=== PATIENT | male | born 1960 | race Caucasian/White ===

== ENCOUNTER → 2018-03-29 | Outpatient (CLI) | payer OTHER ==
--- NOTE | 2018-03-29 09:11 | CT ---
EXAMINATION TYPE: CT chest w con DATE OF EXAM: 03/29/2018 COMPARISON: None HISTORY: 57-year-old male Solitary Pulmonary Nodule TECHNIQUE: Contiguous axial scanning of the chest after the administration of 100 ml mL of Isovue 300 . Coronal/sagittal reconstructions performed. CT DLP: 250.20mGycm. Automatic exposure control utilized for a dose reduction. FINDINGS: Heart is normal size without pericardial effusion. Aorta normal caliber with bovine configuration to the aortic arch. Incidental 3 pulmonary veins are n oted on the right. No thoracic lymphadenopathy. There is moderate to advanced emphysema greatest in the upper lungs. Some strandy atelectasis or scar ring at the lung bases but with a 1.2 cm spiculated density at the medial left upper lobe, axial imag e 13. Visualized upper abdomen shows rectus diastases and fat-containing ventral abdominal wall hernias, po ssibly incisional hernias. Correlate for prior surgery. Bones: No osseous destructive process. Endplate spondylosis mid to lower thoracic spine. IMPRESSION: 1. COPD with moderate to advanced emphysema particularly in the upper lungs. 2. 1.2 cm spiculated density medial left upper lobe. Small early lung cancer is not excluded. 3 month follow-up CT and/or PET CT recommended. 3. Visualized upper abdomen shows rectus diastases and omental fat-containing ventral hernias, possib le incisional hernias if there was prior surgery.
== END | disposition home or self-care (01) ==
LOC: RADCTMAIN 07:52
PROVIDERS: ATTEND Family Medicine
DX: J43.9 Emphysema, unspecified (principal)
CPT/HCPCS: 71260; Q9967

== ENCOUNTER → 2018-05-12 | Outpatient (CLI) | payer OTHER ==
--- NOTE | 2018-05-15 17:32 | PE ---
Nuclear medicine PET/CT HISTORY: Solitary pulmonary nodule, initial Patient received 12.7 mCi F-18 FDG intravenously in delayed scanning performed from the skull base to the mid thighs. Localization and attenuation correction CT scan performed. Correlation to CT chest 03/29/2018 Neck and chest: There is no evident cervical adenopathy. No mediastinal, axillary, or hilar adenopath y. Emphysema is extensive. Stellate density present at the apex on the left upper lobe is again noted measuring approximately 11 mm with pleural extension is, hypermetabolic uptake SUV of only 1.5. Smal l focus of uptake present along the skin posterior to the right shoulder shows only mild elevation, S UV 1.7 Abdomen pelvis: Possible small hiatal hernia. There is no evident adrenal mass. No suspicious hyperme tabolic uptake. No retroperitoneal adenopathy. High dense material present at the level of the head o f the pancreas. Urinary bladder shows a thickened which could be due to chronic outlet obstruction or possibly cystitis. Osseous structures are within normal limits. IMPRESSION: Hypermetabolic uptake is associated with the left upper lobe stellate mass as described. Additional focus at the skin posterior to the right shoulder, correlate clinically. Spleen is enlarge d. Splenomegaly. Additional nonspecific findings described above.
== END ==
LOC: RADPETMAIN 10:24
PROVIDERS: ATTEND Internal Medicine Pulmonary Disease
DX: R91.8 Other nonspecific abnormal finding of lung field (principal); R16.0 Hepatomegaly, not elsewhere classified; J43.9 Emphysema, unspecified
CPT/HCPCS: 78815; A9552

== ENCOUNTER → 2018-06-14 | Outpatient (CLI) | payer OTHER ==
[2018-06-14 10:11] LABS: Basophils % (A) 0 %; Eosinophils # (A) 0.1 k/uL (0-0.7); Eosinophils % (A) 1 %; HCT 43.3 % (39.0-53.0); HGB 13.7 gm/dL (13.0-17.5); Lymphocytes # (A) 0.6 k/uL (1.0-4.8); Lymphocytes % (A) 14 %; MCH 32.8 pg (25.0-35.0); MCHC 31.6 g/dL (31.0-37.0); MCV 103.9 fL (80.0-100.0); Macrocytosis Slight; Mean Platelet Volume 8.5; Monocytes # (A) 0.3 k/uL (0-1.0); Monocytes % (A) 7 %; Neutrophils # (A) 3.1 k/uL (1.3-7.7); Neutrophils % (A) 75 %; RBC 4.17 m/uL (4.30-5.90); RDW 11.7 % (11.5-15.5); WBC 4.2 k/uL (3.8-10.6)
[2018-06-14 10:13] LABS: Partial Thromboplastin Time 22.6 sec (22.0-30.0)
[2018-06-14 10:27] LABS: Anion Gap 10 mmol/L; Blood Urea Nitrogen 8 mg/dL (9-20); Carbon Dioxide 24 mmol/L (22-30); Chloride 101 mmol/L (98-107); Glucose 101 mg/dL (74-99); Magnesium 1.8 mg/dL (1.6-2.3); Sodium 135 mmol/L (137-145)
[2018-06-14 10:54] LABS: Platelet Count 63 k/uL (150-450)
[2018-06-14 13:51] LABS: Prothrombin Time 9.8 sec (9.0-12.0)
== END ==
LOC: LABPAT 09:28
PROVIDERS: ATTEND Thoracic Surgery (Cardiothoracic Vascular Surgery)
DX: Z01.812 Encounter for preprocedural laboratory examination (principal); R91.1 Solitary pulmonary nodule; E86.0 Dehydration
CPT/HCPCS: 36415; 80051; 82565; 82947; 83735; 84520; 85025; 85610; 85730

== ENCOUNTER 2018-06-25 06:13 | Day surgery (SDC) | payer OTHER ==
[2018-06-22 10:53] VITALS: BMI 25.2
[~2018-06-25 06:13] MED LIST: ALPRAZolam 0.25 MG TAB PO PRN; ALPRAZolam 0.5 MG TAB PO PRN; ASPIRIN 325 MG TAB PO STA; ATORVASTATIN 80 MG TAB PO STA; NITROGLYCERIN SL TABS 0.4 MG TAB SUBLINGUAL PRN; SODIUM CHLORIDE 0.9% 1,000 ML in EMPTY BAG 1 BAG IV ONE
[2018-06-25] MEDS ORDERED: SODIUM CHLORIDE 0.9% 1,000 ML IV ONE (07:05)
[2018-06-25 07:06] VITALS: TEMP 97.7
[2018-06-25] MEDS ORDERED: VERAPAMIL 2.5 MG/ML 2 ML AMP ONE (07:22)
[2018-06-25] MEDS ORDERED: MIDAZOLAM 2 MG/2 ML VIAL ONE ×2 (07:22→08:01)
[2018-06-25] MEDS ORDERED: HEPARIN SODIUM 1,000 UN/ML (10ML VL) ONE (07:23)
[2018-06-25] MEDS ORDERED: LIDOCAINE 1% INJ 10MG/ML (20 ML MDV) ONE (07:23)
[2018-06-25] MEDS ORDERED: MIDAZOLAM 2 MG/2 ML VIAL IV ONE ×3 (07:52→08:02)
[2018-06-25] MEDS ORDERED: LIDOCAINE 1% (PF) 10MG/ML VIAL SQ ONE (07:54)
[2018-06-25] MEDS ORDERED: VERAPAMIL SYRINGE (5 MG/10 ML) INTRAARTER ONE ×2 (07:55→08:07)
[2018-06-25] MEDS ORDERED: IOPAMIDOL-370 125ML BTL INJ ONE (08:03)
[2018-06-25] MEDS ORDERED: RX INFO: IV CONTRAST WAS GIVEN 1 EACH MISC MISCELLANE PRN (08:10)
[2018-06-25] MEDS ORDERED: SODIUM CHLORIDE 0.9% 1,000 ML IV SCH (08:15)
[2018-06-25 08:21] VITALS: RESP 16
--- NOTE | 2018-06-25 12:51 | CC ---
CARDIAC CATHETERIZATION REPORT DATE OF THE STUDY: 06/25/2018 PERFORMING PHYSICIAN: Juan Carlos Ferrera MD. PROCEDURE PERFORMED: 1. Selective right and left coronary angiogram. 2. Left heart catheterization. INDICATION: This is a pleasant 58-year-old gentleman who is a smoker who was diagnosed recently with a lung mass and he is going to undergo surgery. He underwent a myocardial perfusion imaging stress test and that showed that showed inferior ischemia. Because of that, a heart catheterization was advised. APPROACH: Right radial artery. COMPLICATION: None. LEVEL OF SEDATION: Moderate sedation length of 10 minutes. PROCEDURE DESCRIPTION: After obtaining an informed consent, the patient was brought to the cardiac brine room laborer. The right radial artery was cannulated using micropuncture technique and a micropuncture wire passed easily. Then I placed a 5-[place] Islander sheath in the right radial artery. After that, I did selective right and left coronary angiogram using JR4 and JL3.5 catheters. Left heart catheterization was performed using the JR4 which flipped into the LV then I did pullback across the aortic valve. The procedure was completed without any complication. LEFT CORONARY ANGIOGRAM: 1. The right coronary artery is a large caliber vessel. It is a dominant vessel. The RCA in the midportion by the bifurcation of the acute marginal branch has a lesion, appeared to be in the range of 50% to 60%. 2. The left main is angiographically normal, it bifurcates into left circumflex, ramus intermedius, and left anterior descending artery. 3. The left circumflex is a large caliber vessel. It is a nondominant vessel. It is angiographically normal. 4. The ramus intermedius is a large caliber vessel and also is angiographically normal. It bifurcates into 2 subbranches, both are angiographically normal. 5. The LAD: The LAD is angiographically normal. It gives rise into multiple small diagonal branches and they are angiographically normal. CONCLUSION: Intermediate disease involving the mid right coronary artery, appeared to be in the range of 50% to 60%.. POSTPROCEDURE MANAGEMENT: 1. Giving the disease in the mid RCA which is not critical, and in view of the thrombocytopenia, as well as in view of the absence of chest pain and chest discomfort, I do recommend maximized medical treatment and follow up with the patient. 2. I would continue following up with the patient after the surgery. MMODL / IJN: [id number] /
[2018-06-25 13:02] VITALS: BP 121/72; PULSE 69
--- NOTE | 2018-06-25 14:06 | LTR ---
Date of Service: 06/25/2018 RE: Bakari Sevilla Dear Dr. Bhatt; Bakari Sevilla was referred to me for further cardiac evaluation before lung surgery. He underwent a myocardial perfusion imaging stress test and that revealed inferior ischemia. Subsequently, the heart catheterization showed intermediate disease involving the mid right coronary artery, appeared to be in the range of 50% to 60%. I did recommend maximized medical treatment and follow up with him. I want to thank you for allowing me to participate in his care and please do not hesitate to call if you have any question or concern. Sincerely, Juan Carlos Ferrera MD MMMILADYSL / MATAN: [id number] /
== END 2018-06-25 13:02 | disposition home or self-care (01) ==
LOC: CATHCVL 06:13
PROVIDERS: ATTEND Internal Medicine Interventional Cardiology
DX: I25.110 Atherosclerotic heart disease of native coronary artery with unstable angina pectoris (principal); F17.200 Nicotine dependence, unspecified, uncomplicated; Z82.49 Family history of ischemic heart disease and other diseases of the circulatory system; Z79.899 Other long term (current) drug therapy
CPT/HCPCS: 93458; J2250; J2001; Q9967

== ENCOUNTER → 2018-07-03 | Outpatient (CLI) | payer OTHER ==
[2018-07-03 13:05] LABS: Basophils % (A) 1 %; Eosinophils # (A) 0.1 k/uL (0-0.7); Eosinophils % (A) 2 %; HCT 40.8 % (39.0-53.0); HGB 13.6 gm/dL (13.0-17.5); Lymphocytes # (A) 1.1 k/uL (1.0-4.8); Lymphocytes % (A) 21 %; MCH 33.2 pg (25.0-35.0); MCHC 33.4 g/dL (31.0-37.0); MCV 99.6 fL (80.0-100.0); Monocytes # (A) 0.4 k/uL (0-1.0); Monocytes % (A) 8 %; Neutrophils # (A) 3.5 k/uL (1.3-7.7); Neutrophils % (A) 66 %; RDW 12.2 % (11.5-15.5); WBC 5.4 k/uL (3.8-10.6)
[2018-07-03 13:09] LABS: Platelet Count 107 k/uL (150-450)
== END | disposition home or self-care (01) ==
LOC: LABPAT 11:10
PROVIDERS: ATTEND Thoracic Surgery (Cardiothoracic Vascular Surgery)
DX: Z01.812 Encounter for preprocedural laboratory examination (principal)
CPT/HCPCS: 36415; 85025

== ENCOUNTER 2018-07-06 07:48 | Inpatient (IN) | payer OTHER ==
[2018-06-29 15:26] VITALS: BMI 24.7
[~2018-07-06 07:48] MED LIST changes: -ALPRAZolam 0.25 MG TAB PO PRN; -ALPRAZolam 0.5 MG TAB PO PRN; -ASPIRIN 325 MG TAB PO STA; -ATORVASTATIN 80 MG TAB PO STA; +DEXAMETHASONE SOD PHOSPHATE 10 MG/ML 1 ML VIAL IV ONE; +MIDAZOLAM 2 MG/2 ML VIAL IV PRN; -NITROGLYCERIN SL TABS 0.4 MG TAB SUBLINGUAL PRN; +ONDANSETRON 4 MG/2 ML VIAL IVP ONE; +SCOPOLAMINE 1.5MG/72HR PATCH TRANSDERM ONE; -SODIUM CHLORIDE 0.9% 1,000 ML in EMPTY BAG 1 BAG IV ONE; +ceFAZolin IN SWFI 2 GM/20 ML SYRINGE IVP ONE; +fentaNYL (PF) 50 MCG/ML 2 ML AMP IV PRN
[2018-07-06] MEDS: LACTATED RINGERS 1,000 ML IV SCH (08:26)
[2018-07-06] MEDS ORDERED: LIDOCAINE 1% 20 ML VIAL (10MG/ML) FOR IV START INTRADERMA ONE (08:26)
[2018-07-06] MEDS ORDERED: NALOXONE 0.4 MG/ML 1 ML VIAL IV PRN (09:19)
[2018-07-06] MEDS ORDERED: LIDOCAINE 1% INJ 10MG/ML (20 ML MDV) ONE (10:18)
[2018-07-06] MEDS ORDERED: SUCCINYLCHOLINE CHLORIDE 100 MG/5 ML SYR IV ONE (10:18)
[2018-07-06] MEDS ORDERED: fentaNYL (PF) 50 MCG/ML 2 ML AMP ONE (10:18)
[2018-07-06] MEDS ORDERED: MIDAZOLAM 2 MG/2 ML VIAL ONE (10:18)
[2018-07-06] MEDS ORDERED: PROPOFOL 10 MG/ML 20 ML VIAL IV ONE (10:18)
[2018-07-06] MEDS ORDERED: HEPARIN SODIUM,PORCINE 10,000 UNIT/ML 1 ML VIAL ONE (10:18)
[2018-07-06] MEDS ORDERED: ROCURONIUM BROMIDE 10 MG/ML 10 ML VIAL IV ONE (10:18)
[2018-07-06] MEDS ORDERED: HYDROmorphone (PF) 1 MG/ML ONE (10:18)
[2018-07-06] MEDS ORDERED: PHENYLEPHRINE-0.9% NACL SYG 1 MG/10 ML SYRINGE ONE (10:18)
[2018-07-06] MEDS ORDERED: SODIUM CHLORIDE 0.9% IRRIG 1,000 ML BTL IRRIGATION ONE (10:18)
[2018-07-06] MEDS ORDERED: LABETALOL 5 MG/ML VIAL MDV ONE (10:18)
[2018-07-06] MEDS ORDERED: LACTATED RINGERS 1,000 ML IV ONE ×3 (11:05→12:23)
[2018-07-06] MEDS ORDERED: BUPIVACAINE (PF) 0.25% 30 ML VIAL SQ ONE (11:44)
[2018-07-06] MEDS: ROPIVACAINE 250 MG, fentaNYL (PF) 1,250 MCG in SODIUM CHLORIDE 0.9% 175 ML EPIDURAL PRN ×3 (13:54→14:53)
--- NOTE | 2018-07-06 13:56 | OP ---
OPERATIVE REPORT DATE OF THE OPERATION: 07/06/2018 ATTENDING SURGEON: Dr. Dani Issa. ASSIST: Mr. Bony DaoBELLA. PREOPERATIVE DIAGNOSIS: Left upper lobe lung mass. POSTOPERATIVE DIAGNOSIS: Left upper lobe lung mass. PROCEDURE: Left thoracotomy, wedge resection of left upper lobe mass, followed by left upper lobectomy, mediastinal lymph node dissection. ANESTHESIA: General. BLOOD LOSS: About 100 mL. SUMMARY: The patient brought to the operating, placed in supine position. From insertion of general tracheal anesthetic, placement of a double-lumen endotracheal tube under bronchoscopic vision, a complete bronchoscopy was performed which showed no endobronchial lesions present in either of the right or left mainstem or subsegmental bronchi. The patient was then positioned in the right lateral decubitus position exposing the left chest. The left chest was then prepped and draped in normal sterile fashion using Betadine paint and sterile towels. A posterior lateral thoracotomy incision was made. The latissimus was divided. The serratus was spared. Entrance was made into the fourth intercostal space. The left lung was deflated. Upon palpation, there was palpably about a 1 cm nodule in the left upper lobe. A wedge resection nodule was taken and sent to pathology. 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 At this point, the fissure was divided. The pulmonary artery branches to the left upper lobe were isolated, doubly ligated proximally, singly ligated distally and divided. The big apical anterior trunk of the pulmonary artery was isolated. A TA 30 vascular stapler was fired across the base and the distal end was suture ligated and it was also divided. At this point, both fissures were then divided using the ANTONIO 60 stapling device with the built-in SeamGuard. Next, the bronchus to the left upper lobe was isolated. A TA 30 4.8 mm staple stapler was fired across the base and the bronchus was divided. At this point, before dividing it, the lung was inflated and the lower lobe inflated without any difficulty. The stump was tested against 40 mmHg pressure and there was no bronchial leak At this point, lastly, the superior pulmonary vein was isolated using a TA 30 vascular stapling device was fired towards the heart and tied distally and it was then divided. The specimen was sent to pathology. Hemostasis was maintained. At this point, lymph nodes were then dissected from the AP window as well as the inferior pulmonary ligament region. The inferior pulmonary ligament was also frayed to allow full expansion of the lung. Two chest tubes were placed, #32-Divehi anterior and posterior and brought out through separate stab incisions. The ribs were reapproximated using #1 Vicryl pericostal sutures. Muscle using running 0 Vicryl suture. Skin subcutaneous tissue and fascia closed in 3 layers. No complications. Patient tolerated the procedure well, was extubated and taken to the recovery room in ICU in critical but stable condition. MMODL / IJN: [id number] /
[2018-07-06] MEDS ORDERED: ACETAMINOPHEN SUPPOSITORY 650 MG SUPP RECTAL PRN (13:59)
[2018-07-06] MEDS ORDERED: IPRATROPIUM-ALBUTEROL 3 ML NEB IH PRN (13:59)
[2018-07-06] MEDS ORDERED: ONDANSETRON 4 MG/2 ML VIAL IVP PRN (13:59)
[2018-07-06] MEDS ORDERED: BISACODYL 10 MG SUPP RECTAL PRN (13:59)
[2018-07-06] MEDS ORDERED: DEXTROSE 5%-0.45% NACL 1,000 ML IV SCH (14:00)
[2018-07-06] MEDS: KETOROLAC 30 MG/ML 1 ML VIAL IVP SCH ×2 (14:44→17:59)
--- NOTE | 2018-07-06 15:06 | XR ---
EXAMINATION TYPE: XR chest 1V DATE OF EXAM: 07/06/2018 HISTORY: Postoperative left upper lobectomy. COMPARISON: None. TECHNIQUE: Single view of the chest is submitted. FINDINGS: Findings of left upper lobectomy with 2 left-sided chest tubes in place. No evidence for sizable pneu mothorax at this time. Mild elevation left hemidiaphragm. Strandy density right medial lung base. The heart is stable. Hilar and mediastinal structures are unremarkable. Degenerative changes are seen of the dorsal spine. IMPRESSION: 1. Postoperative changes as noted.
--- NOTE | 2018-07-06 15:53 | P.CNPUL ---
History of Present Illness Consult date: 07/06/18 Requesting physician: Dani Issa Reason for consult: lung mass Chief complaint: Left upper lobe lung mass, s/p left thoracotomy, wedge resection. History of present illness: This is a 58-year-old white male patient of Dr. Issa, with history of left upper lobe lung mass, who underwent left thoracotomy, wedge resection of left upper lobe mass, followed by left upper lobectomy, mediastinal lymph node dissection today on 07/06/2018. Patient was first found to have a small nodule in the left upper lung in 2015, in [place]. Patient subsequently moved to [place] became established with Dr. Bhatt as his primary care physician, and Dr. Sagastume ready for home in her care. PET scan on on 05/12/2018 showed a low- level uptake in his left upper lobe lesion with SUV of 1.5. The lesion was noted to be 1.1 cm with possible pleural extension. No other areas suspicious for metastasis were noted. There was splenomegaly noted on the PET scan. She is medical history is positive for COPD, long-standing history of heavy alcohol abuse with chronic alcoholic liver disease, nicotine dependence, Crohn's disease , with history of bowel perforation and bowel resection. Patient was evaluated by cardiology as, he had undergone heart catheterization, and was found to have intermediate disease involving the mid RCA in the range of 50-60%. Preop PFT not available to us at this time. Patient states he is on inhalers but she does not remember what type, and he had not been taken them. Patient is a 43- pack-year smoker. Patient was noted to have thrombocytopenia in the preoperative period in the range of 63,000, this was likely related to his history of daily EtOH use. Today's lab work showed FVC of 5.4, hemoglobin 13.6 , platelet count is 107. Patient is seen in the intensive care unit in the postoperative period, is having moderate to severe pain in his back, currently on epidural infusion at 10 ML per hour of ropivacaine and fentanyl. Review of Systems Respiratory: Reports dyspnea Past Medical History Past Medical History: COPD, Osteoarthritis (OA) Additional Past Medical History / Comment(s): "spot on left lung", crohns, SOB, hx "problem with decreased liver function-ok now", hx ruptured intestine from bowel obstructions, back pain History of Any Multi-Drug Resistant Organisms: None Reported Past Surgical History: Back Surgery, Bowel Resection, Heart Catheterization, Orthopedic Surgery, Tonsillectomy Additional Past Surgical History / Comment(s): colonoscopy, fx ric little fingers(pins), Past Anesthesia/Blood Transfusion Reactions: No Reported Reaction Past Psychological History: No Psychological Hx Reported Smoking Status: Current every day smoker Past Alcohol Use History: Daily Additional Past Alcohol Use History / Comment(s): trying to quit, on chantix, was up to 2 PPD-DOWN TO 1 PPD, started smoking age 15. DRINKS 12 PACK BEER DAILY Past Drug Use History: Marijuana Additional Drug Use History / Comment(s): rare marijuana - Past Family History Father Family Medical History: Cancer Additional Family Medical History / Comment(s): lung cancer Daughter(s) Family Medical History: Cancer Additional Family Medical History / Comment(s): breast cancer Medications and Allergies Home Medications Medication Instructions Recorded Confirmed Type Varenicline Tartrate [Chantix 1 mg PO BID 06/13/18 07/06/18 History Continuing Pack] Aspirin [Adult Low Dose Aspirin EC] 81 mg PO DAILY 06/29/18 07/06/18 History Atorvastatin [Lipitor] 40 mg PO DAILY 06/29/18 07/06/18 History Allergies Allergy/AdvReac Type Severity Reaction Status Date / Time morphine Allergy Unknown Verified 06/29/18 15:27 Sulfa (Sulfonamide Allergy Unknown Verified 06/29/18 15:14 Antibiotics) Physical Exam Vitals: Vital Signs Temp Pulse Pulse Resp BP Pulse Ox 07/06/18 14:50 78 18 121/65 98 07/06/18 14:35 78 18 127/72 100 07/06/18 14:20 81 18 125/69 99 07/06/18 14:05 88 18 134/70 100 07/06/18 13:50 97.9 F 84 16 140/82 100 07/06/18 08:11 96.8 F L 125 H 18 175/80 96 Intake and Output 07/06/18 07/06/18 07/06/18 06:59 14:59 22:59 Intake Total 2625 Output Total 300 Balance 2325 Intake: IV 2625 Output: Urine 200 Estimated Blood Loss 100 GENERAL EXAM: Alert, pleasant 58-year-old white male, thin, disheveled, in moderate to severe amount of pain in his back. he has an epidural catheter inserted, currently on ropivacaine and fentanyl at 10 ML per hour HEAD: Normocephalic/atraumatic. EYES: Normal reaction of pupils, equal size. Conjunctiva pink, sclera white. NOSE: Clear with pink turbinates. THROAT: No erythema or exudates. NECK: No masses, no JVD, no thyroid enlargement, no adenopathy. CHEST: No chest wall deformity. Symmetrical expansion. There are 2 chest tubes present to continuous wall suction in the left chest small amount of serosanguineous drainage in the Pleur-evac, there is a small air leak noted in the chest tubes LUNGS: Equal air entry with crackles over left lower lobe, wheeze, rhonchi or dullness. CVS: Regular rate and rhythm, normal S1 and S2, no gallops, no murmurs, no rubs ABDOMEN: Soft, nontender. No hepatosplenomegaly, normal bowel sounds, no guarding or rigidity. EXTREMITIES: No clubbing, no edema, no cyanosis, 2+ pulses and upper and lower extremities. MUSCULOSKELETAL: Muscle strength and tone normal. SPINE: No scoliosis or deformity SKIN: No rashes CENTRAL NERVOUS SYSTEM: Alert and oriented -3. No focal deficits, tone is normal in all 4 extremities. PSYCHIATRIC: Alert and oriented -3. Appropriate affect. Intact judgment and insight. Results - Diagnostic Findings Chest x-ray: report reviewed, image reviewed Assessment and Plan Plan: Assessment: #1. Left upper lobe lung mass, with hypermetabolic uptake on the PET scan, but no evidence of metastatic disease, status post left thoracotomy, with wedge resection of left upper lobe mass, followed by left upper lobectomy, mediastinal lymph node dissection, postop day 0 #2. Thrombocytopenia, related to heavy EtOH use #3. COPD #4. Chronic and ongoing nicotine dependence, 12-iamr-vrbn smoker #5. Splenomegaly #6. History of abnormal stress test, and left heart catheterization which revealed intermediate disease involving the mid RCA #7. Hx of Crohn's disease with previous history of bowel obstruction, perforation, and bowel resection Plan: Patient will be admitted to the intensive care unit, maintain pain control, deep breathing and coughing, incentive spirometry use, daily chest x-rays. Postop chest x-ray has been reviewed by Dr. Bustamante, and showed no evidence of sizable pneumothorax, mild elevation of the left hemidiaphragm, strandy density at the right medial lung base. Continue monitoring closely for any signs of DTs. We'll start CIWA protocol. Continue with DuoNeb nebulized treatments Monitor chest tube output, hemodynamic status. Daily labs, CBC, BMP. We'll continue to closely follow I performed a history & physical examination of the patient and discussed their management with my nurse practitioner, Richa Crawford. I reviewed the nurse practitioner's note and agree with the documented findings and plan of care. Lung sounds are diminished breath sounds, with scattered crackles over left lung. The findings and the impression was discussed with the patient. I attest to the documentation by the nurse practitioner. Time with Patient: Greater than 30
[2018-07-06 15:56] LABS: Glucose,Whole Blood 118 mg/dL (75-99)
[2018-07-06 16:16] LABS: Anion Gap 9 mmol/L; Blood Urea Nitrogen 10 mg/dL (9-20); Calcium 8.3 mg/dL (8.4-10.2); Carbon Dioxide 21 mmol/L (22-30); Chloride 105 mmol/L (98-107); Glucose 125 mg/dL (74-99); Potassium 4.6 mmol/L (3.5-5.1); Sodium 135 mmol/L (137-145)
[2018-07-06 16:25] LABS: Basophils % (A) 0 %; Eosinophils % (A) 0 %; HCT 41.1 % (39.0-53.0); HGB 12.8 gm/dL (13.0-17.5); Lymphocytes # (A) 0.3 k/uL (1.0-4.8); Lymphocytes % (A) 6 %; MCHC 31.2 g/dL (31.0-37.0); Macrocytosis Slight; Mean Platelet Volume 7.9; Monocytes # (A) 0.3 k/uL (0-1.0); Monocytes % (A) 5 %; Neutrophils # (A) 5.4 k/uL (1.3-7.7); Neutrophils % (A) 88 %; RBC 3.88 m/uL (4.30-5.90); RDW 12.1 % (11.5-15.5); WBC 6.1 k/uL (3.8-10.6)
[2018-07-06 16:26] LABS: Platelet Count 63 k/uL (150-450)
[2018-07-06] MEDS: IPRATROPIUM-ALBUTEROL 3 ML NEB IH SCH ×2 (16:35→20:53)
[2018-07-06] MEDS: HEPARIN SODIUM,PORCINE 5,000 UNIT/ML 1 ML VIAL SQ SCH (17:43)
[2018-07-06] MEDS: ceFAZolin IN SWFI 2 GM/20 ML SYRINGE IVP SCH (17:43)
[2018-07-06] MEDS: ACETAMINOPHEN IV (For NPO) 1,000 MG in EMPTY BAG 1 BAG IVPB SCH (17:44)
[2018-07-06] MEDS ORDERED: BACLOFEN 10 MG TAB PO PRN (19:29)
[2018-07-06] MEDS: HYDROmorphone 1 MG/ML 1 ML SYRINGE IVP PRN (20:42)
[2018-07-06] MEDS: VARENICLINE 1 MG TAB PO SCH (22:35)
[2018-07-07] MEDS: HYDROmorphone 1 MG/ML 1 ML SYRINGE IVP PRN ×6 (00:32→23:36)
[2018-07-07] MEDS: HEPARIN SODIUM,PORCINE 5,000 UNIT/ML 1 ML VIAL SQ SCH ×4 (01:08→23:37)
[2018-07-07] MEDS: KETOROLAC 30 MG/ML 1 ML VIAL IVP SCH ×2 (01:08→05:26)
[2018-07-07] MEDS: ACETAMINOPHEN IV (For NPO) 1,000 MG in EMPTY BAG 1 BAG IVPB SCH ×3 (01:08→11:41)
[2018-07-07] MEDS: ceFAZolin IN SWFI 2 GM/20 ML SYRINGE IVP SCH (01:09)
[2018-07-07 05:47] LABS: Basophils % (A) 0 %; Eosinophils % (A) 1 %; HCT 34.8 % (39.0-53.0); HGB 11.5 gm/dL (13.0-17.5); Lymphocytes # (A) 0.4 k/uL (1.0-4.8); Lymphocytes % (A) 11 %; MCH 33.3 pg (25.0-35.0); Mean Platelet Volume 9.5; Monocytes # (A) 0.3 k/uL (0-1.0); Monocytes % (A) 7 %; Neutrophils % (A) 78 %; RBC 3.46 m/uL (4.30-5.90); RDW 12.2 % (11.5-15.5); WBC 3.9 k/uL (3.8-10.6)
[2018-07-07 05:51] LABS: Platelet Count 43 k/uL (150-450)
[2018-07-07 05:52] LABS: MCV 100.8 fL (80.0-100.0)
[2018-07-07 05:57] LABS: ALT 37 U/L (21-72); AST 46 U/L (17-59); Albumin 2.9 g/dL (3.5-5.0); Alkaline Phosphatase 48 U/L (38-126); Anion Gap 3 mmol/L; Blood Urea Nitrogen 8 mg/dL (9-20); Calcium 7.9 mg/dL (8.4-10.2); Carbon Dioxide 27 mmol/L (22-30); Chloride 100 mmol/L (98-107); Glucose 119 mg/dL (74-99); Sodium 130 mmol/L (137-145); Total Bilirubin 0.7 mg/dL (0.2-1.3); Total Protein 5.5 g/dL (6.3-8.2)
--- NOTE | 2018-07-07 06:14 | XR ---
EXAMINATION TYPE: XR chest 1V DATE OF EXAM: 07/07/2018 HISTORY: Postoperative left upper lobectomy.. REFERENCE: Previous study dated 07/06/2018. FINDINGS: 2 left pleural drains remain in place. There is left-sided volume loss. There is elevation left hemidiaphragm. Heart size is normal. There is no significant airspace disease. Pleural spaces ar e clear. IMPRESSION: CONTINUING POSTOPERATIVE CHANGE.
[2018-07-07] MEDS ORDERED: HYDROmorphone 1 MG/ML 1 ML SYRINGE IM PRN (07:53)
[2018-07-07] MEDS ORDERED: LORazepam 2 MG/ML INJ IV PRN (07:56)
[2018-07-07] MEDS: IPRATROPIUM-ALBUTEROL 3 ML NEB IH SCH ×4 (08:00→21:29)
--- NOTE | 2018-07-07 08:31 | CONS ---
CONSULTATION Bakari Sevilla is a 58-year-old male who has a known history of COPD, who was referred by me to Dr. Dani sIsa thoracic surgery because of the left upper lobe nodule. This was PET scan positive. Subsequently, he was worked up by Cardiology and was found to have some coronary artery disease, but noncritical. He has a known history of COPD with an FEV1 of 2.84 L preoperatively. He subsequently underwent left upper lobectomy, which on preliminary frozen section showed evidence of carcinoma. Subsequently, left upper lobe resection along with lymph node dissection was performed. He is in the ICU in the postoperative. He has been extubated and has chest tubes in place on the left side. He is complaining of pain on the left side at this time, is hardly able to take a breath. He otherwise seems to be doing fair. PAST MEDICAL HISTORY: Positive for COPD, history of previous cardiac catheterization, bowel resection. SOCIAL HISTORY: Patient smoked 1-2 packs of cigarettes per day. He used to be in the [employer] and may have been exposed to asbestos. He drinks a 12 pack of beer every day. FAMILY HISTORY: Positive for lung cancer in his father. Breast cancer in his daughter. MEDICATIONS: Prior to admission were Chantix, Lipitor, aspirin. REVIEW OF SYSTEMS: Noncontributory other than for what is described in the history of present illness and past medical history. PHYSICAL EXAMINATION: Blood pressure is 128/72, respiratory rate of 12, pulse rate of 80, O2 saturation on 2 L by nasal cannula is 99%. HEENT reveals pupils that are equal. No jugular venous distention. Chest reveals decreased breath sounds on the left with chest tubes in place with sanguinous fluid in the pleural space draining into the chest tube. Decreased breath sounds on the left. Some decreased breath sounds on the right. Prolonged exhalation. No clear wheeze. Cardiovascular system reveals an S1, S2. Abdomen is soft. There is no pedal edema. Chest x-rays shows chest tubes in place on the left. No clear pneumothorax. White count of 6.1, hemoglobin of 12.8. Sodium 135, potassium 4.6, chloride 105, bicarb 21, glucose is 128, BUN 10, creatinine 0.76. IMPRESSION: At this time: 1. Non-small cell cancer of the lung is likely, status post left upper lobectomy with lymph node dissection. 2. Chronic obstructive pulmonary disease. 3. Nicotine dependence. 4. Alcoholism. At this point in time from a pulmonary standpoint, encourage incentive spirometry. Get his pain under better control. Keep him on supplemental oxygen as needed. Keep him on bronchodilators. We appreciate Thoracic Surgery evaluation and intervention in this patient. We will also watch for alcohol withdrawal. Depending on how he does we shall make further changes to his care. JEREL / GIANNA: [id number] /
--- NOTE | 2018-07-07 08:32 | P.PN ---
Progress Note - Text Progress Note Date: 07/07/18 58-year-old male status post left thoracotomy postop day #1. Patient had a T5- T6 epidural catheter placed providing him with good relief in the postoperative period. Early this morning epidural catheter was accidentally displaced and therefore removed. Patient will continue on IV when necessary Dilaudid. Patient also is a chronic alcoholic and on CIWA protocol.
[2018-07-07] MEDS: PANTOPRAZOLE 40 MG TABLET PO SCH (09:12)
[2018-07-07] MEDS: ASPIRIN 81 MG PO SCH (09:12)
[2018-07-07] MEDS: ATORVASTATIN 40 MG TAB PO SCH (09:13)
[2018-07-07] MEDS: VARENICLINE 1 MG TAB PO SCH ×2 (09:13→21:34)
[2018-07-07] MEDS: LACTATED RINGERS 1,000 ML IV SCH (09:16)
--- NOTE | 2018-07-07 09:54 | P.PN ---
Subjective Progress Note Date: 07/07/18 Principal diagnosis: Left upper lobe mass. Previous medical history of COPD, daily alcohol abuse, alcoholic liver disease, nicotine dependence, Crohn's disease, bowel perforation with resection, occasional marijuana use, and preoperative thrombocytopenia. POD #1 left thoracotomy, wedge resection of the left upper lobe mass, followed by left upper lobectomy, mediastinal lymph node dissection. The patient currently sitting up in bed in no acute distress. Does complain of left-sided chest pain which is mostly controlled on current medication regimen. Denies shortness of breath. Remains hemodynamically stable in the intensive care unit. Epidural discontinued secondary to leakage. No new complaints. Objective - Vital Signs Vital signs: Vital Signs Temp 98.3 F 07/07/18 08:00 Pulse 95 07/07/18 09:00 Resp 17 07/07/18 09:00 BP 129/70 07/07/18 09:00 Pulse Ox 96 07/07/18 09:00 Intake & Output 07/06/18 07/07/18 07/07/18 18:59 06:59 18:59 Intake Total 2745 740 40 Output Total 564 1395 300 Balance 2181 -655 -260 Weight 83.9 kg Intake: IV 2745 240 40 Dextrose 5%-0.45% NaCl 1, 120 240 40 000 ml @ 40 mls/hr IV . Q24H [facility] Rx#:[id number] Intake, IV Titration 500 Amount ACETAMINOPHEN IV (For NPO 100 ) 1,000 mg In Empty Bag 1 bag @ 400 mls/hr IVPB Q6HR [facility] Rx#:[id number] Dextrose 5%-0.45% NaCl 1, 280 000 ml @ 40 mls/hr IV . Q24H [facility] Rx#:[id number] Ropivacaine 250 mg 120 fentaNYL (PF) 1,250 mcg In Sodium Chloride 0.9% 175 ml @ Per Protocol EPIDURAL .Q0M [facility] Rx#: [id number] Output: Drainage 104 480 Left Chest A 47 315 Left Chest B 57 165 Urine 350 915 300 Pleural Fluid 10 Estimated Blood Loss 100 Other: Voiding Method Indwelling Catheter Indwelling Catheter ABP, PAP, CO, CI - Last Documented Arterial Blood Pressure 136/69 - Constitutional General appearance: Present: cooperative, no acute distress - Respiratory Details: Lungs sounds diminished bilaterally, left greater than right. Respirations even , nonlabored. Currently on 2 L nasal cannula with suction saturation 93%. Able to achieve 2000 mL on his incentive spirometry. Left anterior chest tube ( labeled B) to continuous wall suction, 150 mL serosanguineous drainage overnight , 300 mL since surgery, positive small intermittent air leak present. Left posterior chest tube (labeled A) to continuous wall suction, 300 mL serosanguineous drainage overnight, 500 mL since surgery, no air leak present. - Cardiovascular Details: S1, S2 present. Regular rate and rhythm, normal sinus rhythm on telemetry. Palpable peripheral pulses bilaterally. No edema present. No calf pain or tenderness noted. SCDs present. Right radial arterial line present. - Gastrointestinal Gastrointestinal Comment(s): Abdomen soft, nontender, nondistended. Active bowel sounds 4 quadrants. Tolerating diet. Positive flatus. - Genitourinary Genitourinary Comment(s): Mendoza present draining clear, yellow urine. Output 30-50 mL per hour overnight. - Integumentary Integumentary Comment(s): Skin is warm and dry with evidence of good perfusion. Left lateral chest incisions well approximated and covered with dry intact dressing. - Neurologic Neurologic: Present: CNII-XII intact - Musculoskeletal Musculoskeletal: Present: strength equal bilaterally - Psychiatric Psychiatric: Present: A&O x's 3, appropriate affect, intact judgment & insight - Allied health notes Allied health notes reviewed: nursing - Labs CBC & Chem 7: 07/07/18 05:25 07/07/18 05:25 Labs: Abnormal Lab Results - Last 24 Hours (Table) 07/06/18 07/06/18 07/06/18 Range/Units 15:53 15:53 15:53 RBC 3.88 L (4.30-5.90) m/uL Hgb 12.8 L (13.0-17.5) gm/dL Hct (39.0-53.0) % MCV 106.0 H D (80.0-100.0) fL Plt Count 63 L (150-450) k/uL Lymphocytes # 0.3 L (1.0-4.8) k/uL Sodium 135 L (137-145) mmol/L Carbon Dioxide 21 L (22-30) mmol/L BUN (9-20) mg/dL Glucose 125 H (74-99) mg/dL POC Glucose (mg/dL) 118 H (75-99) mg/dL Calcium 8.3 L (8.4-10.2) mg/dL Total Protein (6.3-8.2) g/dL Albumin (3.5-5.0) g/dL 07/07/18 07/07/18 Range/Units 05:25 05:25 RBC 3.46 L (4.30-5.90) m/uL Hgb 11.5 L (13.0-17.5) gm/dL Hct 34.8 L (39.0-53.0) % MCV 100.8 H D (80.0-100.0) fL Plt Count 43 L (150-450) k/uL Lymphocytes # 0.4 L (1.0-4.8) k/uL Sodium 130 L (137-145) mmol/L Carbon Dioxide (22-30) mmol/L BUN 8 L (9-20) mg/dL Glucose 119 H (74-99) mg/dL POC Glucose (mg/dL) (75-99) mg/dL Calcium 7.9 L (8.4-10.2) mg/dL Total Protein 5.5 L (6.3-8.2) g/dL Albumin 2.9 L (3.5-5.0) g/dL - Imaging and Cardiology Chest x-ray: report reviewed, image reviewed Assessment and Plan (1) Lung mass Current Visit: Yes Status: Chronic Code(s): R91.8 - OTHER NONSPECIFIC ABNORMAL FINDING OF LUNG FIELD SNOMED Code(s): 435132361 (2) Tobacco dependence Current Visit: Yes Status: Chronic Code(s): F17.200 - NICOTINE DEPENDENCE, UNSPECIFIED, UNCOMPLICATED SNOMED Code(s): 63586740 (3) COPD (chronic obstructive pulmonary disease) Current Visit: Yes Status: Chronic Code(s): J44.9 - CHRONIC OBSTRUCTIVE PULMONARY DISEASE, UNSPECIFIED SNOMED Code(s): 88904694 (4) Alcohol abuse, daily use Current Visit: Yes Status: Chronic Code(s): F10.10 - ALCOHOL ABUSE, UNCOMPLICATED SNOMED Code(s): 121420681 (5) Crohns disease Current Visit: Yes Status: Chronic Code(s): K50.90 - CROHN'S DISEASE, UNSPECIFIED, WITHOUT COMPLICATIONS SNOMED Code(s): 91008246 Plan: 1. Continue chest tubes to suction. Will monitor for resolution of anterior air leak and output. 2. Pain control with current medication regimen. Dilaudid dose increased, [place] added. 3. Wean O2 as tolerated. Encourage incentive spirometry use 10 times every hour while awake. 4. Increase suction tubing to allow patient to ambulate in the room. 5. DC Mendoza catheter. 6. DC arterial line. 7. Hep-Lock IV fluids. 8. Encourage smoking and alcohol cessation. 9. C1 protocol added. 10. Will monitor daily labs and x-rays. 11. GI prophylaxis with Protonix, DVT prophylaxis with subcu heparin, SCDs. 12. More recommendations to follow. Time with Patient: Greater than 30
--- NOTE | 2018-07-07 10:51 | P.PN ---
Subjective Progress Note Date: 07/07/18 Principal diagnosis: Left upper lobe lung mass, status post left thoracotomy, wedge resection of left upper lobe mass followed by a left upper lobectomy, mediastinal lymph node dissection. This is a 58-year-old white male patient of Dr. Issa, with history of left upper lobe lung mass, who underwent left thoracotomy, wedge resection of left upper lobe mass, followed by left upper lobectomy, mediastinal lymph node dissection today on 07/06/2018. Patient was first found to have a small nodule in the left upper lung in 2015, in [place]. Patient subsequently moved to [place] became established with Dr. Bhatt as his primary care physician, and Dr. Sagastume ready for home in her care. PET scan on on 05/12/2018 showed a low- level uptake in his left upper lobe lesion with SUV of 1.5. The lesion was noted to be 1.1 cm with possible pleural extension. No other areas suspicious for metastasis were noted. There was splenomegaly noted on the PET scan. His medical history is positive for COPD, long-standing history of heavy alcohol abuse with chronic alcoholic liver disease, nicotine dependence, Crohn's disease , with history of bowel perforation and bowel resection. Patient was evaluated by cardiology as, he had undergone heart catheterization, and was found to have intermediate disease involving the mid RCA in the range of 50-60%. Preop PFT not available to us at this time. Patient states he is on inhalers but she does not remember what type, and he had not been taken them. Patient is a 43- pack-year smoker. Patient was noted to have thrombocytopenia in the preoperative period in the range of 63,000, this was likely related to his history of daily EtOH use. Today's lab work showed FVC of 5.4, hemoglobin 13.6 , platelet count is 107. Patient is seen in the intensive care unit in the postoperative period, is having moderate to severe pain in his back, currently on epidural infusion at 10 ML per hour of ropivacaine and fentanyl. The patient is seen today 07/07/2018 in follow-up in the intensive care unit. He is currently awake and alert in no acute distress. He is maintaining good O2 saturations in the mid to upper 90s on 2 L/m per nasal cannula. Chest x-ray reveals the to left pleural drains in place. There is left-sided volume loss. There is elevation of left hemidiaphragm. No significant airspace disease. Pleural spaces are clear. He's been afebrile. Hemodynamically stable. White count 3.9. Hemoglobin 11.5. Creatinine 0.75. Objective - Vital Signs Vital signs: Vital Signs Temp 98.3 F 07/07/18 08:00 Pulse 96 07/07/18 10:00 Resp 23 07/07/18 10:00 BP 123/65 07/07/18 10:00 Pulse Ox 96 07/07/18 10:00 Intake & Output 07/06/18 07/07/18 07/07/18 18:59 06:59 18:59 Intake Total 2745 740 40 Output Total 564 1395 300 Balance 6081 -862 -260 Weight 83.9 kg Intake: IV 2745 240 40 Dextrose 5%-0.45% NaCl 1, 120 240 40 000 ml @ 40 mls/hr IV . Q24H [facility] Rx#:[id number] Intake, IV Titration 500 Amount ACETAMINOPHEN IV (For NPO 100 ) 1,000 mg In Empty Bag 1 bag @ 400 mls/hr IVPB Q6HR [facility] Rx#:[id number] Dextrose 5%-0.45% NaCl 1, 280 000 ml @ 40 mls/hr IV . Q24H [facility] Rx#:[id number] Ropivacaine 250 mg 120 fentaNYL (PF) 1,250 mcg In Sodium Chloride 0.9% 175 ml @ Per Protocol EPIDURAL .Q0M PRN Rx#: [id number] Output: Drainage 104 480 Left Chest A 47 315 Left Chest B 57 165 Urine 350 915 300 Pleural Fluid 10 Estimated Blood Loss 100 Other: Voiding Method Indwelling Catheter Indwelling Catheter Indwelling Catheter ABP, PAP, CO, CI - Last Documented Arterial Blood Pressure 136/69 - Exam GENERAL EXAM: Alert, pleasant 58-year-old white male, thin, disheveled HEAD: Normocephalic/atraumatic. EYES: Normal reaction of pupils, equal size. Conjunctiva pink, sclera white. NOSE: Clear with pink turbinates. THROAT: No erythema or exudates. NECK: No masses, no JVD, no thyroid enlargement, no adenopathy. CHEST: No chest wall deformity. Symmetrical expansion. There are 2 chest tubes present to continuous wall suction in the left chest, there is a small air leak noted in the left chest tube labeled B. LUNGS: Equal air entry with crackles over left lower lobe, wheeze, rhonchi or dullness. CVS: Regular rate and rhythm, normal S1 and S2, no gallops, no murmurs, no rubs ABDOMEN: Soft, nontender. No hepatosplenomegaly, normal bowel sounds, no guarding or rigidity. EXTREMITIES: No clubbing, no edema, no cyanosis, 2+ pulses and upper and lower extremities. MUSCULOSKELETAL: Muscle strength and tone normal. SPINE: No scoliosis or deformity SKIN: No rashes CENTRAL NERVOUS SYSTEM: Alert and oriented -3. No focal deficits, tone is normal in all 4 extremities. PSYCHIATRIC: Alert and oriented -3. Appropriate affect. Intact judgment and insight. - Labs CBC & Chem 7: 07/07/18 05:25 07/07/18 05:25 Labs: Abnormal Lab Results - Last 24 Hours (Table) 07/06/18 07/06/18 07/06/18 Range/Units 15:53 15:53 15:53 RBC 3.88 L (4.30-5.90) m/uL Hgb 12.8 L (13.0-17.5) gm/dL Hct (39.0-53.0) % MCV 106.0 H D (80.0-100.0) fL Plt Count 63 L (150-450) k/uL Lymphocytes # 0.3 L (1.0-4.8) k/uL Sodium 135 L (137-145) mmol/L Carbon Dioxide 21 L (22-30) mmol/L BUN (9-20) mg/dL Glucose 125 H (74-99) mg/dL POC Glucose (mg/dL) 118 H (75-99) mg/dL Calcium 8.3 L (8.4-10.2) mg/dL Total Protein (6.3-8.2) g/dL Albumin (3.5-5.0) g/dL 07/07/18 07/07/18 Range/Units 05:25 05:25 RBC 3.46 L (4.30-5.90) m/uL Hgb 11.5 L (13.0-17.5) gm/dL Hct 34.8 L (39.0-53.0) % MCV 100.8 H D (80.0-100.0) fL Plt Count 43 L (150-450) k/uL Lymphocytes # 0.4 L (1.0-4.8) k/uL Sodium 130 L (137-145) mmol/L Carbon Dioxide (22-30) mmol/L BUN 8 L (9-20) mg/dL Glucose 119 H (74-99) mg/dL POC Glucose (mg/dL) (75-99) mg/dL Calcium 7.9 L (8.4-10.2) mg/dL Total Protein 5.5 L (6.3-8.2) g/dL Albumin 2.9 L (3.5-5.0) g/dL Assessment and Plan Assessment: Assessment: #1. Left upper lobe lung mass, with hypermetabolic uptake on the PET scan, but no evidence of metastatic disease, status post left thoracotomy, with wedge resection of left upper lobe mass, followed by left upper lobectomy, mediastinal lymph node dissection, postop day 1 #2. Thrombocytopenia, related to heavy EtOH use #3. COPD #4. Chronic and ongoing nicotine dependence, [id number] smoker #5. Splenomegaly #6. History of abnormal stress test, and left heart catheterization which revealed intermediate disease involving the mid RCA #7. Hx of Crohn's disease with previous history of bowel obstruction, perforation, and bowel resection Plan: The patient was seen and evaluated by Dr. Bustamante. Chest x-ray and labs reviewed. The patient is doing well from the pulmonary standpoint. Maintaining good O2 saturations in the 90s on 2 L/m per nasal cannula. The plan is to transfer out of the ICU today. Continue to work with the incentive spirometer. Increase his activity as tolerated. Epidural catheter discontinued due to displacement. Pain management per surgical services. We' ll continue to follow and make further recommendations based on his clinical status. Critical care time 36 minutes. I, the cosigning physician, performed a history & physical examination of the patient. Lungs sounds with few scattered rhonchi more so on the left. Maintaining good O2 saturations in the 90s on 2 L/m per nasal cannula. I discussed the assessment and plan of care with my nurse practitioner, Rosa Isela Dickerson. I attest to the above note as dictated by her. Time with Patient: Greater than 30
[2018-07-07] MEDS: MULTIVITAMINS, THERA 1 EACH TAB PO SCH (11:51)
[2018-07-07] MEDS ORDERED: HYDROcodone/APAP 5-325MG 1 EACH TAB PO PRN (12:30)
[2018-07-07] MEDS: HYDROcodone/APAP 5-325MG 1 EACH TAB PO PRN ×3 (12:41→21:33)
--- NOTE | 2018-07-07 15:43 | PN ---
PROGRESS NOTE He was seen on 07/07/2018. He is less short of breath. His pain is under better control. He is lying in bed at this time. He is in no respiratory distress. PHYSICAL EXAMINATION: Blood pressure is 132/73, respiratory rate 20, pulse rate 97, temperature 98.7, O2 saturation on 2 L by nasal cannula is 98%. HEENT is unremarkable. Chest reveals decreased breath sounds on the left with chest tubes in place. Right is relatively clear. Cardiovascular system reveals an S1, S2. Abdomen is soft. There is no pedal edema. LABS: Reveal the white count 3.9, hemoglobin of 11.5, sodium 130, potassium 4, chloride 100, bicarb 27, BUN 8, creatinine 0.75. IMPRESSION: At this time: 1. Lung cancer status post left upper lobe resection with lymph node dissection. 2. Chronic obstructive pulmonary disease. 3. Alcoholism. 4. Coronary artery disease. At this point in time, recommend increasing his activity level, incentive spirometry, pulmonary toileting measures and agree with transferring him out of the ICU. Would have Dr. Ortega Pandya from the primary care service further be consulted to evaluate this patient. Patient is a patient of Dr. Ghada Bhatt. I would like to thank you for allowing us to care for him and appreciate your intervention from a surgical perspective in this patient with lung cancer. MMODL / IJN: [id number] /
[2018-07-07] MEDS ORDERED: THIAMINE 100 MG TAB PO SCH (17:00)
[2018-07-08] MEDS: HYDROcodone/APAP 5-325MG 1 EACH TAB PO PRN ×2 (04:29→22:34)
[2018-07-08 04:47] LABS: Basophils % (A) 0 %; Eosinophils % (A) 1 %; HCT 35.7 % (39.0-53.0); Lymphocytes # (A) 0.4 k/uL (1.0-4.8); Lymphocytes % (A) 9 %; MCH 33.9 pg (25.0-35.0); MCHC 33.5 g/dL (31.0-37.0); MCV 101.2 fL (80.0-100.0); Mean Platelet Volume 9.5; Monocytes # (A) 0.3 k/uL (0-1.0); Monocytes % (A) 6 %; Neutrophils # (A) 3.8 k/uL (1.3-7.7); Neutrophils % (A) 82 %; RBC 3.53 m/uL (4.30-5.90); RDW 11.9 % (11.5-15.5); WBC 4.7 k/uL (3.8-10.6)
[2018-07-08 04:48] LABS: Platelet Count 46 k/uL (150-450)
[2018-07-08 04:59] LABS: ALT 33 U/L (21-72); AST 42 U/L (17-59); Albumin 3.1 g/dL (3.5-5.0); Alkaline Phosphatase 59 U/L (38-126); Anion Gap 7 mmol/L; Blood Urea Nitrogen 5 mg/dL (9-20); Calcium 8.6 mg/dL (8.4-10.2); Carbon Dioxide 28 mmol/L (22-30); Chloride 99 mmol/L (98-107); Glucose 94 mg/dL (74-99); Magnesium 1.7 mg/dL (1.6-2.3); Potassium 4.3 mmol/L (3.5-5.1); Sodium 134 mmol/L (137-145); Total Bilirubin 0.6 mg/dL (0.2-1.3)
[2018-07-08] MEDS ORDERED: Magnesium Replacement Protocol 1 EACH MISC MISCELLANE PRN (05:11)
[2018-07-08] MEDS: MAGNESIUM SULFATE-D5W PMX 1 GM in DEXTROSE/WATER 1 100ML.BAG IVPB SCH ×2 (05:57→08:21)
--- NOTE | 2018-07-08 06:46 | XR ---
EXAMINATION TYPE: XR chest 1V portable DATE OF EXAM: 07/08/2018 HISTORY: post lobectomy. REFERENCE: Previous study dated 07/07/2018. FINDINGS: 2 left pleural drains remain in place. No definite pneumothorax is seen. There is left basi lar airspace disease. The heart is upper limits of normal in size. The right lung is clear. No defini te pleural fluid is seen. IMPRESSION: WORSENING LEFT BASILAR AIRSPACE DISEASE.
[2018-07-08] MEDS: IPRATROPIUM-ALBUTEROL 3 ML NEB IH SCH ×5 (07:22→19:31)
[2018-07-08] MEDS: ASPIRIN 81 MG PO SCH (08:23)
[2018-07-08] MEDS: VARENICLINE 1 MG TAB PO SCH ×2 (08:23→22:23)
[2018-07-08] MEDS: ATORVASTATIN 40 MG TAB PO SCH (08:24)
[2018-07-08] MEDS: PANTOPRAZOLE 40 MG TABLET PO SCH (08:24)
[2018-07-08] MEDS: HEPARIN SODIUM,PORCINE 5,000 UNIT/ML 1 ML VIAL SQ SCH ×2 (08:25→15:52)
--- NOTE | 2018-07-08 08:49 | P.PN ---
Subjective Progress Note Date: 07/08/18 Principal diagnosis: Left upper lobe mass. Previous medical history of COPD, daily alcohol abuse, alcoholic liver disease, nicotine dependence, Crohn's disease, bowel perforation with resection, occasional marijuana use, and preoperative thrombocytopenia. POD #2 left thoracotomy, wedge resection of the left upper lobe mass, followed by left upper lobectomy, mediastinal lymph node dissection. The patient currently sitting up in bed in no acute distress. States pain is mostly controlled with current medication regimen. Denies shortness of breath. Remains hemodynamically stable. No new complaints. Patient's chest tubes were placed to waterseal yesterday, currently no air leaks. Arterial line, Mendoza catheter were discontinued yesterday and orders were placed to transfer patient to [address] [place] [address] cardiac stepdown unit. Objective - Vital Signs Vital signs: Vital Signs Temp 98.4 F 07/08/18 08:00 Pulse 120 H 07/08/18 08:00 Resp 13 07/08/18 08:00 BP 132/90 07/08/18 08:00 Pulse Ox 95 07/08/18 08:00 Intake & Output 07/07/18 07/08/18 07/08/18 18:59 06:59 18:59 Intake Total 40 Output Total 625 1755 Balance -585 -1755 Weight 84.1 kg Intake: IV 40 Dextrose 5%-0.45% NaCl 1, 40 000 ml @ 40 mls/hr IV . Q24H [facility] Rx#:[id number] Output: Chest Tube Drainage 200 180 Pleural Catheter Left 100 100 Anterior Chest Pleural Catheter Left 100 80 Posterior Chest Urine 425 1575 Other: Voiding Method Indwelling Catheter Urinal ABP, PAP, CO, CI - Last Documented Arterial Blood Pressure 136/69 - Constitutional General appearance: Present: cooperative, no acute distress - Respiratory Details: Lungs sounds diminished bilaterally. Respirations even, nonlabored. Currently on room air with oxygen saturation 93%. Able to achieve 1500 mL on his incentive spirometry. Left anterior chest tube to waterseal, 100 mL serous drainage overnight, 200 mL in the last 24 hours. Left posterior chest tube to waterseal, 80 mL serous drainage overnight, 200 mL in the last 24 hours. No air leaks present. - Cardiovascular Details: S1, S2 present. Regular rate and rhythm, normal sinus rhythm on telemetry. Palpable peripheral pulses bilaterally. No edema present. No calf pain or tenderness noted. SCDs present. - Gastrointestinal Gastrointestinal Comment(s): Abdomen soft, nontender, nondistended. Active bowel sounds 4 quadrants. Tolerating diet. Positive flatus. - Genitourinary Genitourinary Comment(s): Mendoza discontinued. Patient voided 950 mL overnight. - Integumentary Integumentary Comment(s): Skin is warm and dry with evidence of good perfusion. Left lateral chest incisions well approximated and covered with dry intact dressing. - Neurologic Neurologic: Present: CNII-XII intact - Musculoskeletal Musculoskeletal: Present: gait normal, strength equal bilaterally - Psychiatric Psychiatric: Present: A&O x's 3, appropriate affect, intact judgment & insight - Allied health notes Allied health notes reviewed: nursing - Labs CBC & Chem 7: 07/08/18 04:30 07/08/18 04:30 Labs: Abnormal Lab Results - Last 24 Hours (Table) 07/08/18 07/08/18 Range/Units 04:30 04:30 RBC 3.53 L (4.30-5.90) m/uL Hgb 12.0 L (13.0-17.5) gm/dL Hct 35.7 L (39.0-53.0) % MCV 101.2 H (80.0-100.0) fL Plt Count 46 L (150-450) k/uL Lymphocytes # 0.4 L (1.0-4.8) k/uL Sodium 134 L (137-145) mmol/L BUN 5 L (9-20) mg/dL Total Protein 6.0 L (6.3-8.2) g/dL Albumin 3.1 L (3.5-5.0) g/dL - Imaging and Cardiology Chest x-ray: report reviewed, image reviewed Assessment and Plan (1) Lung mass Current Visit: Yes Status: Chronic Code(s): R91.8 - OTHER NONSPECIFIC ABNORMAL FINDING OF LUNG FIELD SNOMED Code(s): 162381561 (2) Tobacco dependence Current Visit: Yes Status: Chronic Code(s): F17.200 - NICOTINE DEPENDENCE, UNSPECIFIED, UNCOMPLICATED SNOMED Code(s): 11841078 (3) COPD (chronic obstructive pulmonary disease) Current Visit: Yes Status: Chronic Code(s): J44.9 - CHRONIC OBSTRUCTIVE PULMONARY DISEASE, UNSPECIFIED SNOMED Code(s): 50787278 (4) Alcohol abuse, daily use Current Visit: Yes Status: Chronic Code(s): F10.10 - ALCOHOL ABUSE, UNCOMPLICATED SNOMED Code(s): 607732588 (5) Crohns disease Current Visit: Yes Status: Chronic Code(s): K50.90 - CROHN'S DISEASE, UNSPECIFIED, WITHOUT COMPLICATIONS SNOMED Code(s): 77711617 Plan: 1. Will discontinue chest tubes. 2. Pain control with current medication regimen. 3. Encourage incentive spirometry use 10 times every hour while awake. 4. Increase activity, ambulate in hallway. 5. Encourage smoking and alcohol cessation. 6. Continue CIWA protocol. 7. Will monitor daily labs and x-rays. We'll replace magnesium. 8. GI prophylaxis with Protonix, DVT prophylaxis with subcu heparin, SCDs. 9. More recommendations to follow. Time with Patient: Greater than 30
[2018-07-08] MEDS: LORazepam 2 MG/ML INJ IV PRN ×4 (09:58→17:15)
--- NOTE | 2018-07-08 10:15 | P.CONS ---
History of Present Illness - Reason for Consult Consult date: 07/08/18 Medical management Requesting physician: Jorge Rowe - Chief Complaint Lung nodule - History of Present Illness Mr. Bakari Sevilla is a 58-year-old male patient of Dr. Bhatt. Patient presented for an elective left thoracotomy with wedge resection of left upper lobe mass followed by left upper lobe lobectomy and mediastinal lymph node dissection with Dr. Saini. Patient states he was seen by his senior budget analyst Dr. SATHYA Rowe and was found to have lung nodule. Patient is currently postop day 2. Patient has known past medical history of COPD, nicotine dependence, osteoarthritis, Crohn's disease, marijuana use and EtOH. Patient states he drinks approximately 12 pack beer daily. Patient is on alcohol withdrawal protocol. Patient is currently resting comfortably in the intensive care unit. Patient is being followed by Dr. Bustamante for ICU management. Dr. SATHYA Rowe for pulmonary and cardiothoracic surgery. Chest tubes in place to waterseal. Per cardiothoracic surgery may remove 1-2 chest tubes today. Patient has required Ativan for alcohol withdrawal per nursing staff. At this time patient denies chest pain or shortness of breath. Patient denies nausea vomiting or diarrhea. Patient denies any urinary burning or frequency. Review of Systems plesae refer to HPI otherwise unremarkable Past Medical History Past Medical History: COPD, Osteoarthritis (OA) Additional Past Medical History / Comment(s): "spot on left lung", crohns, SOB, hx "problem with decreased liver function-ok now", hx ruptured intestine from bowel obstructions, back pain History of Any Multi-Drug Resistant Organisms: None Reported Past Surgical History: Back Surgery, Bowel Resection, Heart Catheterization, Orthopedic Surgery, Tonsillectomy Additional Past Surgical History / Comment(s): colonoscopy, fx ric little fingers(pins), Past Anesthesia/Blood Transfusion Reactions: No Reported Reaction Past Psychological History: No Psychological Hx Reported Smoking Status: Current every day smoker Past Alcohol Use History: Daily Additional Past Alcohol Use History / Comment(s): trying to quit, on chantix, was up to 2 PPD-DOWN TO 1 PPD, started smoking age 15. DRINKS 12 PACK BEER DAILY Past Drug Use History: Marijuana Additional Drug Use History / Comment(s): rare marijuana - Past Family History Father Family Medical History: Cancer Additional Family Medical History / Comment(s): lung cancer Daughter(s) Family Medical History: Cancer Additional Family Medical History / Comment(s): breast cancer Medications and Allergies Home Medications Medication Instructions Recorded Confirmed Type Varenicline Tartrate [Chantix 1 mg PO BID 06/13/18 07/06/18 History Continuing Pack] Aspirin [Adult Low Dose Aspirin EC] 81 mg PO DAILY 06/29/18 07/06/18 History Atorvastatin [Lipitor] 40 mg PO DAILY 06/29/18 07/06/18 History Allergies Allergy/AdvReac Type Severity Reaction Status Date / Time morphine Allergy Unknown Verified 06/29/18 15:27 Sulfa (Sulfonamide Allergy Unknown Verified 06/29/18 15:14 Antibiotics) Physical Exam Vitals: Vital Signs Temp Pulse Resp BP Pulse Ox 07/08/18 08:00 98.4 F 120 H 13 132/90 95 07/08/18 07:30 111 H 07/08/18 07:23 117 H 07/08/18 04:00 98.0 F 108 H 14 143/88 97 07/08/18 02:00 100 13 139/85 97 07/08/18 00:00 98.9 F 112 H 14 147/90 97 07/07/18 22:00 103 H 24 127/72 96 07/07/18 20:26 115 H 31 H 127/72 98 07/07/18 20:00 99.1 F 101 H 16 127/72 97 07/07/18 16:00 99.1 F 106 H 15 120/78 98 07/07/18 12:00 98.7 F 108 H 20 132/73 96 07/07/18 11:51 97 07/07/18 11:31 96 Intake and Output 07/07/18 07/08/18 07/08/18 22:59 06:59 14:59 Output Total 825 1130 Balance -825 -1130 Output: Chest Tube Drainage 200 180 Pleural Catheter Left 100 100 Anterior Chest Pleural Catheter Left 100 80 Posterior Chest Urine 625 950 Other: Voiding Method Urinal Urinal Weight 84.1 kg Head normocephalic Neck supple Lungs 2 left sided chest tubes to waterseal Heart regular rate and rhythm S1-S2, no rub or gallop Abdomen is soft nontender nondistended positive bowel sounds no hepatosplenomegaly Extremities no edema Neuro alert and orientated to 3 Results CBC & Chem 7: 07/08/18 04:30 07/08/18 04:30 Labs: Abnormal Lab Results - Last 24 Hours (Table) 07/08/18 07/08/18 Range/Units 04:30 04:30 RBC 3.53 L (4.30-5.90) m/uL Hgb 12.0 L (13.0-17.5) gm/dL Hct 35.7 L (39.0-53.0) % MCV 101.2 H (80.0-100.0) fL Plt Count 46 L (150-450) k/uL Lymphocytes # 0.4 L (1.0-4.8) k/uL Sodium 134 L (137-145) mmol/L BUN 5 L (9-20) mg/dL Total Protein 6.0 L (6.3-8.2) g/dL Albumin 3.1 L (3.5-5.0) g/dL Assessment and Plan Assessment: 1. Left upper lobe lung mass, status post left thoracotomy, with wedge resection of left upper lobe mass, followed by the left upper lobe ectomy, mediastinal lymph node dissection, postop day 2. Per cardiothoracic surgery chest tubes possibly be removed today. Chest tubes currently to waterseal 2. History of COPD 3. Thrombocytopenia, related to EtOH use. Platelets 46 4. History of osteoarthritis 5. Nicotine dependence. Patient currently on Chantix 6. History of splenomegaly 7. History of Crohn's disease with history of bowel resection, obstruction and perforation. 8. ETOH. Patient currently on CIWA protocal. Continue Thiamine Thank you for this consultation we will continue to follow patient closely throughout stay Time with Patient: Greater than 30 (Greater than 60% of the total time spent in counseling and coordination of care. I performed an examination of the patient and discussed their management with the Nurse Practitioner. I have reviewed the Nurse Practitioner's notes and agree with the documented findings and plan of care)
[2018-07-08] MEDS: HYDROmorphone 1 MG/ML 1 ML SYRINGE IVP PRN (10:39)
[2018-07-08] MEDS ORDERED: LORazepam 2 MG/ML INJ IV STA (12:30)
--- NOTE | 2018-07-08 13:00 | P.PN ---
Subjective Progress Note Date: 07/08/18 Principal diagnosis: Status post left upper lobectomy for lung nodule Pulmonary /critical care progress note dated 07/08/2018 58-year-old male with a left upper lung mass. The patient underwent a wedge resection of the left upper lobe mass. He is postop day #2. Doing reasonably well although today he is manifesting some signs and symptoms of alcohol withdrawal syndrome. In addition, he has a history of COPD, chronic and ongoing tobacco dependence, splenomegaly, abnormal stress test, and history of Crohn's disease with previous bowel resection and perforation. The plan was to remove the chest tubes today. He's currently on room air. He's not receiving any IV fluids. Chest x-ray shows diminished lung volumes on the left. He is getting Ativan for his alcohol withdrawal syndrome. He drinks 4 beers a day apparently. White count was 4.7, hemoglobin 12, hematocrit 35.7 and platelet count 46,000. Sodium 134 potassium 4.3 chloride is 99 CO2 28 BUN 5 and creatinine 0.79. Objective - Vital Signs Vital signs: Vital Signs Temp 98.4 F 07/08/18 08:00 Pulse 120 H 07/08/18 11:19 Resp 13 07/08/18 08:00 BP 132/90 07/08/18 08:00 Pulse Ox 95 07/08/18 08:00 Intake & Output 07/07/18 07/08/18 07/08/18 18:59 06:59 18:59 Intake Total 40 200 Output Total 625 1755 265 Balance -585 -1755 -65 Weight 84.1 kg Intake: IV 40 200 Dextrose 5%-0.45% NaCl 1, 40 000 ml @ 40 mls/hr IV . Q24H [facility] Rx#:[id number] Magnesium Sulfate-D5w Pmx 200 1 gm In Dextrose/Water 1 100ml.bag @ 100 mls/hr IVPB Q1H [facility] Rx#: [id number] Output: Chest Tube Drainage 200 180 40 Pleural Catheter Left 100 100 30 Anterior Chest Pleural Catheter Left 100 80 10 Posterior Chest Urine 425 1575 225 Other: Voiding Method Indwelling Catheter Urinal Urinal # Voids 1 ABP, PAP, CO, CI - Last Documented Arterial Blood Pressure 136/69 - Exam No acute distress, oriented 3. No supplemental oxygen noted. HEENT examination is grossly unremarkable. Mucous membranes are moist. No oral lesions. Neck supple. Full range of motion. No adenopathy thyromegaly or neck vein distention. Cardiovascular examination reveals regular rhythm rate. S1-S2 normal. No S3 or S4. No discernible murmur noted. Heart sounds distant. Lungs reveal scattered rhonchi throughout the left lung. Breath sounds are diminished on the left side. Right lung is relatively clear. No wheezes. No crackles. Abdomen soft and bowel sounds are heard. No masses or tenderness. Extremities are intact. No cyanosis clubbing or edema. Skin is without rash or lesion. Neurologic examination is brief but nonfocal. Patient is somewhat agitated. - Labs CBC & Chem 7: 07/08/18 04:30 07/08/18 04:30 Labs: Abnormal Lab Results - Last 24 Hours (Table) 07/08/18 07/08/18 Range/Units 04:30 04:30 RBC 3.53 L (4.30-5.90) m/uL Hgb 12.0 L (13.0-17.5) gm/dL Hct 35.7 L (39.0-53.0) % MCV 101.2 H (80.0-100.0) fL Plt Count 46 L (150-450) k/uL Lymphocytes # 0.4 L (1.0-4.8) k/uL Sodium 134 L (137-145) mmol/L BUN 5 L (9-20) mg/dL Total Protein 6.0 L (6.3-8.2) g/dL Albumin 3.1 L (3.5-5.0) g/dL Assessment and Plan Assessment: Assessment Postop day #2, status post wedge resection and mediastinal lymph node dissection of a left upper lobe PET scan positive mass. Pathology is currently pending. COPD History of splenomegaly and thrombocytopenia, thought to be related to alcohol excess History of drinking 12 beers a day, with acute alcohol withdrawal syndrome History of ongoing tobacco use with nicotine addiction Abnormal stress test This is her Crohn's disease, status post bowel perforation and resection Plan: Plan dated 07/08/2018 The patient will be given Ativan for his acute alcohol withdrawal syndrome. The patient is currently not requiring any supplemental oxygen nor is he requiring an IV. We'll continue to follow. His left chest tube did reveal a small air leak. Chest x-ray does show decreased lung volume on the left with some basilar atelectasis or infiltrate. We will continue to follow. Labs are reviewed. Additional recommendations and suggestions are forthcoming. Prognosis is very guarded. Critical care time 32 minutes Time with Patient: Greater than 30
[2018-07-08] MEDS: MULTIVITAMINS, THERA 1 EACH TAB PO SCH (15:21)
[2018-07-08] MEDS ORDERED: THIAMINE 100 MG/ML 2 ML VIAL IVP SCH (15:30)
--- NOTE | 2018-07-08 18:35 | PN ---
PROGRESS NOTE He was seen on 07/08/2018. He has been having some increase in his shortness of breath. He is slightly tachycardic. On physical examination blood pressure is 132/90, respiratory rate of 13, pulse are 120, temperature 98.4, O2 saturation on room air is 95%. HEENT reveals pupils that are equal. Chest reveals decreased breath sounds on the left. A chest tube in place. Cardiovascular system reveals an S1, S2. Abdomen is soft. There is no edema. IMPRESSION: At this time: 1. Lung cancer status post left upper lobe lobectomy. 2. Alcoholism with possible early alcohol withdrawal syndrome. 3. Chronic obstructive pulmonary disease. 4. Asthma. 5. Medical debility. At this point in time, add budesonide to his regimen. Keep his pain under control. Keep him on bronchodilators. Depending on how he does we shall make further changes to his care. He was counseled regarding his condition and this approach. MMMILADYSL / MATAN: [id number] /
[2018-07-08] MEDS: BUDESONIDE 0.5 MG/2 ML NEBU INHALATION SCH ×2 (19:25→19:31)
[2018-07-08] MEDS: NICOTINE 21MG/24HR PATCH TRANSDERM SCH (22:34)
[2018-07-09] MEDS: HEPARIN SODIUM,PORCINE 5,000 UNIT/ML 1 ML VIAL SQ SCH (00:56)
[2018-07-09] MEDS: LORazepam 2 MG/ML INJ IV PRN (03:13)
[2018-07-09 05:01] LABS: ALT 30 U/L (21-72); AST 38 U/L (17-59); Albumin 3.1 g/dL (3.5-5.0); Alkaline Phosphatase 59 U/L (38-126); Anion Gap 7 mmol/L; Blood Urea Nitrogen 8 mg/dL (9-20); Calcium 8.5 mg/dL (8.4-10.2); Carbon Dioxide 24 mmol/L (22-30); Chloride 101 mmol/L (98-107); Glucose 93 mg/dL (74-99); Magnesium 2.1 mg/dL (1.6-2.3); Sodium 132 mmol/L (137-145); Total Bilirubin 0.7 mg/dL (0.2-1.3); Total Protein 5.9 g/dL (6.3-8.2)
[2018-07-09 05:09] LABS: Basophils % (A) 0 %; Eosinophils # (A) 0.1 k/uL (0-0.7); Eosinophils % (A) 1 %; HCT 34.1 % (39.0-53.0); HGB 11.5 gm/dL (13.0-17.5); Lymphocytes # (A) 0.4 k/uL (1.0-4.8); Lymphocytes % (A) 12 %; MCH 33.7 pg (25.0-35.0); MCHC 33.6 g/dL (31.0-37.0); MCV 100.4 fL (80.0-100.0); Mean Platelet Volume 9.3; Monocytes # (A) 0.3 k/uL (0-1.0); Monocytes % (A) 9 %; Neutrophils # (A) 2.6 k/uL (1.3-7.7); Neutrophils % (A) 74 %; WBC 3.5 k/uL (3.8-10.6)
[2018-07-09 05:22] LABS: Platelet Count 48 k/uL (150-450)
[2018-07-09] MEDS: ASPIRIN 81 MG PO SCH (07:42)
[2018-07-09] MEDS: ATORVASTATIN 40 MG TAB PO SCH (07:42)
[2018-07-09] MEDS: PANTOPRAZOLE 40 MG TABLET PO SCH (07:42)
[2018-07-09] MEDS: VARENICLINE 1 MG TAB PO SCH (07:42)
[2018-07-09] MEDS: HYDROcodone/APAP 5-325MG 1 EACH TAB PO PRN (07:42)
[2018-07-09] MEDS: IPRATROPIUM-ALBUTEROL 3 ML NEB IH SCH ×3 (07:56→15:19)
[2018-07-09] MEDS: BUDESONIDE 0.5 MG/2 ML NEBU INHALATION SCH (07:56)
[2018-07-09 08:02] VITALS: TEMP 98.5
--- NOTE | 2018-07-09 08:09 | P.PN ---
Subjective Progress Note Date: 07/09/18 Principal diagnosis: Left upper lobe mass. Previous medical history of COPD, daily alcohol abuse, alcoholic liver disease, nicotine dependence, Crohn's disease, bowel perforation with resection, occasional marijuana use, and preoperative thrombocytopenia. POD #3 left thoracotomy, wedge resection of the left upper lobe mass, followed by left upper lobectomy, mediastinal lymph node dissection. The patient currently sitting up in bed in no acute distress. States pain is mostly controlled with current medication regimen. Denies shortness of breath. No new complaints. Patient started going through alcohol withdrawal yesterday, was climbing out of bed without assistance not listening to the nurses, was given Ativan per [facility] protocol. This morning patient is alert and oriented 3, following commands, has not had any Ativan since 03:00. 1:1 sitter at the bedside. Both chest tubes were removed yesterday. Objective - Vital Signs Vital signs: Vital Signs Temp 98.2 F 07/09/18 04:00 Pulse 113 H 07/09/18 06:00 Resp 14 07/09/18 06:00 BP 114/79 07/09/18 06:00 Pulse Ox 97 07/09/18 00:00 Intake & Output 07/08/18 07/09/18 07/09/18 18:59 06:59 18:59 Intake Total 200 360 Output Total 265 620 Balance -65 -260 Weight 84 kg Intake: IV 200 0 Magnesium Sulfate-D5w Pmx 200 0 1 gm In Dextrose/Water 1 100ml.bag @ 100 mls/hr IVPB Q1H [facility] Rx#: [id number] Oral 360 Output: Chest Tube Drainage 40 Pleural Catheter Left 30 Anterior Chest Pleural Catheter Left 10 Posterior Chest Urine 225 620 Other: Voiding Method Urinal Urinal # Voids 1 ABP, PAP, CO, CI - Last Documented Arterial Blood Pressure 136/69 - Constitutional General appearance: Present: cooperative, no acute distress - Respiratory Details: Lungs sounds diminished bilaterally. Respirations even, nonlabored. Currently on room air with oxygen saturation 97%. Able to achieve 1500 mL on his incentive spirometry. - Cardiovascular Details: S1, S2 present. Regular rate and rhythm, normal sinus rhythm on telemetry. Palpable peripheral pulses bilaterally. No edema present. No calf pain or tenderness noted. SCDs present. - Gastrointestinal Gastrointestinal Comment(s): Abdomen soft, nontender, nondistended. Active bowel sounds 4 quadrants. Tolerating diet. Positive flatus. - Genitourinary Genitourinary Comment(s): Continues to void. - Integumentary Integumentary Comment(s): Skin is warm and dry with evidence of good perfusion. Left lateral chest incisions well approximated and covered with dry intact dressing. - Neurologic Neurologic: Present: CNII-XII intact - Musculoskeletal Musculoskeletal: Present: gait normal, strength equal bilaterally - Psychiatric Psychiatric: Present: A&O x's 3, appropriate affect - Allied health notes Allied health notes reviewed: nursing - Labs CBC & Chem 7: 07/09/18 04:13 07/09/18 04:13 Labs: Abnormal Lab Results - Last 24 Hours (Table) 07/09/18 07/09/18 Range/Units 04:13 04:13 WBC 3.5 L (3.8-10.6) k/uL RBC 3.40 L (4.30-5.90) m/uL Hgb 11.5 L (13.0-17.5) gm/dL Hct 34.1 L (39.0-53.0) % MCV 100.4 H (80.0-100.0) fL Plt Count 48 L (150-450) k/uL Lymphocytes # 0.4 L (1.0-4.8) k/uL Sodium 132 L (137-145) mmol/L BUN 8 L (9-20) mg/dL Total Protein 5.9 L (6.3-8.2) g/dL Albumin 3.1 L (3.5-5.0) g/dL - Imaging and Cardiology Chest x-ray: image reviewed Assessment and Plan (1) Lung mass Current Visit: Yes Status: Chronic Code(s): R91.8 - OTHER NONSPECIFIC ABNORMAL FINDING OF LUNG FIELD SNOMED Code(s): 073891940 (2) Tobacco dependence Current Visit: Yes Status: Chronic Code(s): F17.200 - NICOTINE DEPENDENCE, UNSPECIFIED, UNCOMPLICATED SNOMED Code(s): 01410093 (3) COPD (chronic obstructive pulmonary disease) Current Visit: Yes Status: Chronic Code(s): J44.9 - CHRONIC OBSTRUCTIVE PULMONARY DISEASE, UNSPECIFIED SNOMED Code(s): 81949238 (4) Alcohol abuse, daily use Current Visit: Yes Status: Chronic Code(s): F10.10 - ALCOHOL ABUSE, UNCOMPLICATED SNOMED Code(s): 305357669 (5) Crohns disease Current Visit: Yes Status: Chronic Code(s): K50.90 - CROHN'S DISEASE, UNSPECIFIED, WITHOUT COMPLICATIONS SNOMED Code(s): 22654830 Plan: 1. Chest tubes discontinued yesterday. 2. Pain control with current medication regimen. 3. Encourage incentive spirometry use 10 times every hour while awake. 4. Increase activity, ambulate in hallway. 5. Encourage smoking and alcohol cessation. 6. Continue CIWA protocol. 7. Will monitor daily labs and x-rays. We'll replace magnesium. 8. GI prophylaxis with Protonix, DVT prophylaxis with subcu heparin, SCDs. 9. Will assess later today to see if patient appropriate for discharge, still actively withdrawing will keep patient for another 24 hours. Time with Patient: Greater than 30
[2018-07-09] MEDS: NICOTINE 21MG/24HR PATCH TRANSDERM SCH (08:13)
--- NOTE | 2018-07-09 09:00 | XR ---
EXAMINATION TYPE: XR chest 2V DATE OF EXAM: 07/09/2018 COMPARISON: 07/08/2018 TECHNIQUE: PA and lateral views submitted. HISTORY: Postsurgical FINDINGS: There is volume loss on the left with interval removal of 2 left-sided chest tubes. Subsegmental cons olidation and postsurgical clips are noted. Tiny left pleural effusion. No sizable pneumothorax. Hear t size stable. Arthropathy of the shoulders. IMPRESSION: 1. A chest tube removal with no sizable pneumothorax. 2. Postsurgical changes with evidence of volume loss and suspected basilar atelectasis. Correlate cli nically to rule out infiltrate.
--- NOTE | 2018-07-09 09:10 | P.PN ---
Subjective Progress Note Date: 07/09/18 alecia Sevilla is a 58-year-old male patient of Dr. Bhatt. Patient presented for an elective left thoracotomy with wedge resection of left upper lobe mass followed by left upper lobe lobectomy and mediastinal lymph node dissection with Dr. Saini. Patient states he was seen by his asphalt mixer Dr. SATHYA Rowe and was found to have lung nodule. Patient is currently postop day 2. Patient has known past medical history of COPD, nicotine dependence, osteoarthritis, Crohn's disease, marijuana use and EtOH. Patient states he drinks approximately 12 pack beer daily. Patient is on alcohol withdrawal protocol. Patient is currently resting comfortably in the intensive care unit. Patient is being followed by Dr. Bustamante for ICU management. Dr. SATHYA Rowe for pulmonary and cardiothoracic surgery. Chest tubes in place to waterseal. Per cardiothoracic surgery may remove 1-2 chest tubes today. Patient has required Ativan for alcohol withdrawal per nursing staff. At this time patient denies chest pain or shortness of breath. Patient denies nausea vomiting or diarrhea. Patient denies any urinary burning or frequency. On 07/09/2018 patient is currently resting comfortably in bed. Patient did go into alcohol withdrawal yesterday required high-dose amounts of Ativan. Patient has not required Ativan since 3 AM this morning. Patient is currently alert and oriented 3. Chest tubes have been removed for cardiac from cardio thoracic team. Possible discharge later today. At this time patient denies chest pain or shortness of breath. Patient denies nausea vomiting or diarrhea. Patient denies any urinary burning or frequency. Objective - Vital Signs Vital signs: Vital Signs Temp 98.5 F 07/09/18 08:00 Pulse 117 H 07/09/18 08:07 Resp 14 07/09/18 08:00 BP 142/77 07/09/18 08:00 Pulse Ox 96 07/09/18 08:00 Intake & Output 07/08/18 07/09/18 07/09/18 18:59 06:59 18:59 Intake Total 200 360 Output Total 265 620 Balance -65 -260 Weight 84 kg Intake: IV 200 0 Magnesium Sulfate-D5w Pmx 200 0 1 gm In Dextrose/Water 1 100ml.bag @ 100 mls/hr IVPB Q1H [facility] Rx#: [id number] Oral 360 Output: Chest Tube Drainage 40 Pleural Catheter Left 30 Anterior Chest Pleural Catheter Left 10 Posterior Chest Urine 225 620 Other: Voiding Method Urinal Urinal Urinal # Voids 1 ABP, PAP, CO, CI - Last Documented Arterial Blood Pressure 136/69 - Exam Head normocephalic Neck supple Lungs clear to auscultation bilaterally no wheezing or crackles Heart regular rate and rhythm S1-S2, no rub or gallop Abdomen is soft nontender nondistended positive bowel sounds no hepatosplenomegaly Extremities no edema Neuro alert and orientated to 3 - Labs CBC & Chem 7: 07/09/18 04:13 07/09/18 04:13 Labs: Abnormal Lab Results - Last 24 Hours (Table) 07/09/18 07/09/18 Range/Units 04:13 04:13 WBC 3.5 L (3.8-10.6) k/uL RBC 3.40 L (4.30-5.90) m/uL Hgb 11.5 L (13.0-17.5) gm/dL Hct 34.1 L (39.0-53.0) % MCV 100.4 H (80.0-100.0) fL Plt Count 48 L (150-450) k/uL Lymphocytes # 0.4 L (1.0-4.8) k/uL Sodium 132 L (137-145) mmol/L BUN 8 L (9-20) mg/dL Total Protein 5.9 L (6.3-8.2) g/dL Albumin 3.1 L (3.5-5.0) g/dL Assessment and Plan Assessment: 1. Left upper lobe lung mass, status post left thoracotomy, with wedge resection of left upper lobe mass, followed by the left upper lobe ectomy, mediastinal lymph node dissection, postop day 2. Per cardiothoracic surgery chest tubes possibly be removed today. Chest tubes removed per cardiothoracic team on 07/08/2018. 2. History of COPD 3. Thrombocytopenia, related to EtOH use. Platelets 46 4. History of osteoarthritis 5. Nicotine dependence. Patient currently on Chantix 6. History of splenomegaly 7. History of Crohn's disease with history of bowel resection, obstruction and perforation. 8. ETOH. Patient currently on CIWA protocal. Continue Thiamine. Patient required high doses of Ativan yesterday for withdrawals. Patient has since improved. His last Ativan dose 0300 today. Patient advised on the importance of alcohol cessation. Thank you for this consultation we will continue to follow patient closely throughout stay Because case with Bonita zamora NP per cardiothoracic team. Possible discharge later today.
[2018-07-09] MEDS: HYDROmorphone 1 MG/ML 1 ML SYRINGE IVP PRN (11:44)
[2018-07-09] MEDS: MULTIVITAMINS, THERA 1 EACH TAB PO SCH (11:59)
[2018-07-09] MEDS ORDERED: THIAMINE 100 MG TAB PO SCH (12:00)
[2018-07-09 12:03] VITALS: BP 141/81; PULSE 124; RESP 17
--- NOTE | 2018-07-09 12:34 | P.PN ---
Subjective Progress Note Date: 07/09/18 Principal diagnosis: Status post wedge resection and mediastinal lymph node dissection of a left upper lobe mass, post op date 3 Pulmonary /critical care progress note dated 07/08/2018 58-year-old male with a left upper lung mass. The patient underwent a wedge resection of the left upper lobe mass. He is postop day #2. Doing reasonably well although today he is manifesting some signs and symptoms of alcohol withdrawal syndrome. In addition, he has a history of COPD, chronic and ongoing tobacco dependence, splenomegaly, abnormal stress test, and history of Crohn's disease with previous bowel resection and perforation. The plan was to remove the chest tubes today. He's currently on room air. He's not receiving any IV fluids. Chest x-ray shows diminished lung volumes on the left. He is getting Ativan for his alcohol withdrawal syndrome. He drinks 4 beers a day apparently. White count was 4.7, hemoglobin 12, hematocrit 35.7 and platelet count 46,000. Sodium 134 potassium 4.3 chloride is 99 CO2 28 BUN 5 and creatinine 0.79. On 07/09/2018 patient seen in follow-up in the intensive care unit, he sitting up in the recliner, in no acute distress, room air pulse ox is 98%, hemodynamically stable, no fever, no chills, lung sounds are essentially clear to auscultation. Today's chest x-ray has been reviewed, and showed interval left chest tube removal with no sizable pneumothorax, and postsurgical changes with evidence of volume loss and suspected basilar atelectasis. Incentive spirometry effort is 1500, biopsies are still pending at this time. Patient's pain is reasonably controlled. Patient has been tolerating ambulation, anticipate discharge home today Objective - Vital Signs Vital signs: Vital Signs Temp 98.5 F 07/09/18 12:00 Pulse 124 H 07/09/18 12:00 Resp 17 07/09/18 12:00 BP 141/81 07/09/18 12:00 Pulse Ox 98 07/09/18 12:00 Intake & Output 07/08/18 07/09/18 07/09/18 18:59 06:59 18:59 Intake Total 200 360 Output Total 265 620 Balance -65 -260 Weight 84 kg Intake: IV 200 0 Magnesium Sulfate-D5w Pmx 200 0 1 gm In Dextrose/Water 1 100ml.bag @ 100 mls/hr IVPB Q1H [facility] Rx#: [id number] Oral 360 Output: Chest Tube Drainage 40 Pleural Catheter Left 30 Anterior Chest Pleural Catheter Left 10 Posterior Chest Urine 225 620 Other: Voiding Method Urinal Urinal Urinal # Voids 1 1 ABP, PAP, CO, CI - Last Documented Arterial Blood Pressure 136/69 - Exam GENERAL EXAM: Alert, pleasant 58-year-old white male, thin, currently in no distress HEAD: Normocephalic/atraumatic. EYES: Normal reaction of pupils, equal size. Conjunctiva pink, sclera white. NOSE: Clear with pink turbinates. THROAT: No erythema or exudates. NECK: No masses, no JVD, no thyroid enlargement, no adenopathy. CHEST: No chest wall deformity. Symmetrical expansion. 2 left-sided chest tubes have been removed, postsurgical incision over lateral left chest wall is clean dry intact well approximated LUNGS: Equal air entry with no wheezing, no rhonchi no rales CVS: Regular rate and rhythm, normal S1 and S2, no gallops, no murmurs, no rubs ABDOMEN: Soft, nontender. No hepatosplenomegaly, normal bowel sounds, no guarding or rigidity. EXTREMITIES: No clubbing, no edema, no cyanosis, 2+ pulses and upper and lower extremities. MUSCULOSKELETAL: Muscle strength and tone normal. SPINE: No scoliosis or deformity SKIN: No rashes CENTRAL NERVOUS SYSTEM: Alert and oriented -3. No focal deficits, tone is normal in all 4 extremities. PSYCHIATRIC: Alert and oriented -3. Appropriate affect. Intact judgment and insight. - Labs CBC & Chem 7: 07/09/18 04:13 07/09/18 04:13 Labs: Abnormal Lab Results - Last 24 Hours (Table) 07/09/18 07/09/18 Range/Units 04:13 04:13 WBC 3.5 L (3.8-10.6) k/uL RBC 3.40 L (4.30-5.90) m/uL Hgb 11.5 L (13.0-17.5) gm/dL Hct 34.1 L (39.0-53.0) % MCV 100.4 H (80.0-100.0) fL Plt Count 48 L (150-450) k/uL Lymphocytes # 0.4 L (1.0-4.8) k/uL Sodium 132 L (137-145) mmol/L BUN 8 L (9-20) mg/dL Total Protein 5.9 L (6.3-8.2) g/dL Albumin 3.1 L (3.5-5.0) g/dL Assessment and Plan Plan: Assessment: #1. Left upper lobe lung mass, with hypermetabolic uptake on the PET scan, but no evidence of metastatic disease, status post left thoracotomy, with wedge resection of left upper lobe mass, followed by left upper lobectomy, mediastinal lymph node dissection, postop day 3 #2. Thrombocytopenia, related to heavy EtOH use #3. COPD #4. Chronic and ongoing nicotine dependence, 18-ofgy-ibaj smoker #5. Splenomegaly #6. History of abnormal stress test, and left heart catheterization which revealed intermediate disease involving the mid RCA #7. Hx of Crohn's disease with previous history of bowel obstruction, perforation, and bowel resection Plan: Continue encouraging deep breathing and coughing, incentive spirometry use. Chest Tubes have been removed, today's chest x-ray has been reviewed by Dr. Zhong, showed no sizable pneumothorax, postoperative changes. Patient is calm and comfortable, tolerating ambulation, denies any dyspnea, denies any distress. Biopsy results are still pending at this time. Likely discharge home today, patient is stable for discharge from pulmonary perspective. I performed a history & physical examination of the patient and discussed their management with my nurse practitioner, Richa Crawford. I reviewed the nurse practitioner's note and agree with the documented findings and plan of care. Lung sounds are clear. The findings and the impression was discussed with the patient. I attest to the documentation by the nurse practitioner. Time with Patient: Greater than 30
--- NOTE | 2018-07-09 16:23 | PN ---
PROGRESS NOTE DATE OF SERVICE: 07/09/2018 The patient is a 58-year-old male with a history of chronic obstructive pulmonary disease. The patient is status post left upper lobe resection with lymph node dissection. The patient is getting dressed. Plan is for him to discharge home later on today. Patient is afebrile, tachycardic at times. Blood pressure is stable. The patient is in no acute distress. PHYSICAL EXAM: Vital signs, temp 98.5, heart rate is 124, respiratory rate is 17, blood pressure is 141/81, O2 sats 98% on room air. HEENT: Head is normocephalic, atraumatic. Neck is supple. Trachea is midline. Lungs decreased on the left side. Right is clear. HEART: S1, S2 are heard. Tachycardic. ABDOMEN: Soft. Bowel sounds are heard. Extremities with no edema. Neurologic: Patient is awake and alert. LABS: White count is 3.5, hemoglobin is 11.5, hematocrit 34.1 with 48,000 platelets. Sodium is 132, potassium is 4.0, chloride is 101, CO2 is 24, anion gap is 7, BUN is 8, creatinine 0.78, glucose is 93, calcium is 8.5, magnesium is 2.1, total bilirubin 0.7, AST is 38, ALT is 32, alkaline phosphatase is 59, total protein is 5.9, albumin is 3.1. Chest x-ray this a.m. shows a chest tube removal with no sizable pneumothorax. Postsurgical changes with evidence of volume loss and suspected basilar atelectasis. Correlate clinically to rule out infiltrate on the left. IMPRESSION: 1. Lung cancer, status post left upper lobe lobectomy. 2. Alcoholism with possible alcohol withdrawal symptoms. 3. Chronic obstructive pulmonary disease. 4. Asthma. 5. Medical debility. PLAN: Continue the bronchodilators and aerosol steroids. Continue pain control. If the patient does discharge home, he is to follow up in the Pulmonary Clinic before the end of the week, and patient was counseled on this. I performed a History & Physical Examination of the patient and discussed their management with nurse practitioner. I reviewed the nurse practitioner's note and agree with the documented findings and plan of care. MMODL / IJN: [id number] /
--- NOTE | 2018-07-10 14:57 | P.DS ---
Providers Date of admission: 07/06/18 07:48 Expected date of discharge: 07/09/18 Attending physician: Dani Issa Consults: 07/06/18 13:59 Consult Physician Routine Consulting Provider: Jorge Rowe Consult Reason/Comments: Medical and pulmonary management Do you want consulting provider notified?: Yes 07/06/18 14:17 Consult Physician Routine Consulting Provider: John Bustamante Consult Reason/Comments: Intensive care unit management Do you want consulting provider notified?: Yes 07/07/18 13:33 Consult Physician Routine Consulting Provider: Ortega Pandya Consult Reason/Comments: medical management Do you want consulting provider notified?: Yes Primary care physician: Ghada Bhatt - Discharge Diagnosis(es) (1) Lung mass Status: Chronic (2) Tobacco dependence Status: Chronic (3) COPD (chronic obstructive pulmonary disease) Status: Chronic (4) Alcohol abuse, daily use Status: Chronic (5) Crohns disease Status: Chronic Hospital Course: FINAL DIAGNOSIS: 1. Left upper lobe mass 2. COPD 3. Daily alcohol abuse 4. Alcoholic liver disease 5. Nicotine dependence 6. Crohn's disease 7. History of bowel perforation with resection 8. Occasional marijuana use 9. Preoperative thrombocytopenia PRINCIPAL PROCEDURE: 1. Left thoracotomy, wedge resection of the left upper lobe mass, followed by left upper lobectomy, mediastinal lymph node dissection HISTORY OF PRESENT ILLNESS: This is a 58 year old patient of Dr. Ghada Bhatt and Dr. SATHYA Rowe. Due to his significant smoking history, he had a screening CT of the chest in March, which demonstrated a 1.2 cm spiculated mass in the left upper lobe of the lung. He subsequently underwent PET scan in April 2018 which demonstrated hypermetabolic uptake in the left upper lobe stellate mass. The patient was referred to Dr. Issa from cardiothoracic surgery. He was recommended to undergo left thoracotomy with wedge resection, possible lobectomy. The usual perioperative course was discussed in detail with the patient, all risks and benefits were explained, all questions were answered, and consent was obtained to proceed with surgery. He had a stress test as part of his cardiac clearance for surgery which was abnormal. Subsequently, he underwent left heart catherization by Dr. Ferrera which showed non-critical stenosis in the RCA. Due to his preoperative thrombocytopenia and the non-critical nature of his single vessel CAD, medical management was recommended and he was cleared for surgery. HOSPITAL COURSE: The patient was brought to the hospital on 07/06/2018, taken to the preoperative area, prepared in the usual fashion, and subsequently taken to the operating room where Dr. Issa performed a left thoracotomy, wedge resection of the left upper lobe mass, followed by left upper lobectomy, and mediastinal lymph node dissection. Upon completion of surgery the patient was extubated and transferred to the intensive care unit where he was recovered and monitored hemodynamically. All lines, tubes, and drips were discontinued when appropriate, and transfer orders were placed for 3 S. cardiac stepdown unit, however there were no beds available and the patient remained in the intensive care unit until discharge. He did experience alcohol withdrawal which was treated per [facility] protocol. His oxygen was titrated down, his chest tube was discontinued, he was tolerating oral diet, his pain was controlled, and he was ready to be discharged to home on postoperative day #3. He received written and verbal instruction regarding his medications, activity restrictions, signs and symptoms requiring physician notification, and follow-up appointments. COMPLICATIONS: The patient experienced no postoperative complications. Plan - Discharge Summary Discharge Rx Participant: Yes New Discharge Prescriptions: New Multivitamins, Thera [Multivitamin (formulary)] 1 each PO DAILY@1200 tab Nicotine 21Mg/24Hr Patch [Habitrol] 1 patch TRANSDERM DAILY patch Thiamine [Vitamin B-1] 100 mg PO BID@1200,1700 tab Continue Varenicline Tartrate [Chantix Continuing Pack] 1 mg PO BID Atorvastatin [Lipitor] 40 mg PO DAILY Aspirin [Adult Low Dose Aspirin EC] 81 mg PO DAILY Discharge Medication List Varenicline Tartrate [Chantix Continuing Pack] 1 mg PO BID 06/13/18 [History] Aspirin [Adult Low Dose Aspirin EC] 81 mg PO DAILY 06/29/18 [History] Atorvastatin [Lipitor] 40 mg PO DAILY 06/29/18 [History] Multivitamins, Thera [Multivitamin (formulary)] 1 each PO DAILY@1200 tab [Rx] Nicotine 21Mg/24Hr Patch [Habitrol] 1 patch TRANSDERM DAILY patch 07/09/18 [Rx] Thiamine [Vitamin B-1] 100 mg PO BID@1200,1700 tab 07/09/18 [Rx] Follow up Appointment(s)/Referral(s): Dani Issa MD [STAFF PHYSICIAN] - 07/26/18 2:15 pm Jorge Rowe MD [STAFF PHYSICIAN] - 07/13/18 2:45 pm ([id number], behind [facility]) Patient Instructions/Handouts: Thoracotomy (DC) Activity/Diet/Wound Care/Special Instructions: DISCHARGE INSTRUCTIONS: 1. No driving for 2 weeks, or until physician gives their ok. 2. No lifting, pushing, or pulling more than 10 pounds for 2 weeks. The physician will advise of any restriction changes. 3. Continue pain control per as needed orders. 4. Continue with incentive spirometry and splinting until otherwise directed by the physician. 5. May shower daily using liquid antibacterial soap. 6. Routine incision care. No powders, lotions, ointments on incisions. 7. Please call surgeon/WATER MAINTENANCE SUPERVISOR for temp greater than 101 F or purulent drainage from incisions. Discharge Disposition: HOME SELF-CARE
== END 2018-07-09 15:28 | disposition home or self-care (01) | DRG 164 ==
LOC: 2ORMAIN 07:48 → 3SCARD 13:16 → 2SICU 15:04 → EDSTATUS 07-09 13:00
PROVIDERS: ADMIT Thoracic Surgery (Cardiothoracic Vascular Surgery); ATTEND Thoracic Surgery (Cardiothoracic Vascular Surgery)
PROC: 07B70ZX Excision of Thorax Lymphatic, Open Approach, Diagnostic (ICD-10-PCS; 2018-07-06)
PROC: 0W9B00Z Drainage of Left Pleural Cavity with Drainage Device, Open Approach (ICD-10-PCS; 2018-07-06)
PROC: 0W9B00Z Drainage of Left Pleural Cavity with Drainage Device, Open Approach (ICD-10-PCS; 2018-07-06)
PROC: 0BTG0ZZ Resection of Left Upper Lung Lobe, Open Approach (ICD-10-PCS; principal; 2018-07-06 13:00)
DX: C34.12 Malignant neoplasm of upper lobe, left bronchus or lung (principal); F10.239 Alcohol dependence with withdrawal, unspecified; K50.90 Crohn's disease, unspecified, without complications; F17.210 Nicotine dependence, cigarettes, uncomplicated; D69.59 Other secondary thrombocytopenia; I25.10 Atherosclerotic heart disease of native coronary artery without angina pectoris; J44.9 Chronic obstructive pulmonary disease, unspecified; K70.9 Alcoholic liver disease, unspecified; Z77.090 Contact with and (suspected) exposure to asbestos; Z79.82 Long term (current) use of aspirin; Z80.1 Family history of malignant neoplasm of trachea, bronchus and lung; Z80.3 Family history of malignant neoplasm of breast; Z90.49 Acquired absence of other specified parts of digestive tract; R16.1 Splenomegaly, not elsewhere classified; Z79.899 Other long term (current) drug therapy; R53.81 Other malaise; Z88.5 Allergy status to narcotic agent; Z88.2 Allergy status to sulfonamides
CPT/HCPCS: 71045; 71046; 80048; 80053; 83735; 85025; 86850; 86891; 86900; 86901; 94640

== ENCOUNTER 2018-10-15 17:24 | Inpatient (IN) | payer OTHER ==
[2018-10-15] MEDS ORDERED: HYDROmorphone 1 MG/ML 1 ML SYRINGE IVP STA (18:16)
[2018-10-15] MEDS ORDERED: SODIUM CHLORIDE 0.9% 500 ML 500 ML IV STA (18:16)
[2018-10-15] MEDS ORDERED: ONDANSETRON 4 MG/2 ML VIAL IVP STA (18:16)
--- NOTE | 2018-10-15 18:20 | ED ---
Chest Pain HPI - General Chief Complaint: Chest Pain Stated Complaint: Chest Pain Time Seen by Provider: 10/15/18 17:57 Source: patient Mode of arrival: EMS Limitations: no limitations - History of Present Illness Initial Comments: 58-year-old male patient presents to the emergency department today for evaluation of chest pain and shortness of breath. Patient states that he has been having intermittent substernal chest pain for the last 2 days. Patient states that about 2 hours ago he started having the pain again. Patient states he is unable to breathe during the pain. States it is radiating down the right arm. Patient states he is also been having sharp pains to the upper abdomen that has been radiating through to his back for the last few days as well. States he has been nauseated but has not vomited. He does report intermittent dizziness. Patient does admit to smoking and drinking alcohol daily basis. Denies any fevers or chills with this. Denies any cough or congestion. Patient did have a left lobectomy in June for lung cancer. States he is not currently receiving any chemo or treatment for this. Patient denies any recent rash, diarrhea, constipation, back pain, numbness, tingling, weakness, hematuria, dysuria, urinary urgency, urinary frequency, headache, visual changes , or any other complaints. - Related Data Home Medications Medication Instructions Recorded Confirmed Varenicline Tartrate [Chantix 1 mg PO BID 06/13/18 10/15/18 Continuing Pack] Atorvastatin [Lipitor] 40 mg PO DAILY 06/29/18 10/15/18 Allergies Allergy/AdvReac Type Severity Reaction Status Date / Time morphine Allergy Unknown Verified 10/15/18 18:31 Sulfa (Sulfonamide Allergy Unknown Verified 10/15/18 18:31 Antibiotics) Review of Systems ROS Statement: Those systems with pertinent positive or pertinent negative responses have been documented in the HPI. ROS Other: All systems not noted in ROS Statement are negative. EKG Findings - EKG Comments: EKG Findings:: EKG obtained at 1737 shows normal sinus rhythm with a ventricular rate of 79, NJ interval 154, QRS duration 86, QT 370, QTC 424. No evidence of ST elevation or depression. Past Medical History Past Medical History: COPD, Osteoarthritis (OA) Additional Past Medical History / Comment(s): "spot on left lung", crohns, SOB, hx "problem with decreased liver function-ok now", hx ruptured intestine from bowel obstructions, back pain History of Any Multi-Drug Resistant Organisms: None Reported Past Surgical History: Back Surgery, Bowel Resection, Heart Catheterization, Orthopedic Surgery, Tonsillectomy Additional Past Surgical History / Comment(s): colonoscopy, fx ric little fingers(pins), partial lung lobectomy Past Anesthesia/Blood Transfusion Reactions: No Reported Reaction Past Psychological History: No Psychological Hx Reported Smoking Status: Current every day smoker Past Alcohol Use History: Daily Past Drug Use History: Marijuana - Past Family History Father Family Medical History: Cancer Additional Family Medical History / Comment(s): lung cancer Daughter(s) Family Medical History: Cancer Additional Family Medical History / Comment(s): breast cancer General Exam Limitations: no limitations General appearance: alert, in no apparent distress, appears intoxicated, other ( Some well-developed, well-nourished adult male patient who smells heavily of cigarettes and alcohol. Vital signs upon presentation are temperature 98.5F, pulse 93, respirations 18, blood pressure 120/81, pulse ox 97% on room air.) Eye exam: Present: normal appearance, PERRL, EOMI. Absent: scleral icterus, conjunctival injection, periorbital swelling ENT exam: Present: normal exam, normal oropharynx, mucous membranes moist Respiratory exam: Present: normal lung sounds bilaterally. Absent: respiratory distress, wheezes, rales, rhonchi, stridor Cardiovascular Exam: Present: regular rate, normal rhythm, normal heart sounds. Absent: systolic murmur, diastolic murmur, rubs, gallop, clicks GI/Abdominal exam: Present: soft, tenderness (Midepigastric abdominal tenderness , left upper quadrant abdominal tenderness ), normal bowel sounds. Absent: distended, guarding, rebound, rigid Neurological exam: Present: alert, oriented X3, CN II-XII intact Psychiatric exam: Present: normal affect, normal mood Skin exam: Present: warm, dry, intact, normal color. Absent: rash Course Vital Signs 10/15/18 10/15/18 10/15/18 17:30 17:50 18:29 Temperature 98.5 F Pulse Rate 93 86 89 Respiratory 18 16 Rate Blood Pressure 120/81 120/81 114/66 O2 Sat by Pulse 97 96 98 Oximetry 10/15/18 19:20 Temperature Pulse Rate 83 Respiratory Rate Blood Pressure 107/67 O2 Sat by Pulse 94 L Oximetry Chest Pain MDM - MDM RADIOLOGY:Two-view x-ray of the chest is obtained. Report was reviewed in its entirety. Impression by Dr. Ott shows pulmonary fibrotic mild changes. No heart failure. No pulmonary consolidation. There is improved aeration of the left lung compared to last exam. MDM: 58 old male patient presents emergency department today for evaluation of intermittent chest pain, shortness of breath, and nausea. Physical examination revealed upper abdominal tenderness. Labs reviewed and did reveal elevated lipase at 900. Alcohol was 359. Patient does admit to history of cigarette smoking, hyperlipidemia, and family history of myocardial infarction in his mother. Given the symptoms and risk factors patient will be admitted to rule out acute coronary syndrome with serial troponins. He'll be hydrated. We will put CIWA scale and Ativan. He'll be admitted to Dr. Pandya. Disposition Clinical Impression: Chest pain, Alcohol intoxication, Pancreatitis Disposition: ADMITTED IP TO THIS HOSP Condition: Serious Referrals: Ghada Bhatt DO [Primary Care Provider] - 1-2 days Decision to Admit Reason: Admit from EC Decision Date: 10/15/18 Decision Time: 19:37
[2018-10-15 18:46] LABS: INR 0.9 (<1.2); Partial Thromboplastin Time 23.3 sec (22.0-30.0); Prothrombin Time 9.4 sec (9.0-12.0)
[2018-10-15 18:52] LABS: ALT 52 U/L (21-72); AST 69 U/L (17-59); Albumin 4.3 g/dL (3.5-5.0); Alkaline Phosphatase 111 U/L (38-126); Amylase 79 U/L (30-110); Anion Gap 12 mmol/L; Blood Urea Nitrogen 10 mg/dL (9-20); Calcium 8.7 mg/dL (8.4-10.2); Carbon Dioxide 24 mmol/L (22-30); Chloride 107 mmol/L (98-107); Glucose 89 mg/dL (74-99); Lipase 919 U/L (23-300); Magnesium 1.9 mg/dL (1.6-2.3); Potassium 4.7 mmol/L (3.5-5.1); Sodium 143 mmol/L (137-145); Total Bilirubin 0.4 mg/dL (0.2-1.3); Total Protein 7.7 g/dL (6.3-8.2)
[2018-10-15 18:54] LABS: Creatine Kinase 88 U/L (55-170)
--- NOTE | 2018-10-15 18:58 | XR ---
EXAMINATION TYPE: XR chest 2V DATE OF EXAM: 10/15/2018 COMPARISON: 07/09/2018 HISTORY: Chest pain TECHNIQUE: Frontal and lateral views of the chest are obtained. FINDINGS: There is no heart failure nor confluent pneumonic infiltrate. There are surgical clips at the left pulmonary hilum. There are chest leads. There are some coarse interstitial density right low er lobe. Bony thorax is intact. IMPRESSION: Pulmonary fibrotic mild changes. No heart failure. No pulmonary consolidation. There is improved aeration of the left lung compared to last exam.
[2018-10-15 19:02] LABS: Alcohol 359 mg/dL
[2018-10-15 19:04] LABS: Basophils % (A) 0 %; Eosinophils # (A) 0.1 k/uL (0-0.7); Eosinophils % (A) 2 %; HCT 44.1 % (39.0-53.0); HGB 14.7 gm/dL (13.0-17.5); Lymphocytes # (A) 1.9 k/uL (1.0-4.8); Lymphocytes % (A) 32 %; MCH 32.8 pg (25.0-35.0); MCHC 33.3 g/dL (31.0-37.0); MCV 98.5 fL (80.0-100.0); Mean Platelet Volume 7.1; Monocytes # (A) 0.4 k/uL (0-1.0); Monocytes % (A) 7 %; Neutrophils # (A) 3.1 k/uL (1.3-7.7); Neutrophils % (A) 54 %; Platelet Count 101 k/uL (150-450); RBC 4.48 m/uL (4.30-5.90); RDW 13.9 % (11.5-15.5); WBC 5.8 k/uL (3.8-10.6)
[2018-10-15 19:07] LABS: Creatine Kinase MB 2.3 ng/mL (0.0-2.4); Troponin I <0.012 ng/mL (0.000-0.034)
[2018-10-15] MEDS ORDERED: SODIUM CHLORIDE 0.9% 1,000 ML IV ONE (19:08)
[2018-10-15] MEDS ORDERED: NALOXONE 0.4 MG/ML 1 ML VIAL IV PRN (19:31)
[2018-10-15] MEDS ORDERED: ONDANSETRON 4 MG/2 ML VIAL IVP PRN (19:31)
[2018-10-15] MEDS ORDERED: ASPIRIN 81 MG PO STA (19:33)
[2018-10-15] MEDS ORDERED: LORazepam 2 MG/ML INJ IV PRN ×2 (19:37)
[2018-10-15] MEDS ORDERED: THIAMINE 100 MG/ML 2 ML VIAL IM STA (19:37)
[2018-10-15] MEDS ORDERED: SODIUM CHLORIDE 0.9% 1,000 ML with MVI, ADULT NO.4 WITH VIT K 10 ML, THIAMINE 100 MG, F... IV ONE ×4 (19:45)
[2018-10-15] MEDS: HYDROmorphone 0.5 MG/0.5 ML SYRINGE IVP PRN ×2 (20:12→23:24)
[2018-10-16] MEDS: HYDROmorphone 0.5 MG/0.5 ML SYRINGE IVP PRN ×7 (04:12→23:36)
[2018-10-16 09:43] LABS: Basophils % (A) 0 %; Eosinophils # (A) 0.1 k/uL (0-0.7); Eosinophils % (A) 2 %; HCT 40.5 % (39.0-53.0); Lymphocytes # (A) 0.6 k/uL (1.0-4.8); Lymphocytes % (A) 12 %; MCH 32.9 pg (25.0-35.0); MCV 102.8 fL (80.0-100.0); Macrocytosis Slight; Mean Platelet Volume 8.8; Monocytes # (A) 0.5 k/uL (0-1.0); Monocytes % (A) 9 %; Neutrophils # (A) 3.9 k/uL (1.3-7.7); Neutrophils % (A) 75 %; RBC 3.95 m/uL (4.30-5.90); RDW 13.7 % (11.5-15.5); WBC 5.2 k/uL (3.8-10.6)
[2018-10-16] MEDS: ASPIRIN 325 MG TAB PO SCH (09:44)
[2018-10-16 09:45] LABS: ALT 54 U/L (21-72); AST 71 U/L (17-59); Albumin 3.8 g/dL (3.5-5.0); Alkaline Phosphatase 102 U/L (38-126); Amylase 52 U/L (30-110); Anion Gap 8 mmol/L; Blood Urea Nitrogen 9 mg/dL (9-20); Calcium 8.4 mg/dL (8.4-10.2); Carbon Dioxide 21 mmol/L (22-30); Chloride 112 mmol/L (98-107); Glucose 73 mg/dL (74-99); Lipase 469 U/L (23-300); Potassium 4.4 mmol/L (3.5-5.1); Sodium 141 mmol/L (137-145); Total Bilirubin 0.8 mg/dL (0.2-1.3); Total Protein 6.9 g/dL (6.3-8.2)
[2018-10-16 10:10] LABS: Platelet Count 82 k/uL (150-450)
[2018-10-16] MEDS: THIAMINE 100 MG TAB PO SCH ×2 (11:55→17:39)
--- NOTE | 2018-10-16 12:00 | P.HPIM ---
History of Present Illness H&P Date: 10/16/18 This is a 58-year-old male patient of Dr. Bhatt. Patient presented the ER with complaints of intermittent chest pain for the past 2 days. Patient also complaining of shortness of breath. Patient reports that the pain does radiate down right arm. Patient also complaining of abdominal pain has been also radiating to back. Patient does have a known past medical history of EtOH, lobe ectomy in June for lung CA, COPD, osteoarthritis, Crohn's, heart cath and nicotine dependence. Chest x-ray completed in ER showing pulmonary fibrotic mild changes. No heart failure. No pulmonary consolidation. There is improved aeration of the lung compared to last exam. EKG completed showing normal sinus rhythm. Normal EKG. troponins negative 3. Patient's serum alcohol on admit 359. Lipase also elevated at 919. Neurology services have been consulted. Patient started on [facility] alcohol withdrawal protocol. Start on clear liquid diet. At this time patient is still complaining of some shortness of breath with chest discomfort. Patient also having occasional bouts of abdominal pain with intermittent nausea. Patient denies any urinary burning or frequency. Review of Systems please refer to HPI otherwise unremarkable Past Medical History Past Medical History: Blood Disorder, Coronary Artery Disease (CAD), Cancer, COPD, Hyperlipidemia, Osteoarthritis (OA) Additional Past Medical History / Comment(s): L lung cancer with surgery, thrombocytopenia, chronic low back pain, past abnormal LFT but pt states "better " now, past bowel obstruction with perforation, IBS/chrons History of Any Multi-Drug Resistant Organisms: None Reported Past Surgical History: Back Surgery, Bowel Resection, Heart Catheterization, Orthopedic Surgery, Tonsillectomy Additional Past Surgical History / Comment(s): 06/2018 L thoracotomy with wedge resection upper lobe and lymph node dissection, colonoscopy, bowel resection d/ t perforation, cardiac cath-treat medically, fx ric little fingers(pins) Past Anesthesia/Blood Transfusion Reactions: No Reported Reaction Smoking Status: Current every day smoker - Past Family History Father Family Medical History: Cancer Additional Family Medical History / Comment(s): lung cancer Daughter(s) Family Medical History: Cancer Additional Family Medical History / Comment(s): breast cancer Medications and Allergies Home Medications Medication Instructions Recorded Confirmed Type Varenicline Tartrate [Chantix 1 mg PO BID 06/13/18 10/15/18 History Continuing Pack] Atorvastatin [Lipitor] 40 mg PO DAILY 06/29/18 10/15/18 History Allergies Allergy/AdvReac Type Severity Reaction Status Date / Time morphine Allergy Unknown Verified 10/15/18 18:31 Sulfa (Sulfonamide Allergy Unknown Verified 10/15/18 18:31 Antibiotics) Physical Exam Vitals: Vital Signs Temp Pulse Pulse Resp BP BP Pulse Ox 10/16/18 11:06 97.6 F 96 16 124/81 98 10/16/18 08:00 18 10/16/18 07:10 97.4 F L 106 H 18 125/64 94 L 10/16/18 02:00 84 119/64 95 10/16/18 01:00 97 107/66 97 10/16/18 00:00 117/76 96 10/15/18 23:00 77 97/67 98 10/15/18 22:40 86 97/67 96 10/15/18 22:30 95 104/58 95 10/15/18 21:30 101 H 121/74 93 L 10/15/18 21:20 103 H 121/74 95 10/15/18 21:10 100 121/74 94 L 10/15/18 21:00 101 H 95/71 97 10/15/18 20:50 111 H 95/71 93 L 10/15/18 20:40 107 H 95/71 10/15/18 20:30 108 H 113/73 92 L 10/15/18 20:20 117 H 113/73 94 L 10/15/18 20:10 105 H 113/73 95 10/15/18 20:00 91 117/67 10/15/18 19:50 94 117/67 94 L 10/15/18 19:40 87 117/67 97 10/15/18 19:30 94 107/67 10/15/18 19:20 83 107/67 94 L 10/15/18 18:29 89 16 114/66 98 10/15/18 17:50 86 120/81 96 10/15/18 17:30 98.5 F 93 18 120/81 97 Intake and Output 10/15/18 10/16/18 10/16/18 22:59 06:59 14:59 Output Total 700 Balance -700 Output: Urine 600 Emesis 100 Other: Weight 85.729 kg Head normocephalic Neck supple Lungs clear to auscultation bilaterally no wheezing or crackles Heart regular rate and rhythm S1-S2, no rub or gallop Abdomen is soft nontender nondistended positive bowel sounds no hepatosplenomegaly Extremities no edema Neuro alert and orientated to 3 Results CBC & Chem 7: 10/16/18 05:34 10/16/18 05:34 Labs: Abnormal Lab Results - Last 24 Hours (Table) 10/15/18 10/15/18 10/16/18 Range/Units 18:19 18:19 05:34 RBC 3.95 L (4.30-5.90) m/uL MCV 102.8 H (80.0-100.0) fL Plt Count 101 L 82 L (150-450) k/uL Lymphocytes # 0.6 L (1.0-4.8) k/uL Chloride (98-107) mmol/L Carbon Dioxide (22-30) mmol/L Glucose (74-99) mg/dL AST 69 H (17-59) U/L Lipase 919 H (23-300) U/L Serum Alcohol 359 H* mg/dL 10/16/18 Range/Units 05:34 RBC (4.30-5.90) m/uL MCV (80.0-100.0) fL Plt Count (150-450) k/uL Lymphocytes # (1.0-4.8) k/uL Chloride 112 H (98-107) mmol/L Carbon Dioxide 21 L (22-30) mmol/L Glucose 73 L (74-99) mg/dL AST 71 H (17-59) U/L Lipase 469 H (23-300) U/L Serum Alcohol mg/dL Thrombosis Risk Factor Assmnt - Choose All That Apply Each Factor Represents 1 point: Abnormal pulmonary function (COPD), Age 41-60 years Other Risk Factors: No Other congenital or acquired thrombophilia - If yes, enter type in comment: No Thrombosis Risk Factor Assessment Total Risk Factor Score: 2 Thrombosis Risk Factor Assessment Level: Low Risk Assessment and Plan Assessment: 1. Acute pancreatitis. Initial lipase level elevated at 919. Lipase is improving to 469. Patient started on clear liquid diet will continue to monitor 2. Chest pain shortness of breath. Cardiology services have been consulted. Troponins negative 3. EKG showing normal sinus rhythm 3. Lung CA with lobectomy. Patient underwent left lower lung lobectomy in June [address] Issa. Patient does follow with Dr. SATHYA Rowe for pulmonary. Dr. Rowe has been consulted 4. EtOH. Patient reports that he drinks 12 pack of beer daily. Serum alcohol on admit 359. Patient started on alcohol withdrawal protocol 5. Coronary artery disease 6. History of COPD 7. History of hyperlipidemia 8. History of osteoporosis 9. History of IBS and Crohn's 10. Nicotine dependence. Patient educated greater than 3 minutes on smoking cessation. Nicotine patch 11. Thrombocytopenia. This is chronic for patient likely related to patient's EtOH T prophylaxis SCDs due to thrombocytopenia. GI prophylaxis Protonix Time with Patient: Greater than 30 (Greater than 60% of the total time spent in counseling and coordination of care. I performed an examination of the patient and discussed their management with the Nurse Practitioner. I have reviewed the Nurse Practitioner's notes and agree with the documented findings and plan of care)
--- NOTE | 2018-10-16 13:03 | CONS ---
CONSULTATION Mr. Sevilla is a 58-year-old gentleman who is seen for the cardiac evaluation. This patient's medical records reviewed. The patient came to the emergency room with the complaint of chest pain and abdominal pain. The patient gives a history that he has been having sharp pain in the upper abdomen and radiating to his back as well as some pain in the left arm. She also has been nauseated. Denied any vomiting. Denied any fever or chills. Denies any significant cough with expectoration. This patient has multiple problems. She has a history of left lobectomy in June for the lung cancer. The patient also has a history of chronic alcoholic liver disease. The patient had a cardiac catheterization done in May, which revealed mild disease in the right coronary artery and the patient has been advised medical treatment. There is no definite prior history of myocardial infarction. PAST MEDICAL HISTORY: Past medical history includes history of back surgery, bowel resection, lobectomy, prior cardiac catheterization and orthopedic surgery. SOCIAL HISTORY: Patient is currently everyday smoker and patient also drink alcohol. Patient has a history of use of marijuana. PHYSICAL EXAMINATION: Physical examination at present reveals a 58-year-old gentleman who at present does not appear to be in any acute distress. The patient's blood pressure is 124/81 mmHg, oxygen saturation is 98%. Head/ENT examination is negative. Neck is supple. There is no increase in jugular venous pressure. Both the carotid pulses are felt. There is no bruit. Chest is symmetrical. HEART: The PMI is not felt. First and second heart sounds are normal. Lungs reveal bilateral scattered wheezes. Abdomen is soft. Liver and spleen are not enlarged. There is a mild tenderness present in the epigastrium. EXTREMITIES: Peripheral pulses are 2+. EKG shows normal sinus rhythm without any acute ischemic changes. The patient's 3 sets of troponins are normal. Electrolytes are normal. Patient's initial lipase was 919. The repeat lipase is 469. Serum alcohol level was 359. FINAL IMPRESSION: This patient is presented with abdominal pain and chest pain. Patient's cardiac enzymes are normal. The patient had a mild coronary artery disease in the past. The patient has evidence of acute pancreatitis and alcoholic liver disease. Continue symptomatic medical therapy. MMODL / IJN: [id number] /
[2018-10-16] MEDS ORDERED: PANTOPRAZOLE 40 MG/10 ML VIAL IVP ONE (15:18)
[2018-10-16] MEDS ORDERED: NICOTINE 14MG/24HR PATCH TRANSDERM STA (15:26)
[2018-10-16] MEDS: NICOTINE 14MG/24HR PATCH TRANSDERM SCH (15:35)
[2018-10-16] MEDS ORDERED: IPRATROPIUM-ALBUTEROL 3 ML NEB INHALATION PRN (16:51)
--- NOTE | 2018-10-16 16:52 | P.CNPUL ---
History of Present Illness Consult date: 10/16/18 Reason for consult: dyspnea, chest pain, COPD Chief complaint: Chest pain History of present illness: This is a 58 year old gentleman who presented to the emergency department complaining of chest pain that has been on going for 3 days. He states he just as not been feeling well. He does have a cough with associated emesis. He denies fevers and chills. He does have wheezing, which is worse when he lays flat. He states he smokes 2 ppd for the last 42 years. He was previously on chantix and states he did stop smoking for a short period of time. He had a left upper lobe lung resection on July 06, 2018. 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 He states he also drinks a 12 pack of 24 ounce beers every day. He states he is committed to quitting smoking and drinking. He also uses edible marijuana. He is supposed to be on nebulizer medication but states he always forgets to use it. He follows with Dr. SATHYA Rowe in the office and was last seen 08/29/18. His PFT shows moderate COPD. Review of Systems All systems: negative Past Medical History Past Medical History: Blood Disorder, Coronary Artery Disease (CAD), Cancer, COPD, Hyperlipidemia, Osteoarthritis (OA) Additional Past Medical History / Comment(s): L lung cancer with surgery, thrombocytopenia, chronic low back pain, past abnormal LFT but pt states "better " now, past bowel obstruction with perforation, IBS/chrons History of Any Multi-Drug Resistant Organisms: None Reported Past Surgical History: Back Surgery, Bowel Resection, Heart Catheterization, Orthopedic Surgery, Tonsillectomy Additional Past Surgical History / Comment(s): 06/2018 L thoracotomy with wedge resection upper lobe and lymph node dissection, colonoscopy, bowel resection d/ t perforation, cardiac cath-treat medically, fx ric little fingers(pins) Past Anesthesia/Blood Transfusion Reactions: No Reported Reaction Smoking Status: Current every day smoker - Past Family History Father Family Medical History: Cancer Additional Family Medical History / Comment(s): lung cancer Daughter(s) Family Medical History: Cancer Additional Family Medical History / Comment(s): breast cancer Medications and Allergies Home Medications Medication Instructions Recorded Confirmed Type Varenicline Tartrate [Chantix 1 mg PO BID 06/13/18 10/15/18 History Continuing Pack] Atorvastatin [Lipitor] 40 mg PO DAILY 06/29/18 10/15/18 History Allergies Allergy/AdvReac Type Severity Reaction Status Date / Time morphine Allergy Unknown Verified 10/15/18 18:31 Sulfa (Sulfonamide Allergy Unknown Verified 10/15/18 18:31 Antibiotics) Physical Exam Osteopathic Statement: *. No significant issues noted on an osteopathic structural exam other than those noted in the History and Physical/Consult. Vitals: Vital Signs Temp Pulse Pulse Resp BP BP BP 10/16/18 15:12 97.6 F 69 16 119/71 10/16/18 11:10 16 10/16/18 11:06 97.6 F 96 16 124/81 10/16/18 08:00 18 10/16/18 07:10 97.4 F L 106 H 18 125/64 10/16/18 02:00 84 119/64 10/16/18 01:00 97 107/66 10/16/18 00:00 117/76 10/15/18 23:00 77 97/67 10/15/18 22:40 86 97/67 10/15/18 22:30 95 104/58 10/15/18 21:30 101 H 121/74 10/15/18 21:20 103 H 121/74 10/15/18 21:10 100 121/74 10/15/18 21:00 101 H 95/71 10/15/18 20:50 111 H 95/71 10/15/18 20:40 107 H 95/71 10/15/18 20:30 108 H 113/73 10/15/18 20:20 117 H 113/73 10/15/18 20:10 105 H 113/73 10/15/18 20:00 91 117/67 10/15/18 19:50 94 117/67 10/15/18 19:40 87 117/67 10/15/18 19:30 94 107/67 10/15/18 19:20 83 107/67 10/15/18 18:29 89 16 114/66 10/15/18 17:50 86 120/81 10/15/18 17:30 98.5 F 93 18 120/81 Pulse Ox 10/16/18 15:12 98 10/16/18 11:10 10/16/18 11:06 98 10/16/18 08:00 10/16/18 07:10 94 L 10/16/18 02:00 95 10/16/18 01:00 97 10/16/18 00:00 96 10/15/18 23:00 98 10/15/18 22:40 96 10/15/18 22:30 95 10/15/18 21:30 93 L 10/15/18 21:20 95 10/15/18 21:10 94 L 10/15/18 21:00 97 10/15/18 20:50 93 L 10/15/18 20:40 10/15/18 20:30 92 L 10/15/18 20:20 94 L 10/15/18 20:10 95 10/15/18 20:00 10/15/18 19:50 94 L 10/15/18 19:40 97 10/15/18 19:30 10/15/18 19:20 94 L 10/15/18 18:29 98 10/15/18 17:50 96 10/15/18 17:30 97 Intake and Output 10/16/18 10/16/18 10/16/18 06:59 14:59 22:59 Intake Total 360 Output Total 700 200 Balance -340 -200 Intake: Oral 360 Output: Urine 600 200 Emesis 100 General: Alert and oriented x 3, NAD CV: RRR, s1/s2 Lungs: bilateral expiratory wheezing Abd: Soft, NT/ND, +BS Ext: no edema Results - Laboratory Findings CBC and BMP: 10/16/18 05:34 10/16/18 05:34 PT/INR, D-dimer PT 9.4 sec (9.0-12.0) 10/15/18 18:19 INR 0.9 (<1.2) 10/15/18 18:19 Abnormal lab findings: Abnormal Labs 10/15/18 10/15/18 10/16/18 18:19 18:19 05:34 RBC 3.95 L MCV 102.8 H Plt Count 101 L 82 L Lymphocytes # 0.6 L Chloride Carbon Dioxide Glucose AST 69 H Lipase 919 H Serum Alcohol 359 H* 10/16/18 05:34 RBC MCV Plt Count Lymphocytes # Chloride 112 H Carbon Dioxide 21 L Glucose 73 L AST 71 H Lipase 469 H Serum Alcohol - Diagnostic Findings Chest x-ray: report reviewed, image reviewed Assessment and Plan Assessment: Acute exacerbation of COPD Tracheobronchitis History of squamous cell lung cancer, s/p ESTEPHANIE resection Acute pancreatitis Alcohol abuse Tobacco abuse Atypical chest pain Macrocytosis with thrombocytopenia concerning for BM suppression due to alcohol Alcoholic liver disease History of ASCAD Dyslipidemia History of IBS and Crohns O2 to maintain saturation greater than or equal to 90% PulmicChris motta Smoking cessation Abstinence from alcohol CIWA protocol Monitor LFT and pancreatic enzymes CXR reviewed Nicotine TD, will order Chantix upon discharge IVF hydration MV, B12, Folate IS and pulmonary hygiene Patient follows with Dr. SATHYA Rowe in the office Thank you for this consultation. We will continue to follow along.
[2018-10-16] MEDS: SODIUM CHLORIDE 0.9% 1,000 ML IV SCH (17:38)
[2018-10-16] MEDS: HEPARIN SODIUM,PORCINE 5,000 UNIT/ML 1 ML VIAL SQ SCH ×2 (17:38→23:10)
[2018-10-16] MEDS: methylPREDNISolone SOD SUCCI 40 MG/ML 1 ML VIAL IV SCH ×2 (17:39→23:09)
[2018-10-16] MEDS: LORazepam 2 MG/ML INJ IV PRN (20:56)
[2018-10-16] MEDS: DOXYCYCLINE 50 MG CAP PO SCH (20:56)
[2018-10-16] MEDS: BUDESONIDE 0.5 MG/2 ML NEBU INHALATION SCH (21:46)
[2018-10-16] MEDS: IPRATROPIUM-ALBUTEROL 3 ML NEB INHALATION SCH (21:47)
[2018-10-17] MEDS: SODIUM CHLORIDE 0.9% 1,000 ML IV SCH ×2 (03:11→15:42)
[2018-10-17] MEDS: HYDROmorphone 0.5 MG/0.5 ML SYRINGE IVP PRN ×6 (03:12→21:24)
[2018-10-17 06:01] LABS: Glucose,Whole Blood 121 mg/dL (75-99)
[2018-10-17] MEDS: INSULIN ASPART (NovoLOG) 100 UNIT/ML VIAL SQ SCH ×4 (06:08→21:24)
[2018-10-17] MEDS: PANTOPRAZOLE 40 MG TABLET PO SCH (06:21)
[2018-10-17 06:23] LABS: Basophils % (A) 0 %; Eosinophils % (A) 0 %; HCT 35.9 % (39.0-53.0); HGB 11.7 gm/dL (13.0-17.5); Lymphocytes # (A) 0.3 k/uL (1.0-4.8); Lymphocytes % (A) 12 %; MCH 33.4 pg (25.0-35.0); MCHC 32.4 g/dL (31.0-37.0); MCV 102.9 fL (80.0-100.0); Macrocytosis Slight; Monocytes # (A) 0.2 k/uL (0-1.0); Monocytes % (A) 8 %; Neutrophils # (A) 1.8 k/uL (1.3-7.7); Neutrophils % (A) 78 %; RBC 3.49 m/uL (4.30-5.90); RDW 13.6 % (11.5-15.5); WBC 2.3 k/uL (3.8-10.6)
[2018-10-17 06:46] LABS: Platelet Count 61 k/uL (150-450)
[2018-10-17 07:03] LABS: ALT 41 U/L (21-72); AST 43 U/L (17-59); Albumin 3.4 g/dL (3.5-5.0); Alkaline Phosphatase 90 U/L (38-126); Amylase 37 U/L (30-110); Anion Gap 7 mmol/L; Blood Urea Nitrogen 8 mg/dL (9-20); Calcium 8.2 mg/dL (8.4-10.2); Carbon Dioxide 24 mmol/L (22-30); Chloride 107 mmol/L (98-107); Glucose 121 mg/dL (74-99); Lipase 186 U/L (23-300); Potassium 4.6 mmol/L (3.5-5.1); Sodium 138 mmol/L (137-145); Total Bilirubin 0.9 mg/dL (0.2-1.3); Total Protein 6.2 g/dL (6.3-8.2)
[2018-10-17] MEDS: BUDESONIDE 0.5 MG/2 ML NEBU INHALATION SCH ×2 (08:04→19:33)
[2018-10-17] MEDS: IPRATROPIUM-ALBUTEROL 3 ML NEB INHALATION SCH ×3 (08:04→19:33)
[2018-10-17] MEDS: HEPARIN SODIUM,PORCINE 5,000 UNIT/ML 1 ML VIAL SQ SCH ×3 (08:30→23:10)
[2018-10-17] MEDS: methylPREDNISolone SOD SUCCI 40 MG/ML 1 ML VIAL IV SCH ×3 (08:30→23:10)
[2018-10-17] MEDS: ASPIRIN 325 MG TAB PO SCH (08:31)
[2018-10-17] MEDS: NICOTINE 14MG/24HR PATCH TRANSDERM SCH (08:31)
[2018-10-17] MEDS: DOXYCYCLINE 50 MG CAP PO SCH ×2 (08:31→21:23)
--- NOTE | 2018-10-17 11:13 | P.PN ---
Subjective Progress Note Date: 10/17/18 This is a 58-year-old male patient of Dr. Bhatt. Patient presented the ER with complaints of intermittent chest pain for the past 2 days. Patient also complaining of shortness of breath. Patient reports that the pain does radiate down right arm. Patient also complaining of abdominal pain has been also radiating to back. Patient does have a known past medical history of EtOH, lobe ectomy in June for lung CA, COPD, osteoarthritis, Crohn's, heart cath and nicotine dependence. Chest x-ray completed in ER showing pulmonary fibrotic mild changes. No heart failure. No pulmonary consolidation. There is improved aeration of the lung compared to last exam. EKG completed showing normal sinus rhythm. Normal EKG. troponins negative 3. Patient's serum alcohol on admit 359. Lipase also elevated at 919. Neurology services have been consulted. Patient started on [facility] alcohol withdrawal protocol. Start on clear liquid diet. At this time patient is still complaining of some shortness of breath with chest discomfort. Patient also having occasional bouts of abdominal pain with intermittent nausea. Patient denies any urinary burning or frequency. on 10/17/2018 patient is feeling slightly improved from yesterday.lipase is returning to normal at 186 and amylase 37. patient remains on alcohol withdrawal protocol. at this time patient denies any nausea or vomiting. Patient denies any urinary burning or frequency. Patient denies chest pain or shortness Objective - Vital Signs Vital signs: Vital Signs Temp 98.5 F 10/17/18 04:00 Pulse 96 10/17/18 08:21 Resp 18 10/17/18 04:00 BP 121/75 10/17/18 04:00 Pulse Ox 99 10/17/18 08:07 Intake & Output 10/16/18 10/17/18 10/17/18 18:59 06:59 18:59 Intake Total 854 294 4923 Output Total 900 Balance -60 540 1440 Weight 85.7 kg Intake: Intake, IV Titration 300 600 Amount Sodium Chloride 0.9% 1, 300 600 000 ml @ 75 mls/hr IV . [id number] [facility] Rx#:[id number] Oral 840 240 840 Output: Urine 800 Emesis 100 - Exam Head normocephalic Neck supple Lungs clear to auscultation bilaterally no wheezing or crackles Heart regular rate and rhythm S1-S2, no rub or gallop Abdomen is soft nontender nondistended positive bowel sounds no hepatosplenomegaly Extremities no edema Neuro alert and orientated to 3 - Labs CBC & Chem 7: 10/17/18 05:47 10/17/18 05:47 Labs: Abnormal Lab Results - Last 24 Hours (Table) 10/17/18 10/17/18 10/17/18 Range/Units 05:47 05:47 06:00 WBC 2.3 L (3.8-10.6) k/uL RBC 3.49 L (4.30-5.90) m/uL Hgb 11.7 L (13.0-17.5) gm/dL Hct 35.9 L (39.0-53.0) % MCV 102.9 H (80.0-100.0) fL Plt Count 61 L (150-450) k/uL Lymphocytes # 0.3 L (1.0-4.8) k/uL BUN 8 L (9-20) mg/dL Glucose 121 H (74-99) mg/dL POC Glucose (mg/dL) 121 H (75-99) mg/dL Calcium 8.2 L (8.4-10.2) mg/dL Total Protein 6.2 L (6.3-8.2) g/dL Albumin 3.4 L (3.5-5.0) g/dL Assessment and Plan Assessment: 1. Acute pancreatitis. Initial lipase level elevated at 919. Lipase is improving to 469. Patient started on clear liquid diet will continue to monitor. lipase has normalized. 2. Chest pain shortness of breath related to acute exacerbation of COPD Cardiology services have been consulted. Troponins negative 3. EKG showing normal sinus rhythm. per cardiology services patient's cardiac enzymes are normal, patient does have history of mild coronary artery disease disease in the past continue symptomatic therapy. pulmonary services following patient has been started on IV steroids plus doxycycline 3. Lung CA with lobectomy. Patient underwent left lower lung lobectomy in June [address] Issa. Patient does follow with Dr. SATHYA Rowe for pulmonary. Dr. Rowe has been consulted 4. EtOH. Patient reports that he drinks 12 pack of beer daily. Serum alcohol on admit 359. Patient started on alcohol withdrawal protocol 5. Coronary artery disease 6. acute exacerbation COPD 7. History of hyperlipidemia 8. History of osteoporosis 9. History of IBS and Crohn's 10. Nicotine dependence. Patient educated greater than 3 minutes on smoking cessation. Nicotine patch 11. Thrombocytopenia. This is chronic for patient likely related to patient's EtOH DVT prophylaxis Lovenox. GI prophylaxis Protonix I performed an examination of the patient and discussed their management with the Nurse Practitioner. I have reviewed the Nurse Practitioner's notes and agree with the documented findings and plan of care
[2018-10-17 11:44] LABS: Glucose,Whole Blood 132 mg/dL (75-99)
[2018-10-17] MEDS: THIAMINE 100 MG TAB PO SCH ×2 (12:55→18:11)
--- NOTE | 2018-10-17 15:18 | P.PN ---
Subjective Progress Note Date: 10/17/18 This is a 58-year-old gentleman seen in consultation yesterday by Dr. VC Gordon. He initially presented to the hospital with symptoms of abdominal and chest discomfort. Patient did undergo cardiac catheterization and echocardiogram in May of last year which were normal. He was advised medical therapy at that time. Was seen and examined today, hemodynamically stable. From cardiology's perspective, we'll continue to follow him on an as- needed basis only, please don't hesitate to call with any questions. Objective - Vital Signs Vital signs: Vital Signs Temp 97.6 F 10/17/18 11:55 Pulse 70 10/17/18 13:36 Resp 18 10/17/18 11:55 BP 138/66 10/17/18 11:55 Pulse Ox 97 10/17/18 11:55 Intake & Output 10/16/18 10/17/18 10/17/18 18:59 06:59 18:59 Intake Total 842 027 2909 Output Total 900 600 Balance -60 540 840 Weight 85.7 kg Intake: Intake, IV Titration 300 600 Amount Sodium Chloride 0.9% 1, 300 600 000 ml @ 75 mls/hr IV . [id number] [facility] Rx#:[id number] Oral 840 240 840 Output: Urine 800 600 Emesis 100 - Exam Head normocephalic Neck supple Lungs clear to auscultation bilaterally no wheezing or crackles Heart regular rate and rhythm S1-S2, no rub or gallop Abdomen is soft nontender nondistended positive bowel sounds no hepatosplenomegaly Extremities no edema Neuro alert and orientated to 3 - Labs CBC & Chem 7: 10/17/18 05:47 10/17/18 05:47 Labs: Abnormal Lab Results - Last 24 Hours (Table) 10/17/18 10/17/18 10/17/18 Range/Units 05:47 05:47 06:00 WBC 2.3 L (3.8-10.6) k/uL RBC 3.49 L (4.30-5.90) m/uL Hgb 11.7 L (13.0-17.5) gm/dL Hct 35.9 L (39.0-53.0) % MCV 102.9 H (80.0-100.0) fL Plt Count 61 L (150-450) k/uL Lymphocytes # 0.3 L (1.0-4.8) k/uL BUN 8 L (9-20) mg/dL Glucose 121 H (74-99) mg/dL POC Glucose (mg/dL) 121 H (75-99) mg/dL Calcium 8.2 L (8.4-10.2) mg/dL Total Protein 6.2 L (6.3-8.2) g/dL Albumin 3.4 L (3.5-5.0) g/dL 10/17/18 Range/Units 11:37 WBC (3.8-10.6) k/uL RBC (4.30-5.90) m/uL Hgb (13.0-17.5) gm/dL Hct (39.0-53.0) % MCV (80.0-100.0) fL Plt Count (150-450) k/uL Lymphocytes # (1.0-4.8) k/uL BUN (9-20) mg/dL Glucose (74-99) mg/dL POC Glucose (mg/dL) 132 H (75-99) mg/dL Calcium (8.4-10.2) mg/dL Total Protein (6.3-8.2) g/dL Albumin (3.5-5.0) g/dL Assessment and Plan Plan: Assessment: 1. Acute pancreatitis. 2. Chest pain, atypical for acute coronary syndrome, cardiac catheterization performed in May of last year medical therapy advised. Echocardiogram with Doppler study performed at that time showed a normal left ventricular systolic function. 3. Lung CA with lobectomy. 4. EtOH. 5. Coronary artery disease 6. acute exacerbation COPD 7. History of hyperlipidemia 8. History of osteoporosis 9. History of IBS and Crohn's 10. Nicotine dependence. Plan From cardiology's perspective, we'll follow this patient along with you now on an as-needed basis only, please don't hesitate to call with any questions. DNP note has been reviewed, I agree with a documented findings and plan of care. Patient was seen and examined.
[2018-10-17 17:09] LABS: Glucose,Whole Blood 148 mg/dL (75-99)
--- NOTE | 2018-10-17 18:25 | P.PN ---
Subjective Progress Note Date: 10/17/18 10/17/2018: Patient seen and examined. Patient states his breathing is ok. He states he feels emotional today because he is worried about his liver and is wondering if he is in liver failure. He states his abdominal and chest pain are improving. He is on room air. Objective - Vital Signs Vital signs: Vital Signs Temp 97.6 F 10/17/18 11:55 Pulse 70 10/17/18 13:36 Resp 18 10/17/18 11:55 BP 138/66 10/17/18 11:55 Pulse Ox 97 10/17/18 11:55 Intake & Output 10/16/18 10/17/18 10/17/18 18:59 06:59 18:59 Intake Total 901 268 5639 Output Total 900 600 Balance -60 540 1080 Weight 85.7 kg Intake: Intake, IV Titration 300 600 Amount Sodium Chloride 0.9% 1, 300 600 000 ml @ 75 mls/hr IV . [id number] [facility] Rx#:[id number] Oral [id number] Output: Urine 800 600 Emesis 100 - Exam General: Alert and oriented x 3, NAD CV: RRR, s1/s2 Lungs: bilateral expiratory wheezing Abd: Soft, NT/ND, +BS Ext: no edema - Labs CBC & Chem 7: 10/17/18 05:47 10/17/18 05:47 Labs: Abnormal Lab Results - Last 24 Hours (Table) 10/17/18 10/17/18 10/17/18 Range/Units 05:47 05:47 06:00 WBC 2.3 L (3.8-10.6) k/uL RBC 3.49 L (4.30-5.90) m/uL Hgb 11.7 L (13.0-17.5) gm/dL Hct 35.9 L (39.0-53.0) % MCV 102.9 H (80.0-100.0) fL Plt Count 61 L (150-450) k/uL Lymphocytes # 0.3 L (1.0-4.8) k/uL BUN 8 L (9-20) mg/dL Glucose 121 H (74-99) mg/dL POC Glucose (mg/dL) 121 H (75-99) mg/dL Calcium 8.2 L (8.4-10.2) mg/dL Total Protein 6.2 L (6.3-8.2) g/dL Albumin 3.4 L (3.5-5.0) g/dL 10/17/18 10/17/18 Range/Units 11:37 16:59 WBC (3.8-10.6) k/uL RBC (4.30-5.90) m/uL Hgb (13.0-17.5) gm/dL Hct (39.0-53.0) % MCV (80.0-100.0) fL Plt Count (150-450) k/uL Lymphocytes # (1.0-4.8) k/uL BUN (9-20) mg/dL Glucose (74-99) mg/dL POC Glucose (mg/dL) 132 H 148 H (75-99) mg/dL Calcium (8.4-10.2) mg/dL Total Protein (6.3-8.2) g/dL Albumin (3.5-5.0) g/dL Assessment and Plan Assessment: Acute exacerbation of COPD Tracheobronchitis History of squamous cell lung cancer, s/p ESTEPHANIE resection Acute pancreatitis Alcohol abuse Tobacco abuse Atypical chest pain Macrocytosis with thrombocytopenia concerning for BM suppression due to alcohol Alcoholic liver disease History of ASCAD Dyslipidemia History of IBS and Crohns O2 to maintain saturation greater than or equal to 90% [place] Smoking cessation Abstinence from alcohol [facility] protocol Monitor LFT and pancreatic enzymes CXR reviewed Nicotine TD, will order Chantix upon discharge IVF hydration MV, B12, Folate IS and pulmonary hygiene Patient follows with Dr. SATHYA Rowe in the office
[2018-10-17 20:08] LABS: Glucose,Whole Blood 203 mg/dL (75-99)
[2018-10-18] MEDS: HYDROmorphone 0.5 MG/0.5 ML SYRINGE IVP PRN ×5 (02:15→20:48)
[2018-10-18] MEDS: SODIUM CHLORIDE 0.9% 1,000 ML IV SCH ×2 (05:23→18:00)
[2018-10-18 06:05] LABS: Glucose,Whole Blood 138 mg/dL (75-99)
[2018-10-18 06:46] LABS: Basophils % (A) 0 %; Eosinophils % (A) 0 %; HCT 35.4 % (39.0-53.0); Lymphocytes # (A) 0.3 k/uL (1.0-4.8); Lymphocytes % (A) 13 %; MCH 32.3 pg (25.0-35.0); MCHC 31.1 g/dL (31.0-37.0); MCV 103.7 fL (80.0-100.0); Macrocytosis Slight; Mean Platelet Volume 8.4; Monocytes # (A) 0.2 k/uL (0-1.0); Monocytes % (A) 7 %; Neutrophils # (A) 1.6 k/uL (1.3-7.7); Neutrophils % (A) 78 %; RBC 3.42 m/uL (4.30-5.90); RDW 13.9 % (11.5-15.5); WBC 2.1 k/uL (3.8-10.6)
[2018-10-18 07:01] LABS: ALT 36 U/L (21-72); AST 33 U/L (17-59); Albumin 3.3 g/dL (3.5-5.0); Alkaline Phosphatase 76 U/L (38-126); Amylase 43 U/L (30-110); Anion Gap 4 mmol/L; Blood Urea Nitrogen 7 mg/dL (9-20); Calcium 8.5 mg/dL (8.4-10.2); Carbon Dioxide 25 mmol/L (22-30); Chloride 109 mmol/L (98-107); Glucose 132 mg/dL (74-99); Lipase 230 U/L (23-300); Sodium 138 mmol/L (137-145); Total Bilirubin 0.6 mg/dL (0.2-1.3); Total Protein 6.1 g/dL (6.3-8.2)
[2018-10-18 07:06] LABS: Platelet Count 58 k/uL (150-450)
[2018-10-18] MEDS: PANTOPRAZOLE 40 MG TABLET PO SCH (07:09)
[2018-10-18] MEDS: INSULIN ASPART (NovoLOG) 100 UNIT/ML VIAL SQ SCH ×4 (07:10→21:49)
[2018-10-18] MEDS: IPRATROPIUM-ALBUTEROL 3 ML NEB INHALATION SCH ×3 (08:21→20:49)
[2018-10-18] MEDS: BUDESONIDE 0.5 MG/2 ML NEBU INHALATION SCH ×2 (08:21→20:49)
[2018-10-18] MEDS: ASPIRIN 325 MG TAB PO SCH (08:41)
[2018-10-18] MEDS: DOXYCYCLINE 50 MG CAP PO SCH ×2 (08:41→20:48)
[2018-10-18] MEDS: methylPREDNISolone SOD SUCCI 40 MG/ML 1 ML VIAL IV SCH (08:42)
[2018-10-18] MEDS ORDERED: HYDROcodone/APAP 7.5-325MG 1 EACH TAB PO PRN (10:12)
[2018-10-18] MEDS: NICOTINE 14MG/24HR PATCH TRANSDERM SCH (10:15)
--- NOTE | 2018-10-18 11:42 | P.PN ---
Subjective Progress Note Date: 10/18/18 This is a 58-year-old male patient of Dr. Bhatt. Patient presented the ER with complaints of intermittent chest pain for the past 2 days. Patient also complaining of shortness of breath. Patient reports that the pain does radiate down right arm. Patient also complaining of abdominal pain has been also radiating to back. Patient does have a known past medical history of EtOH, lobe ectomy in June for lung CA, COPD, osteoarthritis, Crohn's, heart cath and nicotine dependence. Chest x-ray completed in ER showing pulmonary fibrotic mild changes. No heart failure. No pulmonary consolidation. There is improved aeration of the lung compared to last exam. EKG completed showing normal sinus rhythm. Normal EKG. troponins negative 3. Patient's serum alcohol on admit 359. Lipase also elevated at 919. Neurology services have been consulted. Patient started on [facility] alcohol withdrawal protocol. Start on clear liquid diet. At this time patient is still complaining of some shortness of breath with chest discomfort. Patient also having occasional bouts of abdominal pain with intermittent nausea. Patient denies any urinary burning or frequency. on 10/17/2018 patient is feeling slightly improved from yesterday.lipase is returning to normal at 186 and amylase 37. patient remains on alcohol withdrawal protocol. at this time patient denies any nausea or vomiting. Patient denies any urinary burning or frequency. Patient denies chest pain or shortness On 10/18/2018 patient is alert and oriented 3. Amylase and lipase levels remain within normal limits. Patient received doxycycline and IV steroids for shortness of breath. Patient is still complaining of some shortness of breath. Patient denies chest pain. Patient denies nausea vomiting or diarrhea. Patient denies any urinary burning or frequency Objective - Vital Signs Vital signs: Vital Signs Temp 97.5 F L 10/18/18 08:00 Pulse 74 10/18/18 09:24 Resp 17 10/18/18 09:24 BP 120/78 10/18/18 08:00 Pulse Ox 96 10/18/18 08:00 Intake & Output 10/17/18 10/18/18 10/18/18 18:59 06:59 18:59 Intake Total 1680 150 360 Output Total 600 750 130 Balance 1080 -600 230 Weight 86.3 kg Intake: Intake, IV Titration 600 150 Amount Sodium Chloride 0.9% 1, 600 150 000 ml @ 75 mls/hr IV . [id number] [facility] Rx#:[id number] Oral 1080 360 Output: Urine 600 750 130 Other: Voiding Method Toilet # Voids 1 # Bowel Movements 0 - Exam Head normocephalic Neck supple Lungs clear to auscultation bilaterally no wheezing or crackles Heart regular rate and rhythm S1-S2, no rub or gallop Abdomen is soft nontender nondistended positive bowel sounds no hepatosplenomegaly Extremities no edema Neuro alert and orientated to 3 - Labs CBC & Chem 7: 10/18/18 06:23 10/18/18 06:23 Labs: Abnormal Lab Results - Last 24 Hours (Table) 10/17/18 10/17/18 10/17/18 Range/Units 11:37 16:59 20:06 WBC (3.8-10.6) k/uL RBC (4.30-5.90) m/uL Hgb (13.0-17.5) gm/dL Hct (39.0-53.0) % MCV (80.0-100.0) fL Plt Count (150-450) k/uL Lymphocytes # (1.0-4.8) k/uL Chloride (98-107) mmol/L BUN (9-20) mg/dL Glucose (74-99) mg/dL POC Glucose (mg/dL) 132 H 148 H 203 H (75-99) mg/dL Total Protein (6.3-8.2) g/dL Albumin (3.5-5.0) g/dL 10/18/18 10/18/18 10/18/18 Range/Units 06:04 06:23 06:23 WBC 2.1 L (3.8-10.6) k/uL RBC 3.42 L (4.30-5.90) m/uL Hgb 11.0 L (13.0-17.5) gm/dL Hct 35.4 L (39.0-53.0) % MCV 103.7 H (80.0-100.0) fL Plt Count 58 L (150-450) k/uL Lymphocytes # 0.3 L (1.0-4.8) k/uL Chloride 109 H (98-107) mmol/L BUN 7 L (9-20) mg/dL Glucose 132 H (74-99) mg/dL POC Glucose (mg/dL) 138 H (75-99) mg/dL Total Protein 6.1 L (6.3-8.2) g/dL Albumin 3.3 L (3.5-5.0) g/dL Assessment and Plan Assessment: 1. Acute pancreatitis. Initial lipase level elevated at 919. Lipase is improving to 469. Patient started on clear liquid diet will continue to monitor. lipase has normalized. 2. Chest pain shortness of breath related to acute exacerbation of COPD Cardiology services have been consulted. Troponins negative 3. EKG showing normal sinus rhythm. per cardiology services patient's cardiac enzymes are normal, patient does have history of mild coronary artery disease disease in the past continue symptomatic therapy. pulmonary services following patient has been started on IV steroids plus doxycycline 3. Lung CA with lobectomy. Patient underwent left lower lung lobectomy in June [address] Issa. Patient does follow with Dr. SATHYA Rowe for pulmonary. Dr. Rowe has been consulted 4. EtOH. Patient reports that he drinks 12 pack of beer daily. Serum alcohol on admit 359. Patient started on alcohol withdrawal protocol 5. Coronary artery disease 6. acute exacerbation COPD 7. History of hyperlipidemia 8. History of osteoporosis 9. History of IBS and Crohn's 10. Nicotine dependence. Patient educated greater than 3 minutes on smoking cessation. Nicotine patch 11. Thrombocytopenia. This is chronic for patient likely related to patient's EtOH DVT prophylaxis SCDs due to thrombocytopenia. GI prophylaxis Protonix I performed an examination of the patient and discussed their management with the Nurse Practitioner. I have reviewed the Nurse Practitioner's notes and agree with the documented findings and plan of care
[2018-10-18] MEDS: THIAMINE 100 MG TAB PO SCH ×2 (11:43→17:57)
[2018-10-18 11:44] LABS: Glucose,Whole Blood 117 mg/dL (75-99)
[2018-10-18] MEDS: LORazepam 2 MG/ML INJ IV PRN (14:05)
--- NOTE | 2018-10-18 14:22 | P.PN ---
Subjective Progress Note Date: 10/18/18 10/17/2018: Patient seen and examined. Patient states his breathing is ok. He states he feels emotional today because he is worried about his liver and is wondering if he is in liver failure. He states his abdominal and chest pain are improving. He is on room air. 10/18/2018: Patient seen and examined. Patient states he does get up to go to the bathroom and he feels shaky and unsteady. He states he is having a lot of anxiety and doesn't feel well. This is discussed with nursing and the patient has not received Ativan since yesterday. We'll give 1 dose now. Objective - Vital Signs Vital signs: Vital Signs Temp 97.8 F 10/18/18 11:43 Pulse 88 10/18/18 11:46 Resp 17 10/18/18 11:43 BP 101/53 10/18/18 11:43 Pulse Ox 97 10/18/18 11:43 Intake & Output 10/17/18 10/18/18 10/18/18 18:59 06:59 18:59 Intake Total 1680 150 360 Output Total 600 750 130 Balance 1080 -600 230 Weight 86.3 kg Intake: Intake, IV Titration 600 150 Amount Sodium Chloride 0.9% 1, 600 150 000 ml @ 75 mls/hr IV . [id number] [facility] Rx#:[id number] Oral 1080 360 Output: Urine 600 750 130 Other: Voiding Method Toilet # Voids 1 # Bowel Movements 0 - Exam General: Alert and oriented x 3, NAD CV: RRR, s1/s2 Lungs: bilateral expiratory wheezing Abd: Soft, NT/ND, +BS Ext: no edema - Labs CBC & Chem 7: 10/18/18 06:23 10/18/18 06:23 Labs: Abnormal Lab Results - Last 24 Hours (Table) 10/17/18 10/17/18 10/18/18 Range/Units 16:59 20:06 06:04 WBC (3.8-10.6) k/uL RBC (4.30-5.90) m/uL Hgb (13.0-17.5) gm/dL Hct (39.0-53.0) % MCV (80.0-100.0) fL Plt Count (150-450) k/uL Lymphocytes # (1.0-4.8) k/uL Chloride (98-107) mmol/L BUN (9-20) mg/dL Glucose (74-99) mg/dL POC Glucose (mg/dL) 148 H 203 H 138 H (75-99) mg/dL Total Protein (6.3-8.2) g/dL Albumin (3.5-5.0) g/dL 10/18/18 10/18/18 10/18/18 Range/Units 06:23 06:23 11:40 WBC 2.1 L (3.8-10.6) k/uL RBC 3.42 L (4.30-5.90) m/uL Hgb 11.0 L (13.0-17.5) gm/dL Hct 35.4 L (39.0-53.0) % MCV 103.7 H (80.0-100.0) fL Plt Count 58 L (150-450) k/uL Lymphocytes # 0.3 L (1.0-4.8) k/uL Chloride 109 H (98-107) mmol/L BUN 7 L (9-20) mg/dL Glucose 132 H (74-99) mg/dL POC Glucose (mg/dL) 117 H (75-99) mg/dL Total Protein 6.1 L (6.3-8.2) g/dL Albumin 3.3 L (3.5-5.0) g/dL Assessment and Plan Assessment: Acute exacerbation of COPD Tracheobronchitis History of squamous cell lung cancer, s/p ESTEPHANIE resection Acute pancreatitis Pancytopenia Alcohol abuse Tobacco abuse Atypical chest pain Macrocytosis with thrombocytopenia concerning for BM suppression due to alcohol Alcoholic liver disease History of ASCAD Dyslipidemia History of IBS and Crohns O2 to maintain saturation greater than or equal to 90% PulChris betts Smoking cessation Abstinence from alcohol [facility] protocol Monitor LFT and pancreatic enzymes CXR reviewed Change to PO Prednisone Nicotine TD, will order Chantix upon discharge IVF hydration MV, B12, Folate IS and pulmonary hygiene Patient follows with Dr. SATHYA Rowe in the office
[2018-10-18] MEDS: HEPARIN SODIUM,PORCINE 5,000 UNIT/ML 1 ML VIAL SQ SCH (16:05)
[2018-10-18 16:44] LABS: Glucose,Whole Blood 142 mg/dL (75-99)
[2018-10-18 20:36] LABS: Glucose,Whole Blood 104 mg/dL (75-99)
[2018-10-19] MEDS: HYDROmorphone 0.5 MG/0.5 ML SYRINGE IVP PRN (02:25)
[2018-10-19] MEDS: INSULIN ASPART (NovoLOG) 100 UNIT/ML VIAL SQ SCH (06:17)
[2018-10-19] MEDS: PANTOPRAZOLE 40 MG TABLET PO SCH (07:12)
[2018-10-19] MEDS: SODIUM CHLORIDE 0.9% 1,000 ML IV SCH (07:14)
[2018-10-19 07:21] LABS: Basophils % (A) 0 %; Eosinophils % (A) 0 %; HCT 32.8 % (39.0-53.0); HGB 10.2 gm/dL (13.0-17.5); Lymphocytes # (A) 0.4 k/uL (1.0-4.8); Lymphocytes % (A) 22 %; MCH 32.1 pg (25.0-35.0); MCV 103.6 fL (80.0-100.0); Macrocytosis Slight; Mean Platelet Volume 9.1; Monocytes # (A) 0.2 k/uL (0-1.0); Monocytes % (A) 8 %; Neutrophils # (A) 1.2 k/uL (1.3-7.7); Neutrophils % (A) 65 %; RBC 3.17 m/uL (4.30-5.90); RDW 13.9 % (11.5-15.5); WBC 1.9 k/uL (3.8-10.6)
[2018-10-19 07:26] LABS: Platelet Count 47 k/uL (150-450)
[2018-10-19 07:36] LABS: ALT 59 U/L (21-72); AST 81 U/L (17-59); Alkaline Phosphatase 68 U/L (38-126); Anion Gap 4 mmol/L; Blood Urea Nitrogen 10 mg/dL (9-20); Calcium 8.3 mg/dL (8.4-10.2); Carbon Dioxide 23 mmol/L (22-30); Chloride 111 mmol/L (98-107); Glucose 87 mg/dL (74-99); Potassium 3.4 mmol/L (3.5-5.1); Sodium 138 mmol/L (137-145); Total Bilirubin 0.6 mg/dL (0.2-1.3); Total Protein 5.6 g/dL (6.3-8.2)
[2018-10-19] MEDS: BUDESONIDE 0.5 MG/2 ML NEBU INHALATION SCH (07:49)
[2018-10-19] MEDS: IPRATROPIUM-ALBUTEROL 3 ML NEB INHALATION SCH ×2 (07:49→13:45)
[2018-10-19] MEDS ORDERED: Potassium Replacement Protocol 1 EACH MISC MISCELLANE PRN (08:38)
[2018-10-19] MEDS: ASPIRIN 325 MG TAB PO SCH (08:46)
[2018-10-19] MEDS: DOXYCYCLINE 50 MG CAP PO SCH (08:46)
[2018-10-19] MEDS: NICOTINE 14MG/24HR PATCH TRANSDERM SCH (08:48)
[2018-10-19 08:55] VITALS: PULSE 79
[2018-10-19] MEDS ORDERED: predniSONE 20 MG TAB PO SCH (09:00)
[2018-10-19] MEDS: POTASSIUM CHLORIDE ER 20 MEQ TAB.ER PO SCH ×2 (09:30→12:01)
[2018-10-19 09:37] LABS: Amylase 67 U/L (30-110); Lipase 409 U/L (23-300)
--- NOTE | 2018-10-19 11:39 | P.DS ---
Providers Date of admission: 10/15/18 20:14 Expected date of discharge: 10/19/18 Attending physician: Ortega Pandya Consults: 10/15/18 19:32 Consult Physician Routine Consulting Provider: [facility] Consult Reason/Comments: Chest Pain Do you want consulting provider notified?: Yes 10/16/18 11:48 Consult Physician Routine Consulting Provider: Jorge Rowe Consult Reason/Comments: Shortness of breath. Follows outpatient Do you want consulting provider notified?: Yes Primary care physician: Ghada Bhatt Hospital Course: Discharge diagnosis 1. Acute pancreatitis. Initial lipase level elevated at 919. Lipase is improving to 469. Patient started on clear liquid diet will continue to monitor. Lipase increasing to 409. Patient is asymptomatic. Recommending patient to be on clear liquid diet at home. Will order repeat CMP and amylase and lipase levels in 3 days. Also recommending possible abdominal CT outpatient per PCP for further workup. This was discussed with patient 2. Chest pain shortness of breath related to acute exacerbation of COPD Cardiology services have been consulted. Troponins negative 3. EKG showing normal sinus rhythm. per cardiology services patient's cardiac enzymes are normal, patient does have history of mild coronary artery disease disease in the past continue symptomatic therapy. pulmonary services following patient has been started on IV steroids plus doxycycline pulmonary services have irritation for discharge. Patient will be DC'd on prednisone taper along with doxycycline. 3. Lung CA with lobectomy. Patient underwent left lower lung lobectomy in [place] [address] Issa. Patient does follow with Dr. SATHYA Rowe for pulmonary. Dr. Rowe has been consulted 4. EtOH. Patient reports that he drinks 12 pack of beer daily. Serum alcohol on admit 359. Patient started on alcohol withdrawal protocol. Patient educated on the importance of alcohol cessation 5. Coronary artery disease 6. acute exacerbation COPD 7. History of hyperlipidemia 8. History of osteoporosis 9. History of IBS and Crohn's 10. Nicotine dependence. Patient educated greater than 3 minutes on smoking cessation. Nicotine patch 11. Thrombocytopenia. This is chronic for patient likely related to patient's EtOH Hospital course This is a 58-year-old male patient of Dr. Bhatt. Patient presented the ER with complaints of intermittent chest pain for the past 2 days. Patient also complaining of shortness of breath. Patient reports that the pain does radiate down right arm. Patient also complaining of abdominal pain has been also radiating to back. Patient does have a known past medical history of EtOH, lobe ectomy in June for lung CA, COPD, osteoarthritis, Crohn's, heart cath and nicotine dependence. Chest x-ray completed in ER showing pulmonary fibrotic mild changes. No heart failure. No pulmonary consolidation. There is improved aeration of the lung compared to last exam. EKG completed showing normal sinus rhythm. Normal EKG. troponins negative 3. Patient's serum alcohol on admit 359. Lipase also elevated at 919. Neurology services have been consulted. Patient started on [facility] alcohol withdrawal protocol. Start on clear liquid diet. At this time patient is still complaining of some shortness of breath with chest discomfort. Patient also having occasional bouts of abdominal pain with intermittent nausea. Patient denies any urinary burning or frequency. on 10/17/2018 patient is feeling slightly improved from yesterday.lipase is returning to normal at 186 and amylase 37. patient remains on alcohol withdrawal protocol. at this time patient denies any nausea or vomiting. Patient denies any urinary burning or frequency. Patient denies chest pain or shortness On 10/18/2018 patient is alert and oriented 3. Amylase and lipase levels remain within normal limits. Patient received doxycycline and IV steroids for shortness of breath. Patient is still complaining of some shortness of breath. Patient denies chest pain. Patient denies nausea vomiting or diarrhea. Patient denies any urinary burning or frequency On 10/19/2018 patient is alert and oriented 3. Patient feels he ready and eager to go home. Patient has been cleared from pulmonary services. Patient will be DC'd home on doxycycline for more days plus prednisone taper. Patient' s amylase level 209. Lipase did increase to 409 but patient is asymptomatic. AST also slightly elevated at 81. Recommend close follow-up with PCP with possible computed tomography scan of abdomen for further investigation. Also recommend patient be maintained on clear liquid diet until repeat labs are completed. I performed an examination of the patient and discussed their management with the Nurse Practitioner. I have reviewed the Nurse Practitioner's notes and agree with the documented findings and plan of care Patient Condition at Discharge: Stable Plan - Discharge Summary Discharge Rx Participant: No New Discharge Prescriptions: No Action Varenicline Tartrate [Chantix Continuing Pack] 1 mg PO BID Atorvastatin [Lipitor] 40 mg PO DAILY Discharge Medication List Varenicline Tartrate [Chantix Continuing Pack] 1 mg PO BID 06/13/18 [History] Atorvastatin [Lipitor] 40 mg PO DAILY 06/29/18 [History] Follow up Appointment(s)/Referral(s): Juan Carlos Ferrera MD [STAFF PHYSICIAN] - 11/12/18 9:30 am Ghada Bhatt DO [Primary Care Provider] - 10/24/18 2:00 pm (With Sanjay [facility]ON P[facility]ER.) Jorge Rowe MD [STAFF PHYSICIAN] - 1 Week Patient Instructions/Handouts: Chest Pain (DC), How to Stop Smoking (DC), Pancreatitis (DC), Abuse of Alcohol (DC)
[2018-10-19 11:55] LABS: Glucose,Whole Blood 93 mg/dL (75-99)
[2018-10-19] MEDS: THIAMINE 100 MG TAB PO SCH (12:00)
[2018-10-19 12:01] LABS: Glucose,Whole Blood 114 mg/dL (75-99)
--- NOTE | 2018-10-19 12:36 | P.PN ---
Subjective Progress Note Date: 10/19/18 10/17/2018: Patient seen and examined. Patient states his breathing is ok. He states he feels emotional today because he is worried about his liver and is wondering if he is in liver failure. He states his abdominal and chest pain are improving. He is on room air. 10/18/2018: Patient seen and examined. Patient states he does get up to go to the bathroom and he feels shaky and unsteady. He states he is having a lot of anxiety and doesn't feel well. This is discussed with nursing and the patient has not received Ativan since yesterday. We'll give 1 dose now. 10/19/2018: Patient seen and examined. Patient states he is feeling better and is ready to go home. He is on room air. He denies shortness of breath and wheezing. He has no needs or complaints. Objective - Vital Signs Vital signs: Vital Signs Temp 98.2 F 10/19/18 08:00 Pulse 100 10/19/18 08:06 Resp 17 10/19/18 09:31 BP 119/69 10/19/18 08:00 Pulse Ox 98 10/19/18 08:00 Intake & Output 10/18/18 10/19/18 10/19/18 18:59 06:59 18:59 Intake Total 360 750 360 Output Total 930 800 500 Balance -570 -50 -140 Weight 86.6 kg Intake: Intake, IV Titration 750 Amount Sodium Chloride 0.9% 1, 750 000 ml @ 75 mls/hr IV . [id number] [facility] Rx#:[id number] Oral 360 360 Output: Urine 930 800 500 Other: Voiding Method Toilet # Voids 1 2 1 # Bowel Movements 0 - Exam General: Alert and oriented x 3, NAD CV: RRR, s1/s2 Lungs: improved aeration bilaterally Abd: Soft, NT/ND, +BS Ext: no edema - Labs CBC & Chem 7: 10/19/18 06:20 10/19/18 06:20 Labs: Abnormal Lab Results - Last 24 Hours (Table) 10/18/18 10/18/18 10/19/18 Range/Units 16:43 20:35 06:20 WBC 1.9 L (3.8-10.6) k/uL RBC 3.17 L (4.30-5.90) m/uL Hgb 10.2 L (13.0-17.5) gm/dL Hct 32.8 L (39.0-53.0) % MCV 103.6 H (80.0-100.0) fL Plt Count 47 L (150-450) k/uL Neutrophils # 1.2 L (1.3-7.7) k/uL Lymphocytes # 0.4 L (1.0-4.8) k/uL Potassium (3.5-5.1) mmol/L Chloride (98-107) mmol/L POC Glucose (mg/dL) 142 H 104 H (75-99) mg/dL Calcium (8.4-10.2) mg/dL AST (17-59) U/L Total Protein (6.3-8.2) g/dL Albumin (3.5-5.0) g/dL Lipase (23-300) U/L 10/19/18 10/19/18 10/19/18 Range/Units 06:20 06:20 11:18 WBC (3.8-10.6) k/uL RBC (4.30-5.90) m/uL Hgb (13.0-17.5) gm/dL Hct (39.0-53.0) % MCV (80.0-100.0) fL Plt Count (150-450) k/uL Neutrophils # (1.3-7.7) k/uL Lymphocytes # (1.0-4.8) k/uL Potassium 3.4 L (3.5-5.1) mmol/L Chloride 111 H (98-107) mmol/L POC Glucose (mg/dL) 114 H (75-99) mg/dL Calcium 8.3 L (8.4-10.2) mg/dL AST 81 H (17-59) U/L Total Protein 5.6 L (6.3-8.2) g/dL Albumin 3.0 L (3.5-5.0) g/dL Lipase 409 H (23-300) U/L Assessment and Plan Assessment: Acute exacerbation of COPD Tracheobronchitis History of squamous cell lung cancer, s/p ESTEPHANIE resection Acute pancreatitis Pancytopenia Alcohol abuse Tobacco abuse Atypical chest pain Macrocytosis with thrombocytopenia concerning for BM suppression due to alcohol Alcoholic liver disease History of ASCAD Dyslipidemia History of IBS and Crohns O2 to maintain saturation greater than or equal to 90% PulChris betts Smoking cessation Abstinence from alcohol [facility] protocol Monitor LFT and pancreatic enzymes CXR reviewed Change to PO Prednisone Nicotine TD, will order Chantix upon discharge IVF hydration MV, B12, Folate IS and pulmonary hygiene Patient follows with Dr. SATHYA Rowe in the office Ok to [place] from pulmonary standpoint. Follow up 2-3 days
[2018-10-19 12:37] VITALS: BP 112/64; RESP 18; TEMP 98.4
== END 2018-10-19 14:20 | disposition home or self-care (01) | DRG 190 ==
LOC: EC 17:24 → 3SCARD 20:14
PROVIDERS: ADMIT Internal Medicine; ATTEND Internal Medicine
DX: J44.1 Chronic obstructive pulmonary disease with (acute) exacerbation (principal); K85.90 Acute pancreatitis without necrosis or infection, unspecified; D61.818 Other pancytopenia; F10.239 Alcohol dependence with withdrawal, unspecified; K50.90 Crohn's disease, unspecified, without complications; D75.89 Other specified diseases of blood and blood-forming organs; E78.5 Hyperlipidemia, unspecified; F10.229 Alcohol dependence with intoxication, unspecified; Y90.8 Blood alcohol level of 240 mg/100 ml or more; Z71.41 Alcohol abuse counseling and surveillance of alcoholic; F17.210 Nicotine dependence, cigarettes, uncomplicated; F41.9 Anxiety disorder, unspecified; I25.10 Atherosclerotic heart disease of native coronary artery without angina pectoris; K70.9 Alcoholic liver disease, unspecified; M81.0 Age-related osteoporosis without current pathological fracture; Z79.899 Other long term (current) drug therapy; Z80.1 Family history of malignant neoplasm of trachea, bronchus and lung; Z80.3 Family history of malignant neoplasm of breast; Z82.49 Family history of ischemic heart disease and other diseases of the circulatory system; Z85.118 Personal history of other malignant neoplasm of bronchus and lung; Z90.2 Acquired absence of lung [part of]; Z90.49 Acquired absence of other specified parts of digestive tract; M19.90 Unspecified osteoarthritis, unspecified site; Z88.5 Allergy status to narcotic agent; Z88.2 Allergy status to sulfonamides
CPT/HCPCS: 36415; 71046; 80053; 80320; 82150; 82550; 82553; 83690; 83735; 84484; 85025; 85610; 85730; 93005; 94640; 94760; 96361; 96365; 96366; 96372; 96375; 96376; 99285

== ENCOUNTER → 2018-10-22 | Outpatient (CLI) | payer OTHER ==
[2018-10-22 18:47] LABS: Albumin 4.2 g/dL (3.80-4.90); Albumin/Globulin Ratio 1.91 (1.60-3.17); Anion Gap 12.7 mmol/L (4.00-12.00); Calcium 9.4 mg/dL (8.7-10.3); Carbon Dioxide 21.3 mmol/L (21.6-31.8); Globulin 2.2 g/dL (1.6-3.3); Potassium 3.5 mmol/L (3.5-5.5); Total Bilirubin 0.4 mg/dL (0.2-1.2); Total Protein 6.4 g/dL (6.2-8.2)
== END | disposition home or self-care (01) ==
LOC: LABWHC1 09:34
PROVIDERS: ATTEND Nurse Practitioner
DX: K85.90 Acute pancreatitis without necrosis or infection, unspecified (principal)
CPT/HCPCS: 36415; 80053; 82150; 83690

== ENCOUNTER → 2018-10-24 | Outpatient (CLI) | payer OTHER ==
--- NOTE | 2018-10-25 09:26 | CT ---
EXAMINATION TYPE: CT abdomen pelvis w con DATE OF EXAM: 10/24/2018 COMPARISON: Nuclear medicine PET/CT 05/12/2018 HISTORY: Pancreatitis CT DLP: 871.8 mGycm Automated exposure control for dose reduction was used. TECHNIQUE: Helical acquisition of images from the lung bases through the pelvis have been completed. CONTRAST: Performed with Oral Contrast and with IV Contrast, patient injected with 100 mL of Isovue 300. FINDINGS: LUNG BASES: Some emphysematous changes are present. No pleural effusion. AORTA: No significant abnormality is appreciated. LIVER/GB: No significant abnormality is appreciated. Gallbladder is contracted. PANCREAS: There are pancreatic head calcifications present similar to prior CT. SPLEEN: Mildly enlarged ADRENALS: No significant abnormality is seen. KIDNEYS: No significant abnormality is seen. REPRODUCTIVE ORGANS: No significant abnormality is seen BOWEL: Retained fecal debris present within the colon, correlate for possible fecal stasis. FREE AIR: No Free Air visible. ASCITES: None visible. PELVIC ADENOPATHY: None visualized. RETROPERITONEAL ADENOPATHY: No Retroperitoneal Adenopathy visible. URINARY BLADDER: No significant abnormality is seen. OSSEOUS STRUCTURES: No significant abnormality is seen. IMPRESSION: FINDINGS COMPATIBLE WITH CHRONIC PANCREATITIS, ADDITIONAL FINDINGS ABOVE
== END ==
LOC: RADCTMAIN 15:15
PROVIDERS: ATTEND Physician Assistant
DX: K86.1 Other chronic pancreatitis (principal)
CPT/HCPCS: 74177; Q9967

== ENCOUNTER → 2018-10-30 | Outpatient (CLI) | payer OTHER ==
[2018-10-30 16:01] LABS: Amylase 74 U/L (23-121); Lipase 48 U/L (14-60)
== END ==
LOC: LABWHC1 09:02
PROVIDERS: ATTEND Physician Assistant
DX: K85.90 Acute pancreatitis without necrosis or infection, unspecified (principal)
CPT/HCPCS: 36415; 82150; 83690

== ENCOUNTER → 2018-11-15 | Outpatient (CLI) | payer OTHER ==
[2018-11-15 16:51] LABS: LDL Cholesterol,Calculated 44.6 mg/dL (0.0-131.0); VLDL Calculation 11.4 mg/dL (5.00-40.00)
== END | disposition home or self-care (01) ==
LOC: LABWHC1 10:18
PROVIDERS: ATTEND Nurse Practitioner Adult Health
DX: E78.2 Mixed hyperlipidemia (principal)
CPT/HCPCS: 36415; 80061

== ENCOUNTER → 2019-07-18 | Outpatient (CLI) | payer MEDICARE ==
--- NOTE | 2019-07-18 09:36 | CT ---
EXAMINATION TYPE: CT chest w con DATE OF EXAM: 07/18/2019 COMPARISON: 03/29/2018 HISTORY: 59-year-old male history of lung cancer, follow-up after left upper lobectomy. TECHNIQUE: Contiguous axial scanning of the chest after the administration of 100 mL of Isovue 300. Coronal/sagittal reconstructions performed. CT DLP: 331.30mGycm. Automatic exposure control utilized for a dose reduction. FINDINGS: Heart normal size without pericardial effusion. Ectatic aortic root at 3.7 cm. Remainder of the aorta is normal caliber with bovine configuration. No thoracic lymphadenopathy by CT size criteria. Moderately advanced centrilobular emphysema. Patient is status post left upper lobectomy. No consolid ation or pleural effusion. No suspicious pulmonary nodule or mass. Tiny hiatal hernia. Mottled arterial phase enhancement of the spleen. Borderline size spleen at 13.8 cm. Adrenal glands are clear. Left paramedian omental fat-containing ventral epigastric abdominal wall hernia with the hernia sac m easuring 3.6 cm wide. Rectus diastases measuring 7.2 cm wide with anterior bulging laxity. Bones: Mild degenerative disc disease throughout. Normal variant sternal foramina. No osseous destruc tive process. IMPRESSION: COPD with moderate to advanced emphysema and interval left upper lobectomy with removal of the patien t's left upper lobe lung cancer. No evidence for recurrent or metastatic disease in the chest.
== END ==
LOC: RADCTMAIN 08:47
PROVIDERS: ATTEND Internal Medicine Pulmonary Disease
DX: J43.9 Emphysema, unspecified (principal); C34.12 Malignant neoplasm of upper lobe, left bronchus or lung; Z90.2 Acquired absence of lung [part of]
CPT/HCPCS: 71260; Q9967

== ENCOUNTER 2020-06-27 12:46 | Emergency (ER) | payer MEDICARE ==
[2020-06-27 12:53] VITALS: RESP 18; TEMP 97.8
--- NOTE | 2020-06-27 13:08 | ED ---
General Adult HPI - General Chief complaint: Extremity Problem,Nontraumatic Stated complaint: leg/feet swelling Time Seen by Provider: 06/27/20 13:00 Source: patient, RN notes reviewed, old records reviewed Mode of arrival: ambulatory Limitations: no limitations - History of Present Illness Initial comments: 61-year-old male presented for evaluation of swelling in his legs. He states that his right leg is worse this is been present for approximately one week. 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 No known history of congestive heart failure. No history of DVT or PE. Reports a minimal cough. No fever. No central chest pain. - Related Data Home Medications Medication Instructions Recorded Confirmed Atorvastatin [Lipitor] 40 mg PO HS 06/29/18 06/27/20 Metoprolol Tartrate [Lopressor] 25 mg PO BID 06/27/20 06/27/20 traZODone HCL 50 mg PO HS 06/27/20 06/27/20 Previous Rx's Medication Instructions Recorded Azithromycin [Zithromax Z-pack] 0 mg PO DIRECTED #6 tab 06/27/20 predniSONE 50 mg PO DAILY #5 tab 06/27/20 Allergies Allergy/AdvReac Type Severity Reaction Status Date / Time morphine Allergy Unknown Verified 06/27/20 14:24 Sulfa (Sulfonamide Allergy Unknown Verified 06/27/20 14:24 Antibiotics) Review of Systems ROS Statement: Those systems with pertinent positive or pertinent negative responses have been documented in the HPI. ROS Other: All systems not noted in ROS Statement are negative. Past Medical History Past Medical History: Blood Disorder, Coronary Artery Disease (CAD), Cancer, COPD, Hyperlipidemia, Osteoarthritis (OA) Additional Past Medical History / Comment(s): L lung cancer with surgery, thrombocytopenia, chronic low back pain, past abnormal LFT but pt states "better" now, past bowel obstruction with perforation, IBS/chrons History of Any Multi-Drug Resistant Organisms: None Reported Past Surgical History: Back Surgery, Bowel Resection, Heart Catheterization, Orthopedic Surgery, Tonsillectomy Additional Past Surgical History / Comment(s): 06/2018 L thoracotomy with wedge resection upper lobe and lymph node dissection, colonoscopy, bowel resection d/t perforation, cardiac cath-treat medically, fx ric little fingers(pins) Past Anesthesia/Blood Transfusion Reactions: No Reported Reaction Past Psychological History: No Psychological Hx Reported Smoking Status: Current every day smoker Past Alcohol Use History: Daily Past Drug Use History: Marijuana - Past Family History Father Family Medical History: Cancer Additional Family Medical History / Comment(s): lung cancer Daughter(s) Family Medical History: Cancer Additional Family Medical History / Comment(s): breast cancer General Exam Limitations: no limitations General appearance: alert, in no apparent distress Head exam: Present: atraumatic, normocephalic Eye exam: Present: normal appearance, PERRL ENT exam: Present: normal exam Neck exam: Present: normal inspection. Absent: tenderness, meningismus Respiratory exam: Present: respiratory distress (mild tachypnea), decreased breath sounds. Absent: wheezes Cardiovascular Exam: Present: regular rate, normal rhythm GI/Abdominal exam: Present: soft. Absent: distended, tenderness, guarding Extremities exam: Present: pedal edema (trace edema on the left, 1+ pitting edema on the right.) Neurological exam: Present: alert, oriented X3, CN II-XII intact. Absent: motor sensory deficit Psychiatric exam: Present: normal affect, normal mood Skin exam: Present: warm Course Vital Signs 06/27/20 12:49 Temperature 97.8 F Pulse Rate 73 Respiratory 18 Rate Blood Pressure 124/73 O2 Sat by Pulse 90 L Oximetry EKG Findings - EKG Comments: EKG Findings:: EKG: Sinus bradycardia, rate of 55, IL interval 140, QRS duration 74, QTC 407, no ST segment elevation Medical Decision Making - Medical Decision Making 60-year-old male presenting for evaluation of right lower leg swelling. PatientPatient had some dyspnea although he states he does have chronic cough and dyspnea history of COPD. Chest x-ray showing small right-sided effusion and small infiltrate right lower lobe. Patient is leukopenic with a white blood cell count 3.6. Hemoglobin is 12.1. Troponin is negative, BNP 647. Patient is also did receive an ultrasound of his right lower leg which is negative forDVT. I prefer this patient stay forsteroids and antibiotics however he declines she prefers to be discharged home. He will be prescribed steroids and antibiotics for COPD exacerbation with pneumonia. He will return with worsening or changing symptoms. He states [place] block from the hospital and will come back if his symptoms worsen. - Lab Data Result diagrams: 06/27/20 13:21 10/31/20 13:21 Lab Results 06/27/20 06/27/20 06/27/20 Range/Units 13:21 13:21 13:21 WBC 3.6 L (3.8-10.6) k/uL RBC 3.64 L (4.30-5.90) m/uL Hgb 12.1 L (13.0-17.5) gm/dL Hct 36.6 L (39.0-53.0) % MCV 100.5 H (80.0-100.0) fL MCH 33.1 (25.0-35.0) pg MCHC 32.9 (31.0-37.0) g/dL RDW 13.9 (11.5-15.5) % Plt Count 109 L (150-450) k/uL Neutrophils % 58 % Lymphocytes % 24 % Monocytes % 10 % Eosinophils % 6 % Basophils % 1 % Neutrophils # 2.1 (1.3-7.7) k/uL Lymphocytes # 0.8 L (1.0-4.8) k/uL Monocytes # 0.3 (0-1.0) k/uL Eosinophils # 0.2 (0-0.7) k/uL Basophils # 0.0 (0-0.2) k/uL Macrocytosis Slight PT 10.0 (9.0-12.0) sec INR 1.0 (<1.2) APTT 24.5 (22.0-30.0) sec Sodium 137 (137-145) mmol/L Potassium 4.6 (3.5-5.1) mmol/L Chloride 105 (98-107) mmol/L Carbon Dioxide 28 (22-30) mmol/L Anion Gap 4 mmol/L BUN 13 (9-20) mg/dL Creatinine 1.12 (0.66-1.25) mg/dL Est GFR (CKD-EPI)AfAm 84 (>60 ml/min/1.73 sqM) Est GFR (CKD-EPI)NonAf 72 (>60 ml/min/1.73 sqM) Glucose 94 (74-99) mg/dL Plasma Lactic Acid Shashi (0.7-2.0) mmol/L Calcium 8.9 (8.4-10.2) mg/dL Magnesium 1.9 (1.6-2.3) mg/dL Total Bilirubin 0.4 (0.2-1.3) mg/dL AST 29 (17-59) U/L ALT 23 (4-49) U/L Alkaline Phosphatase 67 (38-126) U/L Troponin I (0.000-0.034) ng/mL NT-Pro-B Natriuret Pep pg/mL Total Protein 6.5 (6.3-8.2) g/dL Albumin 3.7 (3.5-5.0) g/dL 06/27/20 06/27/20 06/27/20 Range/Units 13:21 13:21 13:21 WBC (3.8-10.6) k/uL RBC (4.30-5.90) m/uL Hgb (13.0-17.5) gm/dL Hct (39.0-53.0) % MCV (80.0-100.0) fL MCH (25.0-35.0) pg MCHC (31.0-37.0) g/dL RDW (11.5-15.5) % Plt Count (150-450) k/uL Neutrophils % % Lymphocytes % % Monocytes % % Eosinophils % % Basophils % % Neutrophils # (1.3-7.7) k/uL Lymphocytes # (1.0-4.8) k/uL Monocytes # (0-1.0) k/uL Eosinophils # (0-0.7) k/uL Basophils # (0-0.2) k/uL Macrocytosis PT (9.0-12.0) sec INR (<1.2) APTT (22.0-30.0) sec Sodium (137-145) mmol/L Potassium (3.5-5.1) mmol/L Chloride (98-107) mmol/L Carbon Dioxide (22-30) mmol/L Anion Gap mmol/L BUN (9-20) mg/dL Creatinine (0.66-1.25) mg/dL Est GFR (CKD-EPI)AfAm (>60 ml/min/1.73 sqM) Est GFR (CKD-EPI)NonAf (>60 ml/min/1.73 sqM) Glucose (74-99) mg/dL Plasma Lactic Acid Shashi 0.9 (0.7-2.0) mmol/L Calcium (8.4-10.2) mg/dL Magnesium (1.6-2.3) mg/dL Total Bilirubin (0.2-1.3) mg/dL AST (17-59) U/L ALT (4-49) U/L Alkaline Phosphatase (38-126) U/L Troponin I <0.012 (0.000-0.034) ng/mL NT-Pro-B Natriuret Pep 647 pg/mL Total Protein (6.3-8.2) g/dL Albumin (3.5-5.0) g/dL Disposition Clinical Impression: COPD (chronic obstructive pulmonary disease), Right leg swelling, Community acquired pneumonia Disposition: HOME SELF-CARE Condition: Fair Instructions (If sedation given, give patient instructions): COPD (Chronic Obstructive Pulmonary Disease) (ED), Pneumonia (ED), Leg Edema (ED) Prescriptions: predniSONE 50 mg PO DAILY #5 tab Azithromycin [Zithromax Z-pack] 0 mg PO DIRECTED #6 tab Is patient prescribed a controlled substance at d/c from ED?: No Referrals: Anthony Turpin MD [Primary Care Provider] - 1-2 days Time of Disposition: 14:34
--- NOTE | 2020-06-27 13:36 | XR ---
EXAMINATION TYPE: XR chest 2V DATE OF EXAM: 06/27/2020 COMPARISON: Chest x-ray October 15, 2018. CT chest July 18, 2019 HISTORY: History of lung cancer with difficulty breathing. TECHNIQUE: Frontal and lateral views of the chest are obtained. FINDINGS: There is chronic emphysematous and pulmonary fibrotic change and left-sided volume loss wi th left hilar surgical clips redemonstrated. New patchy right infrahilar opacity. New small to tiny r ight pleural effusion with blunting of the posterior and lateral costophrenic angle. The cardiac silh ouette size is stable and within normal limits. The osseous structures are intact. IMPRESSION: Chronic changes with new right lower lung acute infiltrate and small to tiny pleural eff usion.
[2020-06-27 13:38] LABS: Basophils % (A) 1 %; Eosinophils # (A) 0.2 k/uL (0-0.7); Eosinophils % (A) 6 %; HCT 36.6 % (39.0-53.0); HGB 12.1 gm/dL (13.0-17.5); Lymphocytes # (A) 0.8 k/uL (1.0-4.8); Lymphocytes % (A) 24 %; MCH 33.1 pg (25.0-35.0); MCHC 32.9 g/dL (31.0-37.0); MCV 100.5 fL (80.0-100.0); Macrocytosis Slight; Mean Platelet Volume 9.1; Monocytes # (A) 0.3 k/uL (0-1.0); Monocytes % (A) 10 %; Neutrophils # (A) 2.1 k/uL (1.3-7.7); Neutrophils % (A) 58 %; Platelet Count 109 k/uL (150-450); RBC 3.64 m/uL (4.30-5.90); RDW 13.9 % (11.5-15.5); WBC 3.6 k/uL (3.8-10.6)
[2020-06-27 13:45] LABS: Albumin 3.7 g/dL (3.5-5.0); Calcium 8.9 mg/dL (8.4-10.2); Magnesium 1.9 mg/dL (1.6-2.3); Partial Thromboplastin Time 24.5 sec (22.0-30.0); Potassium 4.6 mmol/L (3.5-5.1); Total Bilirubin 0.4 mg/dL (0.2-1.3); Total Protein 6.5 g/dL (6.3-8.2)
--- NOTE | 2020-06-27 13:59 | US ---
EXAMINATION TYPE: US venous doppler duplex LE RT DATE OF EXAM: 06/27/2020 1:06 PM COMPARISON: NONE CLINICAL HISTORY: dvt?. Rt leg pain and swelling SIDE PERFORMED: Right TECHNIQUE: The lower extremity deep venous system is examined utilizing real time linear array sonog laci with graded compression, doppler sonography and color-flow sonography. VESSELS IMAGED: External Iliac Vein (EIV) Common Femoral Vein Deep Femoral Vein Greater Saphenous Vein * Femoral Vein Popliteal Vein Proximal Calf Veins (* superficial vessels) Right Leg: Negative for DVT Grayscale, color doppler, spectral doppler imaging performed of the deep veins of the right lower ext remity. There is normal flow, compressibility, vascular waveforms. IMPRESSION: No ultrasound evidence for acute DVT in the right lower extremity.
[2020-06-27] MEDS ORDERED: DEXAMETHASONE SOD PHOSPHATE 10 MG/ML 1 ML VIAL IV STA (14:22)
[2020-06-27] MEDS ORDERED: cefTRIAXone IN SWFI 1,000 MG/10 ML SYRINGE IVP STA (14:22)
[2020-06-27 14:47] VITALS: BP 116/65; PULSE 52
== END 2020-06-27 15:04 | disposition home or self-care (01) ==
LOC: EC 12:46
DX: J44.1 Chronic obstructive pulmonary disease with (acute) exacerbation (principal); M79.89 Other specified soft tissue disorders; J18.9 Pneumonia, unspecified organism; D72.819 Decreased white blood cell count, unspecified; J90 Pleural effusion, not elsewhere classified; E78.5 Hyperlipidemia, unspecified; F17.200 Nicotine dependence, unspecified, uncomplicated; Z79.899 Other long term (current) drug therapy; Z88.5 Allergy status to narcotic agent; Z88.2 Allergy status to sulfonamides; Z85.118 Personal history of other malignant neoplasm of bronchus and lung
CPT/HCPCS: 36415; 93005; 83880; 80053; 83605; 83735; 84484; 85025; 85610; 85730; 71046; 93971; 99284; 96374; 96375; J1100; J0696

== ENCOUNTER 2020-07-13 13:44 | Emergency (ER) | payer MEDICARE ==
[2020-07-13 13:52] VITALS: RESP 18
[2020-07-13] MEDS ORDERED: SODIUM CHLORIDE 0.9% 500 ML 500 ML IV STA (14:17)
--- NOTE | 2020-07-13 15:13 | ED ---
SOB HPI - General Chief Complaint: Shortness of Breath Stated Complaint: Cough,Body Aches Time Seen by Provider: 07/13/20 14:02 Source: patient Mode of arrival: ambulatory Limitations: no limitations - History of Present Illness Initial Comments: Patient is a 60-year-old male, with history of COPD, lung cancer status post lobectomy, presenting to the emergency Department with complaints of a cough, shortness of breath since been increasing over the past few days. Patient states he normally does have a mild cough that feels like it been increasing o rafaela the past few days including more sputum production and some shortness of breath. He is not normally on oxygen. He denies any fever, chills, chest pain. He denies any nausea or vomiting but does admit to some diarrhea. He states he has been able to eat and drink just not his normal amount. Patient states he did check in with his PCP regarding his symptoms and they recommended him coming to the ER to rule out possible pneumonia. Patient states this does feel like a normal COPD exacerbation but with the Covid pandemic, he is worried. He denies any headaches, dizziness. He has no further complaints at this time. Upon arrival to the ER, he is afebrile, 94% on room air, rest of vitals normal. - Related Data Home Medications Medication Instructions Recorded Confirmed Atorvastatin [Lipitor] 40 mg PO HS 06/29/18 06/27/20 Metoprolol Tartrate [Lopressor] 25 mg PO BID 06/27/20 06/27/20 traZODone HCL 50 mg PO HS 06/27/20 06/27/20 Previous Rx's Medication Instructions Recorded Azithromycin [Zithromax Z-pack] 0 mg PO DIRECTED #6 tab 06/27/20 Albuterol Nebulized [Ventolin 2.5 mg INHALATION Q4H PRN #25 nebu 07/13/20 Nebulized] predniSONE 50 mg PO DAILY #5 tab 07/13/20 Allergies Allergy/AdvReac Type Severity Reaction Status Date / Time morphine Allergy Unknown Verified 07/13/20 13:48 Sulfa (Sulfonamide Allergy Unknown Verified 07/13/20 13:48 Antibiotics) Review of Systems ROS Statement: Those systems with pertinent positive or pertinent negative responses have been documented in the HPI. ROS Other: All systems not noted in ROS Statement are negative. Past Medical History Past Medical History: Blood Disorder, Coronary Artery Disease (CAD), Cancer, COPD, Hyperlipidemia, Osteoarthritis (OA) Additional Past Medical History / Comment(s): L lung cancer with surgery, thrombocytopenia, chronic low back pain, past abnormal LFT but pt states "better" now, past bowel obstruction with perforation, IBS/chrons History of Any Multi-Drug Resistant Organisms: None Reported Past Surgical History: Back Surgery, Bowel Resection, Heart Catheterization, Orthopedic Surgery, Tonsillectomy Additional Past Surgical History / Comment(s): 06/2018 L thoracotomy with wedge resection upper lobe and lymph node dissection, colonoscopy, bowel resection d/t perforation, cardiac cath-treat medically, fx ric little fingers(pins) Past Anesthesia/Blood Transfusion Reactions: No Reported Reaction Past Psychological History: No Psychological Hx Reported Smoking Status: Current every day smoker Past Alcohol Use History: Daily Past Drug Use History: Marijuana - Past Family History Father Family Medical History: Cancer Additional Family Medical History / Comment(s): lung cancer Daughter(s) Family Medical History: Cancer Additional Family Medical History / Comment(s): breast cancer General Exam - General Exam Comments Initial Comments: GENERAL: Patient is well-developed and well-nourished. Patient is nontoxic and in no acute distress. HEAD: Atraumatic, normocephalic. EYES: Pupils equal round and reactive to light, extraocular movements intact, sclera anicteric, conjunctiva are normal. Eyelids were unremarkable. ENT: TMs normal, nares patent, oropharynx clear without exudates. Moist mucous membranes. NECK: Normal range of motion, supple without lymphadenopathy or JVD. LUNGS: Unlabored respirations. Breath sounds clear to auscultation bilaterally and equal. No wheezes rales or rhonchi. HEART: Regular rate and rhythm without murmurs, rubs or gallops. ABDOMEN: Soft, nontender, normoactive bowel sounds. No guarding, no rebound. No masses appreciated. : Deferred MUSCULOSKELETAL: Normal extremities with adequate strength and normal range of motion, no pitting or edema. No clubbing or cyanosis. NEUROLOGICAL: Patient is alert and oriented x 3. Motor and sensory are also intact. Cranial nerves II through XII grossly intact. Symmetrical smile. Normal speech, normal gait. PSYCH: Normal mood, normal affect. SKIN: Warm, Dry, normal turgor, no rashes or lesions noted. Limitations: no limitations Course Vital Signs 07/13/20 07/13/20 07/13/20 13:46 16:32 16:41 Temperature 97.2 F L Pulse Rate 61 89 90 Respiratory 18 18 18 Rate Blood Pressure 112/59 O2 Sat by Pulse 94 L Oximetry 07/13/20 17:31 Temperature 97.7 F Pulse Rate 52 L Respiratory 18 Rate Blood Pressure 108/66 O2 Sat by Pulse 99 Oximetry Medical Decision Making - Medical Decision Making Patient is a 60-year-old male here with history of COPD presenting with cough, shortness of breath, sent from PCPs office to rule out pneumonia. He is afebrile, 93% on room air. Labs are unremarkable, chest x-ray shows no acute process. Patient was given a breathing treatment and dose of steroids. He reports improvement in his symptoms. I did test him for Covid, this is pending. Patient's vital signs have also improved, 99% on room air. I will continue patient on steroids for the next few days for COPD exacerbation. I also gave him medication for his at home nebulizer. Patient is stable for discharge. Return parameters were discussed with the patient he verbalizes understanding. Case discussed with Dr. Marmolejo. - Lab Data Result diagrams: 07/13/20 14:23 07/13/20 14:23 Lab Results 07/13/20 07/13/20 Range/Units 14:23 14:23 WBC 7.0 (3.8-10.6) k/uL RBC 4.32 (4.30-5.90) m/uL Hgb 14.0 (13.0-17.5) gm/dL Hct 41.8 (39.0-53.0) % MCV 96.6 (80.0-100.0) fL MCH 32.4 (25.0-35.0) pg MCHC 33.6 (31.0-37.0) g/dL RDW 12.7 (11.5-15.5) % Plt Count 138 L (150-450) k/uL MPV 9.0 Neutrophils % 69 % Lymphocytes % 17 % Monocytes % 6 % Eosinophils % 5 % Basophils % 1 % Neutrophils # 4.9 (1.3-7.7) k/uL Lymphocytes # 1.2 (1.0-4.8) k/uL Monocytes # 0.4 (0-1.0) k/uL Eosinophils # 0.3 (0-0.7) k/uL Basophils # 0.1 (0-0.2) k/uL Sodium 135 L (137-145) mmol/L Potassium 4.9 (3.5-5.1) mmol/L Chloride 105 (98-107) mmol/L Carbon Dioxide 23 (22-30) mmol/L Anion Gap 7 mmol/L BUN 15 (9-20) mg/dL Creatinine 1.06 (0.66-1.25) mg/dL Est GFR (CKD-EPI)AfAm 90 (>60 ml/min/1.73 sqM) Est GFR (CKD-EPI)NonAf 78 (>60 ml/min/1.73 sqM) Glucose 98 (74-99) mg/dL Calcium 9.4 (8.4-10.2) mg/dL Total Bilirubin 0.6 (0.2-1.3) mg/dL AST 32 (17-59) U/L ALT 24 (4-49) U/L Alkaline Phosphatase 89 (38-126) U/L Total Protein 7.5 (6.3-8.2) g/dL Albumin 4.3 (3.5-5.0) g/dL - EKG Data EKG Comments: Sinus bradycardia otherwise normal ECG, no signs of acute process. Educated rate 45, P arrival 136, QT 444. Disposition Clinical Impression: Cough, COPD exacerbation Disposition: HOME SELF-CARE Condition: Stable Instructions (If sedation given, give patient instructions): COPD (Chronic Obstructive Pulmonary Disease) (ED) Additional Instructions: Please return to the Emergency Department if symptoms worsen or any other concerns. Use breathing treatments as needed for increased shortness of breath. Take steroids as prescribed. Follow-up with your PCP or nurse's companion. Prescriptions: predniSONE 50 mg PO DAILY #5 tab Albuterol Nebulized [Ventolin Nebulized] 2.5 mg INHALATION Q4H PRN #25 nebu PRN Reason: difficulty in breathing Is patient prescribed a controlled substance at d/c from ED?: No Referrals: Anthony Turpin MD [Primary Care Provider] - 1-2 days
--- NOTE | 2020-07-13 15:13 | XR ---
EXAMINATION TYPE: XR chest 2V DATE OF EXAM: 07/13/2020 COMPARISON: Prior chest x-ray 06/27/2020 HISTORY: Cough and dyspnea TECHNIQUE: Frontal and lateral views of the chest are obtained. FINDINGS: There is no focal air space opacity, pleural effusion, or pneumothorax seen. The cardiac silhouette size is stable. Underlying emphysematous change is suspected. Surgical clips present in t he left hilar region. The osseous structures are intact. IMPRESSION: No acute cardiopulmonary process.
[2020-07-13 15:23] LABS: Basophils # (A) 0.1 k/uL (0-0.2); Basophils % (A) 1 %; Eosinophils # (A) 0.3 k/uL (0-0.7); Eosinophils % (A) 5 %; HCT 41.8 % (39.0-53.0); Lymphocytes # (A) 1.2 k/uL (1.0-4.8); Lymphocytes % (A) 17 %; MCH 32.4 pg (25.0-35.0); MCHC 33.6 g/dL (31.0-37.0); MCV 96.6 fL (80.0-100.0); Monocytes # (A) 0.4 k/uL (0-1.0); Monocytes % (A) 6 %; Neutrophils # (A) 4.9 k/uL (1.3-7.7); Neutrophils % (A) 69 %; Platelet Count 138 k/uL (150-450); RBC 4.32 m/uL (4.30-5.90); RDW 12.7 % (11.5-15.5)
[2020-07-13 15:34] LABS: Albumin 4.3 g/dL (3.5-5.0); Calcium 9.4 mg/dL (8.4-10.2); Potassium 4.9 mmol/L (3.5-5.1); Total Bilirubin 0.6 mg/dL (0.2-1.3); Total Protein 7.5 g/dL (6.3-8.2)
[2020-07-13] MEDS ORDERED: IPRATROPIUM-ALBUTEROL 3 ML NEB INHALATION STA (16:08)
[2020-07-13] MEDS ORDERED: methylPREDNISolone SOD SUCCI 125 MG/2 ML VIAL IV STA (16:08)
[2020-07-13 17:32] VITALS: BP 108/66; PULSE 52; TEMP 97.7
== END 2020-07-13 17:33 | disposition home or self-care (01) ==
LOC: EC 13:44
DX: J44.1 Chronic obstructive pulmonary disease with (acute) exacerbation (principal); E78.5 Hyperlipidemia, unspecified; F17.200 Nicotine dependence, unspecified, uncomplicated; Z79.899 Other long term (current) drug therapy; Z88.5 Allergy status to narcotic agent; Z88.2 Allergy status to sulfonamides; Z90.49 Acquired absence of other specified parts of digestive tract; Z85.118 Personal history of other malignant neoplasm of bronchus and lung; Z90.2 Acquired absence of lung [part of]; Z20.828 Contact with and (suspected) exposure to other viral communicable diseases
CPT/HCPCS: 36415; 94640; 93005; 80053; 85025; 71046; 99285; 96374; 96361; U0003; J2930

== ENCOUNTER 2021-01-11 10:01 | Emergency (ER) | payer MEDICARE ==
[2021-01-11 10:13] VITALS: RESP 18
[2021-01-11] MEDS ORDERED: HYDROmorphone 0.5 MG/0.5 ML SYRINGE IVP STA ×2 (10:25→13:06)
[2021-01-11] MEDS ORDERED: KETOROLAC 15 MG/ML 1 ML VIAL IVP STA (10:25)
--- NOTE | 2021-01-11 10:35 | ED ---
General Adult HPI - General Chief complaint: Back Pain/Injury Stated complaint: back pain Time Seen by Provider: 01/11/21 10:05 Source: patient, RN notes reviewed, old records reviewed Mode of arrival: ambulatory Limitations: no limitations - History of Present Illness Initial comments: This is a 60-year-old male who presents emergency Department. Patient states he was eating some marijuana brownies and drinking some beer when he stood up he had a head marroquin fell over and landed on his metal coffee table. Patient states he injured his left lower back and left hip and this occurred on Monday but it is been getting progressively worse and that is why comes in today. Patient denies any chest pain or upper back pain. Patient denies any difficulty breathing shortness of breath per patient denies any head or neck injury. Patient denies any extremity injury other than the hip pain. - Related Data Home Medications Medication Instructions Recorded Confirmed Atorvastatin [Lipitor] 40 mg PO HS 06/29/18 01/11/21 Metoprolol Tartrate [Lopressor] 25 mg PO HS 06/27/20 01/11/21 traZODone HCL 50 mg PO HS 06/27/20 01/11/21 Previous Rx's Medication Instructions Recorded predniSONE [Deltasone] 40 mg PO DAILY #8 tab 01/11/21 Allergies Allergy/AdvReac Type Severity Reaction Status Date / Time morphine Allergy Unknown Verified 01/11/21 10:13 Sulfa (Sulfonamide Allergy Unknown Verified 01/11/21 10:13 Antibiotics) Review of Systems ROS Statement: Those systems with pertinent positive or pertinent negative responses have been documented in the HPI. ROS Other: All systems not noted in ROS Statement are negative. Past Medical History Past Medical History: Blood Disorder, Coronary Artery Disease (CAD), Cancer, COPD, Hyperlipidemia, Osteoarthritis (OA) Additional Past Medical History / Comment(s): L lung cancer with surgery, thrombocytopenia, chronic low back pain, past abnormal LFT but pt states "better" now, past bowel obstruction with perforation, IBS/chrons History of Any Multi-Drug Resistant Organisms: None Reported Past Surgical History: Back Surgery, Bowel Resection, Heart Catheterization, Orthopedic Surgery, Tonsillectomy Additional Past Surgical History / Comment(s): 06/2018 L thoracotomy with wedge resection upper lobe and lymph node dissection, colonoscopy, bowel resection d/t perforation, cardiac cath-treat medically, fx ric little fingers(pins) Past Anesthesia/Blood Transfusion Reactions: No Reported Reaction Past Psychological History: No Psychological Hx Reported Smoking Status: Current every day smoker Past Alcohol Use History: Daily Past Drug Use History: Marijuana - Past Family History Father Family Medical History: Cancer Additional Family Medical History / Comment(s): lung cancer Daughter(s) Family Medical History: Cancer Additional Family Medical History / Comment(s): breast cancer General Exam - General Exam Comments Initial Comments: GENERAL: Patient is well-developed and well-nourished. Patient is nontoxic and well- hydrated and is in mild distress. ENT: Neck is soft and supple. No significant lymphadenopathy is noted. Oropharynx is clear. Moist mucous membranes. Neck has full range of motion without eliciting any pain. EYES: The sclera were anicteric and conjunctiva were pink and moist. Extraocular movements were intact and pupils were equal round and reactive to light. Eyelids were unremarkable. PULMONARY: Unlabored respirations. Good breath sounds bilaterally. No audible rales rhonchi or wheezing was noted. CARDIOVASCULAR: There is a regular rate and rhythm without any murmurs gallops or rubs. ABDOMEN: Soft and nontender with normal bowel sounds. SKIN: Skin is clear with no lesions or rashes and otherwise unremarkable. NEUROLOGIC: Patient is alert and oriented x3. Cranial nerves II through XII are grossly intact. Motor and sensory are also intact. Normal speech, volume and content. Symmetrical smile. MUSCULOSKELETAL: Patient has tenderness lateral left hip and in the left flank. There is some subtle bruising in that area. Patient has some lower back pain in the left lower back. PSYCHIATRIC: Normal psychiatric evaluation. Limitations: no limitations Course Vital Signs 01/11/21 01/11/21 01/11/21 10:05 11:29 13:03 Temperature 97.6 F Pulse Rate 70 54 L 56 L Respiratory 18 18 18 Rate Blood Pressure 123/72 114/68 99/67 O2 Sat by Pulse 94 L 98 100 Oximetry 01/11/21 13:13 Temperature Pulse Rate Respiratory Rate Blood Pressure 128/77 O2 Sat by Pulse Oximetry Medical Decision Making - Lab Data Result diagrams: 01/11/21 12:48 01/11/21 12:48 Lab Results 01/11/21 01/11/21 Range/Units 12:48 12:48 WBC 4.3 (3.8-10.6) k/uL RBC 4.35 (4.30-5.90) m/uL Hgb 13.5 (13.0-17.5) gm/dL Hct 41.3 (39.0-53.0) % MCV 94.9 (80.0-100.0) fL MCH 31.0 (25.0-35.0) pg MCHC 32.6 (31.0-37.0) g/dL RDW 14.0 (11.5-15.5) % Plt Count 81 L (150-450) k/uL MPV 9.9 Neutrophils % 59 % Lymphocytes % 23 % Monocytes % 10 % Eosinophils % 6 % Basophils % 1 % Neutrophils # 2.5 (1.3-7.7) k/uL Lymphocytes # 1.0 (1.0-4.8) k/uL Monocytes # 0.4 (0-1.0) k/uL Eosinophils # 0.2 (0-0.7) k/uL Basophils # 0.0 (0-0.2) k/uL Manual Slide Review Performed RBC Morphology Normal Sodium 134 L (137-145) mmol/L Potassium 4.2 (3.5-5.1) mmol/L Chloride 102 (98-107) mmol/L Carbon Dioxide 26 (22-30) mmol/L Anion Gap 6 mmol/L BUN 10 (9-20) mg/dL Creatinine 0.89 (0.66-1.25) mg/dL Est GFR (CKD-EPI)AfAm >90 (>60 ml/min/1.73 sqM) Est GFR (CKD-EPI)NonAf >90 (>60 ml/min/1.73 sqM) Glucose 96 (74-99) mg/dL Calcium 8.8 (8.4-10.2) mg/dL Total Bilirubin 0.5 (0.2-1.3) mg/dL AST 29 (17-59) U/L ALT 17 (4-49) U/L Alkaline Phosphatase 93 (38-126) U/L Total Protein 6.9 (6.3-8.2) g/dL Albumin 4.0 (3.5-5.0) g/dL Disposition Clinical Impression: Strain of lumbar region, Sciatica Disposition: HOME SELF-CARE Condition: Good Prescriptions: predniSONE [Deltasone] 40 mg PO DAILY #8 tab Is patient prescribed a controlled substance at d/c from ED?: No Referrals: Anthony Turpin MD [Primary Care Provider] - 1-2 days Time of Disposition: 14:08
--- NOTE | 2021-01-11 11:33 | XR ---
EXAMINATION TYPE: XR Hip LT and AP Pelvis DATE OF EXAM: 01/11/2021 COMPARISON: CT abdomen and pelvis October 24, 2018 HISTORY: Pain since fall injury 6 days ago TECHNIQUE: A single AP view of the pelvis is obtained. Two views of the left hip are obtained. FINDINGS: There is no acute fracture/dislocation evident in the pelvis. The hip and sacroiliac join ts appear symmetric and unremarkable. The overlying soft tissue appears unremarkable. Two views of left hip show no acute fracture or dislocation. Persistent faint sclerosis corresponding to bony projection left proximal femur femoral neck level near level of lesser trochanter correspond s to CT axial image 86. Suspect osteochondroma, need for follow-up should be based on clinical corre lation IMPRESSION: There is no acute fracture or dislocation in the pelvis or left hip.
--- NOTE | 2021-01-11 11:35 | XR ---
EXAMINATION TYPE: XR lumbar spine 2 or 3V DATE OF EXAM: 01/11/2021 CLINICAL HISTORY: Pain since fall injury 6 days ago TECHNIQUE: Frontal and lateral images of the lumbar spine are obtained. COMPARISON: CT abdomen and pelvis October 24, 2018 FINDINGS: There are 5 lumbar type vertebral bodies identified redemonstrated. Slight levoconvex scol iosis centered at L2 level. Spine is straightened on lateral images. Msxb-os-[id number] multilevel disc space narrowing. Vertebral body heights maintained. Mild multilevel anterior and lateral spurring. O verlying soft tissue is unremarkable. IMPRESSION: No acute fracture or dislocation is seen in the lumbar spine. No significant change from prior CT.
[2021-01-11 13:28] LABS: ALT 17 U/L (4-49); AST 29 U/L (17-59); African American GFR (CKD) >90 (>60 ml/min/1.73 sqM); Alkaline Phosphatase 93 U/L (38-126); Anion Gap 6 mmol/L; Blood Urea Nitrogen 10 mg/dL (9-20); Calcium 8.8 mg/dL (8.4-10.2); Carbon Dioxide 26 mmol/L (22-30); Chloride 102 mmol/L (98-107); Glucose 96 mg/dL (74-99); Non-African American GFR(CKD) >90 (>60 ml/min/1.73 sqM); Potassium 4.2 mmol/L (3.5-5.1); Sodium 134 mmol/L (137-145); Total Bilirubin 0.5 mg/dL (0.2-1.3); Total Protein 6.9 g/dL (6.3-8.2)
[2021-01-11 13:29] LABS: Basophils % (A) 1 %; Eosinophils # (A) 0.2 k/uL (0-0.7); Eosinophils % (A) 6 %; HCT 41.3 % (39.0-53.0); HGB 13.5 gm/dL (13.0-17.5); Lymphocytes % (A) 23 %; MCHC 32.6 g/dL (31.0-37.0); MCV 94.9 fL (80.0-100.0); Mean Platelet Volume 9.9; Monocytes # (A) 0.4 k/uL (0-1.0); Monocytes % (A) 10 %; Neutrophils # (A) 2.5 k/uL (1.3-7.7); Neutrophils % (A) 59 %; RBC 4.35 m/uL (4.30-5.90); WBC 4.3 k/uL (3.8-10.6)
--- NOTE | 2021-01-11 13:32 | CT ---
EXAMINATION TYPE: CT lumbar spine wo con DATE OF EXAM: 01/11/2021 1:08 PM COMPARISON: Lumbar spine x-ray earlier today HISTORY: Low back pain and left hip pain CT DLP: 926.3 mGycm Automated exposure control for dose reduction was used. Unenhanced CT of the lumbar spine was performed. Bone and soft tissue window settings are submitted as well as coronal and sagittal reconstructions. There is levoconvex scoliosis centered at L3 level. Mild to moderate disc space narrowing L5-S1 level . Vertebral body heights maintained. Mild multilevel anterior and lateral spurring. No acute fracture or dislocation. Axial images at T12-L1 level show mild broad disc bulge with right paracentral component effacing the anterior thecal sac. Mild facet arthropathy bilaterally. Axial images at L1-L2 level show mild/moderate broad disc bulge and mild/moderate facet degenerative changes and ligament flavum hypertrophy. Effacement of the anterior and posterior lateral thecal sac. Mild to moderate left-sided anterior inferior neural foraminal narrowing. Axial images at L2-L3 shows [id number] broad disc bulge and mild facet arthropathy with ligamen abraham flavum hypertrophy. Mild effacement anterior thecal sac. Mild bilateral anterior inferior neural foraminal narrowing. Axial images at L3-L4 level show mild broad disc bulge mildly effacing the anterior thecal sac and mi ld facet arthropathy bilaterally. Mild bilateral neural foraminal narrowing. Axial images at L4-L5 level show mild mild broad disc bulge and moderate facet arthropathy bilaterall y. Mild effacement anterior thecal sac. [id number]-[id number] bilateral neural foraminal narrowing. Axial images at L5-S1 level show moderate facet arthropathy bilaterally. Some effacement of the poste rior lateral thecal sac. Moderate bilateral neural foraminal narrowing, left greater than right infer iorly. Mild calcified plaque of the aorta. IMPRESSION: Scoliotic curvature with multilevel degenerative changes as detailed above. No acute frac ture or dislocation.
[2021-01-11 13:54] LABS: Platelet Count 81 k/uL (150-450)
[2021-01-11 14:17] VITALS: BP 113/65; PULSE 58; TEMP 97.5
== END 2021-01-11 14:14 | disposition home or self-care (01) ==
LOC: EC 10:01
DX: S39.012A Strain of muscle, fascia and tendon of lower back, initial encounter (principal); M25.552 Pain in left hip; I25.10 Atherosclerotic heart disease of native coronary artery without angina pectoris; E78.5 Hyperlipidemia, unspecified; M19.90 Unspecified osteoarthritis, unspecified site; F17.200 Nicotine dependence, unspecified, uncomplicated; F12.90 Cannabis use, unspecified, uncomplicated; W18.30XA Fall on same level, unspecified, initial encounter
CPT/HCPCS: 36415; 80053; 85025; 72100; 73502; 72131; 99284; 96374; 96375; 96376; J1885; J1170

== ENCOUNTER 2022-01-06 09:23 | Day surgery (SDC) | payer MEDICARE ==
[2022-01-04 09:04] VITALS: BMI 20.9
[~2022-01-06 09:23] MED LIST changes: -DEXAMETHASONE SOD PHOSPHATE 10 MG/ML 1 ML VIAL IV ONE; +LACTATED RINGERS 1,000 ML IV SCH; -MIDAZOLAM 2 MG/2 ML VIAL IV PRN; -ONDANSETRON 4 MG/2 ML VIAL IVP ONE; -SCOPOLAMINE 1.5MG/72HR PATCH TRANSDERM ONE; -ceFAZolin IN SWFI 2 GM/20 ML SYRINGE IVP ONE; -fentaNYL (PF) 50 MCG/ML 2 ML AMP IV PRN
[2022-01-06 09:51] VITALS: TEMP 97.4
[2022-01-06] MEDS ORDERED: PROPOFOL 10 MG/ML 20 ML VIAL IV ONE (10:41)
--- NOTE | 2022-01-06 10:47 | P.GSHP ---
History of Present Illness H&P Date: 01/06/22 Chief Complaint: Epigastric pain This a 61-year-old male who's undergone recent workup for epigastric pain. 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 Presents today for EGD. Past Medical History Past Medical History: Blood Disorder, Coronary Artery Disease (CAD), Cancer, COPD, GI Bleed, Hyperlipidemia, Hypertension, Osteoarthritis (OA) Additional Past Medical History / Comment(s): "Liver tumor, spot on chest, start chemo next Monday." (01/11/22) Hx left lung cancer with surgery. Thrombocytopenia. chronic low back pain - degenerative arthritis. IBS/Crohns. History of Any Multi-Drug Resistant Organisms: None Reported Past Surgical History: Back Surgery, Bowel Resection, Heart Catheterization, Orthopedic Surgery, Tonsillectomy Additional Past Surgical History / Comment(s): 06/2018 left thoracotomy with wedge resection upper lobe and lymph node dissection, colonoscopy, bowel resecti on due to perforation, fractured bilateral little fingers - pins placed and later removed. Past Anesthesia/Blood Transfusion Reactions: No Reported Reaction Past Psychological History: No Psychological Hx Reported Smoking Status: Former smoker Past Alcohol Use History: Daily Additional Past Alcohol Use History / Comment(s): Quit smoking one month ago. Was down to 1 PPD, had started smoking at age 15. Alcohol free for 4 months. Past Drug Use History: Marijuana Additional Drug Use History / Comment(s): Edibles, none in 1 month. - Past Family History Father Family Medical History: Cancer Additional Family Medical History / Comment(s): Lung cancer. Daughter(s) Family Medical History: Cancer Additional Family Medical History / Comment(s): Breast cancer. Medications and Allergies Home Medications Medication Instructions Recorded Confirmed Type Atorvastatin [Lipitor] 40 mg PO HS 06/29/18 01/06/22 History Metoprolol Tartrate [Lopressor] 25 mg PO BID 06/27/20 01/06/22 History Nicotine 21Mg/24Hr Patch [Habitrol] 1 patch TRANSDERM DAILY #30 patch 12/09/21 01/06/22 Rx Sennosides-Docusate Sodium 2 each PO BID #120 tab 12/09/21 01/06/22 Rx [Senokot-S] fentaNYL 25MCG/HR PATCH [Duragesic 25 mcg TRANSDERM Q72H 30 Days #10 12/09/21 01/06/22 Rx 25MCG/HR] patch HYDROcodone/APAP 10-325MG [[place] 1 tab PO Q4HR PRN 01/04/22 01/06/22 History 10-325] Allergies Allergy/AdvReac Type Severity Reaction Status Date / Time Sulfa (Sulfonamide Allergy Unknown Verified 01/06/22 09:47 Antibiotics) morphine AdvReac Ineffective Verified 01/06/22 09:47 Surgical - Exam Vital Signs Temp Pulse Resp BP Pulse Ox 97.4 F L 81 16 128/74 99 01/06/22 09:49 01/06/22 09:49 01/06/22 09:49 01/06/22 09:49 01/06/22 09:49 - General well developed, well nourished, no distress - Eyes PERRL - ENT normal pinna - Neck no masses - Respiratory normal expansion - Cardiovascular Rhythm: regular - Abdomen Abdomen: soft, non tender Assessment and Plan Assessment: Epigastric Metastatic liver disease We'll perform EGD.
--- NOTE | 2022-01-06 10:56 | P.OP ---
Date of Procedure: 01/06/22 Preoperative Diagnosis: Epigastric pain Postoperative Diagnosis: Esophageal mass Procedure(s) Performed: EGD Anesthesia: MAC Surgeon: Bobby Loyd Pathology: other (Esophageal biopsy) Condition: stable Disposition: PACU Description of Procedure: The patient's placed on the endoscopy table in the lateral position. He received IV sedation. The gastroscope placed patient's oropharynx passed in the esophagus and stomach. Scope was then placed through the pylorus. The first and second portion of the duodenum appeared normal. Scope was then brought back the antrum this was mildly inflamed. A biopsies performed. Scope was then retroflexed and the remainder the stomach appeared normal. The GE junction was at 40 cm. In the distal esophagus just above the GE junction was a fungating mass. This was biopsied. The mass was located in the lower distal esophagus. The proximal esophagus appeared normal. Scope withdrawn for patient.
[2022-01-06 11:29] VITALS: BP 136/90; PULSE 83; RESP 16
== END 2022-01-06 11:45 | disposition home or self-care (01) ==
LOC: ORWHC2ENDO 09:23
PROVIDERS: ATTEND Surgery
DX: K22.9 Disease of esophagus, unspecified (principal); E78.5 Hyperlipidemia, unspecified; I10 Essential (primary) hypertension; I25.10 Atherosclerotic heart disease of native coronary artery without angina pectoris; J44.9 Chronic obstructive pulmonary disease, unspecified; K50.90 Crohn's disease, unspecified, without complications; C78.7 Secondary malignant neoplasm of liver and intrahepatic bile duct; M19.90 Unspecified osteoarthritis, unspecified site; Z80.1 Family history of malignant neoplasm of trachea, bronchus and lung; Z80.3 Family history of malignant neoplasm of breast; Z85.118 Personal history of other malignant neoplasm of bronchus and lung; Z87.891 Personal history of nicotine dependence; Z88.2 Allergy status to sulfonamides; Z88.5 Allergy status to narcotic agent; Z79.899 Other long term (current) drug therapy
CPT/HCPCS: 43239; 88305; 88342; 88341; J2704

== ENCOUNTER 2022-01-13 18:05 | Inpatient (IN) | payer MEDICARE ==
[2022-01-13] MEDS ORDERED: HYDROmorphone 1 MG/ML 1 ML SYRINGE IVP STA ×2 (18:40→20:56)
[2022-01-13 19:13] LABS: Anisocytosis Slight; Basophils % (A) 0 %; Eosinophils % (A) 0 %; HCT 37.4 % (39.0-53.0); HGB 11.4 gm/dL (13.0-17.5); Hypochromasia Slight; Lymphocytes # (A) 0.4 k/uL (1.0-4.8); Lymphocytes % (A) 3 %; MCH 30.3 pg (25.0-35.0); MCHC 30.5 g/dL (31.0-37.0); MCV 99.2 fL (80.0-100.0); Macrocytosis Slight; Mean Platelet Volume 10.2; Monocytes # (A) 0.2 k/uL (0-1.0); Monocytes % (A) 2 %; Neutrophils # (A) 10.6 k/uL (1.3-7.7); Neutrophils % (A) 94 %; Platelet Count 106 k/uL (150-450); RBC 3.77 m/uL (4.30-5.90); RDW 16.1 % (11.5-15.5); WBC 11.3 k/uL (3.8-10.6)
[2022-01-13 19:23] LABS: ALT 14 U/L (4-49); AST 118 U/L (17-59); African American GFR (CKD) >90 (>60 ml/min/1.73 sqM); Albumin 3.4 g/dL (3.5-5.0); Alkaline Phosphatase 309 U/L (38-126); Amylase 45 U/L (30-110); Anion Gap 11 mmol/L; Blood Urea Nitrogen 21 mg/dL (9-20); Calcium 7.9 mg/dL (8.4-10.2); Carbon Dioxide 24 mmol/L (22-30); Chloride 98 mmol/L (98-107); Glucose 112 mg/dL (74-99); Lipase 57 U/L (23-300); Non-African American GFR(CKD) 80 (>60 ml/min/1.73 sqM); Potassium 4.7 mmol/L (3.5-5.1); Sodium 133 mmol/L (137-145); Total Bilirubin 0.9 mg/dL (0.2-1.3); Total Protein 6.7 g/dL (6.3-8.2)
[2022-01-13 19:24] LABS: INR 1.5 (<1.2); Partial Thromboplastin Time 29.7 sec (22.0-30.0); Prothrombin Time 15.6 sec (9.0-12.0)
--- NOTE | 2022-01-13 19:32 | XR ---
EXAMINATION TYPE: XR chest 2V DATE OF EXAM: 01/13/2022 7:23 PM COMPARISON: CT chest from same date for 12/01/2021. And radiograph same day TECHNIQUE: XR chest 2V Frontal and lateral views of the chest. CLINICAL INDICATION:Male, 61 years old with history of Difficulty breathing ; FINDINGS: Lungs/Pleura: Similar basilar atelectasis There is flattening of the diaphragm with increased lucency of the lungs. No evidence of pneumothorax, pleural effusion or focal consolidation. Pulmonary vascularity: Unremarkable. Heart/mediastinum: Cardiomediastinal silhouette is unremarkable. Musculoskeletal: No acute osseous pathology. IMPRESSION: 1. Right basilar atelectasis without Acute cardiopulmonary disease process. 2. COPD changes.
[2022-01-13] MEDS ORDERED: SODIUM CHLORIDE 0.9% 500 ML 500 ML IV ONE ×2 (19:46→20:56)
--- NOTE | 2022-01-13 19:51 | ED ---
General Adult HPI - General Chief complaint: Abdominal Pain Stated complaint: Abd Pain Time Seen by Provider: 01/13/22 18:10 Source: patient, EMS, RN notes reviewed, old records reviewed Mode of arrival: EMS - History of Present Illness Initial comments: This is a 61-year-old male who was diagnosed with lung cancer and had a lobectomy in 2018. Patient states about a month ago he was diagnosed with recurrence of the lung cancer to the liver in the esophagus. Patient states his abdominal pain is getting progressively worse and is getting more more distended. Patient states his pain medicine at home was not sufficient he comes emergency Department for help with the pain and distention. He states he hasn't smoked since the of the month and he has stopped drinking since September 07. Patient denies any recent fever chills or cough per patient denies any chest pain difficulty breathing shortness of breath. Patient denies any headache. - Related Data Home Medications Medication Instructions Recorded Confirmed Atorvastatin [Lipitor] 40 mg PO HS 06/29/18 01/11/22 Metoprolol Tartrate [Lopressor] 25 mg PO BID 06/27/20 01/11/22 HYDROcodone/APAP 10-325MG [[place] 1 tab PO Q4HR PRN 01/04/22 01/11/22 10-325] fentaNYL 25MCG/HR PATCH [Duragesic 50 mcg TRANSDERM Q72H 01/11/22 01/11/22 25MCG/HR] Previous Rx's Medication Instructions Recorded Sennosides-Docusate Sodium 2 each PO BID #120 tab 12/09/21 [Senokot-S] Allergies Allergy/AdvReac Type Severity Reaction Status Date / Time Sulfa (Sulfonamide Allergy Unknown Verified 01/11/22 08:23 Antibiotics) morphine AdvReac Ineffective Verified 01/11/22 08:23 Review of Systems ROS Statement: Those systems with pertinent positive or pertinent negative responses have been documented in the HPI. ROS Other: All systems not noted in ROS Statement are negative. Past Medical History Past Medical History: Blood Disorder, Coronary Artery Disease (CAD), Cancer, COPD, GI Bleed, Hyperlipidemia, Hypertension, Osteoarthritis (OA) Additional Past Medical History / Comment(s): "Liver tumor, spot on chest, start chemo next Monday." (01/11/22) Hx left lung cancer with surgery. Thrombocytopenia. chronic low back pain - degenerative arthritis. IBS/Crohns. History of Any Multi-Drug Resistant Organisms: None Reported Past Surgical History: Back Surgery, Bowel Resection, Heart Catheterization, Orthopedic Surgery, Tonsillectomy Additional Past Surgical History / Comment(s): 06/2018 left thoracotomy with wedge resection upper lobe and lymph node dissection, colonoscopy, bowel resection due to perforation, fractured bilateral little fingers - pins placed and later removed. Past Anesthesia/Blood Transfusion Reactions: No Reported Reaction Past Psychological History: No Psychological Hx Reported Smoking Status: Former smoker Past Alcohol Use History: None Reported Past Drug Use History: Marijuana - Past Family History Father Family Medical History: Cancer Additional Family Medical History / Comment(s): Lung cancer. Daughter(s) Family Medical History: Cancer Additional Family Medical History / Comment(s): Breast cancer. General Exam - General Exam Comments Initial Comments: GENERAL: Patient is well-developed and well-nourished. Patient is nontoxic and well- hydrated and is in mild distress. ENT: Neck is soft and supple. No significant lymphadenopathy is noted. Oropharynx is clear. Moist mucous membranes. Neck has full range of motion without eliciting any pain. EYES: The sclera were anicteric and conjunctiva were pink and moist. Extraocular movements were intact and pupils were equal round and reactive to light. Eyelids were unremarkable. PULMONARY: Unlabored respirations. Good breath sounds bilaterally. No audible rales rh onchi or wheezing was noted. CARDIOVASCULAR: There is a regular rate and rhythm without any murmurs gallops or rubs. ABDOMEN: Abdomen is markedly distended and diffusely tender. There also was a ventral hernia. SKIN: Skin is clear with no lesions or rashes and otherwise unremarkable. NEUROLOGIC: Patient is alert and oriented x3. Cranial nerves II through XII are grossly intact. Motor and sensory are also intact. Normal speech, volume and content. Symmetrical smile. MUSCULOSKELETAL: Normal extremities with adequate strength and full range of motion. No lower extremity swelling or edema. No calf tenderness. LYMPHATICS: No significant lymphadenopathy is noted PSYCHIATRIC: Normal psychiatric evaluation. Course Vital Signs 01/13/22 01/13/22 18:09 20:35 Temperature 98.5 F Pulse Rate 85 82 Respiratory 18 18 Rate Blood Pressure 115/74 100/51 O2 Sat by Pulse 97 94 L Oximetry Medical Decision Making - Medical Decision Making Patient is given 2 g of Rocephin IV push in the emergency department. I was assuming the patient had a bacterial peritonitis.. Patient's lactate was 4.4 but because of the significant tenderness of the abdomen was worried about peritonitis. Computed tomography scan shows some ascites metastases in the liver spleen and increased size of lymph nodes possibly increased size of metastases to the liver. Patient's lactic acidosis probably secondary to liver disease I spoke with Dr. Turpin he agreed to admit the patient admitted the patient I wrote admitting orders - Lab Data Result diagrams: 01/13/22 18:57 01/13/22 18:57 Lab Results 01/13/22 01/13/22 01/13/22 Range/Units 18:57 18:57 18:57 WBC 11.3 H (3.8-10.6) k/uL RBC 3.77 L (4.30-5.90) m/uL Hgb 11.4 L (13.0-17.5) gm/dL Hct 37.4 L (39.0-53.0) % MCV 99.2 (80.0-100.0) fL MCH 30.3 (25.0-35.0) pg MCHC 30.5 L (31.0-37.0) g/dL RDW 16.1 H (11.5-15.5) % Plt Count 106 L (150-450) k/uL MPV 10.2 Neutrophils % 94 % Lymphocytes % 3 % Monocytes % 2 % Eosinophils % 0 % Basophils % 0 % Neutrophils # 10.6 H (1.3-7.7) k/uL Lymphocytes # 0.4 L (1.0-4.8) k/uL Monocytes # 0.2 (0-1.0) k/uL Eosinophils # 0.0 (0-0.7) k/uL Basophils # 0.0 (0-0.2) k/uL Hypochromasia Slight Anisocytosis Slight Macrocytosis Slight PT 15.6 H (9.0-12.0) sec INR 1.5 H (<1.2) APTT 29.7 (22.0-30.0) sec Sodium 133 L (137-145) mmol/L Potassium 4.7 (3.5-5.1) mmol/L Chloride 98 (98-107) mmol/L Carbon Dioxide 24 (22-30) mmol/L Anion Gap 11 mmol/L BUN 21 H (9-20) mg/dL Creatinine 1.03 (0.66-1.25) mg/dL Est GFR (CKD-EPI)AfAm >90 (>60 ml/min/1.73 sqM) Est GFR (CKD-EPI)NonAf 80 (>60 ml/min/1.73 sqM) Glucose 112 H (74-99) mg/dL Plasma Lactic Acid Shashi (0.7-2.0) mmol/L Calcium 7.9 L (8.4-10.2) mg/dL Total Bilirubin 0.9 (0.2-1.3) mg/dL AST 118 H (17-59) U/L ALT 14 (4-49) U/L Alkaline Phosphatase 309 H (38-126) U/L Total Protein 6.7 (6.3-8.2) g/dL Albumin 3.4 L (3.5-5.0) g/dL Amylase 45 (30-110) U/L Lipase 57 (23-300) U/L 01/13/22 Range/Units 18:57 WBC (3.8-10.6) k/uL RBC (4.30-5.90) m/uL Hgb (13.0-17.5) gm/dL Hct (39.0-53.0) % MCV (80.0-100.0) fL MCH (25.0-35.0) pg MCHC (31.0-37.0) g/dL RDW (11.5-15.5) % Plt Count (150-450) k/uL MPV Neutrophils % % Lymphocytes % % Monocytes % % Eosinophils % % Basophils % % Neutrophils # (1.3-7.7) k/uL Lymphocytes # (1.0-4.8) k/uL Monocytes # (0-1.0) k/uL Eosinophils # (0-0.7) k/uL Basophils # (0-0.2) k/uL Hypochromasia Anisocytosis Macrocytosis PT (9.0-12.0) sec INR (<1.2) APTT (22.0-30.0) sec Sodium (137-145) mmol/L Potassium (3.5-5.1) mmol/L Chloride (98-107) mmol/L Carbon Dioxide (22-30) mmol/L Anion Gap mmol/L BUN (9-20) mg/dL Creatinine (0.66-1.25) mg/dL Est GFR (CKD-EPI)AfAm (>60 ml/min/1.73 sqM) Est GFR (CKD-EPI)NonAf (>60 ml/min/1.73 sqM) Glucose (74-99) mg/dL Plasma Lactic Acid Shashi 4.4 H* (0.7-2.0) mmol/L Calcium (8.4-10.2) mg/dL Total Bilirubin (0.2-1.3) mg/dL AST (17-59) U/L ALT (4-49) U/L Alkaline Phosphatase (38-126) U/L Total Protein (6.3-8.2) g/dL Albumin (3.5-5.0) g/dL Amylase (30-110) U/L Lipase (23-300) U/L Disposition Clinical Impression: Abdominal pain, Peritonitis Disposition: ADMITTED IP TO THIS [facility] Referrals: Anthony Turpin MD [Primary Care Provider] - 1-2 days Time of Disposition: 20:59
[2022-01-13] MEDS ORDERED: cefTRIAXone IN SWFI 1,000 MG/10 ML SYRINGE IVP STA ×2 (19:58→20:46)
--- NOTE | 2022-01-13 20:49 | CT ---
EXAMINATION TYPE: CT abdomen pelvis w con CT DLP: 1149.3 mGycm, Automated exposure control for dose reduction was used. DATE OF EXAM: 01/13/2022 8:19 PM COMPARISON: CT abdomen pelvis most recent from 11/30/2021. CLINICAL INDICATION:Male, 61 years old with history of Abdominal pain, distention; h/o abd pain and r ecent chemo TECHNIQUE: Standard CT of the abdomen and pelvis following the administration of 100 cc of Isovue 3 00 IV contrast material. Coronal and sagittal reformats were performed. FINDINGS: LOWER CHEST: Unremarkable ABDOMEN LIVER: Redemonstration of diffuse hypoattenuating metastatic disease which are innumerable. The liver is enlarged for size. GALLBLADDER AND BILE DUCTS: Calcified gallstone present in the gallbladder lumen. PANCREAS: Unremarkable. SPLEEN: Spleen is enlarged for size measuring up to 15.9 cm, previously 15.3 cm. ADRENAL GLANDS: Unremarkable. KIDNEYS AND URETERS: No evidence of hydronephrosis or renal calculus. The ureters are unremarkable. PELVIS BLADDER: Unremarkable REPRODUCTIVE: Unremarkable. ABDOMEN & PELVIS STOMACH AND BOWEL: There is a large stool burden throughout the colon with the sigmoid colon diving b etween mesentery where it becomes narrowed extending approximately 12 cm best appreciated on series 2 01 image 65. No evidence of bowel obstruction. PERITONEUM: No evidence of. Small amount of free fluid is seen around the liver. VASCULATURE: No evidence of aortic aneurysm. MUSCULOSKELETAL: No acute osseous abnormalities. LYMPH NODES: Redemonstration of multiple enlarged lymph nodes within the abdomen with central low-att enuation suggesting necrosis. Simple includes portacaval lymph node measuring up to 2.9 cm in short a xis, previously 2.0 cm, duy hepatis measuring 2.6 cm similar to previous however there is a larger lymph node left periaortic series 201 image 36 measuring 1.6 cm previously 1.0 cm.. SOFT TISSUE/ABDOMINAL WALL: Unremarkable IMPRESSION: 1. Redemonstration of innumerable hepatic metastatic disease and intra-abdominal lymphadenopathy. Ov erall the hepatic metastatic disease is difficult to compare given different phase of the contrast. T here is felt to be similar to prior on 11/30/2021. The portacaval lymph node has increased in size from prior T12 the duy hepatis lymph node is similar. Other lymph nodes appear larger as well. 2. Large stool burden throughout the colon with short segment narrowing of the sigmoid colon is the c olon as it passes from superficial to deep and posterior. 3. Interval increase in splenomegaly.
[2022-01-13] MEDS ORDERED: SODIUM CHLORIDE 0.9% 1,000 ML IV ONE ×2 (20:56→21:00)
[2022-01-13 22:09] LABS: Appearance,Urine Clear (Clear); Bilirubin,Urine Negative (Negative); Blood,Urine Negative (Negative); Color,Urine Yellow; Glucose,Urine (UA) Negative (Negative); Ketones,Urine Negative (Negative); Leukocyte Esterase,Urine Negative (Negative); Nitrite,Urine Negative (Negative); PH, Urine 5.5 (5.0-8.0); Protein,Urine Trace (Negative); Specific Gravity,Urine 1.027 (1.001-1.035); Urobilinogen,Urine <2.0 mg/dL (<2.0)
[2022-01-14] MEDS: HYDROmorphone 0.5 MG/0.5 ML SYRINGE IVP PRN ×5 (00:54→18:31)
[2022-01-14 09:11] LABS: ALT 13 U/L (4-49); AST 121 U/L (17-59); African American GFR (CKD) >90 (>60 ml/min/1.73 sqM); Alkaline Phosphatase 274 U/L (38-126); Amylase 45 U/L (30-110); Anion Gap 9 mmol/L; Blood Urea Nitrogen 19 mg/dL (9-20); Calcium 7.6 mg/dL (8.4-10.2); Carbon Dioxide 25 mmol/L (22-30); Chloride 100 mmol/L (98-107); Globulin 3.1 g/dL; Glucose 91 mg/dL (74-99); Lipase 37 U/L (23-300); Magnesium 2.2 mg/dL (1.6-2.3); Non-African American GFR(CKD) 79 (>60 ml/min/1.73 sqM); Potassium 4.8 mmol/L (3.5-5.1); Sodium 134 mmol/L (137-145); Total Bilirubin 1.2 mg/dL (0.2-1.3); Total Protein 6.1 g/dL (6.3-8.2)
[2022-01-14 09:13] LABS: Anisocytosis Slight; HGB 11.4 gm/dL (13.0-17.5); Hypochromasia Slight; MCH 31.4 pg (25.0-35.0); MCHC 31.6 g/dL (31.0-37.0); MCV 99.3 fL (80.0-100.0); Macrocytosis Slight; Mean Platelet Volume 9.8; Platelet Count 86 k/uL (150-450); RBC 3.63 m/uL (4.30-5.90); RDW 16.5 % (11.5-15.5); WBC 9.2 k/uL (3.8-10.6)
[2022-01-14 10:05] LABS: Lymphocytes # (M) 0.18 k/uL (1.0-4.8); Nucleated Red Blood Cells 0 /100 WBC (0-0)
[2022-01-14 10:06] LABS: Band Neutrophils % 3 %; Monocytes # (M) 0.09 k/uL (0-1.0); Neutrophils % (M) 95 %; Total Cells Counted 200
[2022-01-14] MEDS: HYDROcodone/APAP 10-325MG 1 EACH TAB PO PRN ×2 (10:10→20:18)
[2022-01-14] MEDS: SENNOSIDES-DOCUSATE SODIUM 1 EACH TAB PO SCH ×2 (10:11→20:18)
[2022-01-14] MEDS: PANTOPRAZOLE 40 MG TABLET PO SCH (10:11)
[2022-01-14] MEDS: METOPROLOL TARTRATE 25 MG TAB PO SCH ×2 (10:11→20:18)
--- NOTE | 2022-01-14 11:45 | P.HPIM ---
History of Present Illness H&P Date: 01/14/22 Chief Complaint: abdominal pain Patient is a very pleasant 61-year-old male that presented to the emergency room with abdominal pain and shortness of breath. Patient has a pertinent medical history of lung cancer with lobectomy in 2018, recent upper scope biopsy suggests possible primary esophageal cancer with metastasis to liver, lymph nodes and sternum. Other medical history includes bowel resection due to perforation, irritable bowel syndrome, Crohn's, hernia, COPD, hyperlipidemia, hypertension, OA, pancreatitis. Patient had chronic alcohol abuse, has been sober since August of this year, also quit smoking last admission. He has been following with oncology and began chemo treatment this week, first dose was Monday. He reported feeling well up until yesterday night when abdominal distention progressed causing severe pain not controlled by current pain ma nagement regimen. White blood cell count was 11.3, lactic acid was 4.4 alkaline phosphatase was elevated at 309. Chest x-ray found right basilar atelectasis without acute pulmonary process. Abdominal CT found large stool burden, increase in splenomegaly, small amount of fluid layering in the pelvis and around liver, and multiple hepatic metastatic lesions and intra-abdominal lymphadenopathy. Patient was given Rocephin and saline with improvement of lactic acid is down to 1.9 today. Pain medication was reordered, patient reports improvement of pain with fentanyl patch and Mckenzie. Patient also reported some relief of pain with bowel movement. Oncology was consulted. Review of Systems Constitutional: Reports anorexia, Reports fatigue, Reports poor appetite, Reports weakness, Denies chills, Denies fever Ears, nose, mouth and throat: Denies dysphagia, Denies mouth pain Cardiovascular: Denies edema, Denies high blood pressure Respiratory: Reports dyspnea Gastrointestinal: Reports abdominal pain, Reports bloating, Reports change in bowel habits, Reports constipation, Reports indigestion, Reports loss of appetite, Reports nausea, Reports vomiting Genitourinary: Denies dysuria, Denies genital pain Musculoskeletal: Denies frequent falls, Denies leg numbness/tingling Integumentary: Denies change in hair/nails, Denies wounds Neurological: Denies headaches, Denies vertigo Psychiatric: Reports anxiety, Denies confusion Endocrine: Reports fatigue, Reports nocturia Hematologic/Lymphatic: Denies easy bruising Allergic/Immunologic: Denies angioedema Past Medical History Past Medical History: Blood Disorder, Coronary Artery Disease (CAD), Cancer, COPD, GI Bleed, Hyperlipidemia, Hypertension, Osteoarthritis (OA) Additional Past Medical History / Comment(s): 2018 L lung cancer with surgery, recently found to have metastatic cancer to liver, bone and esophagus per pt, pt states he had his first chemotherapy treatment on 01/11/22, past bowel obstruction/perforation with surgery, lower GI bleed, IBS, chron's, large ventral hernia, chronic low back pain, past ETOH abuse, pancreatitis. History of Any Multi-Drug Resistant Organisms: None Reported Past Surgical History: Back Surgery, Bowel Resection, Heart Catheterization, Orthopedic Surgery, Tonsillectomy Additional Past Surgical History / Comment(s): 01/06/22 EGD, 12/02/21 liver biopsy, 06/2018 left thoracotomy with wedge resection upper lobe and lymph node dissection, colonoscopy, bowel resection due to perforation, fractured bilateral little fingers - pins placed and later removed. Past Anesthesia/Blood Transfusion Reactions: No Reported Reaction Smoking Status: Former smoker - Past Family History Father Family Medical History: Cancer Additional Family Medical History / Comment(s): Lung cancer. Daughter(s) Family Medical History: Cancer Additional Family Medical History / Comment(s): Breast cancer. Medications and Allergies Home Medications Medication Instructions Recorded Confirmed Type Atorvastatin [Lipitor] 40 mg PO HS 06/29/18 01/13/22 History Metoprolol Tartrate [Lopressor] 25 mg PO BID 06/27/20 01/13/22 History HYDROcodone/APAP 10-325MG [[place] 1 tab PO Q4HR PRN 01/04/22 01/13/22 History 10-325] Nicotine 21Mg/24Hr Patch [Habitrol] 1 patch TRANSDERM DAILY PRN 01/13/22 01/13/22 History OLANZapine 5 mg PO DIRECTED PRN 01/13/22 01/13/22 History Omeprazole 40 mg PO DAILY 01/13/22 01/13/22 History Ondansetron Odt [Zofran Odt] 4 mg PO Q4H PRN 01/13/22 01/13/22 History Sennosides-Docusate Sodium 2 tab PO BID 01/13/22 01/13/22 History [Senokot-S] fentaNYL 50MCG/HR PATCH [Duragesic 1 patch TRANSDERM Q72H 01/13/22 01/13/22 History 50MCG/HR] Allergies Allergy/AdvReac Type Severity Reaction Status Date / Time Sulfa (Sulfonamide Allergy Unknown Verified 01/13/22 21:35 Antibiotics) morphine AdvReac Ineffective Verified 01/13/22 21:35 Physical Exam Vitals: Vital Signs Temp Pulse Resp BP Pulse Ox 01/14/22 05:29 78 16 103/52 98 01/14/22 00:56 82 18 102/54 94 L 01/13/22 20:35 82 18 100/51 94 L 01/13/22 18:09 98.5 F 85 18 115/74 97 Intake and Output 01/13/22 01/14/22 01/14/22 22:59 06:59 14:59 Other: Weight 68.946 kg 68.946 kg - Constitutional General appearance: cooperative, mild distress, thin - EENT Eyes: EOMI, PERRLA ENT: normal oropharynx - Neck Neck: normal ROM - Respiratory Respiratory: bilateral: diminished - Cardiovascular Heart rate: 70 Rhythm: regular Heart sounds: normal: S1, S2 - Gastrointestinal General gastrointestinal: decreased bowel sounds, distended, hepatomegaly, tenderness, ventral hernia - Integumentary Integumentary: normal, normal turgor - Neurologic Neurologic: CNII-XII intact - Musculoskeletal Musculoskeletal: gait normal - Psychiatric Psychiatric: A&O x's 3, appropriate affect, intact judgment & insight Results CBC & Chem 7: 01/14/22 07:58 01/14/22 07:58 Labs: Abnormal Lab Results - Last 24 Hours (Table) 01/13/22 01/13/22 01/13/22 Range/Units 18:57 18:57 18:57 WBC 11.3 H (3.8-10.6) k/uL RBC 3.77 L (4.30-5.90) m/uL Hgb 11.4 L (13.0-17.5) gm/dL Hct 37.4 L (39.0-53.0) % MCHC 30.5 L (31.0-37.0) g/dL RDW 16.1 H (11.5-15.5) % Plt Count 106 L (150-450) k/uL Neutrophils # 10.6 H (1.3-7.7) k/uL Neutrophils # (Manual) (1.3-7.7) k/uL Lymphocytes # 0.4 L (1.0-4.8) k/uL Lymphocytes # (Manual) (1.0-4.8) k/uL PT 15.6 H (9.0-12.0) sec INR 1.5 H (<1.2) Sodium 133 L (137-145) mmol/L BUN 21 H (9-20) mg/dL Glucose 112 H (74-99) mg/dL Plasma Lactic Acid Shashi (0.7-2.0) mmol/L Calcium 7.9 L (8.4-10.2) mg/dL AST 118 H (17-59) U/L Alkaline Phosphatase 309 H (38-126) U/L Total Protein (6.3-8.2) g/dL Albumin 3.4 L (3.5-5.0) g/dL Urine Protein (Negative) 01/13/22 01/13/22 01/13/22 Range/Units 18:57 21:35 21:44 WBC (3.8-10.6) k/uL RBC (4.30-5.90) m/uL Hgb (13.0-17.5) gm/dL Hct (39.0-53.0) % MCHC (31.0-37.0) g/dL RDW (11.5-15.5) % Plt Count (150-450) k/uL Neutrophils # (1.3-7.7) k/uL Neutrophils # (Manual) (1.3-7.7) k/uL Lymphocytes # (1.0-4.8) k/uL Lymphocytes # (Manual) (1.0-4.8) k/uL PT (9.0-12.0) sec INR (<1.2) Sodium (137-145) mmol/L BUN (9-20) mg/dL Glucose (74-99) mg/dL Plasma Lactic Acid Shashi 4.4 H* 3.5 H* (0.7-2.0) mmol/L Calcium (8.4-10.2) mg/dL AST (17-59) U/L Alkaline Phosphatase (38-126) U/L Total Protein (6.3-8.2) g/dL Albumin (3.5-5.0) g/dL Urine Protein Trace H (Negative) 01/14/22 01/14/22 01/14/22 Range/Units 00:36 05:08 07:58 WBC (3.8-10.6) k/uL RBC (4.30-5.90) m/uL Hgb (13.0-17.5) gm/dL Hct (39.0-53.0) % MCHC (31.0-37.0) g/dL RDW (11.5-15.5) % Plt Count (150-450) k/uL Neutrophils # (1.3-7.7) k/uL Neutrophils # (Manual) (1.3-7.7) k/uL Lymphocytes # (1.0-4.8) k/uL Lymphocytes # (Manual) (1.0-4.8) k/uL PT (9.0-12.0) sec INR (<1.2) Sodium (137-145) mmol/L BUN (9-20) mg/dL Glucose (74-99) mg/dL Plasma Lactic Acid Shashi 2.7 H* 2.3 H* 2.1 H* (0.7-2.0) mmol/L Calcium (8.4-10.2) mg/dL AST (17-59) U/L Alkaline Phosphatase (38-126) U/L Total Protein (6.3-8.2) g/dL Albumin (3.5-5.0) g/dL Urine Protein (Negative) 01/14/22 01/14/22 Range/Units 07:58 07:58 WBC (3.8-10.6) k/uL RBC 3.63 L (4.30-5.90) m/uL Hgb 11.4 L (13.0-17.5) gm/dL Hct 36.0 L (39.0-53.0) % MCHC (31.0-37.0) g/dL RDW 16.5 H (11.5-15.5) % Plt Count 86 L (150-450) k/uL Neutrophils # (1.3-7.7) k/uL Neutrophils # (Manual) 9.00 H (1.3-7.7) k/uL Lymphocytes # (1.0-4.8) k/uL Lymphocytes # (Manual) 0.18 L (1.0-4.8) k/uL PT (9.0-12.0) sec INR (<1.2) Sodium 134 L (137-145) mmol/L BUN (9-20) mg/dL Glucose (74-99) mg/dL Plasma Lactic Acid Shashi (0.7-2.0) mmol/L Calcium 7.6 L (8.4-10.2) mg/dL AST 121 H (17-59) U/L Alkaline Phosphatase 274 H (38-126) U/L Total Protein 6.1 L (6.3-8.2) g/dL Albumin 3.0 L (3.5-5.0) g/dL Urine Protein (Negative) CT scan - abdomen: report reviewed Thrombosis Risk Factor Assmnt - DVT/VTE Prophylaxis DVT/VTE Prophylaxis: Contraindicated - See note (thrombocytopenia) - Choose All That Apply Any of the Below Risk Factors Present?: Yes Each Factor Represents 1 point: Age 41-60 years Other Risk Factors: Yes Each Risk Factor Represents 2 Points: Malignancy Other congenital or acquired thrombophilia - If yes, enter type in comment: No Thrombosis Risk Factor Assessment Total Risk Factor Score: 3 Thrombosis Risk Factor Assessment Level: Moderate Risk Assessment and Plan Assessment: Abdominal pain Elevated lactic acid Recurrent lung cancer versus esophageal cancer with metastasis to liver, bone, and lymph nodes, awaiting further studies Large ventral hernia COPD without exacerbation Thrombocytopenia Hypertension Hyperlipidemia History of bowel perforation and resection History of alcohol abuse History of Crohn's and pancreatitis Plan: Patient reports improvement of abdominal pain with current medication regimen Continue stool softeners to avoid constipation Oncology consult, last chemo treatment was 3 days ago Lactic acid down to 1.9, continue monitoring labs Further recommendations to come based on patients clinical course Time with Patient: Greater than 30 (I Anthony Turpin attests that I spent greater than 20 minutes caring for him examining the patient)
[2022-01-14] MEDS: ATORVASTATIN 40 MG TAB PO SCH (20:18)
[2022-01-15] MEDS: HYDROcodone/APAP 10-325MG 1 EACH TAB PO PRN ×6 (00:38→22:49)
[2022-01-15] MEDS: PANTOPRAZOLE 40 MG TABLET PO SCH (09:04)
[2022-01-15] MEDS: METOPROLOL TARTRATE 25 MG TAB PO SCH ×2 (09:04→19:44)
[2022-01-15] MEDS: SENNOSIDES-DOCUSATE SODIUM 1 EACH TAB PO SCH ×2 (09:05→19:45)
[2022-01-15] MEDS: polyethylene glycoL 3350 17 GM POWD.PACK PO SCH (09:05)
--- NOTE | 2022-01-15 11:50 | P.CONS ---
History of Present Illness - Reason for Consult Consult date: 01/14/22 Metastatic Cancer Requesting physician: Kurt Hanks - Chief Complaint Abdominal Pain - History of Present Illness Mr Sevilla is a pleasant white male, who states that he was first told that he has a small nodule in the left upper lung, in 2015. At that time the patient had developed shortness of breath, and was evaluated in [place]. He was diagnosed with COPD, and was noted to have a as you as nodule on imaging. The patient subsequently moved to [place], and establish follow-up with pulmonary medicine here. It is not clear what kind of follow-up he had in the interim. he had a CT scan ordered by his primary care physician on 03/29/18 that showed a 1.2 cm greater density in the left upper lobe. He was referred to pulmonary medicine, nd had a PET scan on 05/12/18. This showed a low level uptake in this lesion, with SUV of 1.5. The lesion was noted to be 1.1 cm with possible pleural extension. No other areas suspicious for metastasis were noted. Incidentally splenomegaly was mentioned on the PET scan. The patient was referred to cardiothoracic surgery, and had labs done as part of his pre-op workup. This revealed a platelet count of 63,000. He was therefore referred here for further evaluation and recommendations Denied any prior history of blood related problems. He has a long-standing history of alcohol use. He states that he was a very heavy user especially around [id number], and had "liver problems" due to the alcohol. Since then he has cut down, but still drinks about a 12 pack of beer per day. His low plt were felt to be due to ETOH, and related liver damage. His plt were 113 in the office. He was thus cleared for surgery. 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 as above. The patient was last seen in the office in 07/15. Based on his stage, adjuvant therapy was not recommended per guidelines. The patient was then seen in consultation at [facility] on 12/01/21. The patient had presented with abdominal pain that started about 3 weeks ago, localized to the right upper quadrant and upper mid abdomen. The patient does have a ventral hernia following bowel surgery that had been increasing in size. The patient felt that this was likely the cause of his pain. He also noted weight loss of about 20 pounds in the last few months. CT of the abdomen and pelvis with contrast on 11/30/21, as well as ultrasound of the abdomen revealed multiple heterogenous masses in the liver compatible with metastatic disease. This was a new finding compared to prior CT from 2019. CT of the chest showed bilateral emphysematous changes without any specific parenchymal lesion or adenopathy. Bone scan revealed possible metastasis in the sternum. MRI of the brain was negative. Patient had CT-guided liver biopsy in 12/12/21. This showed poorly differentiated non-small cell carcinoma. Staining pattern was felt to be similar to the previous squamous cell carcinoma. However upper GI source was not totally ruled out. The patient was discharged after pain control, on fentanyl 25 g and [place]. Sample was sent for biomarker testing, which showed no actionable mutations. PD1 was less than 1%. surgery were consulted for EGD to rule out an upper GI source. However due to transportation and scheduling difficulties, this has been scheduled for 01/06/22. He was seen for his first office visit on 12/29/21 He was started on first cycle of chemotherapy on 01/11/22 with Carboplatin and taxol. Apparently presented to hospital today for worseninga abdominal pain not controlled on home regimen. CT abdomen represents innumerable liver lesions, but also reveals large stool burden. At last visit patient was educated on daily bowel regimen due, senna-s sent to pharmacy at that time. We will increase bowel regimen and re-educate in interim. Home pain management regimen included Fentanyl Patch 50mcg and Roxicodone, previously norco. Review of Systems All systems: negative Constitutional: Reports as per HPI Past Medical History Past Medical History: Blood Disorder, Coronary Artery Disease (CAD), Cancer, COPD, GI Bleed, Hyperlipidemia, Hypertension, Osteoarthritis (OA) Additional Past Medical History / Comment(s): 2018 L lung cancer with surgery, recently found to have metastatic cancer to liver, bone and esophagus per pt, pt states he had his first chemotherapy treatment on 01/11/22, past bowel obstruction/perforation with surgery, lower GI bleed, IBS, chron's, large ventral hernia, chronic low back pain, past ETOH abuse, pancreatitis. History of Any Multi-Drug Resistant Organisms: None Reported Past Surgical History: Back Surgery, Bowel Resection, Heart Catheterization, Orthopedic Surgery, Tonsillectomy Additional Past Surgical History / Comment(s): 01/06/22 EGD, 12/02/21 liver biopsy, 06/2018 left thoracotomy with wedge resection upper lobe and lymph node dissection, colonoscopy, bowel resection due to perforation, fractured bilateral little fingers - pins placed and later removed. Past Anesthesia/Blood Transfusion Reactions: No Reported Reaction Smoking Status: Former smoker - Past Family History Father Family Medical History: Cancer Additional Family Medical History / Comment(s): Lung cancer. Daughter(s) Family Medical History: Cancer Additional Family Medical History / Comment(s): Breast cancer. Medications and Allergies Home Medications Medication Instructions Recorded Confirmed Type Atorvastatin [Lipitor] 40 mg PO HS 06/29/18 01/13/22 History Metoprolol Tartrate [Lopressor] 25 mg PO BID 06/27/20 01/13/22 History HYDROcodone/APAP 10-325MG [[place] 1 tab PO Q4HR PRN 01/04/22 01/13/22 History 10-325] Nicotine 21Mg/24Hr Patch [Habitrol] 1 patch TRANSDERM DAILY PRN 01/13/22 01/13/22 History OLANZapine 5 mg PO DIRECTED PRN 01/13/22 01/13/22 History Omeprazole 40 mg PO DAILY 01/13/22 01/13/22 History Ondansetron Odt [Zofran Odt] 4 mg PO Q4H PRN 01/13/22 01/13/22 History Sennosides-Docusate Sodium 2 tab PO BID 01/13/22 01/13/22 History [Senokot-S] fentaNYL 50MCG/HR PATCH [Duragesic 1 patch TRANSDERM Q72H 01/13/22 01/13/22 History 50MCG/HR] Allergies Allergy/AdvReac Type Severity Reaction Status Date / Time Sulfa (Sulfonamide Allergy Unknown Verified 01/13/22 21:35 Antibiotics) morphine AdvReac Ineffective Verified 01/13/22 21:35 Physical Exam Vitals: Vital Signs Temp Pulse Resp BP Pulse Ox 01/14/22 05:29 78 16 103/52 98 01/14/22 00:56 82 18 102/54 94 L 01/13/22 20:35 82 18 100/51 94 L 01/13/22 18:09 98.5 F 85 18 115/74 97 Intake and Output 01/13/22 01/14/22 01/14/22 22:59 06:59 14:59 Other: Weight 68.946 kg 68.946 kg GENERAL: Patient is well-developed and well-nourished. Patient is nontoxic and well- hydrated and is in mild distress. ENT: Neck is soft and supple. No significant lymphadenopathy is noted. Oropharynx is clear. Moist mucous membranes. Neck has full range of motion without eliciting any pain. EYES: The sclera were anicteric and conjunctiva were pink and moist. Extraocular movements were intact and pupils were equal round and reactive to light. Eyelids were unremarkable. PULMONARY: Unlabored respirations. Good breath sounds bilaterally. No audible rales rhonchi or wheezing was noted. CARDIOVASCULAR: There is a regular rate and rhythm without any murmurs gallops or rubs. ABDOMEN: Abdomen is markedly distended and diffusely tender. There also was a ventral hernia. SKIN: Skin is clear with no lesions or rashes and otherwise unremarkable. NEUROLOGIC: Patient is alert and oriented x3. Cranial nerves II through XII are grossly intact. Motor and sensory are also intact. Normal speech, volume and content. Symmetrical smile. MUSCULOSKELETAL: Normal extremities with adequate strength and full range of motion. No lower extremity swelling or edema. No calf tenderness. LYMPHATICS: No significant lymphadenopathy is noted PSYCHIATRIC: Normal psychiatric evaluation. Results CBC & Chem 7: 01/14/22 07:58 01/14/22 07:58 Labs: Abnormal Lab Results - Last 24 Hours (Table) 01/13/22 01/13/22 01/13/22 Range/Units 18:57 18:57 18:57 WBC 11.3 H (3.8-10.6) k/uL RBC 3.77 L (4.30-5.90) m/uL Hgb 11.4 L (13.0-17.5) gm/dL Hct 37.4 L (39.0-53.0) % MCHC 30.5 L (31.0-37.0) g/dL RDW 16.1 H (11.5-15.5) % Plt Count 106 L (150-450) k/uL Neutrophils # 10.6 H (1.3-7.7) k/uL Neutrophils # (Manual) (1.3-7.7) k/uL Lymphocytes # 0.4 L (1.0-4.8) k/uL Lymphocytes # (Manual) (1.0-4.8) k/uL PT 15.6 H (9.0-12.0) sec INR 1.5 H (<1.2) Sodium 133 L (137-145) mmol/L BUN 21 H (9-20) mg/dL Glucose 112 H (74-99) mg/dL Plasma Lactic Acid Shashi (0.7-2.0) mmol/L Calcium 7.9 L (8.4-10.2) mg/dL AST 118 H (17-59) U/L Alkaline Phosphatase 309 H (38-126) U/L Total Protein (6.3-8.2) g/dL Albumin 3.4 L (3.5-5.0) g/dL Urine Protein (Negative) 01/13/22 01/13/22 01/13/22 Range/Units 18:57 21:35 21:44 WBC (3.8-10.6) k/uL RBC (4.30-5.90) m/uL Hgb (13.0-17.5) gm/dL Hct (39.0-53.0) % MCHC (31.0-37.0) g/dL RDW (11.5-15.5) % Plt Count (150-450) k/uL Neutrophils # (1.3-7.7) k/uL Neutrophils # (Manual) (1.3-7.7) k/uL Lymphocytes # (1.0-4.8) k/uL Lymphocytes # (Manual) (1.0-4.8) k/uL PT (9.0-12.0) sec INR (<1.2) Sodium (137-145) mmol/L BUN (9-20) mg/dL Glucose (74-99) mg/dL Plasma Lactic Acid Shashi 4.4 H* 3.5 H* (0.7-2.0) mmol/L Calcium (8.4-10.2) mg/dL AST (17-59) U/L Alkaline Phosphatase (38-126) U/L Total Protein (6.3-8.2) g/dL Albumin (3.5-5.0) g/dL Urine Protein Trace H (Negative) 01/14/22 01/14/22 01/14/22 Range/Units 00:36 05:08 07:58 WBC (3.8-10.6) k/uL RBC (4.30-5.90) m/uL Hgb (13.0-17.5) gm/dL Hct (39.0-53.0) % MCHC (31.0-37.0) g/dL RDW (11.5-15.5) % Plt Count (150-450) k/uL Neutrophils # (1.3-7.7) k/uL Neutrophils # (Manual) (1.3-7.7) k/uL Lymphocytes # (1.0-4.8) k/uL Lymphocytes # (Manual) (1.0-4.8) k/uL PT (9.0-12.0) sec INR (<1.2) Sodium (137-145) mmol/L BUN (9-20) mg/dL Glucose (74-99) mg/dL Plasma Lactic Acid Shashi 2.7 H* 2.3 H* 2.1 H* (0.7-2.0) mmol/L Calcium (8.4-10.2) mg/dL AST (17-59) U/L Alkaline Phosphatase (38-126) U/L Total Protein (6.3-8.2) g/dL Albumin (3.5-5.0) g/dL Urine Protein (Negative) 01/14/22 01/14/22 Range/Units 07:58 07:58 WBC (3.8-10.6) k/uL RBC 3.63 L (4.30-5.90) m/uL Hgb 11.4 L (13.0-17.5) gm/dL Hct 36.0 L (39.0-53.0) % MCHC (31.0-37.0) g/dL RDW 16.5 H (11.5-15.5) % Plt Count 86 L (150-450) k/uL Neutrophils # (1.3-7.7) k/uL Neutrophils # (Manual) 9.00 H (1.3-7.7) k/uL Lymphocytes # (1.0-4.8) k/uL Lymphocytes # (Manual) 0.18 L (1.0-4.8) k/uL PT (9.0-12.0) sec INR (<1.2) Sodium 134 L (137-145) mmol/L BUN (9-20) mg/dL Glucose (74-99) mg/dL Plasma Lactic Acid Shashi (0.7-2.0) mmol/L Calcium 7.6 L (8.4-10.2) mg/dL AST 121 H (17-59) U/L Alkaline Phosphatase 274 H (38-126) U/L Total Protein 6.1 L (6.3-8.2) g/dL Albumin 3.0 L (3.5-5.0) g/dL Urine Protein (Negative) CT scan - abdomen: report reviewed CT scan - pelvis: report reviewed Assessment and Plan (1) Constipation Narrative/Plan: Increase daily bowel regimen Current Visit: Yes Status: Acute Code(s): K59.00 - CONSTIPATION, UNSPECIFIED SNOMED Code(s): 35274499 (2) Abdominal pain Narrative/Plan: Worsened due to metastic burden and constipation Increase long acting fentanyl IV Duilaudid ok for now will need to trial PO short acting prior to discharge Current Visit: Yes Status: Acute Priority: High Code(s): R10.9 - UNSPECIFIED ABDOMINAL PAIN SNOMED Code(s): 98004943 (3) Metastases to the liver Narrative/Plan: Unknown primary: Status post cycle one of taxol and carbo on 01/11 Current Visit: No Status: Acute Code(s): C78.7 - SECONDARY MALIG NEOPLASM OF LIVER AND INTRAHEPATIC BILE DUCT SNOMED Code(s): 09012693
[2022-01-15 13:23] VITALS: BMI 19.5
[2022-01-15] MEDS: ONDANSETRON ODT 4 MG TAB PO PRN (16:48)
[2022-01-15] MEDS: ATORVASTATIN 40 MG TAB PO SCH (19:45)
[2022-01-16] MEDS: HYDROmorphone 0.5 MG/0.5 ML SYRINGE IVP PRN ×3 (00:56→19:35)
[2022-01-16] MEDS: HYDROcodone/APAP 10-325MG 1 EACH TAB PO PRN ×5 (04:39→22:36)
[2022-01-16] MEDS: PANTOPRAZOLE 40 MG TABLET PO SCH (09:22)
[2022-01-16] MEDS: METOPROLOL TARTRATE 25 MG TAB PO SCH ×2 (09:22→21:25)
[2022-01-16] MEDS: ONDANSETRON ODT 4 MG TAB PO PRN (09:28)
[2022-01-16 10:07] LABS: African American GFR (CKD) 76.3 (60.0-200.0); Albumin 2.9 g/dL (3.8-4.9); Anion Gap 11.1 mmol/L (10.00-18.00); BUN/Creat Ratio 17.17 Ratio (12.00-20.00); Blood Urea Nitrogen 20.6 mg/dL (9.0-27.0); Calcium 8.3 mg/dL (8.7-10.3); Carbon Dioxide 21.9 mmol/L (20.0-27.5); Globulin 2.9 g/dL (1.6-3.3); Non-African American GFR(CKD) 65.8 (60.0-200.0); Potassium 4.6 mmol/L (3.5-5.5); Total Bilirubin 1.3 mg/dL (0.30-1.20); Total Protein 5.8 g/dL (6.2-8.2)
--- NOTE | 2022-01-16 10:44 | P.PN ---
Subjective Progress Note Date: 01/15/22 Patient is a very pleasant 61-year-old male that presented to the emergency room with abdominal pain and shortness of breath. Patient has a pertinent medical history of lung cancer with lobectomy in 2018, recent upper scope biopsy suggests possible primary esophageal cancer with metastasis to liver, lymph nodes and sternum. Other medical history includes bowel resection due to perforation, irritable bowel syndrome, Crohn's, hernia, COPD, hyperlipidemia, hypertension, OA, pancreatitis. Patient had chronic alcohol abuse, has been sober since August of this year, also quit smoking last admission. He has been following with oncology and began chemo treatment this week, first dose was Monday. He reported feeling well up until yesterday night when abdominal distention progressed causing severe pain not controlled by current pain management regimen. White blood cell count was 11.3, lactic acid was 4.4 alkaline phosphatase was elevated at 309. Chest x-ray found right basilar atelectasis without acute pulmonary process. Abdominal CT found large stool burden, increase in splenomegaly, small amount of fluid layering in the pelvis and around liver, and multiple hepatic metastatic lesions and intra-abdominal lymphadenopathy. Patient was given Rocephin and saline with improvement of lactic acid is down to 1.9 today. Pain medication was reordered, patient reports improvement of pain with fentanyl patch and [place]. Patient also reported some relief of pain with bowel movement. Oncology was consulted. 01/15/2022. Patient is currently lying in the bed. Awake alert aware x3. Still complains of abdominal pain. Patient was started on clear liquid diet. No complaints of chest pain or shortness. Patient is afebrile. Currently being cannula antibiotics in the form of ceftriaxone. Continued on metoprolol and pain management with fentanyl patch. Oncology is on board. Laboratory reviewed. current medications reviewed. Objective - Vital Signs Vital signs: Vital Signs Temp 97.6 F 01/15/22 04:15 Pulse 81 01/15/22 04:15 Resp 18 01/15/22 04:15 BP 109/57 01/15/22 04:15 Pulse Ox 92 L 01/15/22 04:15 Intake & Output 01/14/22 01/15/22 01/15/22 18:59 06:59 18:59 Weight 68.946 kg Other: # Voids 1 3 # Bowel Movements 1 - Exam - Constitutional General appearance: cooperative, mild distress, thin - EENT Eyes: EOMI, PERRLA ENT: normal oropharynx - Neck Neck: normal ROM - Respiratory Respiratory: bilateral: diminished - Cardiovascular Heart rate: 70 Rhythm: regular Heart sounds: normal: S1, S2 - Gastrointestinal General gastrointestinal: decreased bowel sounds, distended, hepatomegaly, tenderness, ventral hernia - Integumentary Integumentary: normal, normal turgor - Neurologic Neurologic: CNII-XII intact - Musculoskeletal Musculoskeletal: gait normal - Psychiatric Psychiatric: A&O x's 3, appropriate affect, intact judgment & insight - Labs CBC & Chem 7: 01/14/22 07:58 01/16/22 06:34 Labs: Microbiology - Last 24 Hours (Table) 01/13/22 20:25 Blood Culture - Preliminary Blood No Growth after 24 hours 01/13/22 20:40 Blood Culture - Preliminary Blood No Growth after 24 hours Assessment and Plan Assessment: Abdominal pain due to innumerable hepatic metastatic disease Large stool burden throughout the colon Elevated lactic acid Recurrent lung cancer versus esophageal cancer with metastasis to liver, bone, and lymph nodes, awaiting further studies Large ventral hernia COPD without exacerbation Thrombocytopenia Hypertension Hyperlipidemia History of bowel perforation and resection History of alcohol abuse History of Crohn's and pancreatitis Plan: Patient reports improvement of abdominal pain with current medication regimen with fentanyl patch Continue stool softeners to avoid constipation Oncology consult, last chemo treatment was 3 days ago Lactic acid down to 1.9, continue monitoring labs. Continue with IV hydration. Time with Patient: Greater than 30
[2022-01-16] MEDS: SENNOSIDES-DOCUSATE SODIUM 1 EACH TAB PO SCH ×2 (11:51→20:47)
[2022-01-16] MEDS: polyethylene glycoL 3350 17 GM POWD.PACK PO SCH (11:51)
[2022-01-16 13:38] LABS: HCT 32.2 % (39.6-50.0); HGB 10.6 g/dL (13.0-17.0); MCH 30.3 pg (27.0-32.0); MCHC 32.9 g/dL (32.0-37.0); Mean Platelet Volume 13.7 fL (9.5-12.2); NRBC Per 100 WBC 0 /100 WBCS (0.0-0.0); Platelet Count 58 X 10*3/uL (140-440); RDW 17.9 % (11.5-14.5); WBC 1.55 X 10*3/uL (4.50-10.00)
[2022-01-16 13:39] LABS: Basophils # (M) 0.02 X 10*3/uL (0.00-0.10); Eosinophils # (M) 0.02 X 10*3/uL (0.04-0.35); Immature Platelet Fraction 10.6 % (1.1-6.1); Lymphocytes # (M) 0.08 X 10*3/uL (0.90-5.00); Monocytes # (M) 0.03 X 10*3/uL (0.20-1.00); Myelocytes % 2 % (0-0); Neutrophils # (M) 1.38 X 10*3/uL (2.00-8.90); Neutrophils % (M) 89 %; RBC Morphology NORMAL
[2022-01-16] MEDS: ATORVASTATIN 40 MG TAB PO SCH (19:35)
--- NOTE | 2022-01-16 23:40 | P.PN ---
Subjective Progress Note Date: 01/16/22 Patient is a very pleasant 61-year-old male that presented to the emergency room with abdominal pain and shortness of breath. Patient has a pertinent medical history of lung cancer with lobectomy in 2018, recent upper scope biopsy suggests possible primary esophageal cancer with metastasis to liver, lymph nodes and sternum. Other medical history includes bowel resection due to perforation, irritable bowel syndrome, Crohn's, hernia, COPD, hyperlipidemia, hypertension, OA, pancreatitis. Patient had chronic alcohol abuse, has been sober since August of this year, also quit smoking last admission. He has been following with oncology and began chemo treatment this week, first dose was Monday. He reported feeling well up until yesterday night when abdominal distention progressed causing severe pain not controlled by current pain management regimen. White blood cell count was 11.3, lactic acid was 4.4 alkaline phosphatase was elevated at 309. Chest x-ray found right basilar atelectasis without acute pulmonary process. Abdominal CT found large stool burden, increase in splenomegaly, small amount of fluid layering in the pelvis and around liver, and multiple hepatic metastatic lesions and intra-abdominal lymphadenopathy. Patient was given Rocephin and saline with improvement of lactic acid is down to 1.9 today. Pain medication was reordered, patient reports improvement of pain with fentanyl patch and [place]. Patient also reported some relief of pain with bowel movement. Oncology was consulted. 01/15/2022. Patient is currently lying in the bed. Awake alert aware x3. Still complains of abdominal pain. Patient was started on clear liquid diet. No complaints of chest pain or shortness. Patient is afebrile. Currently being cannula antibiotics in the form of ceftriaxone. Continued on metoprolol and pain management with fentanyl patch. Oncology is on board. Laboratory reviewed. 01/16/2022. Patient is lying in the bed still complains of abdominal pain. Did have a small bowel meant today. No complaints of chest pain or shortness of breath. No headache or dizziness or lightheadedness. Patient has been afebrile. Blood pressure is fairly stable. Laboratory showed WBC 1.5 hemoglobin 3.5 and platelets 58 Sodium 131 potassium 4.6 chloride 98 bicarb is 21.9 BUN 20.6 and creatinine 1.2 alk phos 233 AST 122 and ALT 17 Patient is being continued on antibiotics in the form of ceftriaxone and pain management with fentanyl and [place] 10. Oncology is on board. current medications reviewed. Objective - Vital Signs Vital signs: Vital Signs Temp 97.7 F 01/16/22 04:32 Pulse 82 01/16/22 04:32 Resp 18 01/16/22 04:32 BP 99/60 01/16/22 04:32 Pulse Ox 95 01/16/22 04:32 Intake & Output 01/15/22 01/16/22 01/16/22 18:59 06:59 18:59 Intake Total 50 Balance 50 Weight 68.946 kg Intake: Intake, IV Titration 50 Amount cefTRIAXone 2 gm In 50 Sodium Chloride 0.9% 50 ml @ 100 mls/hr IVPB Q24HR [facility] Rx#:[id number] Other: # Voids 4 # Bowel Movements 2 - Exam - Constitutional General appearance: cooperative, mild distress, thin - EENT Eyes: EOMI, PERRLA ENT: normal oropharynx - Neck Neck: normal ROM - Respiratory Respiratory: bilateral: diminished - Cardiovascular Heart rate: 70 Rhythm: regular Heart sounds: normal: S1, S2 - Gastrointestinal General gastrointestinal: decreased bowel sounds, distended, hepatomegaly, tenderness, ventral hernia - Integumentary Integumentary: normal, normal turgor - Neurologic Neurologic: CNII-XII intact - Musculoskeletal Musculoskeletal: gait normal - Psychiatric Psychiatric: A&O x's 3, appropriate affect, intact judgment & insight - Labs CBC & Chem 7: 01/16/22 06:34 01/16/22 06:34 Labs: Abnormal Lab Results - Last 24 Hours (Table) 01/16/22 Range/Units 06:34 Sodium 131 L (135-145) mmol/L Calcium 8.3 L (8.7-10.3) mg/dL Total Bilirubin 1.30 H (0.30-1.20) mg/dL AST 122 H (14-35) U/L Alkaline Phosphatase 233 H (41-126) U/L Total Protein 5.8 L (6.2-8.2) g/dL Albumin 2.9 L (3.8-4.9) g/dL Albumin/Globulin Ratio 1.00 L (1.60-3.17) g/dL Microbiology - Last 24 Hours (Table) 01/13/22 20:40 Blood Culture - Preliminary Blood No Growth after 48 hours 01/13/22 20:25 Blood Culture - Preliminary Blood No Growth after 48 hours Assessment and Plan Assessment: Abdominal pain due to innumerable hepatic metastatic disease Large stool burden throughout the colon Elevated lactic acid Recurrent lung cancer versus esophageal cancer with metastasis to liver, bone, and lymph nodes, awaiting further studies Neutropenia and thrombocytopenia secondary to chemotherapy. Large ventral hernia COPD without exacerbation Thrombocytopenia Hypertension Hyperlipidemia History of bowel perforation and resection History of alcohol abuse History of Crohn's and pancreatitis Plan: Patient reports improvement of abdominal pain with current medication regimen with fentanyl patch Continue stool softeners to avoid constipation Oncology consult, last chemo treatment was 3 days ago Lactic acid down to 1.9, continue monitoring labs. Continue with IV hydration. Time with Patient: Greater than 30
[2022-01-17] MEDS: HYDROcodone/APAP 10-325MG 1 EACH TAB PO PRN ×5 (02:42→19:37)
[2022-01-17 09:01] LABS: African American GFR (CKD) 76.3 (60.0-200.0); Albumin/Globulin Ratio 1.03 (1.60-3.17); Anion Gap 11.1 mmol/L (10.00-18.00); BUN/Creat Ratio 16.33 Ratio (12.00-20.00); Blood Urea Nitrogen 19.6 mg/dL (9.0-27.0); Calcium 8.5 mg/dL (8.7-10.3); Carbon Dioxide 21.9 mmol/L (20.0-27.5); Globulin 2.9 g/dL (1.6-3.3); Non-African American GFR(CKD) 65.8 (60.0-200.0); Potassium 4.9 mmol/L (3.5-5.5); Total Bilirubin 1.2 mg/dL (0.30-1.20); Total Protein 5.9 g/dL (6.2-8.2)
[2022-01-17] MEDS: SENNOSIDES-DOCUSATE SODIUM 1 EACH TAB PO SCH ×2 (09:41→20:47)
[2022-01-17] MEDS: polyethylene glycoL 3350 17 GM POWD.PACK PO SCH (09:41)
[2022-01-17] MEDS: METOPROLOL TARTRATE 25 MG TAB PO SCH ×2 (09:45→20:47)
[2022-01-17] MEDS: PANTOPRAZOLE 40 MG TABLET PO SCH (09:45)
--- NOTE | 2022-01-17 10:36 | CDI ---
Documentation Clarification Form Date: 01/17/2022 10:23:17 AM From: Berkley Pires CCS, CCDS Admit Date: 01/13/2022 09:00:00 PM Patient Name: Bakari Sevilla Visit Number: [id number] Discharge Date: ATTENTION: The Clinical Documentation Specialists (CDI) and [facility] Coding Staff appreciate your assistance in clarifying documentation. Please respond to the clarification below the line at the bottom and electronically sign. The CDI & [facility] Coding staff will review the response and follow-up if needed. Please note: Queries are made part of the Legal Health Record. If you have any questions, please contact the author of this message via ITS. Dr. John Rosales: Neutropenia and Thrombocytopenia secondary to chemotherapy is documented in the 01/16 Attending Physician Progress Note. Additional clarification regarding the patient's abnormal lab values is requested. History/Risk factors per the 01/14 H/P: Left Lung Cancer status post Lobectomy, Metastatic Cancer to the Liver, Bone and Lymph Nodes, Possible Metastatic or Primary Esophageal Cancer, started first chemotherapy on 01/11/2022, previous bowel obstruction/perforation status post surgery, Lower GI Bleed, IBS, Crohn's Disease, Large Ventral Hernia, CAD, COPD, Hyperlipidemia, Hypertension, Osteoarthritis, Chronic Low Back Pain, Pancreatitis, past EtOH abuse, Former smoker. Clinical indicators: Presented to the ED on 01/13 via EMS with Abdominal Pain with Cancer History as documented above. Admit with Abdominal Pain, Peritonitis Labs: 01/13 Hematology: WBC 11.3, RBC 3.77, Hgb 11.4, Hct 37.4, Pl Ct 106 01/14 Hematology: WBC 9.2, RBC 3.63, hgb 11.4, ,Hct 36.0, Pl Ct 86 01/15 Hematology: WBC 1.55, RBC 3.50, Hgb 10.6, Hct 32.2, Pl Ct 58 Treatment 01/13: Clear Liquid diet, Blood Culture, IV Dilaudid 1 mg x2, IV Na Cl 500 mls @ 999 mls/hr q31M x2, IV Rocephin 1,000 mg x2, IV Na Cl 1,000 mls @ 999 ml/hr q1H, IV Na Cl 1,000 mls @ 75 mls/hr q13H, IV Dilaudid 0.5 mg q4H/prn. 01/14: po [place] q4H/prn, po Zofran 4 mg q4H/prn, Fentanyl patch 01/15: IV Rocephin 50 mls @ 100 mls/hr q24H Please clarify if there is an additional diagnosis for this patient based on the above lab values: [ x ] Pancytopenia due to chemotherapy [ ] Pancytopenia drug induced, specify drug [ ] Pancytopenia due to other, please specify [ ] Anemia, please specify etiology [ ] Other condition, please specify: [ ] Unable to determine (Template Last Revised: October 2020) MTDD
[2022-01-17] MEDS: VANCOMYCIN ORAL SOLUTION 250 MG/5 ML BOTTLE PO SCH ×4 (11:14→20:47)
[2022-01-17] MEDS: HYDROmorphone 0.5 MG/0.5 ML SYRINGE IVP PRN ×2 (12:55→16:58)
--- NOTE | 2022-01-17 13:53 | P.PN ---
Subjective Progress Note Date: 01/17/22 Diarrhea and stool studies ordered Objective - Vital Signs Vital signs: Vital Signs Temp 97.5 F L 01/15/22 12:25 Pulse 92 01/15/22 12:25 Resp 16 01/15/22 12:25 BP 91/52 01/15/22 12:25 Pulse Ox 92 L 01/15/22 12:25 Intake & Output 01/14/22 01/15/22 01/15/22 18:59 06:59 18:59 Weight 68.946 kg 68.946 kg Other: # Voids 1 3 # Bowel Movements 1 - Exam GENERAL: Patient is well-developed and well-nourished. Patient is nontoxic and well- hydrated and is in mild distress. ENT: Neck is soft and supple. No significant lymphadenopathy is noted. Oropharynx is clear. Moist mucous membranes. Neck has full range of motion without eliciting any pain. EYES: The sclera were anicteric and conjunctiva were pink and moist. Extraocular movements were intact and pupils were equal round and reactive to light. Eyelids were unremarkable. PULMONARY: Unlabored respirations. Good breath sounds bilaterally. No audible rales rhonchi or wheezing was noted. CARDIOVASCULAR: There is a regular rate and rhythm without any murmurs gallops or rubs. ABDOMEN: Abdomen is markedly distended and diffusely tender. There also was a ventral hernia. SKIN: Skin is clear with no lesions or rashes and otherwise unremarkable. NEUROLOGIC: Patient is alert and oriented x3. Cranial nerves II through XII are grossly intact. Motor and sensory are also intact. Normal speech, volume and content. Symmetrical smile. MUSCULOSKELETAL: Normal extremities with adequate strength and full range of motion. No lower extremity swelling or edema. No calf tenderness. LYMPHATICS: No significant lymphadenopathy is noted PSYCHIATRIC: Normal psychiatric evaluation. - Labs CBC & Chem 7: 01/16/22 06:34 01/17/22 05:44 Labs: Microbiology - Last 24 Hours (Table) 01/13/22 20:25 Blood Culture - Preliminary Blood No Growth after 24 hours 01/13/22 20:40 Blood Culture - Preliminary Blood No Growth after 24 hours Assessment and Plan (1) Constipation Narrative/Plan: Increase daily bowel regimen Current Visit: Yes Status: Acute Code(s): K59.00 - CONSTIPATION, UNSPECIFIED SNOMED Code(s): 89422296 (2) Abdominal pain Narrative/Plan: Worsened due to metastic burden and constipation Increase long acting fentanyl IV Duilaudid ok for now will need to trial PO short acting prior to discharge Current Visit: Yes Status: Acute Priority: High Code(s): R10.9 - UNSPECIFIED ABDOMINAL PAIN SNOMED Code(s): 60918956 (3) Metastases to the liver Narrative/Plan: Unknown primary: Status post cycle one of taxol and carbo on 01/11 Current Visit: No Status: Acute Code(s): C78.7 - SECONDARY MALIG NEOPLASM OF LIVER AND INTRAHEPATIC BILE DUCT SNOMED Code(s): 43023496
--- NOTE | 2022-01-17 13:55 | P.PN ---
Subjective Progress Note Date: 01/17/22 Stool positive c diff Objective - Vital Signs Vital signs: Vital Signs Temp 98.7 F 01/17/22 13:00 Pulse 60 01/17/22 13:00 Resp 16 01/17/22 13:00 BP 87/51 01/17/22 13:00 Pulse Ox 94 L 01/17/22 13:00 FiO2 Intake & Output 01/16/22 01/17/22 01/17/22 18:59 06:59 18:59 Intake Total 10 Balance 10 Intake: IV 10 Invasive Line 1 10 Other: # Voids 2 4 # Bowel Movements 3 - Exam GENERAL: Patient is well-developed and well-nourished. Patient is nontoxic and well- hydrated and is in mild distress. ENT: Neck is soft and supple. No significant lymphadenopathy is noted. Oropharynx is clear. Moist mucous membranes. Neck has full range of motion without eliciting any pain. EYES: The sclera were anicteric and conjunctiva were pink and moist. Extraocular movements were intact and pupils were equal round and reactive to light. Eyelids were unremarkable. PULMONARY: Unlabored respirations. Good breath sounds bilaterally. No audible rales rhonchi or wheezing was noted. CARDIOVASCULAR: There is a regular rate and rhythm without any murmurs gallops or rubs. ABDOMEN: Abdomen is markedly distended and diffusely tender. There also was a ventral hernia. SKIN: Skin is clear with no lesions or rashes and otherwise unremarkable. NEUROLOGIC: Patient is alert and oriented x3. Cranial nerves II through XII are grossly intact. Motor and sensory are also intact. Normal speech, volume and content. Symmetrical smile. MUSCULOSKELETAL: Normal extremities with adequate strength and full range of motion. No lower extremity swelling or edema. No calf tenderness. LYMPHATICS: No significant lymphadenopathy is noted PSYCHIATRIC: Normal psychiatric evaluation. - Labs CBC & Chem 7: 01/16/22 06:34 01/17/22 05:44 Labs: Abnormal Lab Results - Last 24 Hours (Table) 01/17/22 01/17/22 Range/Units 03:26 05:44 Sodium 131 L (135-145) mmol/L Calcium 8.5 L (8.7-10.3) mg/dL AST 106 H (14-35) U/L Alkaline Phosphatase 263 H (41-126) U/L Total Protein 5.9 L (6.2-8.2) g/dL Albumin 3.0 L (3.8-4.9) g/dL Albumin/Globulin Ratio 1.03 L (1.60-3.17) g/dL C. difficile (EIA) Intrp Positive A (Negative) Microbiology - Last 24 Hours (Table) 01/13/22 20:40 Blood Culture - Preliminary Blood No Growth after 72 hours 01/13/22 20:25 Blood Culture - Preliminary Blood No Growth after 72 hours Assessment and Plan (1) Constipation Narrative/Plan: Increase daily bowel regimen Current Visit: Yes Status: Acute Code(s): K59.00 - CONSTIPATION, UNSPECIFIED SNOMED Code(s): 64038427 (2) Abdominal pain Narrative/Plan: Worsened due to metastic burden and constipation Increase long acting fentanyl IV Duilaudid ok for now will need to trial PO short acting prior to discharge Current Visit: Yes Status: Acute Priority: High Code(s): R10.9 - UNSPECIFIED ABDOMINAL PAIN SNOMED Code(s): 28196451 (3) Metastases to the liver Narrative/Plan: Unknown primary: Status post cycle one of taxol and carbo on 01/11 Current Visit: No Status: Acute Code(s): C78.7 - SECONDARY MALIG NEOPLASM OF LIVER AND INTRAHEPATIC BILE DUCT SNOMED Code(s): 02026550 Plan: Add questra Treatment for c diff Hold chemo 3 weeks until recovered from active infection Dr. Hays: I have completed the full history an physical and developed the impression and plan, agree with above dictation, dictated as a scribe
[2022-01-17 14:08] LABS: HCT 34.4 % (39.6-50.0); HGB 11.2 g/dL (13.0-17.0); MCH 30.3 pg (27.0-32.0); MCHC 32.6 g/dL (32.0-37.0); NRBC Per 100 WBC 0 /100 WBCS (0.0-0.0); Platelet Count 43 X 10*3/uL (140-440); RDW 17.7 % (11.5-14.5); WBC 0.47 X 10*3/uL (4.50-10.00)
[2022-01-17 14:13] LABS: Band Neutrophils % 5 %; Basophils # (M) 0 X 10*3/uL (0.00-0.10); Eosinophils # (M) 0.04 X 10*3/uL (0.04-0.35); Immature Platelet Fraction 10.8 % (1.1-6.1); Lymphocytes # (M) 0.31 X 10*3/uL (0.90-5.00); Monocytes # (M) 0.02 X 10*3/uL (0.20-1.00); Neutrophils % (M) 16 %
[2022-01-17 14:56] LABS: HCT 39.5 % (39.0-53.0); HGB 12.2 gm/dL (13.0-17.5); Hypochromasia Slight; MCH 30.8 pg (25.0-35.0); MCV 99.3 fL (80.0-100.0); Macrocytosis Slight; Mean Platelet Volume 10.9; RBC 3.97 m/uL (4.30-5.90)
[2022-01-17 15:03] LABS: Platelet Count 50 k/uL (150-450); WBC 0.6 k/uL (3.8-10.6)
[2022-01-17] MEDS: metroNIDAZOLE-NS PMX 500 MG in SALINE 1 100ML.BAG IVPB SCH (15:18)
[2022-01-17] MEDS: CHOLESTYRAMINE (WITH SUGAR) 4 GM PACKET PO SCH (15:19)
[2022-01-17] MEDS: ATORVASTATIN 40 MG TAB PO SCH (20:47)
[2022-01-18] MEDS: metroNIDAZOLE-NS PMX 500 MG in SALINE 1 100ML.BAG IVPB SCH ×3 (00:14→16:03)
--- NOTE | 2022-01-18 00:25 | P.PN ---
Subjective Progress Note Date: 01/17/22 Patient is a very pleasant 61-year-old male that presented to the emergency room with abdominal pain and shortness of breath. Patient has a pertinent medical history of lung cancer with lobectomy in 2018, recent upper scope biopsy suggests possible primary esophageal cancer with metastasis to liver, lymph nodes and sternum. Other medical history includes bowel resection due to perforation, irritable bowel syndrome, Crohn's, hernia, COPD, hyperlipidemia, hypertension, OA, pancreatitis. Patient had chronic alcohol abuse, has been sober since August of this year, also quit smoking last admission. He has been following with oncology and began chemo treatment this week, first dose was Monday. He reported feeling well up until yesterday night when abdominal distention progressed causing severe pain not controlled by current pain management regimen. White blood cell count was 11.3, lactic acid was 4.4 alkaline phosphatase was elevated at 309. Chest x-ray found right basilar atelectasis without acute pulmonary process. Abdominal CT found large stool burden, increase in splenomegaly, small amount of fluid layering in the pelvis and around liver, and multiple hepatic metastatic lesions and intra-abdominal lymphadenopathy. Patient was given Rocephin and saline with improvement of lactic acid is down to 1.9 today. Pain medication was reordered, patient reports improvement of pain with fentanyl patch and [place]. Patient also reported some relief of pain with bowel movement. Oncology was consulted. 01/15/2022. Patient is currently lying in the bed. Awake alert aware x3. Still complains of abdominal pain. Patient was started on clear liquid diet. No complaints of chest pain or shortness. Patient is afebrile. Currently being cannula antibiotics in the form of ceftriaxone. Continued on metoprolol and pain management with fentanyl patch. Oncology is on board. Laboratory reviewed. 01/16/2022. Patient is lying in the bed still complains of abdominal pain. Did have a small bowel meant today. No complaints of chest pain or shortness of breath. No headache or dizziness or lightheadedness. Patient has been afebrile. Blood pressure is fairly stable. Laboratory showed WBC 1.5 hemoglobin 3.5 and platelets 58 Sodium 131 potassium 4.6 chloride 98 bicarb is 21.9 BUN 20.6 and creatinine 1.2 alk phos 233 AST 122 and ALT 17 Patient is being continued on antibiotics in the form of ceftriaxone and pain management with fentanyl and [place] 10. Oncology is on board. 01/17/2022 Patient is currently lying in the bed. Awake alert and oriented. Lethargic and weak. Still complains of abdominal bloating and diarrhea. Patient is tested positive for C. difficile antigen. Started on vancomycin p.o. and Flagyl. Oncology is on board. Patient has been afebrile. Denies any dizziness or lightheadedness. No cough or sputum production. Laboratory data showed WBC 0.47 hemoglobin 11.2 and platelets 43. 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 current medications reviewed. Objective - Vital Signs Vital signs: Vital Signs Temp 99.1 F 01/17/22 20:51 Pulse 88 01/17/22 20:51 Resp 18 01/17/22 20:51 BP 102/61 01/17/22 20:51 Pulse Ox 94 L 01/17/22 20:51 FiO2 Intake & Output 01/17/22 01/17/22 01/18/22 06:59 18:59 06:59 Intake Total 1989 Output Total 500 Balance 1490 Intake: IV 210 Invasive Line 1 10 metroNIDAZOLE-NS PMX 500 200 mg In Saline 1 100ml.bag @ 100 mls/hr IVPB Q8HR [facility] Rx#:[id number] Oral 1780 Output: Stool 500 Other: # Voids 4 # Bowel Movements 3 - Exam - Constitutional General appearance: cooperative, mild distress, thin - EENT Eyes: EOMI, PERRLA ENT: normal oropharynx - Neck Neck: normal ROM - Respiratory Respiratory: bilateral: diminished - Cardiovascular Heart rate: 70 Rhythm: regular Heart sounds: normal: S1, S2 - Gastrointestinal General gastrointestinal: decreased bowel sounds, distended, hepatomegaly, tenderness, ventral hernia - Integumentary Integumentary: normal, normal turgor - Neurologic Neurologic: CNII-XII intact - Musculoskeletal Musculoskeletal: gait normal - Psychiatric Psychiatric: A&O x's 3, appropriate affect, intact judgment & insight - Labs CBC & Chem 7: 01/17/22 14:24 01/17/22 05:44 Labs: Abnormal Lab Results - Last 24 Hours (Table) 01/17/22 01/17/22 01/17/22 Range/Units 03:26 05:44 05:44 WBC 0.47 L* (4.50-10.00) X 10*3/uL RBC 3.70 L (4.40-5.60) X 10*6/uL Hgb 11.2 L (13.0-17.0) g/dL Hct 34.4 L (39.6-50.0) % RDW 17.7 H (11.5-14.5) % Plt Count 43 L (140-440) X 10*3/uL Plt Count Comment A Neutrophils # (Manual) 0.10 L* (2.00-8.90) X 10*3/uL Lymphocytes # (Manual) 0.31 L (0.90-5.00) X 10*3/uL Monocytes # (Manual) 0.02 L (0.20-1.00) X 10*3/uL Immature Plt Fraction 10.8 H (1.1-6.1) % Sodium 131 L (135-145) mmol/L Calcium 8.5 L (8.7-10.3) mg/dL AST 106 H (14-35) U/L Alkaline Phosphatase 263 H (41-126) U/L Total Protein 5.9 L (6.2-8.2) g/dL Albumin 3.0 L (3.8-4.9) g/dL Albumin/Globulin Ratio 1.03 L (1.60-3.17) g/dL C. difficile (EIA) Intrp Positive A (Negative) 01/17/22 Range/Units 14:24 WBC 0.6 L* (4.50-10.00) X 10*3/uL RBC 3.97 L (4.40-5.60) X 10*6/uL Hgb 12.2 L (13.0-17.0) g/dL Hct (39.6-50.0) % RDW 16.0 H (11.5-14.5) % Plt Count 50 L (140-440) X 10*3/uL Plt Count Comment Neutrophils # (Manual) (2.00-8.90) X 10*3/uL Lymphocytes # (Manual) (0.90-5.00) X 10*3/uL Monocytes # (Manual) (0.20-1.00) X 10*3/uL Immature Plt Fraction (1.1-6.1) % Sodium (135-145) mmol/L Calcium (8.7-10.3) mg/dL AST (14-35) U/L Alkaline Phosphatase (41-126) U/L Total Protein (6.2-8.2) g/dL Albumin (3.8-4.9) g/dL Albumin/Globulin Ratio (1.60-3.17) g/dL C. difficile (EIA) Intrp (Negative) Microbiology - Last 24 Hours (Table) 01/13/22 20:40 Blood Culture - Preliminary Blood No Growth after 72 hours 01/13/22 20:25 Blood Culture - Preliminary Blood No Growth after 72 hours Assessment and Plan Assessment: Abdominal pain due to innumerable hepatic metastatic disease Acute C. difficile colitis. 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 Neutropenia and thrombocytopenia secondary to chemotherapy and sepsis. Large ventral hernia COPD without exacerbation Thrombocytopenia Hypertension Hyperlipidemia History of bowel perforation and resection History of alcohol abuse History of Crohn's and pancreatitis Plan: Patient reports improvement of abdominal pain with current medication regimen with fentanyl patch Patient was started on vancomycin p.o. and Flagyl. Oncology consult, last chemo treatment was 3 days ago Lactic acid down to 1.9, continue monitoring labs. Continue with IV hydration. Time with Patient: Greater than 30
[2022-01-18] MEDS: HYDROcodone/APAP 10-325MG 1 EACH TAB PO PRN ×3 (02:25→16:07)
[2022-01-18] MEDS: HYDROmorphone 0.5 MG/0.5 ML SYRINGE IVP PRN (04:39)
[2022-01-18 09:41] LABS: African American GFR (CKD) 67.3 (60.0-200.0); Albumin 2.9 g/dL (3.8-4.9); Albumin/Globulin Ratio 1.03 (1.60-3.17); Anion Gap 13.8 mmol/L (10.00-18.00); BUN/Creat Ratio 15.41 Ratio (12.00-20.00); Blood Urea Nitrogen 20.5 mg/dL (9.0-27.0); Calcium 8.2 mg/dL (8.7-10.3); Carbon Dioxide 19.6 mmol/L (20.0-27.5); Globulin 2.8 g/dL (1.6-3.3); Magnesium 2.1 mg/dL (1.5-2.4); Non-African American GFR(CKD) 58.1 (60.0-200.0); Potassium 4.9 mmol/L (3.5-5.5); Total Bilirubin 1.4 mg/dL (0.30-1.20); Total Protein 5.6 g/dL (6.2-8.2)
[2022-01-18] MEDS: polyethylene glycoL 3350 17 GM POWD.PACK PO SCH (10:03)
[2022-01-18] MEDS: SENNOSIDES-DOCUSATE SODIUM 1 EACH TAB PO SCH ×2 (10:03→20:12)
[2022-01-18] MEDS: CHOLESTYRAMINE (WITH SUGAR) 4 GM PACKET PO SCH ×2 (10:04→18:22)
[2022-01-18] MEDS: METOPROLOL TARTRATE 25 MG TAB PO SCH ×2 (10:05→20:11)
[2022-01-18] MEDS: PANTOPRAZOLE 40 MG TABLET PO SCH (10:05)
[2022-01-18 10:08] LABS: INR 2.23 (0.90-1.11); Prothrombin Time 23.6 sec (9.9-11.9)
[2022-01-18] MEDS: VANCOMYCIN ORAL SOLUTION 250 MG/5 ML BOTTLE PO SCH ×4 (10:10→22:43)
[2022-01-18 10:13] LABS: HCT 31.5 % (39.6-50.0); HGB 10.4 g/dL (13.0-17.0); MCH 30.4 pg (27.0-32.0); MCV 92.1 fL (80.0-97.0); NRBC Per 100 WBC 0 /100 WBCS (0.0-0.0); Platelet Count 25 X 10*3/uL (140-440); RBC 3.42 X 10*6/uL (4.40-5.60); RDW 17.4 % (11.5-14.5); WBC 0.26 X 10*3/uL (4.50-10.00)
[2022-01-18 10:28] LABS: Basophils # (A) 0 X 10*3/uL (0.00-0.10); Basophils % (A) 0 %; Eosinophils # (A) 0 X 10*3/uL (0.04-0.35); Eosinophils % (A) 0 %; Immature Grans, Automated 0 %; Immature Platelet Fraction 7.4 % (1.1-6.1); Lymphocytes # (A) 0.17 X 10*3/uL (0.90-5.00); Lymphocytes % (A) 65.4 %; Monocytes # (A) 0.05 X 10*3/uL (0.20-1.00); Monocytes % (A) 19.2 %; Neutrophils # (A) 0.04 X 10*3/uL (1.80-7.70); Neutrophils % (A) 15.4 %; RBC Morphology NORMAL
--- NOTE | 2022-01-18 12:01 | P.PN ---
Subjective Progress Note Date: 01/18/22 Principal diagnosis: abdominal pain Patient is a very pleasant 61-year-old male that presented to the emergency room with abdominal pain and shortness of breath. Patient has a pertinent medical history of lung cancer with lobectomy in 2018, recent upper scope biopsy suggests possible primary esophageal cancer with metastasis to liver, lymph nodes and sternum. Other medical history includes bowel resection due to perforation, irritable bowel syndrome, Crohn's, hernia, COPD, hyperlipidemia, hypertension, OA, pancreatitis. Patient had chronic alcohol abuse, has been sober since August of this year, also quit smoking last admission. He has been following with oncology and began chemo treatment this week, first dose was Monday. He reported feeling well up until yesterday night when abdominal distention progressed causing severe pain not controlled by current pain m anagement regimen. White blood cell count was 11.3, lactic acid was 4.4 alkaline phosphatase was elevated at 309. Chest x-ray found right basilar atelectasis without acute pulmonary process. Abdominal CT found large stool burden, increase in splenomegaly, small amount of fluid layering in the pelvis and around liver, and multiple hepatic metastatic lesions and intra-abdominal lymphadenopathy. Patient was given Rocephin and saline with improvement of lactic acid is down to 1.9 today. Pain medication was reordered, patient reports improvement of pain with fentanyl patch and [place]. Patient also reported some relief of pain with bowel movement. Oncology was consulted. Hospitalist coverage 01/15/22-01/17/22 01/18/2022 Patient was seen and evaluated at bedside. Patient was up on the bedside commode, states he is feeling much better but is still having multiple loose stools. He wants to have a meeting to discuss prognosis and direction of care. Will discuss with oncology. WBC was 0.26, platelets 25, hemoglobin 10.4, filgrastim ordered. Objective - Vital Signs Vital signs: Vital Signs Temp 98.7 F 01/18/22 04:49 Pulse 88 01/18/22 04:49 Resp 18 01/18/22 04:49 BP 107/49 01/18/22 05:36 Pulse Ox 92 L 01/18/22 04:49 FiO2 Intake & Output 01/17/22 01/18/22 01/18/22 18:59 06:59 18:59 Intake Total 1989 100 Output Total 500 Balance 1490 100 Intake: IV 210 Invasive Line 1 10 metroNIDAZOLE-NS PMX 500 200 mg In Saline 1 100ml.bag @ 100 mls/hr IVPB Q8HR [facility] Rx#:[id number] Intake, IV Titration 100 Amount metroNIDAZOLE-NS PMX 500 100 mg In Saline 1 100ml.bag @ 100 mls/hr IVPB Q8HR [facility] Rx#:[id number] Oral 1780 Output: Stool 500 Other: # Voids 3 # Bowel Movements 4 - Constitutional General appearance: Present: cooperative, no acute distress - EENT Eyes: Present: EOMI ENT: Present: normal oropharynx - Neck Neck: Present: normal ROM - Respiratory Respiratory: bilateral: CTA - Cardiovascular Heart rate: 80 Rhythm: regular Heart sounds: normal: S1, S2 - Gastrointestinal General gastrointestinal: Present: distended, tenderness - Integumentary Integumentary: Present: normal - Neurologic Neurologic: Present: CNII-XII intact - Musculoskeletal Musculoskeletal: Present: gait normal - Psychiatric Psychiatric: Present: A&O x's 3 - Allied health notes Allied health notes reviewed: nursing - Labs CBC & Chem 7: 01/18/22 05:59 01/18/22 05:59 Labs: Abnormal Lab Results - Last 24 Hours (Table) 01/17/22 01/17/22 01/18/22 Range/Units 05:44 14:24 05:59 WBC 0.47 L* 0.6 L* 0.26 L* (4.50-10.00) X 10*3/uL RBC 3.70 L 3.97 L 3.42 L (4.40-5.60) X 10*6/uL Hgb 11.2 L 12.2 L 10.4 L (13.0-17.0) g/dL Hct 34.4 L 31.5 L (39.6-50.0) % RDW 17.7 H 16.0 H 17.4 H (11.5-14.5) % Plt Count 43 L 50 L 25 L (140-440) X 10*3/uL Plt Count Comment A A Neutrophils # 0.04 L* (1.80-7.70) X 10*3/uL Neutrophils # (Manual) 0.10 L* (2.00-8.90) X 10*3/uL Lymphocytes # 0.17 L (0.90-5.00) X 10*3/uL Lymphocytes # (Manual) 0.31 L (0.90-5.00) X 10*3/uL Monocytes # 0.05 L (0.20-1.00) X 10*3/uL Monocytes # (Manual) 0.02 L (0.20-1.00) X 10*3/uL Eosinophils # 0 L (0.04-0.35) X 10*3/uL Immature Plt Fraction 10.8 H 7.4 H (1.1-6.1) % PT (9.9-11.9) sec INR (0.90-1.11) Sodium (135-145) mmol/L Carbon Dioxide (20.0-27.5) mmol/L Est GFR (CKD-EPI)NonAf (60.0-200.0) Calcium (8.7-10.3) mg/dL Total Bilirubin (0.30-1.20) mg/dL AST (14-35) U/L Alkaline Phosphatase (41-126) U/L Total Protein (6.2-8.2) g/dL Albumin (3.8-4.9) g/dL Albumin/Globulin Ratio (1.60-3.17) g/dL 01/18/22 01/18/22 Range/Units 05:59 05:59 WBC (4.50-10.00) X 10*3/uL RBC (4.40-5.60) X 10*6/uL Hgb (13.0-17.0) g/dL Hct (39.6-50.0) % RDW (11.5-14.5) % Plt Count (140-440) X 10*3/uL Plt Count Comment Neutrophils # (1.80-7.70) X 10*3/uL Neutrophils # (Manual) (2.00-8.90) X 10*3/uL Lymphocytes # (0.90-5.00) X 10*3/uL Lymphocytes # (Manual) (0.90-5.00) X 10*3/uL Monocytes # (0.20-1.00) X 10*3/uL Monocytes # (Manual) (0.20-1.00) X 10*3/uL Eosinophils # (0.04-0.35) X 10*3/uL Immature Plt Fraction (1.1-6.1) % PT 23.6 H (9.9-11.9) sec INR 2.23 H (0.90-1.11) Sodium 132 L (135-145) mmol/L Carbon Dioxide 19.6 L (20.0-27.5) mmol/L Est GFR (CKD-EPI)NonAf 58.1 L (60.0-200.0) Calcium 8.2 L (8.7-10.3) mg/dL Total Bilirubin 1.40 H (0.30-1.20) mg/dL AST 79 H (14-35) U/L Alkaline Phosphatase 238 H (41-126) U/L Total Protein 5.6 L (6.2-8.2) g/dL Albumin 2.9 L (3.8-4.9) g/dL Albumin/Globulin Ratio 1.03 L (1.60-3.17) g/dL Microbiology - Last 24 Hours (Table) 01/13/22 20:40 Blood Culture - Preliminary Blood No Growth after 96 hours 01/13/22 20:25 Blood Culture - Preliminary Blood No Growth after 96 hours Assessment and Plan Assessment: Abdominal pain, secondary to malignancy Acute C. difficile colitis Pancytopenia secondary to chemo treatment Recurrent lung cancer versus esophageal cancer with metastasis to liver, bone, and lymph nodes, awaiting further studies Large ventral hernia COPD without exacerbation Thrombocytopenia Hypertension Hyperlipidemia History of bowel perforation and resection History of alcohol abuse History of Crohn's and pancreatitis Plan: Patient reports improvement of abdominal pain with current medication regimen Vanco and flagyl ordered for Cdiff, ID consulted Following oncology recommendations for cancer and pancytopenia treatment Continue to monitor labs and vital signs Further recommendations to come based on patients clinical course Time with Patient: Greater than 30
[2022-01-18] MEDS ORDERED: PHYTONADIONE 2 MG in SODIUM CHLORIDE 0.9% 50 ML IVPB STA (17:01)
--- NOTE | 2022-01-18 17:11 | P.PN ---
Subjective Progress Note Date: 01/18/22 Principal diagnosis: c-diff infection, NSCLC In follow-up today patient still having diarrhea as of last night, urgency, there was abdominal cramping, not as much so far today. Denies any bloody stool. His abdomen is bloated. No current fevers, nausea or vomiting. Objective - Vital Signs Vital signs: Vital Signs Temp 98.7 F 01/18/22 04:49 Pulse 88 01/18/22 04:49 Resp 18 01/18/22 04:49 BP 107/49 01/18/22 05:36 Pulse Ox 92 L 01/18/22 04:49 FiO2 Intake & Output 01/17/22 01/18/22 01/18/22 18:59 06:59 18:59 Intake Total 1989 100 Output Total 500 Balance 1490 100 Intake: IV 210 Invasive Line 1 10 metroNIDAZOLE-NS PMX 500 200 mg In Saline 1 100ml.bag @ 100 mls/hr IVPB Q8HR [facility] Rx#:[id number] Intake, IV Titration 100 Amount metroNIDAZOLE-NS PMX 500 100 mg In Saline 1 100ml.bag @ 100 mls/hr IVPB Q8HR [facility] Rx#:[id number] Oral 1780 Output: Stool 500 Other: # Voids 3 # Bowel Movements 4 - Constitutional General appearance: Present: cooperative, no acute distress, thin - EENT Eyes: Present: anicteric sclerae, edentulous ENT: Present: hearing grossly normal - Respiratory Details: respirations even and unlabored at rest - Gastrointestinal General gastrointestinal: Present: distended - Neurologic Neurologic: Present: CNII-XII intact (grossly) - Musculoskeletal Musculoskeletal: Present: generalized weakness, strength equal bilaterally - Psychiatric Psychiatric: Present: A&O x's 3, appropriate affect, intact judgment & insight - Labs CBC & Chem 7: 01/18/22 05:59 01/18/22 05:59 Labs: Abnormal Lab Results - Last 24 Hours (Table) 01/17/22 01/17/22 01/18/22 Range/Units 05:44 14:24 05:59 WBC 0.47 L* 0.6 L* 0.26 L* (4.50-10.00) X 10*3/uL RBC 3.70 L 3.97 L 3.42 L (4.40-5.60) X 10*6/uL Hgb 11.2 L 12.2 L 10.4 L (13.0-17.0) g/dL Hct 34.4 L 31.5 L (39.6-50.0) % RDW 17.7 H 16.0 H 17.4 H (11.5-14.5) % Plt Count 43 L 50 L 25 L (140-440) X 10*3/uL Plt Count Comment A A Neutrophils # 0.04 L* (1.80-7.70) X 10*3/uL Neutrophils # (Manual) 0.10 L* (2.00-8.90) X 10*3/uL Lymphocytes # 0.17 L (0.90-5.00) X 10*3/uL Lymphocytes # (Manual) 0.31 L (0.90-5.00) X 10*3/uL Monocytes # 0.05 L (0.20-1.00) X 10*3/uL Monocytes # (Manual) 0.02 L (0.20-1.00) X 10*3/uL Eosinophils # 0 L (0.04-0.35) X 10*3/uL Immature Plt Fraction 10.8 H 7.4 H (1.1-6.1) % PT (9.9-11.9) sec INR (0.90-1.11) Sodium (135-145) mmol/L Carbon Dioxide (20.0-27.5) mmol/L Est GFR (CKD-EPI)NonAf (60.0-200.0) Calcium (8.7-10.3) mg/dL Total Bilirubin (0.30-1.20) mg/dL AST (14-35) U/L Alkaline Phosphatase (41-126) U/L Total Protein (6.2-8.2) g/dL Albumin (3.8-4.9) g/dL Albumin/Globulin Ratio (1.60-3.17) g/dL 01/18/22 01/18/22 Range/Units 05:59 05:59 WBC (4.50-10.00) X 10*3/uL RBC (4.40-5.60) X 10*6/uL Hgb (13.0-17.0) g/dL Hct (39.6-50.0) % RDW (11.5-14.5) % Plt Count (140-440) X 10*3/uL Plt Count Comment Neutrophils # (1.80-7.70) X 10*3/uL Neutrophils # (Manual) (2.00-8.90) X 10*3/uL Lymphocytes # (0.90-5.00) X 10*3/uL Lymphocytes # (Manual) (0.90-5.00) X 10*3/uL Monocytes # (0.20-1.00) X 10*3/uL Monocytes # (Manual) (0.20-1.00) X 10*3/uL Eosinophils # (0.04-0.35) X 10*3/uL Immature Plt Fraction (1.1-6.1) % PT 23.6 H (9.9-11.9) sec INR 2.23 H (0.90-1.11) Sodium 132 L (135-145) mmol/L Carbon Dioxide 19.6 L (20.0-27.5) mmol/L Est GFR (CKD-EPI)NonAf 58.1 L (60.0-200.0) Calcium 8.2 L (8.7-10.3) mg/dL Total Bilirubin 1.40 H (0.30-1.20) mg/dL AST 79 H (14-35) U/L Alkaline Phosphatase 238 H (41-126) U/L Total Protein 5.6 L (6.2-8.2) g/dL Albumin 2.9 L (3.8-4.9) g/dL Albumin/Globulin Ratio 1.03 L (1.60-3.17) g/dL Microbiology - Last 24 Hours (Table) 01/13/22 20:40 Blood Culture - Preliminary Blood No Growth after 96 hours 01/13/22 20:25 Blood Culture - Preliminary Blood No Growth after 96 hours Assessment and Plan (1) Non-small cell lung cancer Current Visit: Yes Status: Acute Priority: High Code(s): C34.90 - MALIGNANT NEOPLASM OF UNSP PART OF UNSP BRONCHUS OR LUNG SNOMED Code(s): 469610601 (2) Clostridium difficile diarrhea Current Visit: Yes Status: Acute Priority: High Code(s): A04.72 - ENTEROCOLITIS D/T CLOSTRIDIUM DIFFICILE, NOT SPCF RECUR SNOMED Code(s): 0152205677340 (3) Coagulopathy Current Visit: Yes Status: Acute Priority: High Code(s): D68.9 - COAGULATION DEFECT, UNSPECIFIED SNOMED Code(s): 30481260 (4) Antineoplastic chemotherapy induced pancytopenia Current Visit: Yes Status: Acute Priority: High Code(s): D61.810 - ANTINEOPLASTIC CHEMOTHERAPY INDUCED PANCYTOPENIA; T45.1X5A - ADVERSE EFFECT OF ANTINEOPLASTIC AND IMMUNOSUP DRUGS, INIT SNOMED Code(s): 725167016687605 Plan: Patient admitted with abdominal pain, found to have Clostridium difficile infection. He is on antibiotics for the same. On supportive medications for symptoms. His symptoms are currently persistent, but not progressive. Patient had his first cycle of palliative chemotherapy for metastatic adenocarc inoma. No transfusion is needed today. G-CSF was added for low WBC/ANC. Coagulopathy secondary to poor oral intake, history of liver disease. INR 2.3 today. Vitamin K IVPB ordered. INR in the a.m. Patient questioned if he should be doing treatment or not. I explained to patient that he has had 1 cycle of chemotherapy. Unfortunately, he contracted an infection. I encouraged patient to continue treatment for the infection and see how he does. Chemotherapy doses can be adjusted, G-CSF can be added to the regimen. This could make the next cycle go a little bit easier for the patient. If patient is able to get 2-3 cycles then he could be reassessed to see how the treatment is working. If the disease is stable and he is able to tolerate treatment, recommendation would be to continue. If the disease is stable but, he is not tolerating treatment then considering treatment of symptoms instead of disease is an option. If the disease is not responding to treatment other options can be discussed or, treatment of symptoms instead of disease would be recommended. Patient did want me to talk to his daughter about what we discussed. I will call her and update her on our conversation. All of patient's questions were answered to his satisfaction and to the best of my ability. Time with Patient: Greater than 30
[2022-01-18] MEDS: FILGRASTIM-SNDZ 480 MCG/0.8 ML SYRINGE SQ SCH (18:22)
[2022-01-18] MEDS: ATORVASTATIN 40 MG TAB PO SCH (20:11)
[2022-01-19] MEDS: metroNIDAZOLE-NS PMX 500 MG in SALINE 1 100ML.BAG IVPB SCH (00:05)
[2022-01-19] MEDS: HYDROcodone/APAP 10-325MG 1 EACH TAB PO PRN ×2 (01:54→21:19)
--- NOTE | 2022-01-19 07:18 | P.CONS ---
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 lymph node midsternal, patient presenting to the ER on 01/13/2022 for evaluation of abdominal pain and shortness of breath apparently has been going on for few days before presentation to the hospital, patient was complaining of abdominal distention severe in intensity mostly generalized as felt nauseated and denied having any significant diarrhea initially however also complaining of some altitude patient on presentation to the hospital was afebrile and no fever has been recorded during this hospital stay patient did have a normal white count initially however is currently leukopenic and neutropenic kidney function has been normal urine was negative patient did have a CT of abdominal pelvis which shows hepatic metastasis large stool burden throughout the colon with short segment narrowing of the sigmoid colon splenomegaly patient is also developing significant diarrhea with multiple loose stools patient did have a stool for C. difficile and yesterday morning which came back positive patient was started on Flagyl and oral vancomycin infectious disease was consulted today for further management, patient was advised a very good historian however the nursing staff did mention slight decrease in frequency of his diarrhea today did not mention any blood or mucus in the stool Past Medical History Past Medical History: Blood Disorder, Coronary Artery Disease (CAD), Cancer, COPD, GI Bleed, Hyperlipidemia, Hypertension, Osteoarthritis (OA) Additional Past Medical History / Comment(s): 2017 L lung cancer with surgery, recently found to have metastatic cancer to liver, bone and esophagus per pt, pt states he had his first chemotherapy treatment on 01/11/22, past bowel obstruction/perforation with surgery, lower GI bleed, IBS, chron's, large ventral hernia, chronic low back pain, past ETOH abuse, pancreatitis. History of Any Multi-Drug Resistant Organisms: None Reported Past Surgical History: Back Surgery, Bowel Resection, Heart Catheterization, Orthopedic Surgery, Tonsillectomy Additional Past Surgical History / Comment(s): 01/06/22 EGD, 12/02/21 liver biopsy, 06/2018 left thoracotomy with wedge resection upper lobe and lymph node dissection, colonoscopy, bowel resection due to perforation, fractured bilateral little fingers - pins placed and later removed. Past Anesthesia/Blood Transfusion Reactions: No Reported Reaction Smoking Status: Former smoker - Past Family History Father Family Medical History: Cancer Additional Family Medical History / Comment(s): Lung cancer. Daughter(s) Family Medical History: Cancer Additional Family Medical History / Comment(s): Breast cancer. Medications and Allergies Home Medications Medication Instructions Recorded Confirmed Type Atorvastatin [Lipitor] 40 mg PO HS 06/29/18 01/13/22 History Metoprolol Tartrate [Lopressor] 25 mg PO BID 06/27/20 01/13/22 History HYDROcodone/APAP 10-325MG [Benedict 1 tab PO Q4HR PRN 01/04/22 01/13/22 History 10-325] Nicotine 21Mg/24Hr Patch [Habitrol] 1 patch TRANSDERM DAILY PRN 01/13/22 01/13/22 History OLANZapine 5 mg PO DIRECTED PRN 01/13/22 01/13/22 History Omeprazole 40 mg PO DAILY 01/13/22 01/13/22 History Ondansetron Odt [Zofran Odt] 4 mg PO Q4H PRN 01/13/22 01/13/22 History Sennosides-Docusate Sodium 2 tab PO BID 01/13/22 01/13/22 History [Senokot-S] fentaNYL 50MCG/HR PATCH [Duragesic 1 patch TRANSDERM Q72H 01/13/22 01/13/22 History 50MCG/HR] Allergies Allergy/AdvReac Type Severity Reaction Status Date / Time Sulfa (Sulfonamide Allergy Unknown Verified 01/13/22 21:35 Antibiotics) morphine AdvReac Ineffective Verified 01/13/22 21:35 Physical Exam Vitals: Vital Signs Temp Pulse Resp BP Pulse Ox 01/18/22 05:36 107/49 01/18/22 04:49 98.7 F 88 18 92 L 01/18/22 04:48 86/50 01/17/22 20:51 99.1 F 88 18 102/61 94 L 01/17/22 13:00 98.7 F 60 16 87/51 94 L Intake and Output 01/17/22 01/18/22 01/18/22 22:59 06:59 14:59 Intake Total 1460 100 Output Total 500 Balance 960 100 Intake: IV 200 metroNIDAZOLE-NS PMX 500 200 mg In Saline 1 100ml.bag @ 100 mls/hr IVPB Q8HR [facility] Rx#:[id number] Intake, IV Titration 100 Amount metroNIDAZOLE-NS PMX 500 100 mg In Saline 1 100ml.bag @ 100 mls/hr IVPB Q8HR [facility] Rx#:[id number] Oral 1260 Output: Stool 500 Other: # Voids 3 # Bowel Movements 4 Results CBC & Chem 7: 01/18/22 05:59 01/18/22 05:59 Labs: Abnormal Lab Results - Last 24 Hours (Table) 01/17/22 01/17/22 01/18/22 Range/Units 05:44 14:24 05:59 WBC 0.47 L* 0.6 L* 0.26 L* (4.50-10.00) X 10*3/uL RBC 3.70 L 3.97 L 3.42 L (4.40-5.60) X 10*6/uL Hgb 11.2 L 12.2 L 10.4 L (13.0-17.0) g/dL Hct 34.4 L 31.5 L (39.6-50.0) % RDW 17.7 H 16.0 H 17.4 H (11.5-14.5) % Plt Count 43 L 50 L 25 L (140-440) X 10*3/uL Plt Count Comment A A Neutrophils # 0.04 L* (1.80-7.70) X 10*3/uL Neutrophils # (Manual) 0.10 L* (2.00-8.90) X 10*3/uL Lymphocytes # 0.17 L (0.90-5.00) X 10*3/uL Lymphocytes # (Manual) 0.31 L (0.90-5.00) X 10*3/uL Monocytes # 0.05 L (0.20-1.00) X 10*3/uL Monocytes # (Manual) 0.02 L (0.20-1.00) X 10*3/uL Eosinophils # 0 L (0.04-0.35) X 10*3/uL Immature Plt Fraction 10.8 H 7.4 H (1.1-6.1) % PT (9.9-11.9) sec INR (0.90-1.11) Sodium (135-145) mmol/L Carbon Dioxide (20.0-27.5) mmol/L Est GFR (CKD-EPI)NonAf (60.0-200.0) Calcium (8.7-10.3) mg/dL Total Bilirubin (0.30-1.20) mg/dL AST (14-35) U/L Alkaline Phosphatase (41-126) U/L Total Protein (6.2-8.2) g/dL Albumin (3.8-4.9) g/dL Albumin/Globulin Ratio (1.60-3.17) g/dL 01/18/22 01/18/22 Range/Units 05:59 05:59 WBC (4.50-10.00) X 10*3/uL RBC (4.40-5.60) X 10*6/uL Hgb (13.0-17.0) g/dL Hct (39.6-50.0) % RDW (11.5-14.5) % Plt Count (140-440) X 10*3/uL Plt Count Comment Neutrophils # (1.80-7.70) X 10*3/uL Neutrophils # (Manual) (2.00-8.90) X 10*3/uL Lymphocytes # (0.90-5.00) X 10*3/uL Lymphocytes # (Manual) (0.90-5.00) X 10*3/uL Monocytes # (0.20-1.00) X 10*3/uL Monocytes # (Manual) (0.20-1.00) X 10*3/uL Eosinophils # (0.04-0.35) X 10*3/uL Immature Plt Fraction (1.1-6.1) % PT 23.6 H (9.9-11.9) sec INR 2.23 H (0.90-1.11) Sodium 132 L (135-145) mmol/L Carbon Dioxide 19.6 L (20.0-27.5) mmol/L Est GFR (CKD-EPI)NonAf 58.1 L (60.0-200.0) Calcium 8.2 L (8.7-10.3) mg/dL Total Bilirubin 1.40 H (0.30-1.20) mg/dL AST 79 H (14-35) U/L Alkaline Phosphatase 238 H (41-126) U/L Total Protein 5.6 L (6.2-8.2) g/dL Albumin 2.9 L (3.8-4.9) g/dL Albumin/Globulin Ratio 1.03 L (1.60-3.17) g/dL Microbiology - Last 24 Hours (Table) 01/13/22 20:40 Blood Culture - Preliminary Blood No Growth after 96 hours 01/13/22 20:25 Blood Culture - Preliminary Blood No Growth after 96 hours Assessment and Plan (1) Clostridium difficile diarrhea Current Visit: Yes Status: Acute Priority: High Code(s): A04.72 - ENTEROCOLITIS D/T CLOSTRIDIUM DIFFICILE, NOT SPCF RECUR SNOMED Code(s): 7420843604885 Plan: 1patient presented to hospital with abdominal distention and pain initially subsequent evaluating significant diarrhea and this patient did have positive stool for C. difficile likely asymptomatic C. difficile colitis risk factor being metastatic esophageal cancer on chemotherapy and is currently leukopenic and neutropenic. 2 Continue with vancomycin 125 mg p.o. every 6 hours and Questran for symptomatic relief discontinue Flagyl. 3patient has been encouraged to increase his probiotic and yogurt intake. 4contact isolation. We will follow on clinical condition and cultures to further adjust medication if needed Thank you for this consultation will follow this patient along with you Time with Patient: Greater than 30
[2022-01-19 07:40] LABS: INR 1.6 (<1.2); Prothrombin Time 15.9 sec (9.0-12.0)
[2022-01-19] MEDS: VANCOMYCIN ORAL SOLUTION 250 MG/5 ML BOTTLE PO SCH ×4 (09:03→21:11)
[2022-01-19] MEDS: METOPROLOL TARTRATE 25 MG TAB PO SCH ×2 (09:03→20:43)
[2022-01-19] MEDS: CHOLESTYRAMINE (WITH SUGAR) 4 GM PACKET PO SCH ×2 (09:03→16:49)
[2022-01-19] MEDS: PANTOPRAZOLE 40 MG TABLET PO SCH (09:03)
[2022-01-19] MEDS: SENNOSIDES-DOCUSATE SODIUM 1 EACH TAB PO SCH ×2 (09:04→20:44)
[2022-01-19] MEDS: polyethylene glycoL 3350 17 GM POWD.PACK PO SCH (09:04)
--- NOTE | 2022-01-19 11:49 | P.PN ---
Subjective Progress Note Date: 01/19/22 Principal diagnosis: abdominal pain Patient is a very pleasant 61-year-old male that presented to the emergency room with abdominal pain and shortness of breath. Patient has a pertinent medical history of lung cancer with lobectomy in 2018, recent upper scope biopsy suggests possible primary esophageal cancer with metastasis to liver, lymph nodes and sternum. Other medical history includes bowel resection due to perforation, irritable bowel syndrome, Crohn's, hernia, COPD, hyperlipidemia, hypertension, OA, pancreatitis. Patient had chronic alcohol abuse, has been sober since August of this year, also quit smoking last admission. He has been following with oncology and began chemo treatment this week, first dose was Monday. He reported feeling well up until yesterday night when abdominal distention progressed causing severe pain not controlled by current pain m anagement regimen. White blood cell count was 11.3, lactic acid was 4.4 alkaline phosphatase was elevated at 309. Chest x-ray found right basilar atelectasis without acute pulmonary process. Abdominal CT found large stool burden, increase in splenomegaly, small amount of fluid layering in the pelvis and around liver, and multiple hepatic metastatic lesions and intra-abdominal lymphadenopathy. Patient was given Rocephin and saline with improvement of lactic acid is down to 1.9 today. Pain medication was reordered, patient reports improvement of pain with fentanyl patch and [place]. Patient also reported some relief of pain with bowel movement. Oncology was consulted. Hospitalist coverage 01/15/22-01/17/22 01/18/2022 Patient was seen and evaluated at bedside. Patient was up on the bedside commode, states he is feeling much better but is still having multiple loose stools. He wants to have a meeting to discuss prognosis and direction of care. Will discuss with oncology. WBC was 0.26, platelets 25, hemoglobin 10.4, filgrastim ordered. 01/19/2022 Patient was seen and assessed at bedside. Patient was resting comfortably in bed. Reports pain medication feeling too strong and having trouble concentrating. Fentanyl was decreased to 50mg, PRN norco also ordered. States he is willing to continue cancer treatment at this time. Infectious disease adjusted antibiotic regimen. Lab work results are pending. Objective - Vital Signs Vital signs: Vital Signs Temp 98.3 F 01/19/22 04:26 Pulse 91 01/19/22 04:26 Resp 16 05/25/22 04:26 BP 80/33 01/19/22 04:26 Pulse Ox 93 L 01/19/22 04:26 FiO2 Intake & Output 01/18/22 01/19/22 01/19/22 18:59 06:59 18:59 Intake Total 200 Balance 200 Weight 68.946 kg Intake: IV 200 metroNIDAZOLE-NS PMX 500 200 mg In Saline 1 100ml.bag @ 100 mls/hr IVPB Q8HR [facility] Rx#:[id number] Other: # Voids 3 # Bowel Movements 1 - Constitutional General appearance: Present: cooperative, no acute distress - EENT Eyes: Present: EOMI ENT: Present: normal oropharynx - Neck Neck: Present: normal ROM - Respiratory Respiratory: bilateral: CTA - Cardiovascular Heart rate: 80 Rhythm: regular Heart sounds: normal: S1, S2 - Gastrointestinal General gastrointestinal: Present: distended, tenderness - Integumentary Integumentary: Present: normal - Neurologic Neurologic: Present: CNII-XII intact - Musculoskeletal Musculoskeletal: Present: gait normal - Psychiatric Psychiatric: Present: A&O x's 3 - Allied health notes Allied health notes reviewed: nursing - Labs CBC & Chem 7: 01/18/22 05:59 01/18/22 05:59 Labs: Abnormal Lab Results - Last 24 Hours (Table) 01/19/22 Range/Units 06:49 PT 15.9 H (9.0-12.0) sec INR 1.6 H (<1.2) Microbiology - Last 24 Hours (Table) 01/13/22 20:25 Blood Culture - Preliminary Blood No Growth after 120 hours 01/13/22 20:40 Blood Culture - Preliminary Blood No Growth after 120 hours Assessment and Plan Assessment: Abdominal pain, secondary to malignancy Acute C. difficile colitis Pancytopenia secondary to chemo treatment Recurrent lung cancer versus esophageal cancer with metastasis to liver, bone, and lymph nodes, awaiting further studies Large ventral hernia COPD without exacerbation Thrombocytopenia Hypertension Hyperlipidemia History of bowel perforation and resection History of alcohol abuse History of Crohn's and pancreatitis Plan: Patient reports improvement of abdominal pain but feels it is too strong, dosing adjusted ID consult for CDiff, antibiotic regimen adjusted Following oncology recommendations for cancer and pancytopenia treatment Continue to monitor labs and vital signs Further recommendations to come based on patients clinical course Time with Patient: Greater than 30
[2022-01-19 12:07] LABS: HCT 31.6 % (39.0-53.0); MCH 30.8 pg (25.0-35.0); MCHC 31.4 g/dL (31.0-37.0); MCV 98.2 fL (80.0-100.0); Mean Platelet Volume 8.9; RBC 3.22 m/uL (4.30-5.90); RDW 15.9 % (11.5-15.5)
[2022-01-19 12:21] LABS: ALT 13 U/L (4-49); AST 50 U/L (17-59); African American GFR (CKD) 65 (>60 ml/min/1.73 sqM); Albumin 2.6 g/dL (3.5-5.0); Albumin/Globulin Ratio 0.9; Alkaline Phosphatase 191 U/L (38-126); Anion Gap 9 mmol/L; Blood Urea Nitrogen 25 mg/dL (9-20); Calcium 7.7 mg/dL (8.4-10.2); Carbon Dioxide 20 mmol/L (22-30); Chloride 99 mmol/L (98-107); Glucose 82 mg/dL (74-99); Magnesium 2.1 mg/dL (1.6-2.3); Non-African American GFR(CKD) 56 (>60 ml/min/1.73 sqM); Potassium 4.5 mmol/L (3.5-5.1); Sodium 128 mmol/L (137-145); Total Bilirubin 1.7 mg/dL (0.2-1.3); Total Protein 5.6 g/dL (6.3-8.2)
[2022-01-19 12:26] LABS: HGB 9.9 gm/dL (13.0-17.5)
[2022-01-19 12:28] LABS: WBC 0.5 k/uL (3.8-10.6)
[2022-01-19 12:29] LABS: Platelet Count 11 k/uL (150-450)
[2022-01-19 14:01] LABS: Poikilocytosis (M) Present
[2022-01-19 14:02] LABS: Crenated RBC Present
--- NOTE | 2022-01-19 16:26 | P.PN ---
Subjective Progress Note Date: 01/19/22 Still with diarrhea and abdominal pain. Pancytopenia today is worsened, afebrile continued on granix Objective - Vital Signs Vital signs: Vital Signs Temp 98.5 F 01/19/22 12:42 Pulse 85 01/19/22 12:42 Resp 14 01/19/22 12:42 BP 87/45 01/19/22 12:42 Pulse Ox 93 L 01/19/22 12:42 FiO2 Intake & Output 01/18/22 01/19/22 01/19/22 18:59 06:59 18:59 Intake Total 200 Balance 200 Weight 68.946 kg Intake: IV 200 metroNIDAZOLE-NS PMX 500 200 mg In Saline 1 100ml.bag @ 100 mls/hr IVPB Q8HR [facility] Rx#:[id number] Other: # Voids 3 # Bowel Movements 1 - Exam GENERAL: Patient is well-developed and well-nourished. Patient is nontoxic and well- hydrated and is in mild distress. ENT: Neck is soft and supple. No significant lymphadenopathy is noted. Oropharynx is clear. Moist mucous membranes. Neck has full range of motion without eliciting any pain. EYES: The sclera were anicteric and conjunctiva were pink and moist. Extraocular movements were intact and pupils were equal round and reactive to light. Eyelids were unremarkable. PULMONARY: Unlabored respirations. Good breath sounds bilaterally. No audible rales rhonchi or wheezing was noted. CARDIOVASCULAR: There is a regular rate and rhythm without any murmurs gallops or rubs. ABDOMEN: Abdomen is markedly distended and diffusely tender. There also was a ventral hernia. SKIN: Skin is clear with no lesions or rashes and otherwise unremarkable. NEUROLOGIC: Patient is alert and oriented x3. Cranial nerves II through XII are grossly intact. Motor and sensory are also intact. Normal speech, volume and content. Symmetrical smile. MUSCULOSKELETAL: Normal extremities with adequate strength and full range of motion. No lower extremity swelling or edema. No calf tenderness. LYMPHATICS: No significant lymphadenopathy is noted PSYCHIATRIC: Normal psychiatric evaluation. - Labs CBC & Chem 7: 01/19/22 06:49 01/19/22 06:49 Labs: Abnormal Lab Results - Last 24 Hours (Table) 01/19/22 01/19/22 01/19/22 Range/Units 06:49 06:49 06:49 WBC 0.5 L* (3.8-10.6) k/uL RBC 3.22 L (4.30-5.90) m/uL Hgb 9.9 L D (13.0-17.5) gm/dL Hct 31.6 L (39.0-53.0) % RDW 15.9 H (11.5-15.5) % Plt Count 11 L* D (150-450) k/uL PT 15.9 H (9.0-12.0) sec INR 1.6 H (<1.2) Sodium 128 L (137-145) mmol/L Carbon Dioxide 20 L (22-30) mmol/L BUN 25 H (9-20) mg/dL Creatinine 1.37 H (0.66-1.25) mg/dL Calcium 7.7 L (8.4-10.2) mg/dL Total Bilirubin 1.7 H (0.2-1.3) mg/dL Alkaline Phosphatase 191 H (38-126) U/L Total Protein 5.6 L (6.3-8.2) g/dL Albumin 2.6 L (3.5-5.0) g/dL Microbiology - Last 24 Hours (Table) 01/13/22 20:25 Blood Culture - Preliminary Blood No Growth after 120 hours 01/13/22 20:40 Blood Culture - Preliminary Blood No Growth after 120 hours Assessment and Plan (1) Constipation Narrative/Plan: [place] diarrhea Positive c diff Current Visit: Yes Status: Acute Code(s): K59.00 - CONSTIPATION, UNSPECIFIED SNOMED Code(s): 38707608 (2) Abdominal pain Narrative/Plan: Secondary to c diff Current Visit: Yes Status: Acute Priority: High Code(s): R10.9 - UNSPECIFIED ABDOMINAL PAIN SNOMED Code(s): 02181871 (3) Metastases to the liver Narrative/Plan: Unknown primary: Status post cycle one of taxol and carbo on 01/11 Current Visit: No Status: Acute Code(s): C78.7 - SECONDARY MALIG NEOPLASM OF LIVER AND INTRAHEPATIC BILE DUCT SNOMED Code(s): 89879645 (4) Clostridium difficile diarrhea Current Visit: Yes Status: Acute Priority: High Code(s): A04.72 - ENTEROCOLITIS D/T CLOSTRIDIUM DIFFICILE, NOT SPCF RECUR SNOMED Code(s): 9144790056462 (5) Non-small cell lung cancer Current Visit: Yes Status: Acute Priority: High Code(s): C34.90 - MALIGNANT NEOPLASM OF UNSP PART OF UNSP BRONCHUS OR LUNG SNOMED Code(s): 102385856 (6) H/O ETOH abuse Current Visit: Yes Status: Acute Code(s): F10.11 - ALCOHOL ABUSE, IN REMISSION SNOMED Code(s): 918011394 Plan: Positive c diff continues onaantibiptics MOnitor CBC daily Continue granix Check Coags Dr. [place]: I have completed the full history and physical and developed the above impression and plan, agree with dictation, dictated as a ascribe
[2022-01-19] MEDS: FILGRASTIM-SNDZ 480 MCG/0.8 ML SYRINGE SQ SCH (16:49)
[2022-01-19] MEDS: ATORVASTATIN 40 MG TAB PO SCH (20:43)
[2022-01-20 04:16] LABS: % Iron Saturation 23.21 (15.00-50.00)
--- NOTE | 2022-01-20 08:29 | P.PN ---
Subjective Progress Note Date: 01/19/22 Principal diagnosis: C. diff colitis Patient is a 61 year old male with a past medical history significant for COPD pancreatitis metastatic esophageal cancer on chemotherapy present the hospital with abdominal distention and diarrhea has been diagnosed with C. diff colitis. On today's evaluation that is 01/19/2022, the patient denies having any fever or chills, still complains of abdominal discomfort however no nausea or vomiting and diarrhea has slowed down no chest pain shortness of breath or cough Objective - Vital Signs Vital signs: Vital Signs Temp 98.3 F 01/19/22 04:26 Pulse 91 01/19/22 04:26 Resp 16 01/19/22 04:26 BP 80/33 01/19/22 04:26 Pulse Ox 93 L 01/19/22 04:26 FiO2 Intake & Output 01/18/22 01/19/22 01/19/22 18:59 06:59 18:59 Intake Total 200 Balance 200 Weight 68.946 kg Intake: IV 200 metroNIDAZOLE-NS PMX 500 200 mg In Saline 1 100ml.bag @ 100 mls/hr IVPB Q8HR [facility] Rx#:[id number] Other: # Voids 3 # Bowel Movements 1 - Exam GENERAL DESCRIPTION: An middle-aged male lying in bed in no distress RESPIRATORY SYSTEM: Unlabored breathing , decreased breath sounds at bases HEART: S1 S2 regular rate and rhythm , ABDOMEN: Soft , no tenderness EXTREMITIES: No edema feet - Labs CBC & Chem 7: 01/19/22 06:49 01/19/22 06:49 Labs: Abnormal Lab Results - Last 24 Hours (Table) 01/19/22 Range/Units 06:49 PT 15.9 H (9.0-12.0) sec INR 1.6 H (<1.2) Microbiology - Last 24 Hours (Table) 01/13/22 20:25 Blood Culture - Preliminary Blood No Growth after 120 hours 01/13/22 20:40 Blood Culture - Preliminary Blood No Growth after 120 hours Assessment and Plan (1) Clostridium difficile diarrhea Current Visit: Yes Status: Acute Priority: High Code(s): A04.72 - ENTEROCOLITIS D/T CLOSTRIDIUM DIFFICILE, NOT SPCF RECUR SNOMED Code(s): 2723928762626 Plan: 1patient presented to hospital with abdominal distention and pain initially subsequent evaluating significant diarrhea and this patient did have positive stool for C. difficile likely asymptomatic C. difficile colitis risk factor being metastatic esophageal cancer on chemotherapy and is currently leukopenic and neutropenic. 2patient seemingly had shown clinical improvement and will Continue with vancomycin 125 mg p.o. every 6 hours and Questran for symptomatic relief 3patient has been encouraged to increase his probiotic and yogurt intake. 4contact isolation. Time with Patient: Less than 30
[2022-01-20 09:12] LABS: Anisocytosis Slight; HCT 30.3 % (39.0-53.0); HGB 9.8 gm/dL (13.0-17.5); MCH 31.2 pg (25.0-35.0); MCHC 32.3 g/dL (31.0-37.0); MCV 96.5 fL (80.0-100.0); Mean Platelet Volume 8.5; RBC 3.14 m/uL (4.30-5.90); RDW 16.6 % (11.5-15.5); WBC 1.7 k/uL (3.8-10.6)
[2022-01-20] MEDS: METOPROLOL TARTRATE 25 MG TAB PO SCH ×2 (09:14→21:40)
[2022-01-20] MEDS: CHOLESTYRAMINE (WITH SUGAR) 4 GM PACKET PO SCH ×2 (09:15→17:55)
[2022-01-20] MEDS: VANCOMYCIN ORAL SOLUTION 250 MG/5 ML BOTTLE PO SCH ×4 (09:15→21:42)
[2022-01-20] MEDS: PANTOPRAZOLE 40 MG TABLET PO SCH (09:15)
[2022-01-20] MEDS: SENNOSIDES-DOCUSATE SODIUM 1 EACH TAB PO SCH ×2 (09:15→21:40)
[2022-01-20 09:21] LABS: Platelet Count 12 k/uL (150-450)
[2022-01-20] MEDS: HYDROcodone/APAP 10-325MG 1 EACH TAB PO PRN ×2 (09:22→17:55)
[2022-01-20 14:49] LABS: INR 1.66 (0.90-1.11); Prothrombin Time 18.3 sec (9.9-11.9)
--- NOTE | 2022-01-20 14:54 | P.PN ---
Subjective Progress Note Date: 01/20/22 Blood counts mildly recovering today. Objective - Vital Signs Vital signs: Vital Signs Temp 97.6 F 01/20/22 04:39 Pulse 78 01/20/22 04:39 Resp 16 01/20/22 04:39 BP 79/45 01/20/22 04:39 Pulse Ox 93 L 01/20/22 04:39 FiO2 Intake & Output 01/19/22 01/20/22 01/20/22 18:59 06:59 18:59 Intake Total 300 Balance 300 Intake: Oral 300 Other: # Voids 2 # Bowel Movements 2 - Exam GENERAL: Patient is well-developed and well-nourished. Patient is nontoxic and well- hydrated and is in mild distress. ENT: Neck is soft and supple. No significant lymphadenopathy is noted. Oropharynx is clear. Moist mucous membranes. Neck has full range of motion without eliciting any pain. EYES: The sclera were anicteric and conjunctiva were pink and moist. Extraocular movements were intact and pupils were equal round and reactive to light. Eyelids were unremarkable. PULMONARY: Unlabored respirations. Good breath sounds bilaterally. No audible rales rhonchi or wheezing was noted. CARDIOVASCULAR: There is a regular rate and rhythm without any murmurs gallops or rubs. ABDOMEN: Abdomen is markedly distended and diffusely tender. There also was a ventral hernia. SKIN: Skin is clear with no lesions or rashes and otherwise unremarkable. NEUROLOGIC: Patient is alert and oriented x3. Cranial nerves II through XII are grossly intact. Motor and sensory are also intact. Normal speech, volume and content. Symmetrical smile. MUSCULOSKELETAL: Normal extremities with adequate strength and full range of motion. No lower extremity swelling or edema. No calf tenderness. LYMPHATICS: No significant lymphadenopathy is noted PSYCHIATRIC: Normal psychiatric evaluation. - Labs CBC & Chem 7: 01/20/22 06:45 01/20/22 06:44 Labs: Abnormal Lab Results - Last 24 Hours (Table) 01/19/22 01/19/22 01/19/22 Range/Units 06:49 06:49 16:53 WBC 0.5 L* (3.8-10.6) k/uL RBC 3.22 L (4.30-5.90) m/uL Hgb 9.9 L D (13.0-17.5) gm/dL Hct 31.6 L (39.0-53.0) % RDW 15.9 H (11.5-15.5) % Plt Count 11 L* D (150-450) k/uL Sodium 128 L (137-145) mmol/L Carbon Dioxide 20 L (22-30) mmol/L BUN 25 H (9-20) mg/dL Creatinine 1.37 H (0.66-1.25) mg/dL Calcium 7.7 L (8.4-10.2) mg/dL Iron 25 L (65-175) ug/dL TIBC 106 L (228-460) ug/dL Transferrin 76.0 L (204.0-354.0) mg/dL Ferritin 1613.0 H (22.0-322.0) ng/mL Total Bilirubin 1.7 H (0.2-1.3) mg/dL Alkaline Phosphatase 191 H (38-126) U/L Total Protein 5.6 L (6.3-8.2) g/dL Albumin 2.6 L (3.5-5.0) g/dL Microbiology - Last 24 Hours (Table) 01/13/22 20:25 Blood Culture - Final Blood No Growth after 144 hours 01/13/22 20:40 Blood Culture - Final Blood No Growth after 144 hours Assessment and Plan (1) Abdominal pain Current Visit: Yes Status: Acute Priority: High Code(s): R10.9 - UNSPECIFI ED ABDOMINAL PAIN SNOMED Code(s): 53800906 (2) Metastases to the liver Narrative/Plan: Unknown primary: Status post cycle one of taxol and carbo on 01/11 Current Visit: No Status: Acute Code(s): C78.7 - SECONDARY MALIG NEOPLASM OF LIVER AND INTRAHEPATIC BILE DUCT SNOMED Code(s): 66026137 (3) Clostridium difficile diarrhea Current Visit: Yes Status: Acute Priority: High Code(s): A04.72 - ENTEROCOLITIS D/T CLOSTRIDIUM DIFFICILE, NOT SPCF RECUR SNOMED Code(s): 4863380263575 (4) Non-small cell lung cancer Current Visit: Yes Status: Acute Priority: High Code(s): C34.90 - MALIGNANT NEOPLASM OF UNSP PART OF UNSP BRONCHUS OR LUNG SNOMED Code(s): 341064046 (5) H/O ETOH abuse Current Visit: Yes Status: Acute Code(s): F10.11 - ALCOHOL ABUSE, IN REMISSION SNOMED Code(s): 895289754 Plan: Chest Xray for incrreased SOB and Neutropenia COntinue supportive care Continue Granix Discussed with Pin Machine Tender: Advance to liquids and monitor Diarrhea closely. Await for improved WBC, abdominal pain, tolerating PO intake Discussed with primary team regarding anticipated discharge >48 hours. Repeat Chest xray for worsening SOB
[2022-01-20 14:57] LABS: African American GFR (CKD) 58.2 (60.0-200.0); Albumin 2.5 g/dL (3.8-4.9); Albumin/Globulin Ratio 0.96 (1.60-3.17); Anion Gap 13.9 mmol/L (10.00-18.00); BUN/Creat Ratio 18.53 Ratio (12.00-20.00); Blood Urea Nitrogen 27.8 mg/dL (9.0-27.0); Calcium 7.9 mg/dL (8.7-10.3); Carbon Dioxide 17.1 mmol/L (20.0-27.5); Globulin 2.6 g/dL (1.6-3.3); Non-African American GFR(CKD) 50.2 (60.0-200.0); Potassium 4.2 mmol/L (3.5-5.5); Total Bilirubin 1.7 mg/dL (0.30-1.20); Total Protein 5.1 g/dL (6.2-8.2)
[2022-01-20] MEDS: FILGRASTIM-SNDZ 480 MCG/0.8 ML SYRINGE SQ SCH (17:55)
[2022-01-20 18:57] LABS: Band Neutrophils % 2 %; Eosinophils # (M) 0.02 k/uL (0-0.7); Lymphocytes # (M) 0.26 k/uL (1.0-4.8); Monocytes # (M) 0.65 k/uL (0-1.0); Neutrophils % (M) 44 %; Nucleated Red Blood Cells 0 /100 WBC (0-0); Total Cells Counted 100
[2022-01-20] MEDS: ATORVASTATIN 40 MG TAB PO SCH (21:42)
--- NOTE | 2022-01-21 04:19 | P.PN ---
Subjective Progress Note Date: 01/20/22 Patient is a very pleasant 61-year-old male that presented to the emergency room with abdominal pain and shortness of breath. Patient has a pertinent medical history of lung cancer with lobectomy in 2018, recent upper scope biopsy suggests possible primary esophageal cancer with metastasis to liver, lymph nodes and sternum. Other medical history includes bowel resection due to perforation, irritable bowel syndrome, Crohn's, hernia, COPD, hyperlipidemia, hypertension, OA, pancreatitis. Patient had chronic alcohol abuse, has been sober since August of this year, also quit smoking last admission. He has been following with oncology and began chemo treatment this week, first dose was Monday. He reported feeling well up until yesterday night when abdominal distention progressed causing severe pain not controlled by current pain management regimen. White blood cell count was 11.3, lactic acid was 4.4 alkaline phosphatase was elevated at 309. Chest x-ray found right basilar atelectasis without acute pulmonary process. Abdominal CT found large stool burden, increase in splenomegaly, small amount of fluid layering in the pelvis and around liver, and multiple hepatic metastatic lesions and intra-abdominal lymphadenopathy. Patient was given Rocephin and saline with improvement of lact ic acid is down to 1.9 today. Pain medication was reordered, patient reports improvement of pain with fentanyl patch and [place]. Patient also reported some relief of pain with bowel movement. Oncology was consulted. Hospitalist coverage 01/15/22-01/17/22 01/18/2022 Patient was seen and evaluated at bedside. Patient was up on the bedside commode, states he is feeling much better but is still having multiple loose stools. He wants to have a meeting to discuss prognosis and direction of care. Will discuss with oncology. WBC was 0.26, platelets 25, hemoglobin 10.4, filgrastim ordered. 01/19/2022 Patient was seen and assessed at bedside. Patient was resting comfortably in bed. Reports pain medication feeling too strong and having trouble concentrating. Fentanyl was decreased to 50mg, PRN norco also ordered. States he is willing to continue cancer treatment at this time. Infectious disease a djusted antibiotic regimen. Lab work results are pending. 01/20/2022 Patient is seen today and continues with loose stool and abdominal pain and cramping. Pain management per oncology. CXR also ordered for shortness of breath. ID following for cdiff and continued on oral vanco. Patient is being ad vanced to clear liquids and recommend close monitoring of tolerance. Recommend repeat labs. Patient denies chest pain or palpitations. Patient is afebrile. Platelets 11 today. WBC improved. Review of systems: Constitutional: No reports of fatigue, fever, or chills Cardiovascular: No reports of chest pain or palpitations Respiratory: reports of occasional shortness of breath or cough GI: no reports of nausea, no reports of of vomiting, reports continued loose stools : No reports of dysuria or retention Neurovascular: reports of generalized weakness All medications have been reviewed Active Medications Hydrocodone Bitart/Acetaminophen (Hydrocodone/Apap 10-325mg 1 Each Tab) 1 each PO Q4HR PRN PRN Reason: Pain Last Admin: 01/20/22 17:55 Dose: 1 each Atorvastatin Calcium (Atorvastatin 40 Mg Tab) 40 mg PO HS [facility] Last Admin: 01/20/22 21:42 Dose: 40 mg Cholestyramine Resin (Cholestyramine (With Sugar) 4 Gm Packet) 4 gm PO BID@1000,1800 [facility] Last Admin: 01/20/22 17:55 Dose: 4 gm Fentanyl (Fentanyl 50mcg/Hr Patch) 1 patch TRANSDERM Q72H [facility]; Protocol Last Admin: 01/19/22 21:20 Dose: 1 patch Filgrastim-Sndz (Filgrastim-Sndz 480 Mcg/0.8 Ml Syringe) 480 mcg SQ DAILY@1800 [facility] Last Admin: 01/20/22 17:55 Dose: 480 mcg Metoprolol Tartrate (Metoprolol Tartrate 25 Mg Tab) 25 mg PO BID [facility] Last Admin: 01/20/22 21:40 Dose: Not Given Ondansetron HCl (Ondansetron Odt 4 Mg Tab) 4 mg PO Q4H PRN PRN Reason: Nausea Last Admin: 01/16/22 09:28 Dose: 4 mg Pantoprazole Sodium (Pantoprazole 40 Mg Tablet) 40 mg PO DAILY@0730 [facility] Last Admin: 01/20/22 09:15 Dose: 40 mg Senna/Docusate Sodium (Sennosides-Docusate Sodium 1 Each Tab) 2 each PO BID [facility] Last Admin: 01/20/22 21:40 Dose: Not Given Vancomycin HCl (Vancomycin Oral Solution 250 Mg/5 Ml Bottle) 125 mg PO QID [facility]; Protocol Last Admin: 01/20/22 21:42 Dose: 125 mg PHYSICAL EXAMINATION: GENERAL: The patient is alert and oriented x4, thin built, emaciated HEENT: Pupils are round and equally reacting to light. EOMI. no scleral icterus. No conjunctival pallor. Normocephalic, atraumatic. No pharyngeal erythema. No thyromegaly. CARDIOVASCULAR: S1 and S2 muffled PULMONARY: diminished breath sounds bilaterally with no wheezing or rhonchi noted. ABDOMEN: soft. tender on exam. thin. mildly-distended, normoactive bowel sounds. No palpable organomegaly. MUSCULOSKELETAL: No joint swelling or deformity. EXTREMITIES: No cyanosis, clubbing, or pedal edema. NEUROLOGICAL: Gross neurological examination did not reveal any focal deficits. Diffuse weakness SKIN: No rashes. Assessment: Abdominal pain, secondary to malignancy Acute C. difficile colitis Pancytopenia secondary to chemo treatment Recurrent lung cancer versus esophageal cancer with metastasis to liver, bone, and lymph nodes, awaiting further studies Large ventral hernia COPD without exacerbation Thrombocytopenia Hypertension Hyperlipidemia History of bowel perforation and resection History of alcohol abuse History of Crohn's and pancreatitis No code Plan: Patient reports continued abdominal pain and continued loose stools CXR ordered and pending for shortness of breath ID following for CDiff, antibiotic in the form of oral vanco Following oncology recommendations for cancer and pancytopenia treatment Continue to monitor labs and vital signs Further recommendations to come based on patients clinical course Prognosis is guarded The impression and plan of care has been dictated by Gretel Saravia, nurse practitioner as directed. MD Shalonda I have performed a history and examination and MDM of this patient, discussed the same with the dictator, and agree with the dictator's assessment and plan as written ,documented as a scribe. Based on total visit time, I have performed more than 50% of the visit. Any additional findings or plans will be noted. Objective - Vital Signs Vital signs: Vital Signs Temp 97.6 F 01/20/22 04:39 Pulse 78 01/20/22 04:39 Resp 16 01/20/22 04:39 BP 79/45 01/20/22 04:39 Pulse Ox 93 L 01/20/22 04:39 FiO2 Intake & Output 01/19/22 01/20/22 01/20/22 18:59 06:59 18:59 Intake Total 300 Balance 300 Intake: Oral 300 Other: # Voids 2 # Bowel Movements 2 - Labs CBC & Chem 7: 01/20/22 06:45 01/20/22 06:44 Labs: Abnormal Lab Results - Last 24 Hours (Table) 01/19/22 01/20/22 01/20/22 Range/Units 16:53 06:44 06:44 WBC (3.8-10.6) k/uL RBC (4.30-5.90) m/uL Hgb (13.0-17.5) gm/dL Hct (39.0-53.0) % RDW (11.5-15.5) % Plt Count (150-450) k/uL PT 18.3 H (9.9-11.9) sec INR 1.66 H (0.90-1.11) Sodium 128 L (135-145) mmol/L Carbon Dioxide 17.1 L (20.0-27.5) mmol/L BUN 27.8 H (9.0-27.0) mg/dL Est GFR (CKD-EPI)AfAm 58.2 L (60.0-200.0) Est GFR (CKD-EPI)NonAf 50.2 L (60.0-200.0) Calcium 7.9 L (8.7-10.3) mg/dL Iron 25 L (65-175) ug/dL TIBC 106 L (228-460) ug/dL Transferrin 76.0 L (204.0-354.0) mg/dL Ferritin 1613.0 H (22.0-322.0) ng/mL Total Bilirubin 1.70 H (0.30-1.20) mg/dL AST 36 H (14-35) U/L ALT 9 L (10-49) U/L Alkaline Phosphatase 161 H (41-126) U/L Total Protein 5.1 L (6.2-8.2) g/dL Albumin 2.5 L (3.8-4.9) g/dL Albumin/Globulin Ratio 0.96 L (1.60-3.17) g/dL 01/20/22 Range/Units 06:45 WBC 1.7 L (3.8-10.6) k/uL RBC 3.14 L (4.30-5.90) m/uL Hgb 9.8 L (13.0-17.5) gm/dL Hct 30.3 L (39.0-53.0) % RDW 16.6 H (11.5-15.5) % Plt Count 12 L* (150-450) k/uL PT (9.9-11.9) sec INR (0.90-1.11) Sodium (135-145) mmol/L Carbon Dioxide (20.0-27.5) mmol/L BUN (9.0-27.0) mg/dL Est GFR (CKD-EPI)AfAm (60.0-200.0) Est GFR (CKD-EPI)NonAf (60.0-200.0) Calcium (8.7-10.3) mg/dL Iron (65-175) ug/dL TIBC (228-460) ug/dL Transferrin (204.0-354.0) mg/dL Ferritin (22.0-322.0) ng/mL Total Bilirubin (0.30-1.20) mg/dL AST (14-35) U/L ALT (10-49) U/L Alkaline Phosphatase (41-126) U/L Total Protein (6.2-8.2) g/dL Albumin (3.8-4.9) g/dL Albumin/Globulin Ratio (1.60-3.17) g/dL Microbiology - Last 24 Hours (Table) 01/13/22 20:25 Blood Culture - Final Blood No Growth after 144 hours 01/13/22 20:40 Blood Culture - Final Blood No Growth after 144 hours
[2022-01-21 06:38] LABS: INR 1.6 (<1.2); Partial Thromboplastin Time 36.7 sec (22.0-30.0); Prothrombin Time 16.7 sec (9.0-12.0)
[2022-01-21] MEDS: METOPROLOL TARTRATE 25 MG TAB PO SCH ×2 (08:34→20:52)
[2022-01-21] MEDS: SENNOSIDES-DOCUSATE SODIUM 1 EACH TAB PO SCH ×2 (08:34→20:52)
[2022-01-21] MEDS: PANTOPRAZOLE 40 MG TABLET PO SCH (08:34)
[2022-01-21] MEDS: CHOLESTYRAMINE (WITH SUGAR) 4 GM PACKET PO SCH ×2 (08:34→17:37)
[2022-01-21] MEDS: VANCOMYCIN ORAL SOLUTION 250 MG/5 ML BOTTLE PO SCH ×4 (08:35→20:52)
[2022-01-21] MEDS: HYDROcodone/APAP 10-325MG 1 EACH TAB PO PRN ×2 (08:39→17:37)
--- NOTE | 2022-01-21 08:49 | XR ---
EXAMINATION TYPE: XR chest 2V DATE OF EXAM: 01/20/2022 COMPARISON: Chest x-ray and CT 01/13/2022 HISTORY: Hypoxia, neutropenia TECHNIQUE: Frontal and lateral views of the chest are obtained. FINDINGS: Patchy basilar density is noted on the right similar to prior exam, there may be basilar sc arring or atelectasis. The aorta is dense. This There is no pleural effusion or pneumothorax seen. T he cardiac silhouette size is within normal limits. Surgical clips noted in the left hilar region. Pr ominent lung volumes suggest underlying COPD, possible emphysema, with apical lucencies are noted. T he osseous structures are stable, remote distal clavicular fracture suspected on the right. IMPRESSION: Probable basilar atelectasis or scarring, correlate to exclude pneumonia, there is under lying emphysema
[2022-01-21 09:45] LABS: African American GFR (CKD) 58.2 (60.0-200.0); Albumin 2.7 g/dL (3.8-4.9); Albumin/Globulin Ratio 0.96 (1.60-3.17); Anion Gap 12.8 mmol/L (10.00-18.00); BUN/Creat Ratio 21.13 Ratio (12.00-20.00); Blood Urea Nitrogen 31.7 mg/dL (9.0-27.0); Calcium 8.1 mg/dL (8.7-10.3); Carbon Dioxide 18.2 mmol/L (20.0-27.5); Globulin 2.8 g/dL (1.6-3.3); Non-African American GFR(CKD) 50.2 (60.0-200.0); Potassium 4.5 mmol/L (3.5-5.5); Total Protein 5.5 g/dL (6.2-8.2)
[2022-01-21 10:04] LABS: HCT 34.2 % (39.6-50.0); HGB 10.8 g/dL (13.0-17.0); MCH 29.3 pg (27.0-32.0); MCHC 31.6 g/dL (32.0-37.0); MCV 92.7 fL (80.0-97.0); NRBC Per 100 WBC 0 /100 WBCS (0.0-0.0); Platelet Count 16 X 10*3/uL (140-440); RBC 3.69 X 10*6/uL (4.40-5.60); RDW 17.4 % (11.5-14.5); WBC 4.84 X 10*3/uL (4.50-10.00)
[2022-01-21 10:11] LABS: Basophils # (M) 0 X 10*3/uL (0.00-0.10); Eosinophils # (M) 0.05 X 10*3/uL (0.04-0.35); Immature Platelet Fraction 16.2 % (1.1-6.1); Lymphocytes # (M) 0.19 X 10*3/uL (0.90-5.00); Monocytes # (M) 0.63 X 10*3/uL (0.20-1.00); Neutrophils # (M) 3.97 X 10*3/uL (2.00-8.90); Neutrophils % (M) 82 %; RBC Morphology NORMAL
[2022-01-21] MEDS: FILGRASTIM-SNDZ 480 MCG/0.8 ML SYRINGE SQ SCH (17:37)
[2022-01-21] MEDS: ATORVASTATIN 40 MG TAB PO SCH (20:52)
--- NOTE | 2022-01-21 21:12 | P.PN ---
Subjective Progress Note Date: 01/21/22 No active bleeding, lower pelvis tenderness improving and stool is slowing. Objective - Vital Signs Vital signs: Vital Signs Temp 97.8 F 01/21/22 12:15 Pulse 90 01/21/22 12:15 Resp 13 01/21/22 12:15 BP 97/57 01/21/22 12:15 Pulse Ox 92 L 01/21/22 12:15 FiO2 Intake & Output 01/20/22 01/21/22 01/21/22 18:59 06:59 18:59 Intake Total 220 Balance 220 Weight 68.946 kg 68.946 kg Intake: IV 160 ns@20 160 Oral 60 Other: # Voids 2 - Exam GENERAL: Patient is well-developed and well-nourished. Patient is nontoxic and well- hydrated and is in mild distress. ENT: Neck is soft and supple. No significant lymphadenopathy is noted. Oropharynx is clear. Moist mucous membranes. Neck has full range of motion without eliciting any pain. EYES: The sclera were anicteric and conjunctiva were pink and moist. Extraocular movements were intact and pupils were equal round and reactive to light. Eyelids were unremarkable. PULMONARY: Unlabored respirations. Good breath sounds bilaterally. No audible rales rhon chi or wheezing was noted. CARDIOVASCULAR: There is a regular rate and rhythm without any murmurs gallops or rubs. ABDOMEN: Abdomen is markedly distended but less tender in lower pelvis SKIN: Skin is clear with no lesions or rashes and otherwise unremarkable. NEUROLOGIC: Patient is alert and oriented x3. MUSCULOSKELETAL: Normal extremities with adequate strength and full range of motion. \ LYMPHATICS: No significant lymphadenopathy is noted PSYCHIATRIC: Normal psychiatric evaluation. - Labs CBC & Chem 7: 01/21/22 05:33 01/21/22 05:33 Labs: Abnormal Lab Results - Last 24 Hours (Table) 01/19/22 01/20/22 01/20/22 Range/Units 16:53 06:44 06:44 RBC (4.40-5.60) X 10*6/uL Hgb (13.0-17.0) g/dL Hct (39.6-50.0) % MCHC (32.0-37.0) g/dL RDW (11.5-14.5) % Plt Count (140-440) X 10*3/uL Plt Count Comment Neutrophils # (Manual) (1.3-7.7) k/uL Lymphocytes # (Manual) (1.0-4.8) k/uL Immature Plt Fraction (1.1-6.1) % PT 18.3 H (9.9-11.9) sec INR 1.66 H (0.90-1.11) APTT (22.0-30.0) sec Sodium 128 L (135-145) mmol/L Carbon Dioxide 17.1 L (20.0-27.5) mmol/L BUN 27.8 H (9.0-27.0) mg/dL Est GFR (CKD-EPI)AfAm 58.2 L (60.0-200.0) Est GFR (CKD-EPI)NonAf 50.2 L (60.0-200.0) BUN/Creatinine Ratio (12.00-20.00) Ratio Calcium 7.9 L (8.7-10.3) mg/dL Total Bilirubin 1.70 H (0.30-1.20) mg/dL AST 36 H (14-35) U/L ALT 9 L (10-49) U/L Alkaline Phosphatase 161 H (41-126) U/L Total Protein 5.1 L (6.2-8.2) g/dL Albumin 2.5 L (3.8-4.9) g/dL Albumin/Globulin Ratio 0.96 L (1.60-3.17) g/dL Vitamin B1 26 L (38-122) ug/L 01/20/22 01/21/22 01/21/22 Range/Units 06:45 05:33 05:33 RBC 3.69 L (4.40-5.60) X 10*6/uL Hgb 10.8 L (13.0-17.0) g/dL Hct 34.2 L (39.6-50.0) % MCHC 31.6 L (32.0-37.0) g/dL RDW 17.4 H (11.5-14.5) % Plt Count 16 L* (140-440) X 10*3/uL Plt Count Comment A Neutrophils # (Manual) 0.70 L (1.3-7.7) k/uL Lymphocytes # (Manual) 0.26 L 0.19 L (1.0-4.8) k/uL Immature Plt Fraction 16.2 H (1.1-6.1) % PT 16.7 H (9.9-11.9) sec INR 1.6 H (0.90-1.11) APTT 36.7 H (22.0-30.0) sec Sodium (135-145) mmol/L Carbon Dioxide (20.0-27.5) mmol/L BUN (9.0-27.0) mg/dL Est GFR (CKD-EPI)AfAm (60.0-200.0) Est GFR (CKD-EPI)NonAf (60.0-200.0) BUN/Creatinine Ratio (12.00-20.00) Ratio Calcium (8.7-10.3) mg/dL Total Bilirubin (0.30-1.20) mg/dL AST (14-35) U/L ALT (10-49) U/L Alkaline Phosphatase (41-126) U/L Total Protein (6.2-8.2) g/dL Albumin (3.8-4.9) g/dL Albumin/Globulin Ratio (1.60-3.17) g/dL Vitamin B1 (38-122) ug/L 01/21/22 Range/Units 05:33 RBC (4.40-5.60) X 10*6/uL Hgb (13.0-17.0) g/dL Hct (39.6-50.0) % MCHC (32.0-37.0) g/dL RDW (11.5-14.5) % Plt Count (140-440) X 10*3/uL Plt Count Comment Neutrophils # (Manual) (1.3-7.7) k/uL Lymphocytes # (Manual) (1.0-4.8) k/uL Immature Plt Fraction (1.1-6.1) % PT (9.9-11.9) sec INR (0.90-1.11) APTT (22.0-30.0) sec Sodium 128 L (135-145) mmol/L Carbon Dioxide 18.2 L (20.0-27.5) mmol/L BUN 31.7 H (9.0-27.0) mg/dL Est GFR (CKD-EPI)AfAm 58.2 L (60.0-200.0) Est GFR (CKD-EPI)NonAf 50.2 L (60.0-200.0) BUN/Creatinine Ratio 21.13 H (12.00-20.00) Ratio Calcium 8.1 L (8.7-10.3) mg/dL Total Bilirubin 2.00 H (0.30-1.20) mg/dL AST 38 H (14-35) U/L ALT 9 L (10-49) U/L Alkaline Phosphatase 171 H (41-126) U/L Total Protein 5.5 L (6.2-8.2) g/dL Albumin 2.7 L (3.8-4.9) g/dL Albumin/Globulin Ratio 0.96 L (1.60-3.17) g/dL Vitamin B1 (38-122) ug/L Assessment and Plan (1) Abdominal pain Narrative/Plan: Secondary to c diff Improving Current Visit: Yes Status: Acute Priority: High Code(s): R10.9 - UNSPECIFIED ABDOMINAL PAIN SNOMED Code(s): 78771055 (2) Metastases to the liver Narrative/Plan: Unknown primary: Status post cycle one of taxol and carbo on 01/11 Current Visit: No Status: Acute Code(s): C78.7 - SECONDARY MALIG NEOPLASM OF LIVER AND INTRAHEPATIC BILE DUCT SNOMED Code(s): 66688747 (3) Clostridium difficile diarrhea Current Visit: Yes Status: Acute Priority: High Code(s): A04.72 - ENTEROCOLITIS D/T CLOSTRIDIUM DIFFICILE, NOT SPCF RECUR SNOMED Code(s): 7468871807152 (4) Non-small cell lung cancer Current Visit: Yes Status: Acute Priority: High Code(s): C34.90 - MALIGNANT NEOPLASM OF UNSP PART OF UNSP BRONCHUS OR LUNG SNOMED Code(s): 720091657 (5) H/O ETOH abuse Current Visit: Yes Status: Acute Code(s): F10.11 - ALCOHOL ABUSE, IN REMISSION SNOMED Code(s): 391869666 Plan: Chest Xray for incrreased SOB and Neutropenia COntinue supportive care Continue Granix Discussed with Packaging Design Engineer: Advance to liquids and monitor Diarrhea closely. Await for improved WBC, abdominal pain, tolerating PO intake Discussed with primary team regarding anticipated discharge >48 hours. Repeat Chest xray for worsening SOB Matt Gomez with increased WBC MOnitor for bleeding Dr. Hays: I have completed the full history and physical and developed the above impression and plan, agree with dictation, dictated as a scribe.
[2022-01-22] MEDS: HYDROcodone/APAP 10-325MG 1 EACH TAB PO PRN ×3 (04:02→21:44)
--- NOTE | 2022-01-22 05:23 | P.PN ---
Subjective Progress Note Date: 01/21/22 Patient is a very pleasant 61-year-old male that presented to the emergency room with abdominal pain and shortness of breath. Patient has a pertinent medical history of lung cancer with lobectomy in 2018, recent upper scope biopsy suggests possible primary esophageal cancer with metastasis to liver, lymph nodes and sternum. Other medical history includes bowel resection due to perforation, irritable bowel syndrome, Crohn's, hernia, COPD, hyperlipidemia, hypertension, OA, pancreatitis. Patient had chronic alcohol abuse, has been sober since August of this year, also quit smoking last admission. He has been following with oncology and began chemo treatment this week, first dose was Monday. He reported feeling well up until yesterday night when abdominal distention progressed causing severe pain not controlled by current pain management regimen. White blood cell count was 11.3, lactic acid was 4.4 alkaline phosphatase was elevated at 309. Chest x-ray found right basilar atelectasis without acute pulmonary process. Abdominal CT found large stool burden, increase in splenomegaly, small amount of fluid layering in the pelvis and around liver, and multiple hepatic metastatic lesions and intra-abdominal lymphadenopathy. Patient was given Rocephin and saline with improvement of lact ic acid is down to 1.9 today. Pain medication was reordered, patient reports improvement of pain with fentanyl patch and [place]. Patient also reported some relief of pain with bowel movement. Oncology was consulted. Hospitalist coverage 01/15/22-01/17/22 01/18/2022 Patient was seen and evaluated at bedside. Patient was up on the bedside commode, states he is feeling much better but is still having multiple loose stools. He wants to have a meeting to discuss prognosis and direction of care. Will discuss with oncology. WBC was 0.26, platelets 25, hemoglobin 10.4, filgrastim ordered. 01/19/2022 Patient was seen and assessed at bedside. Patient was resting comfortably in bed. Reports pain medication feeling too strong and having trouble concentrating. Fentanyl was decreased to 50mg, PRN norco also ordered. States he is willing to continue cancer treatment at this time. Infectious disease a djusted antibiotic regimen. Lab work results are pending. 01/20/2022 Patient is seen today and continues with loose stool and abdominal pain and cramping. Pain management per oncology. CXR also ordered for shortness of breath. ID following for cdiff and continued on oral vanco. Patient is being ad vanced to clear liquids and recommend close monitoring of tolerance. Recommend repeat labs. Patient denies chest pain or palpitations. Patient is afebrile. Platelets 11 today. WBC improved. 01/21/2022 Patient is seen in follow up today and continues with some abdominal discomfort and is maintained on clear liquids per oncology and will slowly advance as tolerated and while closely monitoring labs. Patient is afebrile and has occasional cough and some shortness of breath with a history of COPD and will add breathing treatments as needed. Encouraged increased activity as tolerated. Patient is continued on oral vanco and questran. No reports of chest pain Review of systems: Constitutional: No reports of fatigue, fever, or chills Cardiovascular: No reports of chest pain or palpitations Respiratory: reports of occasional shortness of breath or cough GI: no reports of nausea, no reports of of vomiting, reports continued loose stools : No reports of dysuria or retention Neurovascular: reports of generalized weakness All medications have been reviewed Active Medications Hydrocodone Bitart/Acetaminophen (Hydrocodone/Apap 10-325mg 1 Each Tab) 1 each PO Q4HR PRN PRN Reason: Pain Last Admin: 01/22/22 04:02 Dose: 1 each Albuterol/Ipratropium (Ipratropium-Albuterol 3 Ml Neb) 3 ml INHALATION RT-TID PRN PRN Reason: Shortness Of Breath Or Wheezing Atorvastatin Calcium (Atorvastatin 40 Mg Tab) 40 mg PO HS [facility] Last Admin: 01/21/22 20:52 Dose: 40 mg Cholestyramine Resin (Cholestyramine (With Sugar) 4 Gm Packet) 4 gm PO BID@1000,1800 [facility] Last Admin: 01/21/22 17:37 Dose: 4 gm Fentanyl (Fentanyl 50mcg/Hr Patch) 1 patch TRANSDERM Q72H [facility]; Protocol Last Admin: 01/19/22 21:20 Dose: 1 patch Filgrastim-Sndz (Filgrastim-Sndz 480 Mcg/0.8 Ml Syringe) 480 mcg SQ DAILY@1800 [facility] Last Admin: 01/21/22 17:37 Dose: 480 mcg Metoprolol Tartrate (Metoprolol Tartrate 25 Mg Tab) 25 mg PO BID [facility] Last Admin: 01/21/22 20:52 Dose: 25 mg Ondansetron HCl (Ondansetron Odt 4 Mg Tab) 4 mg PO Q4H PRN PRN Reason: Nausea Last Admin: 01/16/22 09:28 Dose: 4 mg Pantoprazole Sodium (Pantoprazole 40 Mg Tablet) 40 mg PO DAILY@0730 [facility] Last Admin: 01/21/22 08:34 Dose: 40 mg Senna/Docusate Sodium (Sennosides-Docusate Sodium 1 Each Tab) 2 each PO BID [facility] Last Admin: 01/21/22 20:52 Dose: 2 each Vancomycin HCl (Vancomycin Oral Solution 250 Mg/5 Ml Bottle) 125 mg PO QID [facility]; Protocol Last Admin: 01/21/22 20:52 Dose: 125 mg PHYSICAL EXAMINATION: GENERAL: The patient is alert and oriented x4, thin built, emaciated HEENT: Pupils are round and equally reacting to light. EOMI. no scleral icterus. No conjunctival pallor. Normocephalic, atraumatic. No pharyngeal erythema. No thyromegaly. CARDIOVASCULAR: S1 and S2 muffled PULMONARY: diminished breath sounds bilaterally with no wheezing or rhonchi noted. ABDOMEN: soft. tender on exam. thin. mildly-distended, normoactive bowel sounds. No palpable organomegaly. MUSCULOSKELETAL: No joint swelling or deformity. EXTREMITIES: No cyanosis, clubbing, or pedal edema. NEUROLOGICAL: Gross neurological examination did not reveal any focal deficits. Diffuse weakness SKIN: No rashes. Assessment: Abdominal pain, secondary to malignancy Acute C. difficile colitis Pancytopenia secondary to chemo treatment Recurrent lung cancer versus esophageal cancer with metastasis to liver, bone, and lymph nodes, awaiting further studies Large ventral hernia COPD without exacerbation Thrombocytopenia Hypertension Hyperlipidemia History of bowel perforation and resection History of alcohol abuse History of Crohn's and pancreatitis No code Plan: Patient reports continued abdominal pain and continued loose stools, Continue with vanco and questran Recommend breathing treatments as needed and coughing and deep breathing ID following for CDiff, antibiotic in the form of oral vanco oncology following and appreciate recommendations for cancer and pancytopenia treatment Continue to monitor labs and vital signs Further recommendations to come based on patients clinical course Encouraged increased activity as tolerated Discussed with daughter Nathan in detail and provided updates on treatment plan Prognosis is guarded The impression and plan of care has been dictated by Gretel Saravia, nurse practitioner as directed. Dr. Connie MD I have performed a history and examination and MDM of this patient, discussed the same with the dictator, and agree with the dictator's assessment and plan as written ,documented as a scribe. Based on total visit time, I have performed more than 50% of the visit. Any additional findings or plans will be noted. Objective - Vital Signs Vital signs: Vital Signs Temp 97.7 F 01/21/22 20:03 Pulse 111 H 01/21/22 20:03 Resp 18 01/21/22 20:03 BP 107/64 01/21/22 20:03 Pulse Ox 95 01/21/22 20:03 FiO2 Intake & Output 01/21/22 01/21/22 01/22/22 06:59 18:59 06:59 Intake Total 220 Output Total 500 Balance 220 -500 Weight 68.946 kg Intake: IV 160 ns@20 160 Oral 60 Output: Stool 500 Other: Voiding Method Bedside Commode - Labs CBC & Chem 7: 01/21/22 05:33 01/21/22 05:33 Labs: Abnormal Lab Results - Last 24 Hours (Table) 01/19/22 01/21/22 01/21/22 Range/Units 16:53 05:33 05:33 RBC 3.69 L (4.40-5.60) X 10*6/uL Hgb 10.8 L (13.0-17.0) g/dL Hct 34.2 L (39.6-50.0) % MCHC 31.6 L (32.0-37.0) g/dL RDW 17.4 H (11.5-14.5) % Plt Count 16 L* (140-440) X 10*3/uL Plt Count Comment A Lymphocytes # (Manual) 0.19 L (0.90-5.00) X 10*3/uL Immature Plt Fraction 16.2 H (1.1-6.1) % PT 16.7 H (9.0-12.0) sec INR 1.6 H (<1.2) APTT 36.7 H (22.0-30.0) sec Sodium (135-145) mmol/L Carbon Dioxide (20.0-27.5) mmol/L BUN (9.0-27.0) mg/dL Est GFR (CKD-EPI)AfAm (60.0-200.0) Est GFR (CKD-EPI)NonAf (60.0-200.0) BUN/Creatinine Ratio (12.00-20.00) Ratio Calcium (8.7-10.3) mg/dL Total Bilirubin (0.30-1.20) mg/dL AST (14-35) U/L ALT (10-49) U/L Alkaline Phosphatase (41-126) U/L Total Protein (6.2-8.2) g/dL Albumin (3.8-4.9) g/dL Albumin/Globulin Ratio (1.60-3.17) g/dL Vitamin B1 26 L (38-122) ug/L / Range/Units 05:33 RBC (4.40-5.60) X 10*6/uL Hgb (13.0-17.0) g/dL Hct (39.6-50.0) % MCHC (32.0-37.0) g/dL RDW (11.5-14.5) % Plt Count (140-440) X 10*3/uL Plt Count Comment Lymphocytes # (Manual) (0.90-5.00) X 10*3/uL Immature Plt Fraction (1.1-6.1) % PT (9.0-12.0) sec INR (<1.2) APTT (22.0-30.0) sec Sodium 128 L (135-145) mmol/L Carbon Dioxide 18.2 L (20.0-27.5) mmol/L BUN 31.7 H (9.0-27.0) mg/dL Est GFR (CKD-EPI)AfAm 58.2 L (60.0-200.0) Est GFR (CKD-EPI)NonAf 50.2 L (60.0-200.0) BUN/Creatinine Ratio 21.13 H (12.00-20.00) Ratio Calcium 8.1 L (8.7-10.3) mg/dL Total Bilirubin 2.00 H (0.30-1.20) mg/dL AST 38 H (14-35) U/L ALT 9 L (10-49) U/L Alkaline Phosphatase 171 H (41-126) U/L Total Protein 5.5 L (6.2-8.2) g/dL Albumin 2.7 L (3.8-4.9) g/dL Albumin/Globulin Ratio 0.96 L (1.60-3.17) g/dL Vitamin B1 (38-122) ug/L
[2022-01-22 07:02] LABS: African American GFR (CKD) 74 (>60 ml/min/1.73 sqM); Anion Gap 11 mmol/L; Blood Urea Nitrogen 27 mg/dL (9-20); Calcium 7.6 mg/dL (8.4-10.2); Carbon Dioxide 16 mmol/L (22-30); Chloride 101 mmol/L (98-107); Glucose 88 mg/dL (74-99); Non-African American GFR(CKD) 64 (>60 ml/min/1.73 sqM); Potassium 3.6 mmol/L (3.5-5.1); Sodium 128 mmol/L (137-145)
[2022-01-22] MEDS: VANCOMYCIN ORAL SOLUTION 250 MG/5 ML BOTTLE PO SCH ×4 (09:30→21:56)
[2022-01-22] MEDS: PANTOPRAZOLE 40 MG TABLET PO SCH (09:31)
[2022-01-22] MEDS: SENNOSIDES-DOCUSATE SODIUM 1 EACH TAB PO SCH ×2 (09:31→20:51)
[2022-01-22] MEDS: CHOLESTYRAMINE (WITH SUGAR) 4 GM PACKET PO SCH ×2 (09:31→17:47)
[2022-01-22] MEDS: METOPROLOL TARTRATE 25 MG TAB PO SCH ×2 (09:31→20:51)
[2022-01-22 11:06] LABS: Anisocytosis Slight; HCT 32.8 % (39.0-53.0); HGB 10.1 gm/dL (13.0-17.5); MCH 29.9 pg (25.0-35.0); MCHC 30.8 g/dL (31.0-37.0); MCV 96.9 fL (80.0-100.0); Mean Platelet Volume 10.3; RBC 3.39 m/uL (4.30-5.90); RDW 16.4 % (11.5-15.5); WBC 8.8 k/uL (3.8-10.6)
[2022-01-22 11:08] LABS: Platelet Count 9 k/uL (150-450)
[2022-01-22 11:47] LABS: Band Neutrophils % 1 %; Lymphocytes # (M) 0.26 k/uL (1.0-4.8); Monocytes # (M) 1.06 k/uL (0-1.0); Neutrophils % (M) 85 %; Nucleated Red Blood Cells 0 /100 WBC (0-0); Total Cells Counted 200
[2022-01-22 12:20] LABS: Crenated RBC Present
[2022-01-22] MEDS ORDERED: PHYTONADIONE 2 MG in SODIUM CHLORIDE 0.9% 50 ML IVPB STA (14:39)
[2022-01-22 15:32] LABS: INR 1.6 (<1.2); Partial Thromboplastin Time 34.1 sec (22.0-30.0); Prothrombin Time 16.1 sec (9.0-12.0)
[2022-01-22] MEDS: FILGRASTIM-SNDZ 480 MCG/0.8 ML SYRINGE SQ SCH (17:46)
[2022-01-22] MEDS: ATORVASTATIN 40 MG TAB PO SCH (20:51)
--- NOTE | 2022-01-22 22:14 | P.PN ---
Subjective Progress Note Date: 01/20/22 Principal diagnosis: C. diff colitis Patient is a 61 year old male with a past medical history significant for COPD pancreatitis metastatic esophageal cancer on chemotherapy present the hospital with abdominal distention and diarrhea has been diagnosed with C. diff colitis. On today's evaluation that is 01/20/2022, the patient remains to be afebrile, patient did have abdominal discomfort however no nausea or vomiting and diarrhea has slowed down, the patient denies chest pain shortness of breath or cough Objective - Vital Signs Vital signs: Vital Signs Temp 97.6 F 01/20/22 04:39 Pulse 78 01/20/22 04:39 Resp 16 01/20/22 04:39 BP 79/45 01/20/22 04:39 Pulse Ox 93 L 01/20/22 04:39 FiO2 Intake & Output 01/19/22 01/20/22 01/20/22 18:59 06:59 18:59 Intake Total 300 Balance 300 Intake: Oral 300 Other: # Voids 2 # Bowel Movements 2 - Exam GENERAL DESCRIPTION: An middle-aged male lying in bed in no distress RESPIRATORY SYSTEM: Unlabored breathing , decreased breath sounds at bases HEART: S1 S2 regular rate and rhythm , ABDOMEN: Soft , no tenderness EXTREMITIES: No edema feet - Labs CBC & Chem 7: 01/22/22 06:29 01/22/22 06:29 Labs: Abnormal Lab Results - Last 24 Hours (Table) 01/19/22 01/19/22 01/19/22 Range/Units 06:49 06:49 16:53 WBC 0.5 L* (3.8-10.6) k/uL RBC 3.22 L (4.30-5.90) m/uL Hgb 9.9 L D (13.0-17.5) gm/dL Hct 31.6 L (39.0-53.0) % RDW 15.9 H (11.5-15.5) % Plt Count 11 L* D (150-450) k/uL Sodium 128 L (137-145) mmol/L Carbon Dioxide 20 L (22-30) mmol/L BUN 25 H (9-20) mg/dL Creatinine 1.37 H (0.66-1.25) mg/dL Calcium 7.7 L (8.4-10.2) mg/dL Iron 25 L (65-175) ug/dL TIBC 106 L (228-460) ug/dL Transferrin 76.0 L (204.0-354.0) mg/dL Ferritin 1613.0 H (22.0-322.0) ng/mL Total Bilirubin 1.7 H (0.2-1.3) mg/dL Alkaline Phosphatase 191 H (38-126) U/L Total Protein 5.6 L (6.3-8.2) g/dL Albumin 2.6 L (3.5-5.0) g/dL 01/20/22 Range/Units 06:45 WBC 1.7 L (3.8-10.6) k/uL RBC 3.14 L (4.30-5.90) m/uL Hgb 9.8 L (13.0-17.5) gm/dL Hct 30.3 L (39.0-53.0) % RDW 16.6 H (11.5-15.5) % Plt Count 12 L* (150-450) k/uL Sodium (137-145) mmol/L Carbon Dioxide (22-30) mmol/L BUN (9-20) mg/dL Creatinine (0.66-1.25) mg/dL Calcium (8.4-10.2) mg/dL Iron (65-175) ug/dL TIBC (228-460) ug/dL Transferrin (204.0-354.0) mg/dL Ferritin (22.0-322.0) ng/mL Total Bilirubin (0.2-1.3) mg/dL Alkaline Phosphatase (38-126) U/L Total Protein (6.3-8.2) g/dL Albumin (3.5-5.0) g/dL Microbiology - Last 24 Hours (Table) 01/13/22 20:25 Blood Culture - Final Blood No Growth after 144 hours 01/13/22 20:40 Blood Culture - Final Blood No Growth after 144 hours Assessment and Plan (1) Clostridium difficile diarrhea Current Visit: Yes Status: Acute Priority: High Code(s): A04.72 - ENTEROCOLITIS D/T CLOSTRIDIUM DIFFICILE, NOT SPCF RECUR SNOMED Code(s): 2715156435066 Plan: 1patient presented to hospital with abdominal distention and pain initially subsequent evaluating significant diarrhea and this patient did have positive stool for C. difficile likely asymptomatic C. difficile colitis risk factor being metastatic esophageal cancer on chemotherapy and is currently leukopenic and neutropenic. 2patient will Continue with vancomycin 125 mg p.o. every 6 hours and Questran for symptomatic relief 3patient has been encouraged to increase his probiotic and yogurt intake. 4contact isolation. Time with Patient: Less than 30
--- NOTE | 2022-01-22 22:15 | P.PN ---
Subjective Progress Note Date: 01/21/22 Principal diagnosis: C. diff colitis Patient is a 61 year old male with a past medical history significant for COPD pancreatitis metastatic esophageal cancer on chemotherapy present the hospital with abdominal distention and diarrhea has been diagnosed with C. diff colitis. On today's evaluation that is 01/21/2022, the patient continues to be afebrile, patient denies any chest pain shortness of breath or cough, patient abdominal discomfort has improved and that he has: No nausea no vomiting Objective - Vital Signs Vital signs: Vital Signs Temp 97.8 F 01/21/22 12:15 Pulse 90 01/21/22 12:15 Resp 13 01/21/22 12:15 BP 97/57 01/21/22 12:15 Pulse Ox 92 L 01/21/22 12:15 FiO2 Intake & Output 01/20/22 01/21/22 01/21/22 18:59 06:59 18:59 Intake Total 220 Balance 220 Weight 68.946 kg 68.946 kg Intake: IV 160 ns@20 160 Oral 60 Other: # Voids 2 - Exam GENERAL DESCRIPTION: An middle-aged male lying in bed in no distress RESPIRATORY SYSTEM: Unlabored breathing , decreased breath sounds at bases HEART: S1 S2 regular rate and rhythm , ABDOMEN: Soft , no tenderness EXTREMITIES: No edema feet - Labs CBC & Chem 7: 01/22/22 06:29 01/22/22 06:29 Labs: Abnormal Lab Results - Last 24 Hours (Table) 01/19/22 01/20/22 01/20/22 Range/Units 16:53 06:44 06:44 RBC (4.40-5.60) X 10*6/uL Hgb (13.0-17.0) g/dL Hct (39.6-50.0) % MCHC (32.0-37.0) g/dL RDW (11.5-14.5) % Plt Count (140-440) X 10*3/uL Plt Count Comment Neutrophils # (Manual) (1.3-7.7) k/uL Lymphocytes # (Manual) (1.0-4.8) k/uL Immature Plt Fraction (1.1-6.1) % PT 18.3 H (9.9-11.9) sec INR 1.66 H (0.90-1.11) APTT (22.0-30.0) sec Sodium 128 L (135-145) mmol/L Carbon Dioxide 17.1 L (20.0-27.5) mmol/L BUN 27.8 H (9.0-27.0) mg/dL Est GFR (CKD-EPI)AfAm 58.2 L (60.0-200.0) Est GFR (CKD-EPI)NonAf 50.2 L (60.0-200.0) BUN/Creatinine Ratio (12.00-20.00) Ratio Calcium 7.9 L (8.7-10.3) mg/dL Total Bilirubin 1.70 H (0.30-1.20) mg/dL AST 36 H (14-35) U/L ALT 9 L (10-49) U/L Alkaline Phosphatase 161 H (41-126) U/L Total Protein 5.1 L (6.2-8.2) g/dL Albumin 2.5 L (3.8-4.9) g/dL Albumin/Globulin Ratio 0.96 L (1.60-3.17) g/dL Vitamin B1 26 L (38-122) ug/L 01/20/22 01/21/22 01/21/22 Range/Units 06:45 05:33 05:33 RBC 3.69 L (4.40-5.60) X 10*6/uL Hgb 10.8 L (13.0-17.0) g/dL Hct 34.2 L (39.6-50.0) % MCHC 31.6 L (32.0-37.0) g/dL RDW 17.4 H (11.5-14.5) % Plt Count 16 L* (140-440) X 10*3/uL Plt Count Comment A Neutrophils # (Manual) 0.70 L (1.3-7.7) k/uL Lymphocytes # (Manual) 0.26 L 0.19 L (1.0-4.8) k/uL Immature Plt Fraction 16.2 H (1.1-6.1) % PT 16.7 H (9.9-11.9) sec INR 1.6 H (0.90-1.11) APTT 36.7 H (22.0-30.0) sec Sodium (135-145) mmol/L Carbon Dioxide (20.0-27.5) mmol/L BUN (9.0-27.0) mg/dL Est GFR (CKD-EPI)AfAm (60.0-200.0) Est GFR (CKD-EPI)NonAf (60.0-200.0) BUN/Creatinine Ratio (12.00-20.00) Ratio Calcium (8.7-10.3) mg/dL Total Bilirubin (0.30-1.20) mg/dL AST (14-35) U/L ALT (10-49) U/L Alkaline Phosphatase (41-126) U/L Total Protein (6.2-8.2) g/dL Albumin (3.8-4.9) g/dL Albumin/Globulin Ratio (1.60-3.17) g/dL Vitamin B1 (38-122) ug/L 01/21/22 Range/Units 05:33 RBC (4.40-5.60) X 10*6/uL Hgb (13.0-17.0) g/dL Hct (39.6-50.0) % MCHC (32.0-37.0) g/dL RDW (11.5-14.5) % Plt Count (140-440) X 10*3/uL Plt Count Comment Neutrophils # (Manual) (1.3-7.7) k/uL Lymphocytes # (Manual) (1.0-4.8) k/uL Immature Plt Fraction (1.1-6.1) % PT (9.9-11.9) sec INR (0.90-1.11) APTT (22.0-30.0) sec Sodium 128 L (135-145) mmol/L Carbon Dioxide 18.2 L (20.0-27.5) mmol/L BUN 31.7 H (9.0-27.0) mg/dL Est GFR (CKD-EPI)AfAm 58.2 L (60.0-200.0) Est GFR (CKD-EPI)NonAf 50.2 L (60.0-200.0) BUN/Creatinine Ratio 21.13 H (12.00-20.00) Ratio Calcium 8.1 L (8.7-10.3) mg/dL Total Bilirubin 2.00 H (0.30-1.20) mg/dL AST 38 H (14-35) U/L ALT 9 L (10-49) U/L Alkaline Phosphatase 171 H (41-126) U/L Total Protein 5.5 L (6.2-8.2) g/dL Albumin 2.7 L (3.8-4.9) g/dL Albumin/Globulin Ratio 0.96 L (1.60-3.17) g/dL Vitamin B1 (38-122) ug/L Assessment and Plan (1) Clostridium difficile diarrhea Current Visit: Yes Status: Acute Priority: High Code(s): A04.72 - ENTEROCO LITIS D/T CLOSTRIDIUM DIFFICILE, NOT SPCF RECUR SNOMED Code(s): 555791 1100262 Plan: 1patient presented to hospital with abdominal distention and pain initially subsequent evaluating significant diarrhea and this patient did have positive s tool for C. difficile likely asymptomatic C. difficile colitis risk factor being metastatic esophageal cancer on chemotherapy and is currently leukopenic and neutropenic. 2patient seemed to have shown clinical improvement and will Continue with vancomycin 125 mg p.o. every 6 hours and Questran for symptomatic relief 3patient has been encouraged to increase his probiotic and yogurt intake. Time with Patient: Less than 30
--- NOTE | 2022-01-22 23:25 | P.PN ---
Subjective Progress Note Date: 01/22/22 Patient is a very pleasant 61-year-old male that presented to the emergency room with abdominal pain and shortness of breath. Patient has a pertinent medical history of lung cancer with lobectomy in 2018, recent upper scope biopsy suggests possible primary esophageal cancer with metastasis to liver, lymph nodes and sternum. Other medical history includes bowel resection due to perforation, irritable bowel syndrome, Crohn's, hernia, COPD, hyperlipidemia, hypertension, OA, pancreatitis. Patient had chronic alcohol abuse, has been sober since August of this year, also quit smoking last admission. He has been following with oncology and began chemo treatment this week, first dose was Monday. He reported feeling well up until yesterday night when abdominal distention progressed causing severe pain not controlled by current pain management regimen. White blood cell count was 11.3, lactic acid was 4.4 alkaline phosphatase was elevated at 309. Chest x-ray found right basilar atelectasis without acute pulmonary process. Abdominal CT found large stool burden, increase in splenomegaly, small amount of fluid layering in the pelvis and around liver, and multiple hepatic metastatic lesions and intra-abdominal lymphadenopathy. Patient was given Rocephin and saline with improvement of lact ic acid is down to 1.9 today. Pain medication was reordered, patient reports improvement of pain with fentanyl patch and [place]. Patient also reported some relief of pain with bowel movement. Oncology was consulted. Hospitalist coverage 01/15/22-01/17/22 01/18/2022 Patient was seen and evaluated at bedside. Patient was up on the bedside commode, states he is feeling much better but is still having multiple loose stools. He wants to have a meeting to discuss prognosis and direction of care. Will discuss with oncology. WBC was 0.26, platelets 25, hemoglobin 10.4, filgrastim ordered. 01/19/2022 Patient was seen and assessed at bedside. Patient was resting comfortably in bed. Reports pain medication feeling too strong and having trouble concentrating. Fentanyl was decreased to 50mg, PRN norco also ordered. States he is willing to continue cancer treatment at this time. Infectious disease a djusted antibiotic regimen. Lab work results are pending. 01/20/2022 Patient is seen today and continues with loose stool and abdominal pain and cramping. Pain management per oncology. CXR also ordered for shortness of breath. ID following for cdiff and continued on oral vanco. Patient is being ad vanced to clear liquids and recommend close monitoring of tolerance. Recommend repeat labs. Patient denies chest pain or palpitations. Patient is afebrile. Platelets 11 today. WBC improved. 01/21/2022 Patient is seen in follow up today and continues with some abdominal discomfort and is maintained on clear liquids per oncology and will slowly advance as tolerated and while closely monitoring labs. Patient is afebrile and has occasional cough and some shortness of breath with a history of COPD and will add breathing treatments as needed. Encouraged increased activity as tolerated. Patient is continued on oral vanco and questran. No reports of chest pain 01/22/2022 Patient seen today and wbc is up to 8.8 and ok to dc graftin per oncology and reports to less abdominal pain and tolerating clear liquids. Patient denies shortness of breath and encouraged coughing and deep breathing. IS ordered and encouraged use. D-dimer ordered and pending. Continued on oral vanco with ID following. Patient is afebrile and denies nausea or vomiting. Patient denies chest pain. Per nursing staff less loose stools. Review of systems: Constitutional: No reports of fatigue, fever, or chills Cardiovascular: No reports of chest pain or palpitations Respiratory: reports of occasional shortness of breath or cough GI: no reports of nausea, no reports of of vomiting, reports continued loose stools : No reports of dysuria or retention Neurovascular: reports of generalized weakness All medications have been reviewed Active Medications Hydrocodone Bitart/Acetaminophen (Hydrocodone/Apap 10-325mg 1 Each Tab) 1 each PO Q4HR PRN PRN Reason: Pain Last Admin: 01/22/22 21:44 Dose: 1 each Albuterol/Ipratropium (Ipratropium-Albuterol 3 Ml Neb) 3 ml INHALATION RT-TID PRN PRN Reason: Shortness Of Breath Or Wheezing Atorvastatin Calcium (Atorvastatin 40 Mg Tab) 40 mg PO HS [facility] Last Admin: 01/22/22 20:51 Dose: 40 mg Cholestyramine Resin (Cholestyramine (With Sugar) 4 Gm Packet) 4 gm PO BID@1000,1800 [facility] Last Admin: 01/22/22 17:47 Dose: 4 gm Fentanyl (Fentanyl 50mcg/Hr Patch) 1 patch TRANSDERM Q72H [facility]; Protocol Last Admin: 01/22/22 12:48 Dose: 1 patch Filgrastim-Sndz (Filgrastim-Sndz 480 Mcg/0.8 Ml Syringe) 480 mcg SQ DAILY@1800 [facility] Last Admin: 01/22/22 17:46 Dose: 480 mcg Metoprolol Tartrate (Metoprolol Tartrate 25 Mg Tab) 25 mg PO BID [facility] Last Admin: 01/22/22 20:51 Dose: 25 mg Ondansetron HCl (Ondansetron Odt 4 Mg Tab) 4 mg PO Q4H PRN PRN Reason: Nausea Last Admin: 01/16/22 09:28 Dose: 4 mg Pantoprazole Sodium (Pantoprazole 40 Mg Tablet) 40 mg PO DAILY@0730 [facility] Last Admin: 01/22/22 09:31 Dose: 40 mg Senna/Docusate Sodium (Sennosides-Docusate Sodium 1 Each Tab) 2 each PO BID [facility] Last Admin: 01/22/22 20:51 Dose: 2 each Vancomycin HCl (Vancomycin Oral Solution 250 Mg/5 Ml Bottle) 125 mg PO QID [facility]; Protocol Last Admin: 01/22/22 21:56 Dose: 125 mg PHYSICAL EXAMINATION: GENERAL: The patient is alert and oriented x4, thin built, emaciated HEENT: Pupils are round and equally reacting to light. EOMI. no scleral icterus. No conjunctival pallor. Normocephalic, atraumatic. No pharyngeal erythema. No thyromegaly. CARDIOVASCULAR: S1 and S2 muffled PULMONARY: diminished breath sounds bilaterally with no wheezing or rhonchi noted. ABDOMEN: soft. tender on exam. thin. mildly-distended, normoactive bowel sounds. No palpable organomegaly. MUSCULOSKELETAL: No joint swelling or deformity. EXTREMITIES: No cyanosis, clubbing, or pedal edema. NEUROLOGICAL: Gross neurological examination did not reveal any focal deficits. Diffuse weakness SKIN: No rashes. Assessment: Abdominal pain, secondary to malignancy Acute C. difficile colitis Pancytopenia secondary to chemo treatment elevated d dimer Recurrent lung cancer versus esophageal cancer with metastasis to liver, bone, and lymph nodes, awaiting further studies Large ventral hernia COPD without exacerbation Thrombocytopenia Hypertension Hyperlipidemia History of bowel perforation and resection History of alcohol abuse History of Crohn's and pancreatitis No code Plan: Patient reports less abdominal pain and continued loose stools although less frequent, Continue with vanco and questran Recommend breathing treatments as needed and coughing and deep breathing, IS ordered. Ddimer ordered per oncology and is elevated. Kidney functions mildly elevated and will repeat labs and need to discuss with oncology and possible CTA to rule out PE. Patient denies worsening shortness of breath, not on anticoagulation and continues with pancytopenia ID following for CDiff, antibiotic in the form of oral vanco oncology following and appreciate recommendations for cancer and pancytopenia treatment Continue to monitor labs and vital signs Further recommendations to come based on patients clinical course Encouraged increased activity as tolerated Discussed with daughter Nathan in detail and provided updates on treatment plan Prognosis is guarded The impression and plan of care has been dictated by Gretel Saravia, nurse practitioner as directed. Dr. Connie MD I have performed a history and examination and MDM of this patient, discussed the same with the dictator, and agree with the dictator's assessment and plan as written ,documented as a scribe. Based on total visit time, I have performed more than 50% of the visit. Any additional findings or plans will be noted. Objective - Vital Signs Vital signs: Vital Signs Temp 97.8 F 01/22/22 05:00 Pulse 79 01/22/22 05:00 Resp 18 01/22/22 05:00 BP 91/49 01/22/22 05:00 Pulse Ox 94 L 01/22/22 05:00 FiO2 Intake & Output 01/21/22 01/22/22 01/22/22 18:59 06:59 18:59 Intake Total 780 Output Total 500 Balance 280 Weight 68.946 kg Intake: IV 240 ns@20 240 Oral 540 Output: Stool 500 Other: Voiding Method Bedside Commode # Voids 1 # Bowel Movements 1 - Labs CBC & Chem 7: 01/22/22 06:29 01/22/22 06:29 Labs: Abnormal Lab Results - Last 24 Hours (Table) 01/22/22 01/22/22 Range/Units 06:29 06:29 RBC 3.39 L (4.30-5.90) m/uL Hgb 10.1 L (13.0-17.5) gm/dL Hct 32.8 L (39.0-53.0) % MCHC 30.8 L (31.0-37.0) g/dL RDW 16.4 H (11.5-15.5) % Plt Count 9 L* (150-450) k/uL Sodium 128 L (137-145) mmol/L Carbon Dioxide 16 L (22-30) mmol/L BUN 27 H (9-20) mg/dL Calcium 7.6 L (8.4-10.2) mg/dL
[2022-01-23] MEDS: IPRATROPIUM-ALBUTEROL 3 ML NEB INHALATION PRN (01:54)
[2022-01-23] MEDS: HYDROcodone/APAP 10-325MG 1 EACH TAB PO PRN ×2 (02:09→19:47)
[2022-01-23 06:29] LABS: African American GFR (CKD) 74 (>60 ml/min/1.73 sqM); Anion Gap 9 mmol/L; Blood Urea Nitrogen 24 mg/dL (9-20); Calcium 7.6 mg/dL (8.4-10.2); Carbon Dioxide 17 mmol/L (22-30); Chloride 102 mmol/L (98-107); Glucose 88 mg/dL (74-99); Non-African American GFR(CKD) 64 (>60 ml/min/1.73 sqM); Potassium 3.7 mmol/L (3.5-5.1); Sodium 128 mmol/L (137-145)
[2022-01-23] MEDS: SENNOSIDES-DOCUSATE SODIUM 1 EACH TAB PO SCH ×3 (09:26→19:56)
[2022-01-23] MEDS: CHOLESTYRAMINE (WITH SUGAR) 4 GM PACKET PO SCH ×2 (09:26→17:13)
[2022-01-23] MEDS: PANTOPRAZOLE 40 MG TABLET PO SCH (09:26)
[2022-01-23] MEDS: METOPROLOL TARTRATE 25 MG TAB PO SCH ×2 (09:28→19:59)
[2022-01-23 09:56] LABS: INR 1.3 (<1.2); Partial Thromboplastin Time 37.5 sec (22.0-30.0)
[2022-01-23] MEDS: VANCOMYCIN ORAL SOLUTION 250 MG/5 ML BOTTLE PO SCH ×4 (10:01→22:56)
[2022-01-23 10:13] LABS: Basophils % (A) 0.7 %; Eosinophils # (A) 0 X 10*3/uL (0.04-0.35); Eosinophils % (A) 0 %; Lymphocytes # (A) 0.81 X 10*3/uL (0.90-5.00); Lymphocytes % (A) 5.5 %; Monocytes # (A) 1.69 X 10*3/uL (0.20-1.00); Monocytes % (A) 11.5 %; NRBC Per 100 WBC 0 /100 WBCS (0.0-0.0); Neutrophils # (A) 11.51 X 10*3/uL (1.80-7.70); Neutrophils % (A) 78.3 %
[2022-01-23 10:16] LABS: HCT 30.1 % (39.6-50.0); HGB 9.9 g/dL (13.0-17.0); MCH 30.1 pg (27.0-32.0); MCHC 32.9 g/dL (32.0-37.0); MCV 91.5 fL (80.0-97.0); Platelet Count 16 X 10*3/uL (140-440); RBC 3.29 X 10*6/uL (4.40-5.60); RDW 17.6 % (11.5-14.5)
[2022-01-23 10:17] LABS: Acanthocytes 2+; Immature Platelet Fraction 13.1 % (1.1-6.1)
--- NOTE | 2022-01-23 13:49 | P.PN ---
Subjective Progress Note Date: 01/23/22 Patient is a very pleasant 61-year-old male that presented to the emergency room with abdominal pain and shortness of breath. Patient has a pertinent medical history of lung cancer with lobectomy in 2018, recent upper scope biopsy suggests possible primary esophageal cancer with metastasis to liver, lymph nodes and sternum. Other medical history includes bowel resection due to perforation, irritable bowel syndrome, Crohn's, hernia, COPD, hyperlipidemia, hypertension, OA, pancreatitis. Patient had chronic alcohol abuse, has been sober since August of this year, also quit smoking last admission. He has been following with oncology and began chemo treatment this week, first dose was Monday. He reported feeling well up until yesterday night when abdominal distention progressed causing severe pain not controlled by current pain management regimen. White blood cell count was 11.3, lactic acid was 4.4 alkaline phosphatase was elevated at 309. Chest x-ray found right basilar atelectasis without acute pulmonary process. Abdominal CT found large stool burden, increase in splenomegaly, small amount of fluid layering in the pelvis and around liver, and multiple hepatic metastatic lesions and intra-abdominal lymphadenopathy. Patient was given Rocephin and saline with improvement of lact ic acid is down to 1.9 today. Pain medication was reordered, patient reports improvement of pain with fentanyl patch and [place]. Patient also reported some relief of pain with bowel movement. Oncology was consulted. Hospitalist coverage 01/15/22-01/17/22 01/18/2022 Patient was seen and evaluated at bedside. Patient was up on the bedside commode, states he is feeling much better but is still having multiple loose stools. He wants to have a meeting to discuss prognosis and direction of care. Will discuss with oncology. WBC was 0.26, platelets 25, hemoglobin 10.4, filgrastim ordered. 01/19/2022 Patient was seen and assessed at bedside. Patient was resting comfortably in bed. Reports pain medication feeling too strong and having trouble concentrating. Fentanyl was decreased to 50mg, PRN norco also ordered. States he is willing to continue cancer treatment at this time. Infectious disease a djusted antibiotic regimen. Lab work results are pending. 01/20/2022 Patient is seen today and continues with loose stool and abdominal pain and cramping. Pain management per oncology. CXR also ordered for shortness of breath. ID following for cdiff and continued on oral vanco. Patient is being ad vanced to clear liquids and recommend close monitoring of tolerance. Recommend repeat labs. Patient denies chest pain or palpitations. Patient is afebrile. Platelets 11 today. WBC improved. 01/21/2022 Patient is seen in follow up today and continues with some abdominal discomfort and is maintained on clear liquids per oncology and will slowly advance as tolerated and while closely monitoring labs. Patient is afebrile and has occasional cough and some shortness of breath with a history of COPD and will add breathing treatments as needed. Encouraged increased activity as tolerated. Patient is continued on oral vanco and questran. No reports of chest pain 01/22/2022 Patient seen today and wbc is up to 8.8 and ok to dc graftin per oncology and reports to less abdominal pain and tolerating clear liquids. Patient denies shortness of breath and encouraged coughing and deep breathing. IS ordered and encouraged use. D-dimer ordered and pending. Continued on oral vanco with ID following. Patient is afebrile and denies nausea or vomiting. Patient denies chest pain. Per nursing staff less loose stools. 01/23/2022 Patient seen in follow up and d-dimer was elevated at 6.[address] chest to rule out PE. Hematology/oncology following and will need to discuss with them further if ct is positive as patient has severe thrombocytopenia. Will add scd's for now. Sodium remains 128. Patient is afebrile and denies chest pain or shortness of breath. Patient continues on oral vanco for c diff. Review of systems: Constitutional: No reports of fatigue, fever, or chills Cardiovascular: No reports of chest pain or palpitations Respiratory: reports of occasional shortness of breath or cough GI: no reports of nausea, no reports of of vomiting, reports continued loose stools with less frequency : No reports of dysuria or retention Neurovascular: reports of generalized weakness All medications have been reviewed Active Medications Hydrocodone Bitart/Acetaminophen (Hydrocodone/Apap 10-325mg 1 Each Tab) 1 each PO Q4HR PRN PRN Reason: Pain Last Admin: 01/23/22 02:09 Dose: 1 each Albuterol/Ipratropium (Ipratropium-Albuterol 3 Ml Neb) 3 ml INHALATION RT-TID PRN PRN Reason: Shortness Of Breath Or Wheezing Last Admin: 01/23/22 01:54 Dose: 3 ml Atorvastatin Calcium (Atorvastatin 40 Mg Tab) 40 mg PO HS [facility] Last Admin: 01/22/22 20:51 Dose: 40 mg Cholestyramine Resin (Cholestyramine (With Sugar) 4 Gm Packet) 4 gm PO BID@1000,1800 [facility] Last Admin: 01/23/22 09:26 Dose: 4 gm Fentanyl (Fentanyl 50mcg/Hr Patch) 1 patch TRANSDERM Q72H [facility]; Protocol Last Admin: 01/22/22 12:48 Dose: 1 patch Filgrastim-Sndz (Filgrastim-Sndz 480 Mcg/0.8 Ml Syringe) 480 mcg SQ DAILY@1800 [facility] Last Admin: 01/22/22 17:46 Dose: 480 mcg Metoprolol Tartrate (Metoprolol Tartrate 25 Mg Tab) 25 mg PO BID [facility] Last Admin: 01/23/22 09:28 Dose: Not Given Ondansetron HCl (Ondansetron Odt 4 Mg Tab) 4 mg PO Q4H PRN PRN Reason: Nausea Last Admin: 01/16/22 09:28 Dose: 4 mg Pantoprazole Sodium (Pantoprazole 40 Mg Tablet) 40 mg PO DAILY@0730 [facility] Last Admin: 01/23/22 09:26 Dose: 40 mg Senna/Docusate Sodium (Sennosides-Docusate Sodium 1 Each Tab) 2 each PO BID [facility] Last Admin: 01/23/22 09:30 Dose: Not Given Vancomycin HCl (Vancomycin Oral Solution 250 Mg/5 Ml Bottle) 125 mg PO QID [facility]; Protocol Last Admin: 01/23/22 12:25 Dose: 125 mg PHYSICAL EXAMINATION: GENERAL: The patient is alert and oriented x4, thin built, emaciated HEENT: Pupils are round and equally reacting to light. EOMI. no scleral icterus. No conjunctival pallor. Normocephalic, atraumatic. No pharyngeal erythema. No thyromegaly. CARDIOVASCULAR: S1 and S2 muffled PULMONARY: diminished breath sounds bilaterally with no wheezing or rhonchi noted. ABDOMEN: soft. tender on exam. thin. mildly-distended, normoactive bowel sounds. No palpable organomegaly. MUSCULOSKELETAL: No joint swelling or deformity. EXTREMITIES: No cyanosis, clubbing, or pedal edema. NEUROLOGICAL: Gross neurological examination did not reveal any focal deficits. Diffuse weakness SKIN: No rashes. Assessment: Abdominal pain, secondary to malignancy Acute C. difficile colitis Pancytopenia secondary to chemo treatment elevated d dimer Recurrent lung cancer versus esophageal cancer with metastasis to liver, bone, and lymph nodes, awaiting further studies Large ventral hernia COPD without exacerbation Thrombocytopenia Hypertension Hyperlipidemia History of bowel perforation and resection History of alcohol abuse History of Crohn's and pancreatitis No code Plan: Patient reports less abdominal pain and continued loose stools although less frequent, Continue with vanco and questran Recommend breathing treatments as needed and coughing and deep breathing, IS ordered. D-dimer ordered as part of the work up per oncology and is elevated. Kidney functions mildly elevated and cr. is 1.23 and will order CTA to rule out PE. Patient denies worsening shortness of breath, not on anticoagulation and continues with thrombocytopenia ID following for CDiff, antibiotic in the form of oral vanco oncology following and appreciate recommendations for cancer and pancytopenia treatment Continue to monitor labs and vital signs Further recommendations to come based on patients clinical course Encouraged increased activity as tolerated SCD's for now Prognosis is guarded The impression and plan of care has been dictated by Gretel Saravia, nurse practitioner as directed. Dr. Connie MD I have performed a history and examination and MDM of this patient, discussed the same with the dictator, and agree with the dictator's assessment and plan as written ,documented as a scribe. Based on total visit time, I have performed more than 50% of the visit. Any additional findings or plans will be noted. Objective - Vital Signs Vital signs: Vital Signs Temp 97.7 F 01/23/22 09:17 Pulse 83 01/23/22 09:17 Resp 16 01/23/22 09:17 BP 94/55 01/23/22 09:17 Pulse Ox 94 L 01/23/22 09:17 FiO2 Intake & Output 01/22/22 01/23/22 01/23/22 18:59 06:59 18:59 Intake Total 543 Output Total 1 Balance 542 Intake: IV 240 ns@20 240 Blood Product 303 Platelet Pheresis Pas 303 Psoralen Unit [id number] Output: Emesis 1 Other: Voiding Method Bedside Commode Urinal # Voids 1 - Labs CBC & Chem 7: 01/23/22 05:59 01/23/22 05:59 Labs: Abnormal Lab Results - Last 24 Hours (Table) 01/22/22 01/22/22 01/23/22 Range/Units 06:29 14:57 05:59 WBC 14.70 H (4.50-10.00) X 10*3/uL RBC 3.39 L 3.29 L (4.30-5.90) m/uL Hgb 10.1 L 9.9 L (13.0-17.5) gm/dL Hct 32.8 L 30.1 L (39.0-53.0) % MCHC 30.8 L (31.0-37.0) g/dL RDW 16.4 H 17.6 H (11.5-15.5) % Plt Count 9 L* 16 L* (150-450) k/uL Plt Count Comment A Immature Gran # 0.59 H (0.00-0.04) X 10*3/uL Neutrophils # 11.51 H (1.80-7.70) X 10*3/uL Lymphocytes # 0.81 L (0.90-5.00) X 10*3/uL Lymphocytes # (Manual) 0.26 L (1.0-4.8) k/uL Monocytes # 1.69 H (0.20-1.00) X 10*3/uL Monocytes # (Manual) 1.06 H (0-1.0) k/uL Eosinophils # 0 L (0.04-0.35) X 10*3/uL Immature Plt Fraction 13.1 H (1.1-6.1) % PT 16.1 H (9.0-12.0) sec INR 1.6 H (<1.2) APTT 34.1 H (22.0-30.0) sec D-Dimer 6.61 H (<0.60) mg/L FEU Sodium (137-145) mmol/L Carbon Dioxide (22-30) mmol/L BUN (9-20) mg/dL Calcium (8.4-10.2) mg/dL 01/23/22 01/23/22 Range/Units 05:59 05:59 WBC (4.50-10.00) X 10*3/uL RBC (4.30-5.90) m/uL Hgb (13.0-17.5) gm/dL Hct (39.0-53.0) % MCHC (31.0-37.0) g/dL RDW (11.5-15.5) % Plt Count (150-450) k/uL Plt Count Comment Immature Gran # (0.00-0.04) X 10*3/uL Neutrophils # (1.80-7.70) X 10*3/uL Lymphocytes # (0.90-5.00) X 10*3/uL Lymphocytes # (Manual) (1.0-4.8) k/uL Monocytes # (0.20-1.00) X 10*3/uL Monocytes # (Manual) (0-1.0) k/uL Eosinophils # (0.04-0.35) X 10*3/uL Immature Plt Fraction (1.1-6.1) % PT 14.0 H (9.0-12.0) sec INR 1.3 H (<1.2) APTT 37.5 H (22.0-30.0) sec D-Dimer (<0.60) mg/L FEU Sodium 128 L (137-145) mmol/L Carbon Dioxide 17 L (22-30) mmol/L BUN 24 H (9-20) mg/dL Calcium 7.6 L (8.4-10.2) mg/dL
--- NOTE | 2022-01-23 16:35 | CT ---
EXAMINATION TYPE: CT angio chest DATE OF EXAM: 01/23/2022 COMPARISON: 12/01/2021 HISTORY: Elevated d-dimer, Hx lung ca. CT DLP: 229.40 mGycm Automated exposure control for dose reduction was used. CONTRAST: Performed with IV Contrast, patient injected with 100 mL of Isovue 370. Images obtained from the thoracic inlet to the diaphragm without IV contrast. There are Three-D postp rocessed images. There is bullous pulmonary emphysema. No pneumothorax. Thoracic aorta is intact. No aneurysm or disse ction. No mediastinal adenopathy. There are no hilar masses. There is patchy linear infiltrate and at electasis at the right lung base. There are numerous hypodense foci throughout the liver. These are v ariable size and measure up to 5 cm. There is no evidence of filling defect in the pulmonary arteries. The thoracic spine is intact. No compression fracture. Sternum shows 5 cm x 2.5 cm destructive lesion in the inferior body of the sternum. No rib fracture seen. IMPRESSION: No evidence of pulmonary embolism. Emphysema. Infiltrate and atelectasis right lower lobe also present on old exam and not significantly different. Extensive hepatic metastatic disease. Destructive lesion in the sternum consistent with metastatic disease and increased compared to recent exam.
--- NOTE | 2022-01-23 18:54 | P.PN ---
Subjective Progress Note Date: 01/23/22 platelets 9K Monday and INR >1.6, Vitamin K and Platelet transfusion. Today platelets 16K. WBC recovered and granix discontinued Objective - Vital Signs Vital signs: Vital Signs Temp 97.7 F 01/23/22 09:17 Pulse 83 01/23/22 09:17 Resp 16 01/23/22 09:17 BP 94/55 01/23/22 09:17 Pulse Ox 94 L 01/23/22 09:17 FiO2 Intake & Output 01/22/22 01/23/22 01/23/22 18:59 06:59 18:59 Intake Total 543 Output Total 1 Balance 542 Intake: IV 240 ns@20 240 Blood Product 303 Platelet Pheresis Pas 303 Psoralen Unit [id number] Output: Emesis 1 Other: Voiding Method Bedside Commode Urinal # Voids 1 - Exam GENERAL: Patient is well-developed and well-nourished. Patient is nontoxic and well- hydrated and is in mild distress. ENT: Neck is soft and supple. No significant lymphadenopathy is noted. Oropharynx is clear. Moist mucous membranes. Neck has full range of motion without eliciting any pain. EYES: The sclera were anicteric and conjunctiva were pink and moist. Extraocular movements were intact and pupils were equal round and reactive to light. Eyelids were unremarkable. PULMONARY: Unlabored respirations. Good breath sounds bilaterally. No audible rales rhonchi or wheezing was noted. CARDIOVASCULAR: There is a regular rate and rhythm without any murmurs gallops or rubs. ABDOMEN: Abdomen is markedly distended but less tender in lower pelvis SKIN: Skin is clear with no lesions or rashes and otherwise unremarkable. NEUROLOGIC: Patient is alert and oriented x3. MUSCULOSKELETAL: Normal extremities with adequate strength and full range of motion. \ LYMPHATICS: No significant lymphadenopathy is noted PSYCHIATRIC: Normal psychiatric evaluation. - Labs CBC & Chem 7: 01/23/22 05:59 01/23/22 05:59 Labs: Abnormal Lab Results - Last 24 Hours (Table) 01/22/22 01/22/22 01/23/22 Range/Units 06:29 14:57 05:59 RBC 3.39 L (4.30-5.90) m/uL Hgb 10.1 L (13.0-17.5) gm/dL Hct 32.8 L (39.0-53.0) % MCHC 30.8 L (31.0-37.0) g/dL RDW 16.4 H (11.5-15.5) % Plt Count 9 L* (150-450) k/uL Lymphocytes # (Manual) 0.26 L (1.0-4.8) k/uL Monocytes # (Manual) 1.06 H (0-1.0) k/uL PT 16.1 H (9.0-12.0) sec INR 1.6 H (<1.2) APTT 34.1 H (22.0-30.0) sec D-Dimer 6.61 H (<0.60) mg/L FEU Sodium 128 L (137-145) mmol/L Carbon Dioxide 17 L (22-30) mmol/L BUN 24 H (9-20) mg/dL Calcium 7.6 L (8.4-10.2) mg/dL Assessment and Plan (1) Abdominal pain Narrative/Plan: Secondary to c diff Improving Current Visit: Yes Status: Acute Priority: High Code(s): R10.9 - UNSPECIFIED ABDOMINAL PAIN SNOMED Code(s): 03945692 (2) Metastases to the liver Narrative/Plan: Unknown primary: Status post cycle one of taxol and carbo on 01/11 Current Visit: No Status: Acute Code(s): C78.7 - SECONDARY MALIG NEOPLASM OF LIVER AND INTRAHEPATIC BILE DUCT SNOMED Code(s): 91957072 (3) Clostridium difficile diarrhea Current Visit: Yes Status: Acute Priority: High Code(s): A04.72 - ENTEROCOLITIS D/T CLOSTRIDIUM DIFFICILE, NOT SPCF RECUR SNOMED Code(s): 0863036789654 (4) Non-small cell lung cancer Current Visit: Yes Status: Acute Priority: High Code(s): C34.90 - MALIGNANT NEOPLASM OF UNSP PART OF UNSP BRONCHUS OR LUNG SNOMED Code(s): 289941629 (5) H/O ETOH abuse Current Visit: Yes Status: Acute Code(s): F10.11 - ALCOHOL ABUSE, IN REMISSION SNOMED Code(s): 611586027 (6) Antineoplastic chemotherapy induced pancytopenia Narrative/Plan: Transfuse platelets less than 10 or if bleeding Hold ASA< NSAIDS Current Visit: Yes Status: Acute Priority: High Code(s): D61.810 - ANTINEOPLASTIC CHEMOTHERAPY INDUCED PANCYTOPENIA; T45.1X5A - ADVERSE EFFECT OF ANTINEOPLASTIC AND IMMUNOSUP DRUGS, INIT SNOMED Code(s): 307166433598480 (7) Coagulopathy Narrative/Plan: MOnitor INR, VItamin K >1.5 Current Visit: Yes Status: Acute Priority: High Code(s): D68.9 - COAGULATION DEFECT, UNSPECIFIED SNOMED Code(s): 36517273
[2022-01-23] MEDS: ATORVASTATIN 40 MG TAB PO SCH (19:56)
[2022-01-24] MEDS: METOPROLOL TARTRATE 25 MG TAB PO SCH ×2 (08:01→21:12)
[2022-01-24] MEDS: SENNOSIDES-DOCUSATE SODIUM 1 EACH TAB PO SCH ×2 (08:01→21:11)
[2022-01-24] MEDS: VANCOMYCIN ORAL SOLUTION 250 MG/5 ML BOTTLE PO SCH ×5 (08:01→21:31)
[2022-01-24] MEDS: PANTOPRAZOLE 40 MG TABLET PO SCH (08:01)
[2022-01-24] MEDS: IPRATROPIUM-ALBUTEROL 3 ML NEB INHALATION PRN (09:15)
[2022-01-24 10:01] LABS: INR 1.31 (0.90-1.11); Prothrombin Time 14.2 sec (9.9-11.9)
[2022-01-24] MEDS: CHOLESTYRAMINE (WITH SUGAR) 4 GM PACKET PO SCH ×2 (10:47→21:15)
[2022-01-24 11:54] LABS: African American GFR (CKD) 84.7 (60.0-200.0); Albumin 2.6 g/dL (3.8-4.9); Albumin/Globulin Ratio 0.9 (1.60-3.17); Calcium 8.1 mg/dL (8.7-10.3); Globulin 2.9 g/dL (1.6-3.3); Non-African American GFR(CKD) 73.1 (60.0-200.0); Potassium 3.5 mmol/L (3.5-5.5); Total Bilirubin 1.7 mg/dL (0.30-1.20); Total Protein 5.5 g/dL (6.2-8.2)
[2022-01-24] MEDS: IOPAMIDOL CONTRAST (ORAL USE) VIAL PO PRN ×2 (13:06→15:33)
[2022-01-24] MEDS ORDERED: IOPAMIDOL CONTRAST (ORAL USE) VIAL PO PRN (13:06)
--- NOTE | 2022-01-24 15:24 | P.PN ---
Subjective Progress Note Date: 01/24/22 Patient is a very pleasant 61-year-old male that presented to the emergency room with abdominal pain and shortness of breath. Patient has a pertinent medical history of lung cancer with lobectomy in 2018, recent upper scope biopsy suggests possible primary esophageal cancer with metastasis to liver, lymph nodes and sternum. Other medical history includes bowel resection due to perforation, irritable bowel syndrome, Crohn's, hernia, COPD, hyperlipidemia, hypertension, OA, pancreatitis. Patient had chronic alcohol abuse, has been sober since August of this year, also quit smoking last admission. He has been following with oncology and began chemo treatment this week, first dose was Monday. He reported feeling well up until yesterday night when abdominal distention progressed causing severe pain not controlled by current pain management regimen. White blood cell count was 11.3, lactic acid was 4.4 alkaline phosphatase was elevated at 309. Chest x-ray found right basilar atelectasis without acute pulmonary process. Abdominal CT found large stool burden, increase in splenomegaly, small amount of fluid layering in the pelvis and around liver, and multiple hepatic metastatic lesions and intra-abdominal lymphadenopathy. Patient was given Rocephin and saline with improvement of lact ic acid is down to 1.9 today. Pain medication was reordered, patient reports improvement of pain with fentanyl patch and [place]. Patient also reported some relief of pain with bowel movement. Oncology was consulted. Hospitalist coverage 01/15/22-01/17/22 01/18/2022 Patient was seen and evaluated at bedside. Patient was up on the bedside commode, states he is feeling much better but is still having multiple loose stools. He wants to have a meeting to discuss prognosis and direction of care. Will discuss with oncology. WBC was 0.26, platelets 25, hemoglobin 10.4, filgrastim ordered. 01/19/2022 Patient was seen and assessed at bedside. Patient was resting comfortably in bed. Reports pain medication feeling too strong and having trouble concentrating. Fentanyl was decreased to 50mg, PRN norco also ordered. States he is willing to continue cancer treatment at this time. Infectious disease a djusted antibiotic regimen. Lab work results are pending. 01/20/2022 Patient is seen today and continues with loose stool and abdominal pain and cramping. Pain management per oncology. CXR also ordered for shortness of breath. ID following for cdiff and continued on oral vanco. Patient is being ad vanced to clear liquids and recommend close monitoring of tolerance. Recommend repeat labs. Patient denies chest pain or palpitations. Patient is afebrile. Platelets 11 today. WBC improved. 01/21/2022 Patient is seen in follow up today and continues with some abdominal discomfort and is maintained on clear liquids per oncology and will slowly advance as tolerated and while closely monitoring labs. Patient is afebrile and has occasional cough and some shortness of breath with a history of COPD and will add breathing treatments as needed. Encouraged increased activity as tolerated. Patient is continued on oral vanco and questran. No reports of chest pain 01/22/2022 Patient seen today and wbc is up to 8.8 and ok to dc graftin per oncology and reports to less abdominal pain and tolerating clear liquids. Patient denies shortness of breath and encouraged coughing and deep breathing. IS ordered and encouraged use. D-dimer ordered and pending. Continued on oral vanco with ID following. Patient is afebrile and denies nausea or vomiting. Patient denies chest pain. Per nursing staff less loose stools. 01/23/2022 Patient seen in follow up and d-dimer was elevated at 6.[address] chest to rule out PE. Hematology/oncology following and will need to discuss with them further if ct is positive as patient has severe thrombocytopenia. Will add scd's for now. Sodium remains 128. Patient is afebrile and denies chest pain or shortness of breath. Patient continues on oral vanco for c diff. 01/24/2022 Patient is seen in follow-up this morning continues with abdominal distention and also continues with frequent diarrhea and patient had been reporting no blood in the stool although personally visualized the fecal matter and there is flex of blood noted along with large trunks and sloughing that appears to be rectal tissue and will send for multiple cultures and also discussed with oncology and will consult general surgery and appreciate input and recommendations. Patient is afebrile and currently maintained on oral Vanco for C. diff and also clear liquids and tolerating the patient continues with abdominal distention. Will order CT abdomen pelvis with contrast and await report. No CBC available as of yet as patient has pancytopenia and thrombocytopenia and is mildly regula apathy with an INR of 1.31. Patient did have elevated d-dimer yesterday and underwent PE study with no evidence of PE on CTA. Patient continues with hyponatremia and poor oral intake and maintained on clears, potassium is 3.5, creatinine is 1.1, bili is 1.7. Overall prognosis remains guarded. Review of systems: Constitutional: No reports of fatigue, fever, or chills Cardiovascular: No reports of chest pain or palpitations Respiratory: reports of occasional shortness of breath or cough GI: no reports of nausea, no reports of of vomiting, reports continued loose stools with with some thick white mucus : No reports of dysuria or retention Neurovascular: reports of generalized weakness All medications have been reviewed Active Medications Hydrocodone Bitart/Acetaminophen (Hydrocodone/Apap 10-325mg 1 Each Tab) 1 each PO Q4HR PRN PRN Reason: Pain Last Admin: 01/23/22 19:47 Dose: 1 each Albuterol/Ipratropium (Ipratropium-Albuterol 3 Ml Neb) 3 ml INHALATION RT-TID PRN PRN Reason: Shortness Of Breath Or Wheezing Last Admin: 01/24/22 09:15 Dose: 3 ml Atorvastatin Calcium (Atorvastatin 40 Mg Tab) 40 mg PO HS TRACY Last Admin: 01/23/22 19:56 Dose: 40 mg Cholestyramine Resin (Cholestyramine (With Sugar) 4 Gm Packet) 4 gm PO BID@10 00,1800 TRACY Last Admin: 01/24/22 10:47 Dose: 4 gm Fentanyl (Fentanyl 50mcg/Hr Patch) 1 patch TRANSDERM Q72H TRACY; Protocol Last Admin: 01/22/22 12:48 Dose: 1 patch Iopamidol (Iopamidol Contrast (Oral Use) Vial) 30 ml PO Q60M PRN PRN Reason: CT Scan Stop: 01/25/22 12:52 Last Admin: 01/24/22 13:06 Dose: 30 ml Iopamidol (Iopamidol Contrast (Oral Use) Vial) 30 ml PO Q60M PRN PRN Reason: CT Scan Stop: 01/25/22 13:06 Metoprolol Tartrate (Metoprolol Tartrate 25 Mg Tab) 25 mg PO BID TRACY Last Admin: 01/24/22 08:01 Dose: 25 mg Ondansetron HCl (Ondansetron Odt 4 Mg Tab) 4 mg PO Q4H PRN PRN Reason: Nausea Last Admin: 01/16/22 09:28 Dose: 4 mg Pantoprazole Sodium (Pantoprazole 40 Mg Tablet) 40 mg PO DAILY@0730 [facility] Last Admin: 01/24/22 08:01 Dose: 40 mg Senna/Docusate Sodium (Sennosides-Docusate Sodium 1 Each Tab) 2 each PO BID [facility] Last Admin: 01/24/22 08:01 Dose: 2 each Vancomycin HCl (Vancomycin Oral Solution 250 Mg/5 Ml Bottle) 125 mg PO QID [facility]; Protocol Last Admin: 01/24/22 13:34 Dose: 125 mg PHYSICAL EXAMINATION: GENERAL: The patient is alert and oriented x4, thin built, emaciated HEENT: Pupils are round and equally reacting to light. EOMI. no scleral icterus. No conjunctival pallor. Normocephalic, atraumatic. No pharyngeal erythema. No thyromegaly. CARDIOVASCULAR: S1 and S2 muffled PULMONARY: diminished breath sounds bilaterally with no wheezing or rhonchi noted. ABDOMEN: soft. non tender on exam. thin. Extremely distended, normoactive bowel sounds. No palpable organomegaly. MUSCULOSKELETAL: No joint swelling or deformity. EXTREMITIES: No cyanosis, clubbing, or pedal edema. NEUROLOGICAL: Gross neurological examination did not reveal any focal deficits. Diffuse weakness SKIN: No rashes. Assessment: Abdominal pain, secondary to malignancy Acute C. difficile colitis Pancytopenia secondary to chemo treatment elevated d dimer with no evidence of PE on CTA Recurrent lung cancer versus esophageal cancer with metastasis to liver, bone, and lymph nodes, awaiting further studies Large ventral hernia COPD without exacerbation Thrombocytopenia Hypertension Hyperlipidemia History of bowel perforation and resection History of alcohol abuse History of Crohn's and pancreatitis No code Plan: Patient reports less abdominal pain and continued loose stools although less frequent, Continue with vanco and questran, personal physical examination of the stool noted with some flecks of blood and also large sloughing tissue noted and studies were sent and this was discussed with oncology and will consult general surgery. CT abdomen and pelvis with contrast is ordered and pending at this jasmina e. Awaiting CBC results from this morning as they continue to be pending. Recommend breathing treatments as needed and coughing and deep breathing, IS ordered. D-dimer was elevated and CT was negative for PE ID following for CDiff, antibiotic in the form of oral vanco oncology following and appreciate recommendations for cancer and pancytopenia treatment Continue to monitor labs and vital signs Further recommendations to come based on patients clinical course Encouraged increased activity as tolerated SCD's for now Prognosis is extremely poor and guarded The impression and plan of care has been dictated by Gretel Saravia, nurse practitioner as directed. Dr. Juan MD I have performed a history and examination and MDM of this patient, discussed the same with the dictator, and agree with the dictator's assessment and plan as written ,documented as a scribe. Based on total visit time, I have performed more than 50% of the visit. Any additional findings or plans will be noted. Objective - Vital Signs Vital signs: Vital Signs Temp 97.8 F 01/24/22 11:30 Pulse 77 01/24/22 11:30 Resp 19 01/24/22 11:30 BP 96/50 01/24/22 11:30 Pulse Ox 95 01/24/22 11:30 FiO2 Intake & Output 01/23/22 01/24/22 01/24/22 18:59 06:59 18:59 Output Total 1 Balance -1 Output: Urine 1 Other: # Voids 2 # Bowel Movements 1 1 - Labs CBC & Chem 7: 01/23/22 05:59 01/24/22 06:37 Labs: Abnormal Lab Results - Last 24 Hours (Table) 01/24/22 01/24/22 Range/Units 06:37 06:37 PT 14.2 H (9.9-11.9) sec INR 1.31 H (0.90-1.11) Sodium 128 L (135-145) mmol/L Carbon Dioxide 15.0 L (20.0-27.5) mmol/L Calcium 8.1 L (8.7-10.3) mg/dL Total Bilirubin 1.70 H (0.30-1.20) mg/dL AST 48 H (14-35) U/L ALT 9 L (10-49) U/L Alkaline Phosphatase 206 H (41-126) U/L Total Protein 5.5 L (6.2-8.2) g/dL Albumin 2.6 L (3.8-4.9) g/dL Albumin/Globulin Ratio 0.90 L (1.60-3.17) g/dL
--- NOTE | 2022-01-24 16:51 | CT ---
EXAMINATION TYPE: CT abdomen pelvis w con DATE OF EXAM: 01/24/2022 COMPARISON: CT abdomen/pelvis 01/13/2022 HISTORY: abd distention CT DLP: 977.8 mGycm. Automated Exposure Control for Dose Reduction was Utilized. TECHNIQUE: Multiple contiguous axial CT images of the abdomen and pelvis were obtained from the lung bases through the pubic symphysis with IV Contrast, patient injected with 100 mL of Isovue 300. 2-D s agittal and coronal reformatted images were obtained. FINDINGS: Right basilar airspace opacity. Hepatomegaly with heterogeneous appearance of the liver with innumerable hypoattenuating masses scatt ered throughout. Mild splenomegaly. Bilateral adrenal glands have an unremarkable enhanced appearance . Few scattered calcifications of the pancreatic head which may be sequela of chronic pancreatitis. Gallbladder is present. No definite intrahepatic or extrahepatic biliary ductal dilatation. Kidneys are symmetric in size without hydronephrosis. No renal or ureteral calculi. Urinary bladder a ppears unremarkable. Mild/moderate amount of abdominal ascites. Visualized bowel is of normal caliber without evidence of obstruction. Moderate amount of retained st ool throughout the colon. Mild diffuse mesenteric inflammation limiting evaluation. Appendix is not d istinctly visualized. No free air. Abdominal aorta is of normal caliber with mild burden of scattered atherosclerotic vascular calcifica tions. Redemonstration of enlarged periportal, upper abdominal, and retroperitoneal lymphadenopathy. Subcutaneous soft tissues appear unremarkable. Osseous structures appear intact. IMPRESSION: 1. Mild/moderate amount of abdominal ascites. 2. Moderate amount of stool retained throughout the colon. 3. Redemonstration of hepatomegaly with diffuse innumerable hypoattenuating liver masses. 4. Left basilar airspace opacity which may represent atelectasis or consolidation. 5. Mild splenomegaly.
--- NOTE | 2022-01-24 20:06 | P.PN ---
Subjective Progress Note Date: 01/24/22 Dicussed with primary team, scant blood in stool, increased abdominal distention, and concern of tissue sloughing in bowel movement. CBC has still not resulted, therefore reordered stat Objective - Vital Signs Vital signs: Vital Signs Temp 97.8 F 01/24/22 11:30 Pulse 77 01/24/22 11:30 Resp 19 01/24/22 11:30 BP 96/50 01/24/22 11:30 Pulse Ox 95 01/24/22 11:30 FiO2 Intake & Output 01/24/22 01/24/22 01/25/22 06:59 18:59 06:59 Intake Total 1200 Output Total 1 Balance -1 1200 Intake: Oral 1200 Output: Urine 1 Other: # Voids 3 # Bowel Movements 4 - Exam GENERAL: Patient is well-developed and well-nourished. Patient is nontoxic and well- hydrated and is in mild distress. ENT: Neck is soft and supple. No significant lymphadenopathy is noted. Oropharynx is clear. Moist mucous membranes. Neck has full range of motion without eliciting any pain. EYES: The sclera were anicteric and conjunctiva were pink and moist. Extraocular movements were intact and pupils were equal round and reactive to light. Eyelids were unremarkable. PULMONARY: Unlabored respirations. Good breath sounds bilaterally. No audible rales rhonchi or wheezing was noted. CARDIOVASCULAR: There is a regular rate and rhythm without any murmurs gallops or rubs. ABDOMEN: Abdomen is markedly distended but less tender in lower pelvis SKIN: Skin is clear with no lesions or rashes and otherwise unremarkable. NEUROLOGIC: Patient is alert and oriented x3. MUSCULOSKELETAL: Normal extremities with adequate strength and full range of motion. \ LYMPHATICS: No significant lymphadenopathy is noted PSYCHIATRIC: Normal psychiatric evaluation. - Labs CBC & Chem 7: 01/28/22 07:10 01/28/22 07:10 Labs: Abnormal Lab Results - Last 24 Hours (Table) 01/24/22 01/24/22 Range/Units 06:37 06:37 PT 14.2 H (9.9-11.9) sec INR 1.31 H (0.90-1.11) Sodium 128 L (135-145) mmol/L Carbon Dioxide 15.0 L (20.0-27.5) mmol/L Calcium 8.1 L (8.7-10.3) mg/dL Total Bilirubin 1.70 H (0.30-1.20) mg/dL AST 48 H (14-35) U/L ALT 9 L (10-49) U/L Alkaline Phosphatase 206 H (41-126) U/L Total Protein 5.5 L (6.2-8.2) g/dL Albumin 2.6 L (3.8-4.9) g/dL Albumin/Globulin Ratio 0.90 L (1.60-3.17) g/dL Assessment and Plan (1) Abdominal pain Narrative/Plan: Secondary to c diff Diarrhea now sloughing and blood dicussed with priamry team and addition orders for studies, gen surg placed Status: Acute Priority: High Code(s): R10.9 - UNSPECIFIED ABDOMINAL PAIN SNOMED Code(s): 93511909 (2) Metastases to the liver Narrative/Plan: Unknown primary: Status post cycle one of taxol and carbo on 01/11 Status: Acute Code(s): C78.7 - SECONDARY MALIG NEOPLASM OF LIVER AND INTRAHEPATIC BILE DUCT SNOMED Code(s): 07756849 (3) Clostridium difficile diarrhea Status: Acute Priority: High Code(s): A04.72 - ENTEROCOLITIS D/T CLOSTRIDIUM DIFFICILE, NOT SPCF RECUR SNOMED Code(s): 2468697832186 (4) H/O ETOH abuse Status: Acute Code(s): F10.11 - ALCOHOL ABUSE, IN REMISSION SNOMED Code(s): 192094354 (5) Antineoplastic chemotherapy induced pancytopenia Narrative/Plan: Transfuse platelets less than 10 or if bleeding Hold ASA< NSAIDS Status: Acute Priority: High Code(s): D61.810 - ANTINEOPLASTIC CHEMOTHERAPY INDUCED PANCYTOPENIA; T45.1X5A - ADVERSE EFFECT OF ANTINEOPLASTIC AND IMMUNOSUP DRUGS, INIT SNOMED Code(s): 626215766229116 (6) Coagulopathy Narrative/Plan: MOnitor INR, VItamin K >1.5 Recheck BC and INR now and ordered for AM Status: Acute Priority: High Code(s): D68.9 - COAGULATION DEFECT, UNSPECIFIED SNOMED Code(s): 29949649 Plan: Chest Xray for incrreased SOB and Neutropenia COntinue supportive care Continue Granix Discussed with Monkey Trainer: Advance to liquids and monitor Diarrhea closely. Await for improved WBC, abdominal pain, tolerating PO intake Discussed with primary team regarding anticipated discharge >48 hours. DC Granix \ Stool studies STAT CBC and INR
[2022-01-24 20:31] LABS: Anisocytosis Slight; Basophils # (A) 0.1 k/uL (0-0.2); Basophils % (A) 1 %; Eosinophils % (A) 0 %; HCT 36.3 % (39.0-53.0); HGB 11.3 gm/dL (13.0-17.5); Hypochromasia Slight; Lymphocytes # (A) 0.9 k/uL (1.0-4.8); Lymphocytes % (A) 6 %; MCH 30.1 pg (25.0-35.0); MCV 97.1 fL (80.0-100.0); Mean Platelet Volume 8.7; Monocytes % (A) 7 %; Neutrophils # (A) 12.3 k/uL (1.3-7.7); Neutrophils % (A) 84 %; RBC 3.74 m/uL (4.30-5.90); RDW 16.5 % (11.5-15.5); WBC 14.7 k/uL (3.8-10.6)
[2022-01-24 20:39] LABS: Platelet Count 12 k/uL (150-450)
[2022-01-24 21:15] LABS: INR 1.4 (<1.2); Prothrombin Time 14.2 sec (9.0-12.0)
[2022-01-24] MEDS: ATORVASTATIN 40 MG TAB PO SCH (21:15)
[2022-01-24] MEDS: HYDROcodone/APAP 10-325MG 1 EACH TAB PO PRN (21:18)
[2022-01-25] MEDS: HYDROcodone/APAP 10-325MG 1 EACH TAB PO PRN (04:25)
[2022-01-25] MEDS: ONDANSETRON ODT 4 MG TAB PO PRN (04:25)
--- NOTE | 2022-01-25 07:28 | P.GSCN ---
History of Present Illness Consult date: 01/24/22 History of present illness: Patient resting comfortably. CT reviewed. No acute surgical intervention at this time. Patient with metastatic cancer. Past Medical History Past Medical History: Blood Disorder, Coronary Artery Disease (CAD), Cancer, COPD, GI Bleed, Hyperlipidemia, Hypertension, Osteoarthritis (OA) Additional Past Medical History / Comment(s): 2017 L lung cancer with surgery, recently found to have metastatic cancer to liver, bone and esophagus per pt, pt states he had his first chemotherapy treatment on 01/11/22, past bowel obstruction/perforation with surgery, lower GI bleed, IBS, chron's, large ventral hernia, chronic low back pain, past ETOH abuse, pancreatitis. History of Any Multi-Drug Resistant Organisms: None Reported Year Discovered:: 01/17/22 MDRO Source:: stool Past Surgical History: Back Surgery, Bowel Resection, Heart Catheterization, Orthopedic Surgery, Tonsillectomy Additional Past Surgical History / Comment(s): 01/06/22 EGD, 12/02/21 liver biopsy, 06/2018 left thoracotomy with wedge resection upper lobe and lymph node dissection, colonoscopy, bowel resection due to perforation, fractured bilateral little fingers - pins placed and later removed. Past Anesthesia/Blood Transfusion Reactions: No Reported Reaction Smoking Status: Former smoker - Past Family History Father Family Medical History: Cancer Additional Family Medical History / Comment(s): Lung cancer. Daughter(s) Family Medical History: Cancer Additional Family Medical History / Comment(s): Breast cancer. Medications and Allergies Home Medications Medication Instructions Recorded Confirmed Type Atorvastatin [Lipitor] 40 mg PO HS 06/29/18 01/13/22 History Metoprolol Tartrate [Lopressor] 25 mg PO BID 06/27/20 01/13/22 History HYDROcodone/APAP 10-325MG [Accident 1 tab PO Q4HR PRN 01/04/22 01/13/22 History 10-325] Nicotine 21Mg/24Hr Patch [Habitrol] 1 patch TRANSDERM DAILY PRN 01/13/22 01/13/22 History OLANZapine 5 mg PO DIRECTED PRN 01/13/22 01/13/22 History Omeprazole 40 mg PO DAILY 01/13/22 01/13/22 History Ondansetron Odt [Zofran Odt] 4 mg PO Q4H PRN 01/13/22 01/13/22 History Sennosides-Docusate Sodium 2 tab PO BID 01/13/22 01/13/22 History [Senokot-S] fentaNYL 50MCG/HR PATCH [Duragesic 1 patch TRANSDERM Q72H 01/13/22 01/13/22 History 50MCG/HR] Allergies Allergy/AdvReac Type Severity Reaction Status Date / Time Sulfa (Sulfonamide Allergy Unknown Verified 01/13/22 21:35 Antibiotics) morphine AdvReac Ineffective Verified 01/13/22 21:35 Surgical - Exam Vital Signs Temp Pulse Resp BP Pulse Ox 98.5 F 85 18 115/74 97 01/13/22 18:09 01/13/22 18:09 01/13/22 18:09 01/13/22 18:09 01/13/22 18:09 Results - Labs 01/24/22 20:13 01/24/22 06:37 Abnormal Lab Results - Last 24 Hours (Table) 01/24/22 01/24/22 01/24/22 Range/Units 06:37 06:37 20:13 WBC 14.7 H (3.8-10.6) k/uL RBC 3.74 L (4.30-5.90) m/uL Hgb 11.3 L (13.0-17.5) gm/dL Hct 36.3 L (39.0-53.0) % RDW 16.5 H (11.5-15.5) % Plt Count 12 L* (150-450) k/uL Neutrophils # 12.3 H (1.3-7.7) k/uL Lymphocytes # 0.9 L (1.0-4.8) k/uL PT 14.2 H (9.9-11.9) sec INR 1.31 H (0.90-1.11) Sodium 128 L (135-145) mmol/L Carbon Dioxide 15.0 L (20.0-27.5) mmol/L Calcium 8.1 L (8.7-10.3) mg/dL Total Bilirubin 1.70 H (0.30-1.20) mg/dL AST 48 H (14-35) U/L ALT 9 L (10-49) U/L Alkaline Phosphatase 206 H (41-126) U/L Total Protein 5.5 L (6.2-8.2) g/dL Albumin 2.6 L (3.8-4.9) g/dL Albumin/Globulin Ratio 0.90 L (1.60-3.17) g/dL 01/24/22 Range/Units 20:13 WBC (3.8-10.6) k/uL RBC (4.30-5.90) m/uL Hgb (13.0-17.5) gm/dL Hct (39.0-53.0) % RDW (11.5-15.5) % Plt Count (150-450) k/uL Neutrophils # (1.3-7.7) k/uL Lymphocytes # (1.0-4.8) k/uL PT 14.2 H (9.9-11.9) sec INR 1.4 H (0.90-1.11) Sodium (135-145) mmol/L Carbon Dioxide (20.0-27.5) mmol/L Calcium (8.7-10.3) mg/dL Total Bilirubin (0.30-1.20) mg/dL AST (14-35) U/L ALT (10-49) U/L Alkaline Phosphatase (41-126) U/L Total Protein (6.2-8.2) g/dL Albumin (3.8-4.9) g/dL Albumin/Globulin Ratio (1.60-3.17) g/dL Diabetes panel 01/24/22 Range/Units 06:37 Sodium 128 L (135-145) mmol/L Potassium 3.5 (3.5-5.5) mmol/L Chloride 100 (96-109) mmol/L Carbon Dioxide 15.0 L (20.0-27.5) mmol/L BUN 22.0 (9.0-27.0) mg/dL Creatinine 1.1 (0.6-1.5) mg/dL Glucose 89 (70-110) mg/dL Calcium 8.1 L (8.7-10.3) mg/dL AST 48 H (14-35) U/L ALT 9 L (10-49) U/L Alkaline Phosphatase 206 H (41-126) U/L Total Protein 5.5 L (6.2-8.2) g/dL Albumin 2.6 L (3.8-4.9) g/dL Calcium panel 01/24/22 Range/Units 06:37 Calcium 8.1 L (8.7-10.3) mg/dL Albumin 2.6 L (3.8-4.9) g/dL Pituitary panel 01/24/22 Range/Units 06:37 Sodium 128 L (135-145) mmol/L Potassium 3.5 (3.5-5.5) mmol/L Chloride 100 (96-109) mmol/L Carbon Dioxide 15.0 L (20.0-27.5) mmol/L BUN 22.0 (9.0-27.0) mg/dL Creatinine 1.1 (0.6-1.5) mg/dL Glucose 89 (70-110) mg/dL Calcium 8.1 L (8.7-10.3) mg/dL Adrenal panel 01/24/22 Range/Units 06:37 Sodium 128 L (135-145) mmol/L Potassium 3.5 (3.5-5.5) mmol/L Chloride 100 (96-109) mmol/L Carbon Dioxide 15.0 L (20.0-27.5) mmol/L BUN 22.0 (9.0-27.0) mg/dL Creatinine 1.1 (0.6-1.5) mg/dL Glucose 89 (70-110) mg/dL Calcium 8.1 L (8.7-10.3) mg/dL Total Bilirubin 1.70 H (0.30-1.20) mg/dL AST 48 H (14-35) U/L ALT 9 L (10-49) U/L Alkaline Phosphatase 206 H (41-126) U/L Total Protein 5.5 L (6.2-8.2) g/dL Albumin 2.6 L (3.8-4.9) g/dL
[2022-01-25] MEDS: SENNOSIDES-DOCUSATE SODIUM 1 EACH TAB PO SCH ×2 (08:47→21:02)
[2022-01-25] MEDS: VANCOMYCIN ORAL SOLUTION 250 MG/5 ML BOTTLE PO SCH ×4 (08:50→21:01)
[2022-01-25] MEDS: METOPROLOL TARTRATE 25 MG TAB PO SCH ×2 (08:51→21:01)
[2022-01-25] MEDS: PANTOPRAZOLE 40 MG TABLET PO SCH (08:51)
[2022-01-25 10:55] LABS: African American GFR (CKD) 69.2 (60.0-200.0); Albumin 2.6 g/dL (3.8-4.9); Albumin/Globulin Ratio 0.96 (1.60-3.17); Anion Gap 12.3 mmol/L (10.00-18.00); BUN/Creat Ratio 16.62 Ratio (12.00-20.00); Blood Urea Nitrogen 21.6 mg/dL (9.0-27.0); Calcium 7.8 mg/dL (8.7-10.3); Carbon Dioxide 15.7 mmol/L (20.0-27.5); Globulin 2.7 g/dL (1.6-3.3); Non-African American GFR(CKD) 59.7 (60.0-200.0); Potassium 3.4 mmol/L (3.5-5.5); Total Bilirubin 1.7 mg/dL (0.30-1.20); Total Protein 5.3 g/dL (6.2-8.2)
[2022-01-25 10:57] LABS: HCT 28.7 % (39.6-50.0); HGB 9.5 g/dL (13.0-17.0); MCH 29.9 pg (27.0-32.0); MCHC 33.1 g/dL (32.0-37.0); MCV 90.3 fL (80.0-97.0); NRBC Per 100 WBC 0 /100 WBCS (0.0-0.0); Platelet Count 12 X 10*3/uL (140-440); RBC 3.18 X 10*6/uL (4.40-5.60); RDW 17.2 % (11.5-14.5); WBC 11.86 X 10*3/uL (4.50-10.00)
[2022-01-25 11:03] LABS: Basophils # (A) 0.04 X 10*3/uL (0.00-0.10); Basophils % (A) 0.3 %; Eosinophils # (A) 0 X 10*3/uL (0.04-0.35); Eosinophils % (A) 0 %; Immature Grans, Automated 2.4 %; Lymphocytes # (A) 0.87 X 10*3/uL (0.90-5.00); Lymphocytes % (A) 7.3 %; Monocytes # (A) 1.53 X 10*3/uL (0.20-1.00); Monocytes % (A) 12.9 %; Neutrophils # (A) 9.13 X 10*3/uL (1.80-7.70); Neutrophils % (A) 77.1 %
[2022-01-25 11:04] LABS: Immature Platelet Fraction 13.7 % (1.1-6.1); RBC Morphology NORMAL
[2022-01-25 11:14] LABS: INR 1.36 (0.90-1.11); Prothrombin Time 14.7 sec (9.9-11.9)
--- NOTE | 2022-01-25 12:41 | P.PN ---
Subjective Progress Note Date: 01/25/22 CHIEF COMPLAINT: Abdominal pain HISTORY OF PRESENT ILLNESS: Patient with known history of lung cancer and possible primary esophageal cancer with metastases to the liver, lymph nodes and sternum. Patient continues to have abdominal distention. He also was found to have C. diff colitis. Surgical consult placed for possible rectal bleeding/tissue noted in stool with rectal sloughing. Patient denies any blood in his stools. He reports that his stools are becoming more formed. He reports a decrease in abdominal pain since admission. Denies any difficulty with swallowing. Computed tomography scan abdomen and pelvis mild to moderate amount of abdominal ascites. Moderate amount of stool retained throughout the colon. Redemonstration of hepatomegaly with diffuse N oh continue waiting liver masses. Left basilar airspace opacity which may represent atelectasis or consolidation. Mild splenomegaly. Afebrile. WBC is down from 14.7-11.6 hemoglobin is down from 11.3-9.5 platelets are 12 INR 1.36 sodium 128 potassium 3.4 creatinine 1.3 stool for occult blood positive Patient seen and examined with Dr. bobo PHYSICAL EXAM: VITAL SIGNS: Reviewed. GENERAL: Well-developed in no acute distress. HEENT: No sclera icterus. Extraocular movements grossly intact. Moist buccal mucosa. Head is atraumatic, normocephalic. ABDOMEN: Distended. Ventral hernia reducible. NEUROLOGIC: Alert and oriented. Cranial nerves II through XII grossly intact. ASSESSMENT: 1. Abdominal distention 2. C. diff colitis 3. History of lung cancer 4. Esophageal cancer PLAN: -Patient currently denying any blood in the stools. Stools are becoming more formed. -Continue to observe -Continue to monitor hemoglobin -Continue supportive care Physician Public Relations Senior Associate note has been reviewed by physician. Signing provider agrees with the documented findings, assessment, and plan of care. Objective - Vital Signs Vital signs: Vital Signs Temp 97 F L 01/25/22 04:21 Pulse 94 01/25/22 04:21 Resp 20 01/25/22 04:21 BP 95/59 01/25/22 04:21 Pulse Ox 97 01/25/22 04:21 FiO2 Intake & Output 01/24/22 01/25/22 01/25/22 18:59 06:59 18:59 Intake Total 1200 100 Output Total 2 Balance 1200 98 Intake: Oral 1200 100 Output: Stool 2 Other: Voiding Method Bedside Commode Bedside Commode Urinal Urinal # Voids 3 2 # Bowel Movements 4 1 1 - Labs CBC & Chem 7: 01/25/22 07:14 01/25/22 07:14 Labs: Abnormal Lab Results - Last 24 Hours (Table) 01/24/22 01/24/22 01/25/22 Range/Units 20:13 20:13 07:14 WBC 14.7 H 11.86 H (3.8-10.6) k/uL RBC 3.74 L 3.18 L (4.30-5.90) m/uL Hgb 11.3 L 9.5 L (13.0-17.5) gm/dL Hct 36.3 L 28.7 L (39.0-53.0) % RDW 16.5 H 17.2 H (11.5-15.5) % Plt Count 12 L* 12 L* (150-450) k/uL Plt Count Comment A Immature Gran # 0.29 H (0.00-0.04) X 10*3/uL Neutrophils # 12.3 H 9.13 H (1.3-7.7) k/uL Lymphocytes # 0.9 L 0.87 L (1.0-4.8) k/uL Monocytes # 1.53 H (0.20-1.00) X 10*3/uL Eosinophils # 0 L (0.04-0.35) X 10*3/uL Immature Plt Fraction 13.7 H (1.1-6.1) % PT 14.2 H (9.0-12.0) sec INR 1.4 H (<1.2) Sodium (135-145) mmol/L Potassium (3.5-5.5) mmol/L Carbon Dioxide (20.0-27.5) mmol/L Est GFR (CKD-EPI)NonAf (60.0-200.0) Calcium (8.7-10.3) mg/dL Total Bilirubin (0.30-1.20) mg/dL AST (14-35) U/L ALT (10-49) U/L Alkaline Phosphatase (41-126) U/L Total Protein (6.2-8.2) g/dL Albumin (3.8-4.9) g/dL Albumin/Globulin Ratio (1.60-3.17) g/dL 01/25/22 01/25/22 Range/Units 07:14 07:14 WBC (3.8-10.6) k/uL RBC (4.30-5.90) m/uL Hgb (13.0-17.5) gm/dL Hct (39.0-53.0) % RDW (11.5-15.5) % Plt Count (150-450) k/uL Plt Count Comment Immature Gran # (0.00-0.04) X 10*3/uL Neutrophils # (1.3-7.7) k/uL Lymphocytes # (1.0-4.8) k/uL Monocytes # (0.20-1.00) X 10*3/uL Eosinophils # (0.04-0.35) X 10*3/uL Immature Plt Fraction (1.1-6.1) % PT 14.7 H (9.0-12.0) sec INR 1.36 H (<1.2) Sodium 128 L (135-145) mmol/L Potassium 3.4 L (3.5-5.5) mmol/L Carbon Dioxide 15.7 L (20.0-27.5) mmol/L Est GFR (CKD-EPI)NonAf 59.7 L (60.0-200.0) Calcium 7.8 L (8.7-10.3) mg/dL Total Bilirubin 1.70 H (0.30-1.20) mg/dL AST 45 H (14-35) U/L ALT 9 L (10-49) U/L Alkaline Phosphatase 196 H (41-126) U/L Total Protein 5.3 L (6.2-8.2) g/dL Albumin 2.6 L (3.8-4.9) g/dL Albumin/Globulin Ratio 0.96 L (1.60-3.17) g/dL Microbiology - Last 24 Hours (Table) 01/24/22 13:45 Stool Culture - Preliminary Stool
[2022-01-25] MEDS: CHOLESTYRAMINE (WITH SUGAR) 4 GM PACKET PO SCH ×2 (13:27→17:50)
--- NOTE | 2022-01-25 14:06 | US ---
EXAMINATION TYPE: US abdomen limited DATE OF EXAM: 01/25/2022 COMPARISON: CT abdomen and pelvis from yesterday CLINICAL HISTORY: Moderate ascites noted on CT. Swelling and pain. Hepatomegaly with small to moderate amount of free fluid greatest in the right lower quadrant on ultr asound images saved. IMPRESSION: As above.
[2022-01-25 15:13] LABS: Cryptosporidium Antigen Negative (Negative)
--- NOTE | 2022-01-25 15:23 | P.PN ---
Subjective Progress Note Date: 01/25/22 Patient continues to have generalized weakness. No fever or chills. He states that he feels hungry and wants to advance his diet. He continues to have abdominal distention with some exacerbation on eating. Stools are improving in terms of consistency, although slowly. He did have some soft tissue sloughing versus blood in the stool, which appears to have mostly resolved. Objective - Vital Signs Vital signs: Vital Signs Temp 97.9 F 01/25/22 12:36 Pulse 73 01/25/22 12:36 Resp 15 01/25/22 12:36 BP 96/61 01/25/22 12:36 Pulse Ox 97 01/25/22 12:36 FiO2 Intake & Output 01/24/22 01/25/22 01/25/22 18:59 06:59 18:59 Intake Total 1200 100 Output Total 2 Balance 1200 98 Weight 68.946 kg Intake: Oral 1200 100 Output: Stool 2 Other: Voiding Method Bedside Commode Bedside Commode Urinal Urinal # Voids 3 2 # Bowel Movements 4 1 1 - Constitutional General appearance: Present: no acute distress - EENT Eyes: Present: EOMI ENT: Present: hearing grossly normal, normal oropharynx - Respiratory Respiratory: bilateral: CTA - Cardiovascular Rhythm: regular Heart sounds: normal: S1, S2 - Gastrointestinal General gastrointestinal: Present: distended, normal bowel sounds, ventral hernia - Integumentary Integumentary: Present: normal - Neurologic Neurologic: Present: CNII-XII intact - Musculoskeletal Musculoskeletal: Present: generalized weakness, strength equal bilaterally - Psychiatric Psychiatric: Present: A&O x's 3, appropriate affect - Labs CBC & Chem 7: 01/25/22 07:14 01/25/22 07:14 Labs: Abnormal Lab Results - Last 24 Hours (Table) 01/24/22 01/24/22 01/24/22 Range/Units 13:45 20:13 20:13 WBC 14.7 H (3.8-10.6) k/uL RBC 3.74 L (4.30-5.90) m/uL Hgb 11.3 L (13.0-17.5) gm/dL Hct 36.3 L (39.0-53.0) % RDW 16.5 H (11.5-15.5) % Plt Count 12 L* (150-450) k/uL Plt Count Comment Immature Gran # (0.00-0.04) X 10*3/uL Neutrophils # 12.3 H (1.3-7.7) k/uL Lymphocytes # 0.9 L (1.0-4.8) k/uL Monocytes # (0.20-1.00) X 10*3/uL Eosinophils # (0.04-0.35) X 10*3/uL Immature Plt Fraction (1.1-6.1) % PT 14.2 H (9.0-12.0) sec INR 1.4 H (<1.2) Sodium (135-145) mmol/L Potassium (3.5-5.5) mmol/L Carbon Dioxide (20.0-27.5) mmol/L Est GFR (CKD-EPI)NonAf (60.0-200.0) Calcium (8.7-10.3) mg/dL Total Bilirubin (0.30-1.20) mg/dL AST (14-35) U/L ALT (10-49) U/L Alkaline Phosphatase (41-126) U/L Total Protein (6.2-8.2) g/dL Albumin (3.8-4.9) g/dL Albumin/Globulin Ratio (1.60-3.17) g/dL Stool Lactoferrin POSITIVE A (NEGATIVE) 01/25/22 01/25/22 01/25/22 Range/Units 07:14 07:14 07:14 WBC 11.86 H (3.8-10.6) k/uL RBC 3.18 L (4.30-5.90) m/uL Hgb 9.5 L (13.0-17.5) gm/dL Hct 28.7 L (39.0-53.0) % RDW 17.2 H (11.5-15.5) % Plt Count 12 L* (150-450) k/uL Plt Count Comment A Immature Gran # 0.29 H (0.00-0.04) X 10*3/uL Neutrophils # 9.13 H (1.3-7.7) k/uL Lymphocytes # 0.87 L (1.0-4.8) k/uL Monocytes # 1.53 H (0.20-1.00) X 10*3/uL Eosinophils # 0 L (0.04-0.35) X 10*3/uL Immature Plt Fraction 13.7 H (1.1-6.1) % PT 14.7 H (9.0-12.0) sec INR 1.36 H (<1.2) Sodium 128 L (135-145) mmol/L Potassium 3.4 L (3.5-5.5) mmol/L Carbon Dioxide 15.7 L (20.0-27.5) mmol/L Est GFR (CKD-EPI)NonAf 59.7 L (60.0-200.0) Calcium 7.8 L (8.7-10.3) mg/dL Total Bilirubin 1.70 H (0.30-1.20) mg/dL AST 45 H (14-35) U/L ALT 9 L (10-49) U/L Alkaline Phosphatase 196 H (41-126) U/L Total Protein 5.3 L (6.2-8.2) g/dL Albumin 2.6 L (3.8-4.9) g/dL Albumin/Globulin Ratio 0.96 L (1.60-3.17) g/dL Stool Lactoferrin (NEGATIVE) Microbiology - Last 24 Hours (Table) 01/24/22 13:45 Stool Culture - Preliminary Stool Assessment and Plan (1) Antineoplastic chemotherapy induced pancytopenia Narrative/Plan: The patient remains afebrile. WBC has recovered. Filgrastim will discontinued. Hemoglobin and platelets continued to be low, but higher than the threshold for transfusion. Continue to monitor and transfuse to keep hemoglobin greater than 7, and platelets greater than 10 as long as there is no active bleeding. Current Visit: Yes Status: Acute Priority: High Code(s): D61.810 - ANTINEOPLASTIC CHEMOTHERAPY INDUCED PANCYTOPENIA; T45.1X5A - ADVERSE EFFECT OF ANTINEOPLASTIC AND IMMUNOSUP DRUGS, INIT SNOMED Code(s): 774204107230530 (2) Clostridium difficile diarrhea Narrative/Plan: Watery diarrhea has resolved. Stools are still loose but consistently more formed though the improvement is slow. He is continuing on treatment per ID. Case was discussed with them. It was discussed with the patient that resumption of chemotherapy carry significant risk of reactivation of C. difficile. Therefore measures to reduce that risk as much as possible, including courses of suppressive vancomycin with each chemotherapy, as well as that changes were discussed with ID will make more definitive recommendations closer to discharge. 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 They confirmed that on comparison this appeared to be consistent with the metastatic lesions found in the liver. Therefore the patient appears to have a new esophageal primary with metastases to the liver. His current regimen is quite appropriate for that. It was again discussed that he has stage IV disease which is not curable and the intent of treatment is palliative. The patient will resume systemic therapy as an outpatient, once acute problems have sufficiently resolved, assuming performance status is sufficient Current Visit: Yes Status: Acute Code(s): C15.9 - MALIGNANT NEOPLASM OF ESOPHAGUS, UNSPECIFIED SNOMED Code(s): 467247229
--- NOTE | 2022-01-25 19:27 | P.PN ---
Subjective Progress Note Date: 01/25/22 Patient is a very pleasant 61-year-old male that presented to the emergency room with abdominal pain and shortness of breath. Patient has a pertinent medical history of lung cancer with lobectomy in 2018, recent upper scope biopsy suggests possible primary esophageal cancer with metastasis to liver, lymph nodes and sternum. Other medical history includes bowel resection due to perforation, irritable bowel syndrome, Crohn's, hernia, COPD, hyperlipidemia, hypertension, OA, pancreatitis. Patient had chronic alcohol abuse, has been sober since August of this year, also quit smoking last admission. He has been following with oncology and began chemo treatment this week, first dose was Monday. He reported feeling well up until yesterday night when abdominal distention progressed causing severe pain not controlled by current pain management regimen. White blood cell count was 11.3, lactic acid was 4.4 alkaline phosphatase was elevated at 309. Chest x-ray found right basilar atelectasis without acute pulmonary process. Abdominal CT found large stool burden, increase in splenomegaly, small amount of fluid layering in the pelvis and around liver, and multiple hepatic metastatic lesions and intra-abdominal lymphadenopathy. Patient was given Rocephin and saline with improvement of lact ic acid is down to 1.9 today. Pain medication was reordered, patient reports improvement of pain with fentanyl patch and [place]. Patient also reported some relief of pain with bowel movement. Oncology was consulted. Hospitalist coverage 01/15/22-01/17/22 01/18/2022 Patient was seen and evaluated at bedside. Patient was up on the bedside commode, states he is feeling much better but is still having multiple loose stools. He wants to have a meeting to discuss prognosis and direction of care. Will discuss with oncology. WBC was 0.26, platelets 25, hemoglobin 10.4, filgrastim ordered. 01/19/2022 Patient was seen and assessed at bedside. Patient was resting comfortably in bed. Reports pain medication feeling too strong and having trouble concentrating. Fentanyl was decreased to 50mg, PRN norco also ordered. States he is willing to continue cancer treatment at this time. Infectious disease a djusted antibiotic regimen. Lab work results are pending. 01/20/2022 Patient is seen today and continues with loose stool and abdominal pain and cramping. Pain management per oncology. CXR also ordered for shortness of breath. ID following for cdiff and continued on oral vanco. Patient is being ad vanced to clear liquids and recommend close monitoring of tolerance. Recommend repeat labs. Patient denies chest pain or palpitations. Patient is afebrile. Platelets 11 today. WBC improved. 01/21/2022 Patient is seen in follow up today and continues with some abdominal discomfort and is maintained on clear liquids per oncology and will slowly advance as tolerated and while closely monitoring labs. Patient is afebrile and has occasional cough and some shortness of breath with a history of COPD and will add breathing treatments as needed. Encouraged increased activity as tolerated. Patient is continued on oral vanco and questran. No reports of chest pain 01/22/2022 Patient seen today and wbc is up to 8.8 and ok to dc graftin per oncology and reports to less abdominal pain and tolerating clear liquids. Patient denies shortness of breath and encouraged coughing and deep breathing. IS ordered and encouraged use. D-dimer ordered and pending. Continued on oral vanco with ID following. Patient is afebrile and denies nausea or vomiting. Patient denies chest pain. Per nursing staff less loose stools. 01/23/2022 Patient seen in follow up and d-dimer was elevated at 6.[address] chest to rule out PE. Hematology/oncology following and will need to discuss with them further if ct is positive as patient has severe thrombocytopenia. Will add scd's for now. Sodium remains 128. Patient is afebrile and denies chest pain or shortness of breath. Patient continues on oral vanco for c diff. 01/24/2022 Patient is seen in follow-up this morning continues with abdominal distention and also continues with frequent diarrhea and patient had been reporting no blood in the stool although personally visualized the fecal matter and there is flex of blood noted along with large trunks and sloughing that appears to be rectal tissue and will send for multiple cultures and also discussed with oncology and will consult general surgery and appreciate input and recommendations. Patient is afebrile and currently maintained on oral Vanco for C. diff and also clear liquids and tolerating the patient continues with abdominal distention. Will order CT abdomen pelvis with contrast and await report. No CBC available as of yet as patient has pancytopenia and thrombocytopenia and is mildly regula apathy with an INR of 1.31. Patient did have elevated d-dimer yesterday and underwent PE study with no evidence of PE on CTA. Patient continues with hyponatremia and poor oral intake and maintained on clears, potassium is 3.5, creatinine is 1.1, bili is 1.7. Overall prognosis remains guarded. 01/25/2022 Patient is seen today and currently sitting at the side of the bed and having so me bleeding noted of the IV site. Patient continues with loose stool although becoming more formed. Patient is maintained on oral vanco with ID following for cdiff. Oncology follow as well for metastatic cancer. Patient also continues with abdominal distention and CT abdomen shows moderate size of ascites. IR consult placed and patient to receive platelets as his today is 12 and will most likely require platelet transfusion during paracentesis. This is for palliative relief of distention. Patient is afebrile and denies chest pain or shortness of breath. Patient with significant weakness and prolonged hospitalization, will consult PT/OT. Review of systems: Constitutional: No reports of fatigue, fever, or chills Cardiovascular: No reports of chest pain or palpitations Respiratory: reports of occasional shortness of breath or cough GI: no reports of nausea, no reports of of vomiting, reports continued loose stools although less frequent, reports of abdominal fullness : No reports of dysuria or retention Neurovascular: reports of generalized weakness All medications have been reviewed Active Medications Hydrocodone Bitart/Acetaminophen (Hydrocodone/Apap 10-325mg 1 Each Tab) 1 each PO Q4HR PRN PRN Reason: Pain Last Admin: 01/25/22 04:25 Dose: 1 each Albuterol/Ipratropium (Ipratropium-Albuterol 3 Ml Neb) 3 ml INHALATION RT-TID PRN PRN Reason: Shortness Of Breath Or Wheezing Last Admin: 01/24/22 09:15 Dose: 3 ml Atorvastatin Calcium (Atorvastatin 40 Mg Tab) 40 mg PO HS [facility] Last Admin: 01/24/22 21:15 Dose: 40 mg Cholestyramine Resin (Cholestyramine (With Sugar) 4 Gm Packet) 4 gm PO BID@1000,1800 [facility] Last Admin: 01/25/22 17:50 Dose: 4 gm Fentanyl (Fentanyl 50mcg/Hr Patch) 1 patch TRANSDERM Q72H [facility]; Protocol Last Admin: 01/25/22 13:27 Dose: 1 patch Metoprolol Tartrate (Metoprolol Tartrate 25 Mg Tab) 25 mg PO BID [facility] Last Admin: 01/25/22 08:51 Dose: 25 mg Ondansetron HCl (Ondansetron Odt 4 Mg Tab) 4 mg PO Q4H PRN PRN Reason: Nausea Last Admin: 01/25/22 04:25 Dose: 4 mg Pantoprazole Sodium (Pantoprazole 40 Mg Tablet) 40 mg PO DAILY@0730 [facility] Last Admin: 01/25/22 08:51 Dose: 40 mg Senna/Docusate Sodium (Sennosides-Docusate Sodium 1 Each Tab) 2 each PO BID [facility] Last Admin: 01/25/22 08:47 Dose: Not Given Vancomycin HCl (Vancomycin Oral Solution 250 Mg/5 Ml Bottle) 125 mg PO QID [facility]; Protocol Last Admin: 01/25/22 17:50 Dose: 125 mg PHYSICAL EXAMINATION: GENERAL: The patient is alert and oriented x3, thin built, emaciated HEENT: Pupils are round and equally reacting to light. EOMI. no scleral icterus. No conjunctival pallor. Normocephalic, atraumatic. No pharyngeal erythema. No thyromegaly. CARDIOVASCULAR: S1 and S2 muffled PULMONARY: diminished breath sounds bilaterally with no wheezing or rhonchi noted. ABDOMEN: taut. non tender on exam. Extremely distended, normoactive bowel sounds. No palpable organomegaly. MUSCULOSKELETAL: No joint swelling or deformity. EXTREMITIES: No cyanosis, clubbing, generalized lower extremity edema with 1-2 + pitting NEUROLOGICAL: Gross neurological examination did not reveal any focal deficits. Diffuse weakness SKIN: No rashes. Assessment: Abdominal pain, secondary to malignancy Acute C. difficile colitis Pancytopenia secondary to chemo treatment elevated d dimer with no evidence of PE on CTA abdominal ascites Recurrent lung cancer versus esophageal cancer with metastasis to liver, bone, and lymph nodes, awaiting further studies Large ventral hernia COPD without exacerbation Thrombocytopenia Hypertension Hyperlipidemia History of bowel perforation and resection History of alcohol abuse History of Crohn's and pancreatitis No code Plan: Patient reports less abdominal pain and continued loose stools although less frequent, Continue with vanco and questran, consult to general surgery placed and no plans for surgical intervention at this time. moderate abdominal ascites noted on CT and will consult IR for possible palliative paracentesis. Platelets are low at 12 and will likely need a transfusion during procedure. Recommend breathing treatments as needed and coughing and deep breathing, IS ordered. D-dimer was elevated and CT was negative for PE ID following for CDiff, antibiotic in the form of oral vanco oncology following and appreciate recommendations for cancer and pancytopenia treatment Continue to monitor labs and vital signs Further recommendations to come based on patients clinical course Encouraged increased activity as tolerated SCD's for now Prognosis is extremely poor and guarded The impression and plan of care has been dictated by Gretel Saravia, nurse practitioner as directed. Dr. Juan MD I have performed a history and examination and MDM of this patient, discussed the same with the dictator, and agree with the dictator's assessment and plan as written ,documented as a scribe. Based on total visit time, I have performed more than 50% of the visit. Any additional findings or plans will be noted. Objective - Vital Signs Vital signs: Vital Signs Temp 97 F L 01/25/22 04:21 Pulse 94 01/25/22 04:21 Resp 20 01/25/22 04:21 BP 95/59 01/25/22 04:21 Pulse Ox 97 01/25/22 04:21 FiO2 Intake & Output 01/24/22 01/25/22 01/25/22 18:59 06:59 18:59 Intake Total 1200 100 Output Total 2 Balance 1200 98 Intake: Oral 1200 100 Output: Stool 2 Other: Voiding Method Bedside Commode Bedside Commode Urinal Urinal # Voids 3 2 # Bowel Movements 4 1 1 - Labs CBC & Chem 7: 01/25/22 07:14 01/25/22 07:14 Labs: Abnormal Lab Results - Last 24 Hours (Table) 01/24/22 01/24/22 01/24/22 Range/Units 06:37 06:37 20:13 WBC 14.7 H (3.8-10.6) k/uL RBC 3.74 L (4.30-5.90) m/uL Hgb 11.3 L (13.0-17.5) gm/dL Hct 36.3 L (39.0-53.0) % RDW 16.5 H (11.5-15.5) % Plt Count 12 L* (150-450) k/uL Neutrophils # 12.3 H (1.3-7.7) k/uL Lymphocytes # 0.9 L (1.0-4.8) k/uL PT 14.2 H (9.9-11.9) sec INR 1.31 H (0.90-1.11) Sodium 128 L (135-145) mmol/L Carbon Dioxide 15.0 L (20.0-27.5) mmol/L Calcium 8.1 L (8.7-10.3) mg/dL Total Bilirubin 1.70 H (0.30-1.20) mg/dL AST 48 H (14-35) U/L ALT 9 L (10-49) U/L Alkaline Phosphatase 206 H (41-126) U/L Total Protein 5.5 L (6.2-8.2) g/dL Albumin 2.6 L (3.8-4.9) g/dL Albumin/Globulin Ratio 0.90 L (1.60-3.17) g/dL 01/24/22 Range/Units 20:13 WBC (3.8-10.6) k/uL RBC (4.30-5.90) m/uL Hgb (13.0-17.5) gm/dL Hct (39.0-53.0) % RDW (11.5-15.5) % Plt Count (150-450) k/uL Neutrophils # (1.3-7.7) k/uL Lymphocytes # (1.0-4.8) k/uL PT 14.2 H (9.9-11.9) sec INR 1.4 H (0.90-1.11) Sodium (135-145) mmol/L Carbon Dioxide (20.0-27.5) mmol/L Calcium (8.7-10.3) mg/dL Total Bilirubin (0.30-1.20) mg/dL AST (14-35) U/L ALT (10-49) U/L Alkaline Phosphatase (41-126) U/L Total Protein (6.2-8.2) g/dL Albumin (3.8-4.9) g/dL Albumin/Globulin Ratio (1.60-3.17) g/dL
[2022-01-25] MEDS: ATORVASTATIN 40 MG TAB PO SCH (21:01)
[2022-01-26] MEDS: HYDROcodone/APAP 10-325MG 1 EACH TAB PO PRN (03:51)
[2022-01-26 06:49] LABS: INR 1.4 (<1.2); Partial Thromboplastin Time 33.5 sec (22.0-30.0); Prothrombin Time 14.1 sec (9.0-12.0)
--- NOTE | 2022-01-26 08:12 | P.PN ---
Subjective Progress Note Date: 01/23/22 Principal diagnosis: C. diff colitis Patient is a 61 year old male with a past medical history significant for COPD pancreatitis metastatic esophageal cancer on chemotherapy present the hospital with abdominal distention and diarrhea has been diagnosed with C. diff colitis. On today's evaluation that is 01/23/2022, the patient remains to be afebrile, patient denies any chest pain shortness of breath or cough, patient abdominal discomfort has decreased intensity is complaining of distention and diarrhea has slowed down Objective - Vital Signs Vital signs: Vital Signs Temp 98.1 F 01/23/22 14:16 Pulse 89 01/23/22 14:16 Resp 18 01/23/22 14:16 BP 102/54 01/23/22 14:16 Pulse Ox 95 01/23/22 14:16 FiO2 Intake & Output 01/22/22 01/23/22 01/23/22 18:59 06:59 18:59 Intake Total 543 Output Total 1 Balance 542 Intake: IV 240 ns@20 240 Blood Product 303 Platelet Pheresis Pas 303 Psoralen Unit [id number] Output: Emesis 1 Other: Voiding Method Bedside Commode Urinal # Voids 1 - Exam GENERAL DESCRIPTION: An middle-aged male lying in bed in no distress RESPIRATORY SYSTEM: Unlabored breathing , decreased breath sounds at bases HEART: S1 S2 regular rate and rhythm , ABDOMEN: Soft , no tenderness EXTREMITIES: No edema feet - Labs CBC & Chem 7: 01/25/22 07:14 01/25/22 07:14 Labs: Abnormal Lab Results - Last 24 Hours (Table) 01/22/22 01/23/22 01/23/22 Range/Units 14:57 05:59 05:59 WBC 14.70 H (4.50-10.00) X 10*3/uL RBC 3.29 L (4.40-5.60) X 10*6/uL Hgb 9.9 L (13.0-17.0) g/dL Hct 30.1 L (39.6-50.0) % RDW 17.6 H (11.5-14.5) % Plt Count 16 L* (140-440) X 10*3/uL Plt Count Comment A Immature Gran # 0.59 H (0.00-0.04) X 10*3/uL Neutrophils # 11.51 H (1.80-7.70) X 10*3/uL Lymphocytes # 0.81 L (0.90-5.00) X 10*3/uL Monocytes # 1.69 H (0.20-1.00) X 10*3/uL Eosinophils # 0 L (0.04-0.35) X 10*3/uL Immature Plt Fraction 13.1 H (1.1-6.1) % PT 16.1 H (9.0-12.0) sec INR 1.6 H (<1.2) APTT 34.1 H (22.0-30.0) sec D-Dimer 6.61 H (<0.60) mg/L FEU Sodium 128 L (137-145) mmol/L Carbon Dioxide 17 L (22-30) mmol/L BUN 24 H (9-20) mg/dL Calcium 7.6 L (8.4-10.2) mg/dL 01/23/22 Range/Units 05:59 WBC (4.50-10.00) X 10*3/uL RBC (4.40-5.60) X 10*6/uL Hgb (13.0-17.0) g/dL Hct (39.6-50.0) % RDW (11.5-14.5) % Plt Count (140-440) X 10*3/uL Plt Count Comment Immature Gran # (0.00-0.04) X 10*3/uL Neutrophils # (1.80-7.70) X 10*3/uL Lymphocytes # (0.90-5.00) X 10*3/uL Monocytes # (0.20-1.00) X 10*3/uL Eosinophils # (0.04-0.35) X 10*3/uL Immature Plt Fraction (1.1-6.1) % PT 14.0 H (9.0-12.0) sec INR 1.3 H (<1.2) APTT 37.5 H (22.0-30.0) sec D-Dimer (<0.60) mg/L FEU Sodium (137-145) mmol/L Carbon Dioxide (22-30) mmol/L BUN (9-20) mg/dL Calcium (8.4-10.2) mg/dL Assessment and Plan (1) Clostridium difficile diarrhea Current Visit: Yes Status: Acute Priority: High Code(s): A04.72 - ENTEROCOLITIS D/T CLOSTRIDIUM DIFFICILE, NOT SPCF RECUR SNOMED Code(s): 1094952151895 Plan: 1patient presented to hospital with abdominal distention and pain initially subsequent evaluating significant diarrhea and this patient did have positive stool for C. difficile likely asymptomatic C. difficile colitis risk factor being metastatic esophageal cancer on chemotherapy and is currently leukopenic and neutropenic. 2patient is slowly clinical improvement and will Continue with vancomycin 125 mg p.o. every 6 hours and Questran for symptomatic relief Time with Patient: Less than 30
--- NOTE | 2022-01-26 08:14 | P.PN ---
Subjective Progress Note Date: 01/24/22 Principal diagnosis: C. diff colitis Patient is a 61 year old male with a past medical history significant for COPD pancreatitis metastatic esophageal cancer on chemotherapy present the hospital with abdominal distention and diarrhea has been diagnosed with C. diff colitis. On today's evaluation that is 01/24/2022, the patient denies any fever or any chills, patient denies any chest pain shortness of breath or cough, patient abdominal discomfort has decreased intensity however still complaining of distention but diarrhea has slowed down in frequency and amount Objective - Vital Signs Vital signs: Vital Signs Temp 97.8 F 01/24/22 20:33 Pulse 83 01/24/22 21:09 Resp 20 01/24/22 20:33 BP 975/57 01/24/22 21:09 Pulse Ox 96 01/24/22 20:33 FiO2 Intake & Output 01/24/22 01/24/22 01/25/22 06:59 18:59 06:59 Intake Total 1200 Output Total 1 Balance -1 1200 Intake: Oral 1200 Output: Urine 1 Other: # Voids 3 # Bowel Movements 4 - Exam GENERAL DESCRIPTION: An middle-aged male lying in bed in no distress RESPIRATORY SYSTEM: Unlabored breathing , decreased breath sounds at bases HEART: S1 S2 regular rate and rhythm , ABDOMEN: Soft , no tenderness EXTREMITIES: No edema feet - Labs CBC & Chem 7: 01/25/22 07:14 01/25/22 07:14 Labs: Abnormal Lab Results - Last 24 Hours (Table) 01/24/22 01/24/22 01/24/22 Range/Units 06:37 06:37 20:13 WBC 14.7 H (3.8-10.6) k/uL RBC 3.74 L (4.30-5.90) m/uL Hgb 11.3 L (13.0-17.5) gm/dL Hct 36.3 L (39.0-53.0) % RDW 16.5 H (11.5-15.5) % Plt Count 12 L* (150-450) k/uL Neutrophils # 12.3 H (1.3-7.7) k/uL Lymphocytes # 0.9 L (1.0-4.8) k/uL PT 14.2 H (9.9-11.9) sec INR 1.31 H (0.90-1.11) Sodium 128 L (135-145) mmol/L Carbon Dioxide 15.0 L (20.0-27.5) mmol/L Calcium 8.1 L (8.7-10.3) mg/dL Total Bilirubin 1.70 H (0.30-1.20) mg/dL AST 48 H (14-35) U/L ALT 9 L (10-49) U/L Alkaline Phosphatase 206 H (41-126) U/L Total Protein 5.5 L (6.2-8.2) g/dL Albumin 2.6 L (3.8-4.9) g/dL Albumin/Globulin Ratio 0.90 L (1.60-3.17) g/dL 01/24/22 Range/Units 20:13 WBC (3.8-10.6) k/uL RBC (4.30-5.90) m/uL Hgb (13.0-17.5) gm/dL Hct (39.0-53.0) % RDW (11.5-15.5) % Plt Count (150-450) k/uL Neutrophils # (1.3-7.7) k/uL Lymphocytes # (1.0-4.8) k/uL PT 14.2 H (9.9-11.9) sec INR 1.4 H (0.90-1.11) Sodium (135-145) mmol/L Carbon Dioxide (20.0-27.5) mmol/L Calcium (8.7-10.3) mg/dL Total Bilirubin (0.30-1.20) mg/dL AST (14-35) U/L ALT (10-49) U/L Alkaline Phosphatase (41-126) U/L Total Protein (6.2-8.2) g/dL Albumin (3.8-4.9) g/dL Albumin/Globulin Ratio (1.60-3.17) g/dL Assessment and Plan (1) Clostridium difficile diarrhea Current Visit: Yes Status: Acute Priority: High Code(s): A04.72 - EN TEROCOLITIS D/T CLOSTRIDIUM DIFFICILE, NOT SPCF RECUR SNOMED Code(s): 9319392873295 Plan: 1patient presented to hospital with abdominal distention and pain initially subsequent evaluating significant diarrhea and this patient did have positive stool for C. difficile likely asymptomatic C. difficile colitis risk factor being metastatic esophageal cancer on chemotherapy and is currently leukopenic and neutropenic. 2patient is slowly clinical improvement and will Continue with vancomycin 125 mg p.o. every 6 hours and Questran for symptomatic relief and encouraged to increase his probiotic and yogurt intake Time with Patient: Less than 30
[2022-01-26] MEDS: IPRATROPIUM-ALBUTEROL 3 ML NEB INHALATION PRN ×2 (08:29→16:52)
[2022-01-26] MEDS: SENNOSIDES-DOCUSATE SODIUM 1 EACH TAB PO SCH ×2 (09:16→20:49)
[2022-01-26 09:17] LABS: African American GFR (CKD) 53.9 (60.0-200.0); Albumin 2.6 g/dL (3.8-4.9); Albumin/Globulin Ratio 0.93 (1.60-3.17); Blood Urea Nitrogen 22.4 mg/dL (9.0-27.0); Calcium 7.8 mg/dL (8.7-10.3); Globulin 2.8 g/dL (1.6-3.3); Non-African American GFR(CKD) 46.5 (60.0-200.0); Potassium 3.6 mmol/L (3.5-5.5); Total Bilirubin 1.5 mg/dL (0.30-1.20); Total Protein 5.4 g/dL (6.2-8.2)
[2022-01-26] MEDS: CHOLESTYRAMINE (WITH SUGAR) 4 GM PACKET PO SCH ×2 (09:21→18:08)
[2022-01-26] MEDS: METOPROLOL TARTRATE 25 MG TAB PO SCH ×2 (09:21→20:49)
[2022-01-26] MEDS: PANTOPRAZOLE 40 MG TABLET PO SCH (09:21)
[2022-01-26] MEDS: VANCOMYCIN ORAL SOLUTION 250 MG/5 ML BOTTLE PO SCH ×4 (09:23→20:49)
[2022-01-26 10:10] LABS: Acanthocytes 2+; HCT 30.3 % (39.6-50.0); HGB 9.6 g/dL (13.0-17.0); Immature Platelet Fraction 20.2 % (1.1-6.1); MCH 29.3 pg (27.0-32.0); MCHC 31.7 g/dL (32.0-37.0); MCV 92.4 fL (80.0-97.0); NRBC Per 100 WBC 0 /100 WBCS (0.0-0.0); Platelet Count 24 X 10*3/uL (140-440); RBC 3.28 X 10*6/uL (4.40-5.60); RDW 17.7 % (11.5-14.5); WBC 12.06 X 10*3/uL (4.50-10.00)
--- NOTE | 2022-01-26 12:33 | CDI ---
Documentation Clarification Form Date: 01/26/2022 12:17:42 PM From: Berkley Pires CCS, CCDS Admit Date: 01/13/2022 09:00:00 PM Patient Name: Bakari Sevilla Visit Number: [id number] Discharge Date: ATTENTION: The Clinical Documentation Specialists (CDI) and [facility] Coding Staff appreciate your assistance in clarifying documentation. Please respond to the clarification below the line at the bottom and electronically sign. The CDI & [facility] Coding staff will review the response and follow-up if needed. Please note: Queries are made part of the Legal Health Record. If you have any questions, please contact the author of this message via ITS. Dr. Luis Miguel Martinez: Sepsis is documented in the 01/17 Attending Physician Progress Note but not documented elsewhere in the medical record. Additional clarification regarding the etiology/cause of the clinical indicators is requested. History/Risk Factors per the 01/14 H/P: Lung Cancer status post Left Thoracotomy with Wedge Resection Upper lobe & lymph node dissection, Metastatic Cancer to Liver, Bone & Esophagus, Bowel resection due to perforation, IBS, Crohn's Disease, COPD, Hyperlipidemia, Hypertension, Osteoarthritis, Pancreatitis, Chronic alcohol abuse, Former smoker. Clinical Indicators: Presented to the ED via EMS on 01/13 with Abdominal Pain with history of recurrence of lung cancer to the liver and esophagus. Abdomen is distended. Per the ED Medical Decision Making: "I was assuming the patient had a bacterial peritonitis, Lactate was 4.4." Admit with abdominal pain an Peritonitis. 01/14 H/P Assessment: Abdominal pain, Elevated Lactic Acid, Recurrent Lung Cancer vs Esophageal Cancer with metastasis to Liver, Bone & Lymph Nodes, Large Ventral Hernia, COPD w/o Exacerbation, Thrombocytopenia. 01/13 VS: T 98.5, P 85, R 18, BP 115/74, 100/51, 102/54; PO 97 RA, 94 RA, BMI: 19.5 01/13 LAB: WBC 11.3, Hgb 11.4, Hct 37.4, Neutrophils 10.6, Lymphocytes 0.4; PT 15.6, INR 1.5; Na 144, BUN 21, Glucose 112, Lactic Acid 4.4, 3.5; Calcium 7.9, AST 118, Alk Phosphatase 309, Albumin 3.4. 01/17 Stool positive for C Diff. 01/13 CXR: Right basilar atelectasis without acute cardiopulmonary process. COPD changes. 01/20 CXR: Probable basilar atelectasis or scarring, correlate to exclude pneumonia, there is emphysema. 01/13 CT Abdomen/Pelvis: Some ascites, metastasis to the liver, spleen and increased size of lymph nodes. Lactic acidosis probably secondary to liver disease. Treatment 01/13: IV Dilaudid 1 mg x2, IV Na Chl 500 mls @ 999 mls/hr q31M x2, IV Rocephinn 1,000 mg x2, IV Na Chl 1,000 mls @ 999 mls/hr q1H, IV Na Chl 1,000 mls @ 75 mls/hr q13H, IV Dilaudid 0.5 mg q4H/prn In your professional opinion, please clarify if these findings signify one of the following conditions: [ ] Sepsis POA, please specify cause: [ ] Sepsis, Not POA: please specify cause: [ ] Sepsis ruled out [ ] Severe Sepsis with organ failure [ ] Other, please specify [ ] Unable to determine no sepsis (Template Last Reviewed: September 2020) JOED
--- NOTE | 2022-01-26 13:03 | P.PN ---
Subjective Progress Note Date: 01/26/22 CBC is pending this am He is up in chair and feeling a bit better. Objective - Vital Signs Vital signs: Vital Signs Temp 97.5 F L 01/26/22 05:00 Pulse 90 01/26/22 08:47 Resp 18 01/26/22 05:00 BP 103/62 01/26/22 05:00 Pulse Ox 90 L 01/26/22 08:29 FiO2 21 01/26/22 08:29 Intake & Output 01/25/22 01/26/22 01/26/22 18:59 06:59 18:59 Intake Total 200 Balance 200 Weight 68.946 kg Intake: Oral 200 Other: Voiding Method Bedside Commode Bedside Commode Urinal Urinal # Voids 2 # Bowel Movements 3 2 - Exam GENERAL: Patient is well-developed and well-nourished. Patient is nontoxic and well- hydrated and is in mild distress. ENT: Neck is soft and supple. No significant lymphadenopathy is noted. Oropharynx is clear. Moist mucous membranes. Neck has full range of motion without eliciting any pain. EYES: The sclera were anicteric and conjunctiva were pink and moist. Extraocular movements were intact and pupils were equal round and reactive to light. Eyelids were unremarkable. PULMONARY: Unlabored respirations. Good breath sounds bilaterally. No audible rales rhonchi or wheezing was noted. CARDIOVASCULAR: There is a regular rate and rhythm without any murmurs gallops or rubs. ABDOMEN: Abdomen is markedly distended but less tender in lower pelvis SKIN: Skin is clear with no lesions or rashes and otherwise unremarkable. NEUROLOGIC: Patient is alert and oriented x3. MUSCULOSKELETAL: Normal extremities with adequate strength and full range of motion. \ LYMPHATICS: No significant lymphadenopathy is noted PSYCHIATRIC: Normal psychiatric evaluation. - Labs CBC & Chem 7: 01/26/22 06:12 01/26/22 06:12 Labs: Abnormal Lab Results - Last 24 Hours (Table) 01/24/22 01/25/22 01/25/22 Range/Units 13:45 07:14 07:14 WBC 11.86 H (4.50-10.00) X 10*3/uL RBC 3.18 L (4.40-5.60) X 10*6/uL Hgb 9.5 L (13.0-17.0) g/dL Hct 28.7 L (39.6-50.0) % RDW 17.2 H (11.5-14.5) % Plt Count 12 L* (140-440) X 10*3/uL Plt Count Comment A Immature Gran # 0.29 H (0.00-0.04) X 10*3/uL Neutrophils # 9.13 H (1.80-7.70) X 10*3/uL Lymphocytes # 0.87 L (0.90-5.00) X 10*3/uL Monocytes # 1.53 H (0.20-1.00) X 10*3/uL Eosinophils # 0 L (0.04-0.35) X 10*3/uL Immature Plt Fraction 13.7 H (1.1-6.1) % PT 14.7 H (9.9-11.9) sec INR 1.36 H (0.90-1.11) APTT (22.0-30.0) sec Sodium (135-145) mmol/L Potassium (3.5-5.5) mmol/L Carbon Dioxide (20.0-27.5) mmol/L Est GFR (CKD-EPI)NonAf (60.0-200.0) Calcium (8.7-10.3) mg/dL Total Bilirubin (0.30-1.20) mg/dL AST (14-35) U/L ALT (10-49) U/L Alkaline Phosphatase (41-126) U/L Total Protein (6.2-8.2) g/dL Albumin (3.8-4.9) g/dL Albumin/Globulin Ratio (1.60-3.17) g/dL Stool Lactoferrin POSITIVE A (NEGATIVE) 01/25/22 01/26/22 Range/Units 07:14 06:12 WBC (4.50-10.00) X 10*3/uL RBC (4.40-5.60) X 10*6/uL Hgb (13.0-17.0) g/dL Hct (39.6-50.0) % RDW (11.5-14.5) % Plt Count (140-440) X 10*3/uL Plt Count Comment Immature Gran # (0.00-0.04) X 10*3/uL Neutrophils # (1.80-7.70) X 10*3/uL Lymphocytes # (0.90-5.00) X 10*3/uL Monocytes # (0.20-1.00) X 10*3/uL Eosinophils # (0.04-0.35) X 10*3/uL Immature Plt Fraction (1.1-6.1) % PT 14.1 H (9.9-11.9) sec INR 1.4 H (0.90-1.11) APTT 33.5 H (22.0-30.0) sec Sodium 128 L (135-145) mmol/L Potassium 3.4 L (3.5-5.5) mmol/L Carbon Dioxide 15.7 L (20.0-27.5) mmol/L Est GFR (CKD-EPI)NonAf 59.7 L (60.0-200.0) Calcium 7.8 L (8.7-10.3) mg/dL Total Bilirubin 1.70 H (0.30-1.20) mg/dL AST 45 H (14-35) U/L ALT 9 L (10-49) U/L Alkaline Phosphatase 196 H (41-126) U/L Total Protein 5.3 L (6.2-8.2) g/dL Albumin 2.6 L (3.8-4.9) g/dL Albumin/Globulin Ratio 0.96 L (1.60-3.17) g/dL Stool Lactoferrin (NEGATIVE) Microbiology - Last 24 Hours (Table) 01/24/22 13:45 Stool Culture - Preliminary Stool Assessment and Plan (1) Abdominal pain Narrative/Plan: Secondary to c diff Diarrhea now sloughing and blood dicussed with priamry team and addition orders for studies, gen surg placed Current Visit: Yes Status: Acute Priority: High Code(s): R10.9 - UNSPECIFIED ABDOMINAL PAIN SNOMED Code(s): 28807583 (2) Metastases to the liver Narrative/Plan: Unknown primary: Status post cycle one of taxol and carbo on 01/11 Current Visit: No Status: Acute Code(s): C78.7 - SECONDARY MALIG NEOPLASM OF LIVER AND INTRAHEPATIC BILE DUCT SNOMED Code(s): 72580001 (3) Clostridium difficile diarrhea Current Visit: Yes Status: Acute Priority: High Code(s): A04.72 - ENTEROCOLITIS D/T CLOSTRIDIUM DIFFICILE, NOT SPCF RECUR SNOMED Code(s): 6065160629446 (4) H/O ETOH abuse Current Visit: Yes Status: Acute Code(s): F10.11 - ALCOHOL ABUSE, IN REMISSION SNOMED Code(s): 639231179 (5) Antineoplastic chemotherapy induced pancytopenia Narrative/Plan: Transfuse platelets less than 10 or if bleeding Hold ASA< NSAIDS Await CBC today Current Visit: Yes Status: Acute Priority: High Code(s): D61.810 - ANTINEOPLASTIC CHEMOTHERAPY INDUCED PANCYTOPENIA; T45.1X5A - ADVERSE EFFECT OF ANTINEOPLASTIC AND IMMUNOSUP DRUGS, INIT SNOMED Code(s): 429409206475169 (6) Coagulopathy Narrative/Plan: MOnitor INR, VItamin K >1.5 Recheck BC and INR now and ordered for AM INR 1.4 today Current Visit: Yes Status: Acute Priority: High Code(s): D68.9 - COAGULATION DEFECT, UNSPECIFIED SNOMED Code(s): 86393128 Plan: Chest Xray for incrreased SOB and Neutropenia COntinue supportive care Continue Granix Discussed with [facility] Specialist: Advance to liquids and monitor Diarrhea closely. Await for improved WBC, abdominal pain, tolerating PO intake Discussed with primary team regarding anticipated discharge >48 hours. DC Granix \ Stool studies STAT CBC if not resulted soon Will give Vitamin K today, inr 1.4 and see if IR can perform paracentesiswith platelet transfusion Dr. Hasy: I have completed the full history and physical and developed the above impression and plan, agree with dictation, dictated as a ascribe
[2022-01-26] MEDS ORDERED: PHYTONADIONE 5 MG in SODIUM CHLORIDE 0.9% 50 ML IVPB STA (13:04)
--- NOTE | 2022-01-26 13:31 | P.PN ---
Subjective Progress Note Date: 01/26/22 CHIEF COMPLAINT: Abdominal pain HISTORY OF PRESENT ILLNESS: Patient with known history of lung cancer and possible primary esophageal cancer with metastases to the liver, lymph nodes and sternum. Patient continues to have abdominal distention. He also was found to have C. diff colitis. Surgical consult placed for possible rectal bleeding/tissue noted in stool with rectal sloughing. Patient denies any blood in his stools. He reports that his stools are becoming more formed. Patient being assessed by interventional radiology for possible paracentesis. He had abdominal ultrasound completed which showed [id number] amount of free fluid greatest in the right lower quadrant. Afebrile. WBC 12.06 hemoglobin 9.6 platelets 24 INR 1.4 Patient seen and examined with Dr. bobo PHYSICAL EXAM: VITAL SIGNS: Reviewed. GENERAL: Well-developed in no acute distress. HEENT: No sclera icterus. Extraocular movements grossly intact. Moist buccal mucosa. Head is atraumatic, normocephalic. ABDOMEN: Distended. Ventral hernia reducible. NEUROLOGIC: Alert and oriented. Cranial nerves II through XII grossly intact. ASSESSMENT: 1. Abdominal distention 2. C. diff colitis 3. History of lung cancer 4. Esophageal cancer PLAN: -Consult placed for palliative care service for supportive care and recommendations regarding patient's cancer history -Patient currently denying any blood in the stools. Stools are becoming more formed. -No surgical intervention planned -Continue to monitor hemoglobin -Continue supportive care -Diet being advanced by oncology service Physician Strainer Cleaner note has been reviewed by physician. Signing provider agrees with the documented findings, assessment, and plan of care. Objective - Vital Signs Vital signs: Vital Signs Temp 97.9 F 01/26/22 12:09 Pulse 76 01/26/22 13:17 Resp 14 01/26/22 12:09 BP 94/56 01/26/22 13:17 Pulse Ox 98 01/26/22 12:09 FiO2 21 01/26/22 08:29 Intake & Output 01/25/22 01/26/22 01/26/22 18:59 06:59 18:59 Intake Total 200 274 Balance 200 274 Weight 68.946 kg Intake: Oral 200 Blood Product 274 Platelet Pheresis Pas 274 Psoralen Unit [id number] Platelet Pheresis Pas 0 Psoralen Unit [id number] Other: Voiding Method Bedside Commode Bedside Commode Urinal Urinal # Voids 2 # Bowel Movements 3 2 - Labs CBC & Chem 7: 01/26/22 06:12 01/26/22 06:12 Labs: Abnormal Lab Results - Last 24 Hours (Table) 01/24/22 01/26/22 01/26/22 Range/Units 13:45 06:12 06:12 WBC 12.06 H (4.50-10.00) X 10*3/uL RBC 3.28 L (4.40-5.60) X 10*6/uL Hgb 9.6 L (13.0-17.0) g/dL Hct 30.3 L (39.6-50.0) % MCHC 31.7 L (32.0-37.0) g/dL RDW 17.7 H (11.5-14.5) % Plt Count 24 L (140-440) X 10*3/uL Plt Count Comment A Immature Plt Fraction 20.2 H (1.1-6.1) % PT 14.1 H (9.0-12.0) sec INR 1.4 H (<1.2) APTT 33.5 H (22.0-30.0) sec Sodium (135-145) mmol/L Carbon Dioxide (20.0-27.5) mmol/L Creatinine (0.6-1.5) mg/dL Est GFR (CKD-EPI)AfAm (60.0-200.0) Est GFR (CKD-EPI)NonAf (60.0-200.0) Calcium (8.7-10.3) mg/dL Total Bilirubin (0.30-1.20) mg/dL AST (14-35) U/L ALT (10-49) U/L Alkaline Phosphatase (41-126) U/L Total Protein (6.2-8.2) g/dL Albumin (3.8-4.9) g/dL Albumin/Globulin Ratio (1.60-3.17) g/dL Stool Lactoferrin POSITIVE A (NEGATIVE) 01/26/22 Range/Units 06:12 WBC (4.50-10.00) X 10*3/uL RBC (4.40-5.60) X 10*6/uL Hgb (13.0-17.0) g/dL Hct (39.6-50.0) % MCHC (32.0-37.0) g/dL RDW (11.5-14.5) % Plt Count (140-440) X 10*3/uL Plt Count Comment Immature Plt Fraction (1.1-6.1) % PT (9.0-12.0) sec INR (<1.2) APTT (22.0-30.0) sec Sodium 128 L (135-145) mmol/L Carbon Dioxide 17.0 L (20.0-27.5) mmol/L Creatinine 1.6 H (0.6-1.5) mg/dL Est GFR (CKD-EPI)AfAm 53.9 L (60.0-200.0) Est GFR (CKD-EPI)NonAf 46.5 L (60.0-200.0) Calcium 7.8 L (8.7-10.3) mg/dL Total Bilirubin 1.50 H (0.30-1.20) mg/dL AST 46 H (14-35) U/L ALT 9 L (10-49) U/L Alkaline Phosphatase 216 H (41-126) U/L Total Protein 5.4 L (6.2-8.2) g/dL Albumin 2.6 L (3.8-4.9) g/dL Albumin/Globulin Ratio 0.93 L (1.60-3.17) g/dL Stool Lactoferrin (NEGATIVE) Microbiology - Last 24 Hours (Table) 01/24/22 13:45 Stool Culture - Preliminary Stool
--- NOTE | 2022-01-26 14:01 | P.CONS ---
History of Present Illness - Reason for Consult Consult date: 01/26/22 goals of care Requesting physician: Vickie Mayes - Chief Complaint abdominal pain - History of Present Illness Patient is a very pleasant 61-year-old male that presented to the emergency room on 01/13/22with abdominal pain and shortness of breath. Patient has a pertinent medical history of lung cancer with lobectomy in 2018, recent upper scope biopsy suggests possible primary esophageal cancer with metastasis to liver, lymph nodes and sternum. Other medical history includes bowel resection due to perforation, irritable bowel syndrome, Crohn's, hernia, COPD, hyperlipidemia, hypertension, OA, pancreatitis. He has been following with oncology and began chemo treatment this week, first dose was Monday. He reported feeling well up until the prior night when abdominal distention progressed causing severe pain not controlled by current pain management regimen. White blood cell count was 11.3, lactic acid was 4.4 alkaline phosphatase was elevated at 309. Chest x-ray found right basilar atelectasis without acute pulmonary process. Abdominal CT found large stool burden, increase in splenomegaly, small amount of fluid layering in the pelvis and around liver, and multiple hepatic metastatic lesions and intra-abdominal lymphadenopathy. Patient was given Rocephin and saline with improvement of lactic acid is down to 1.9 today. Pain medication was reordered, patient reports improvement of pain with fentanyl patch and Summit. The patient was then seen in consultation at [facility] on 12/01/21. The patient had presented with abdominal pain that started about 3 weeks ago, localized to the right upper quadrant and upper mid abdomen. The patient does have a ventral hernia following bowel surgery that had been increasing in size. The patient felt that this was likely the cause of his pain. He also noted weight loss of about 20 pounds in the last few months. CT of the abdomen and pelvis with contrast on 11/30/21, as well as ultrasound of the abdomen revealed multiple heterogenous masses in the liver compatible with metastatic disease. This was a new finding compared to prior CT from 2019. CT of the chest showed bilateral emphysematous changes without any specific parenchymal lesion or adenopathy. Bone scan revealed possible metastasis in the sternum. MRI of the brain was negative. Patient had CT-guided liver biopsy in 12/12/21. This showed poorly differentiated non-small cell carcinoma. Staining pattern was felt to be similar to the previous squamous cell carcinoma. However upper GI source was not totally ruled out.The patient was discharged after pain control, on fentanyl 25 g and Summit. Sample was sent for biomarker testing, which showed no actionable mutations. PD1 was less than 1%. Surgery was consulted for EGD to rule out an upper GI source. Patient's pathology from the esophageal lesion was discussed in detail with the pathologist. They confirmed that on comparison this appeared to be consistent with the metastatic lesions found in the liver. Therefore the patient appears to have a new esophageal primary with metastases to the liver. It was discussed with oncology that he has stage IV disease which is not curable and the intent of treatment is palliative. The patient will resume systemic therapy as an outpatient, once acute problems have sufficiently resolved, assuming performance status is sufficient Patient developed diarrhea an abdominal cramping. + c-diff, watery diarrhea has since resolved. Stools are still loose but consistently more formed though the improvement is slow. He is continuing on treatment per ID. Oncology discussed with the patient that resumption of chemotherapy carry significant risk of reactivation of C. difficile. Therefore measures to reduce that risk as much as possible, including courses of suppressive vancomycin with each chemotherapy, as well as that changes were discussed with ID will make more definitive recommendations closer to discharge. Review of Systems Review Of Systems: Constitutional: No fever, no chills, no night sweats. Reports weakness, fatigue and recent 20 lb weight loss. HEENT: No headache. No blurred vision or double vision, no loss of vision. No loss of Hearing, no ringing in the ears, no dizziness. No nasal drainage or congestion. No epistaxis. No sore throat. Lungs: Reports shortness of breath, no cough or sputum production. No wheezing. Cardiovascular: No chest pain, no lower extremity edema. No palpitations. No paroxysmal nocturnal dyspnea. No orthopnea. No lightheadedness or dizziness. No syncopal episodes. Abdominal: Reports abdominal pain, bloating, nausea, vomiting, loss of appetite and constipation. Genitourinary: No dysuria, increased frequency, or urgency. Musculoskeletal: No myalgias. Reports muscle weakness. Noo gait dysfunction, no frequent falls. Integumentary: No wounds, no lesions. No rash or pruritus. No unusual bruising. No change in hair or nails. Neurologic: No aphasia. No facial droop. No change in mentation. No head injury. No headache. No paralysis. No paresthesia. Psychiatric: No depression. No anxiety. No mood swings. Constitutional: Reports anorexia, Reports fatigue, Reports poor appetite, Reports weakness, Denies chills, Denies fever Ears, nose, mouth and throat: Denies dysphagia, Denies mouth pain Cardiovascular: Denies edema, Denies high blood pressure Respiratory: Reports dyspnea Gastrointestinal: Reports abdominal pain, Reports bloating, Reports change in bowel habits, Reports constipation, Reports indigestion, Reports loss of appetite, Reports nausea, Reports vomiting Genitourinary: Denies dysuria, Denies genital pain Musculoskeletal: Denies frequent falls, Denies leg numbness/tingling Integumentary: Denies change in hair/nails, Denies wounds Neurological: Denies headaches, Denies vertigo Psychiatric: Reports anxiety, Denies confusion Endocrine: Reports fatigue, Reports nocturia Hematologic/Lymphatic: Denies easy bruising Allergic/Immunologic: Denies angioedema Past Medical History Past Medical History: Blood Disorder, Coronary Artery Disease (CAD), Cancer, COPD, GI Bleed, Hyperlipidemia, Hypertension, Osteoarthritis (OA) Additional Past Medical History / Comment(s): 2018 L lung cancer with surgery, recently found to have metastatic cancer to liver, bone and esophagus per pt, pt states he had his first chemotherapy treatment on 01/11/22, past bowel obstruction/perforation with surgery, lower GI bleed, IBS, chron's, large ventral hernia, chronic low back pain, past ETOH abuse, pancreatitis. History of Any Multi-Drug Resistant Organisms: None Reported Year Discovered:: 01/17/22 MDRO Source:: stool Past Surgical History: Back Surgery, Bowel Resection, Heart Catheterization, Orthopedic Surgery, Tonsillectomy Additional Past Surgical History / Comment(s): 01/06/22 EGD, 12/02/21 liver biopsy, 06/2018 left thoracotomy with wedge resection upper lobe and lymph node dissection, colonoscopy, bowel resection due to perforation, fractured bilateral little fingers - pins placed and later removed. Past Anesthesia/Blood Transfusion Reactions: No Reported Reaction Smoking Status: Former smoker - Past Family History Father Family Medical History: Cancer Additional Family Medical History / Comment(s): Lung cancer. Daughter(s) Family Medical History: Cancer Additional Family Medical History / Comment(s): Breast cancer. Medications and Allergies Home Medications Medication Instructions Recorded Confirmed Type Atorvastatin [Lipitor] 40 mg PO HS 06/29/18 01/13/22 History Metoprolol Tartrate [Lopressor] 25 mg PO BID 06/27/20 01/13/22 History HYDROcodone/APAP 10-325MG [Summit 1 tab PO Q4HR PRN 01/04/22 01/13/22 History 10-325] Nicotine 21Mg/24Hr Patch [Habitrol] 1 patch TRANSDERM DAILY PRN 01/13/22 01/13/22 History OLANZapine 5 mg PO DIRECTED PRN 01/13/22 01/13/22 History Omeprazole 40 mg PO DAILY 01/13/22 01/13/22 History Ondansetron Odt [Zofran Odt] 4 mg PO Q4H PRN 01/13/22 01/13/22 History Sennosides-Docusate Sodium 2 tab PO BID 01/13/22 01/13/22 History [Senokot-S] fentaNYL 50MCG/HR PATCH [Duragesic 1 patch TRANSDERM Q72H 01/13/22 01/13/22 History 50MCG/HR] Allergies Allergy/AdvReac Type Severity Reaction Status Date / Time Sulfa (Sulfonamide Allergy Unknown Verified 01/13/22 21:35 Antibiotics) morphine AdvReac Ineffective Verified 01/13/22 21:35 Physical Exam Vitals: Vital Signs Temp Pulse Pulse Resp BP BP BP 01/26/22 12:09 97.9 F 79 14 106/67 01/26/22 11:55 97.9 F 79 106/67 01/26/22 09:20 101 H 101/59 01/26/22 08:47 90 01/26/22 08:29 77 01/26/22 05:00 97.5 F L 80 18 103/62 01/25/22 19:52 97.7 F 83 18 101/64 01/25/22 12:36 97.9 F 73 15 96/61 Pulse Ox FiO2 01/26/22 12:09 98 01/26/22 11:55 98 01/26/22 09:20 01/26/22 08:47 01/26/22 08:29 90 L 21 01/26/22 05:00 99 01/25/22 19:52 98 01/25/22 12:36 97 Intake and Output 01/25/22 01/26/22 01/26/22 22:59 06:59 14:59 Intake Total 200 0 Balance 200 0 Intake: Oral 200 Blood Product 0 Unit 0 Other: Voiding Method Bedside Commode Urinal # Voids 2 # Bowel Movements 3 2 Weight 68.946 kg General: Patient awake alert and oriented x 3. No acute distress. HEENT: Head is atraumatic, normocephalic Neck is supple. Sclerae are clear. Pupils equal, round and reactive to light bilaterally. CV: Heart regular in rate and rhythm positive S1 and S2. No S3. No S4. No clicks, rubs or murmurs. No JVD. Peripheral pulses equal. 2/4 Lungs: Clear to auscultation bilaterally. No wheezes rales or rhonchi. Respirations even and nonlabored. No intercostal retractions.on RA Abdomen/GI: Abdomen firm and distended. Hyperactive owel sounds present in all 4 quadrants. + abdominal tenderness. Musculoskeletal/ Extremities: No tenderness on muscular exam. No ecchymosis.+ generalized weakness Vascular: Radial pulses equal. 2/4. + trace bilateral LE edema Skin: No rash. Neurologic: Awake, alert and oriented times 3. Psychiatric: Appropriate mood and affect. Results CBC & Chem 7: 01/26/22 06:12 01/26/22 06:12 Labs: Abnormal Lab Results - Last 24 Hours (Table) 01/24/22 01/26/22 01/26/22 Range/Units 13:45 06:12 06:12 WBC 12.06 H (4.50-10.00) X 10*3/uL RBC 3.28 L (4.40-5.60) X 10*6/uL Hgb 9.6 L (13.0-17.0) g/dL Hct 30.3 L (39.6-50.0) % MCHC 31.7 L (32.0-37.0) g/dL RDW 17.7 H (11.5-14.5) % Plt Count 24 L (140-440) X 10*3/uL Plt Count Comment A Immature Plt Fraction 20.2 H (1.1-6.1) % PT 14.1 H (9.0-12.0) sec INR 1.4 H (<1.2) APTT 33.5 H (22.0-30.0) sec Sodium (135-145) mmol/L Carbon Dioxide (20.0-27.5) mmol/L Creatinine (0.6-1.5) mg/dL Est GFR (CKD-EPI)AfAm (60.0-200.0) Est GFR (CKD-EPI)NonAf (60.0-200.0) Calcium (8.7-10.3) mg/dL Total Bilirubin (0.30-1.20) mg/dL AST (14-35) U/L ALT (10-49) U/L Alkaline Phosphatase (41-126) U/L Total Protein (6.2-8.2) g/dL Albumin (3.8-4.9) g/dL Albumin/Globulin Ratio (1.60-3.17) g/dL Stool Lactoferrin POSITIVE A (NEGATIVE) 01/26/22 Range/Units 06:12 WBC (4.50-10.00) X 10*3/uL RBC (4.40-5.60) X 10*6/uL Hgb (13.0-17.0) g/dL Hct (39.6-50.0) % MCHC (32.0-37.0) g/dL RDW (11.5-14.5) % Plt Count (140-440) X 10*3/uL Plt Count Comment Immature Plt Fraction (1.1-6.1) % PT (9.0-12.0) sec INR (<1.2) APTT (22.0-30.0) sec Sodium 128 L (135-145) mmol/L Carbon Dioxide 17.0 L (20.0-27.5) mmol/L Creatinine 1.6 H (0.6-1.5) mg/dL Est GFR (CKD-EPI)AfAm 53.9 L (60.0-200.0) Est GFR (CKD-EPI)NonAf 46.5 L (60.0-200.0) Calcium 7.8 L (8.7-10.3) mg/dL Total Bilirubin 1.50 H (0.30-1.20) mg/dL AST 46 H (14-35) U/L ALT 9 L (10-49) U/L Alkaline Phosphatase 216 H (41-126) U/L Total Protein 5.4 L (6.2-8.2) g/dL Albumin 2.6 L (3.8-4.9) g/dL Albumin/Globulin Ratio 0.93 L (1.60-3.17) g/dL Stool Lactoferrin (NEGATIVE) Microbiology - Last 24 Hours (Table) 01/24/22 13:45 Stool Culture - Preliminary Stool Chest x-ray: report reviewed CT scan - abdomen: report reviewed CT scan - chest: report reviewed CT Scan - head: report reviewed CT scan - pelvis: report reviewed US - abdomen: report reviewed Assessment and Plan Assessment: Reason for consult - Goals of caare Social * Occupation - The patient has been on disability for years, since his back surgery * Marital status - , then remarried while intoxicated. She fled back to [facility] after a month and a half and was supposed to have the marriage annulled. * Children/grandchildren - 4 biological adult children, and 6 grandchildren * Residence - House * Who do you reside with - his cat * ETOH - Former heavy drinker, quit Aug 2021 * Tobacco - Quit December 30, 2021 * Illicit drugs - None since 1969-. Spiritual/Cultural * A spiritual person - No * Scientology - Baptism * Belong to a particular methodist - No * Beliefs a source of comfort and strength - No * Confucianism or cultural practices restrictions - No * EOL considerations/rituals? No Functional Assessment * Able to walk independently - Yes * Assistive devices - No * Able to use the bathroom independently - Yes * Continent - Yes * Require assistance bathing- No * Able to feed self - Yes * Who prepares meals - Patient * How many meals a day eaten - 2 * What percentage of meals eaten daily - 75% * Able to clean house/do laundry - Patient * Transportation - does not drive, rides the bus * Able to shop - yes * Who manages medications - Patient * Who manages finances - Patient PPS score - 80% Psychological/Emotional * Dementia present - no * Insight and judgment - yes * Depression - no * Suicidal thoughts - no * Good support system - yes, friends and family * Patients goals - prolonged survival * Frequent hospitalizations - no * Desire to keep coming back to the hospital for treatment - yes Plan: Symptoms * Pain - 09/06 abdominal discomfort, pt states pain is well managed, he would like fentanyl patch dc'd. Will reassess tomorrow after paracentesis. Continue Summit prn * Fatigue - + generalized weakness and fatigue * SOB - + slightly, with activity, continue Duoneb prn * Insomnia - no * N/V - intermittent, continue zofran prn * Anxiety - no * Depression - no * Confusion - no * Agitation - no * Hallucinations - no * Appetite/weight loss - decreased appetite, 20 lb weight loss in a couple months. Continue full liquid diet and ensure supplements TIDWM, encourage oral intake * Dysphagia -no * Constipation - no, has had diarrhea secondary to c-diff. Continue Vanco and questran * Incontinence - no * Itch - no Summary/Goals - Palliative care philosophies explained to patient. He verbalized understanding that the treatment for his metastatic cancer is for palliative purposes only, there is no cure. He is interested in receiving the second round of chemotherapy. It was explained that the dose would be adjusted in hopes that he will tolerate it better. He understands that he is at high risk of reactivating the c-diff infection. He is currently receiving a unit of platelets so he can go for a paracentesis. He looks forward to being able to move and breathe better after the fluid is drained. He states his pain is well controlled and does not want the Fentanyl patch. He agreed to keep it on until after his paracentesis and re-evaluate tomorrow. At this time the patient's goals are prolonged survival. His "biggest goal" is to meet his grandchildren who live in [place]. He stated if he were no longer to make decisions he would want his oldest daughter, Jose, to do so for him. He was encouraged to talk to Jose about what his wishes are for end of life care while he is still of sound mind. He was given the 5 wishes booklet to help facilitate the conversation when he is ready. Emotional support provided. Advanced Directives - No, information provided Code Status - Pt wishes to remain a DNR Thank you for this consult Gillian Whalen [facility] Palliative Care [facility] [id number] Email: [email or web address] Time with Patient: Greater than 30
[2022-01-26] MEDS: FUROSEMIDE 40 MG TAB PO SCH (14:14)
[2022-01-26] MEDS: ATORVASTATIN 40 MG TAB PO SCH (20:48)
--- NOTE | 2022-01-26 23:42 | P.PN ---
Subjective Progress Note Date: 01/25/22 Principal diagnosis: C. diff colitis Patient is a 61 year old male with a past medical history significant for COPD pancreatitis metastatic esophageal cancer on chemotherapy present the hospital with abdominal distention and diarrhea has been diagnosed with C. diff colitis. On today's evaluation that is 01/25/2022, the patient remains to be afebrile, patient denies any chest pain shortness of breath or cough, patient abdominal discomfort has decreased intensity however still have some distention but no worsening, the patient diarrhea has slowed down in frequency and amount Objective - Vital Signs Vital signs: Vital Signs Temp 97.9 F 01/25/22 12:36 Pulse 73 01/25/22 12:36 Resp 15 01/25/22 12:36 BP 96/61 01/25/22 12:36 Pulse Ox 97 01/25/22 12:36 FiO2 Intake & Output 01/24/22 01/25/22 01/25/22 18:59 06:59 18:59 Intake Total 1200 100 Output Total 2 Balance 1200 98 Intake: Oral 1200 100 Output: Stool 2 Other: Voiding Method Bedside Commode Bedside Commode Urinal Urinal # Voids 3 2 # Bowel Movements 4 1 1 - Exam GENERAL DESCRIPTION: An middle-aged male lying in bed in no distress RESPIRATORY SYSTEM: Unlabored breathing , decreased breath sounds at bases HEART: S1 S2 regular rate and rhythm , ABDOMEN: Soft , no tenderness EXTREMITIES: No edema feet - Labs CBC & Chem 7: 01/26/22 06:12 01/26/22 06:12 Labs: Abnormal Lab Results - Last 24 Hours (Table) 01/24/22 01/24/22 01/25/22 Range/Units 20:13 20:13 07:14 WBC 14.7 H 11.86 H (3.8-10.6) k/uL RBC 3.74 L 3.18 L (4.30-5.90) m/uL Hgb 11.3 L 9.5 L (13.0-17.5) gm/dL Hct 36.3 L 28.7 L (39.0-53.0) % RDW 16.5 H 17.2 H (11.5-15.5) % Plt Count 12 L* 12 L* (150-450) k/uL Plt Count Comment A Immature Gran # 0.29 H (0.00-0.04) X 10*3/uL Neutrophils # 12.3 H 9.13 H (1.3-7.7) k/uL Lymphocytes # 0.9 L 0.87 L (1.0-4.8) k/uL Monocytes # 1.53 H (0.20-1.00) X 10*3/uL Eosinophils # 0 L (0.04-0.35) X 10*3/uL Immature Plt Fraction 13.7 H (1.1-6.1) % PT 14.2 H (9.0-12.0) sec INR 1.4 H (<1.2) Sodium (135-145) mmol/L Potassium (3.5-5.5) mmol/L Carbon Dioxide (20.0-27.5) mmol/L Est GFR (CKD-EPI)NonAf (60.0-200.0) Calcium (8.7-10.3) mg/dL Total Bilirubin (0.30-1.20) mg/dL AST (14-35) U/L ALT (10-49) U/L Alkaline Phosphatase (41-126) U/L Total Protein (6.2-8.2) g/dL Albumin (3.8-4.9) g/dL Albumin/Globulin Ratio (1.60-3.17) g/dL 01/25/22 01/25/22 Range/Units 07:14 07:14 WBC (3.8-10.6) k/uL RBC (4.30-5.90) m/uL Hgb (13.0-17.5) gm/dL Hct (39.0-53.0) % RDW (11.5-15.5) % Plt Count (150-450) k/uL Plt Count Comment Immature Gran # (0.00-0.04) X 10*3/uL Neutrophils # (1.3-7.7) k/uL Lymphocytes # (1.0-4.8) k/uL Monocytes # (0.20-1.00) X 10*3/uL Eosinophils # (0.04-0.35) X 10*3/uL Immature Plt Fraction (1.1-6.1) % PT 14.7 H (9.0-12.0) sec INR 1.36 H (<1.2) Sodium 128 L (135-145) mmol/L Potassium 3.4 L (3.5-5.5) mmol/L Carbon Dioxide 15.7 L (20.0-27.5) mmol/L Est GFR (CKD-EPI)NonAf 59.7 L (60.0-200.0) Calcium 7.8 L (8.7-10.3) mg/dL Total Bilirubin 1.70 H (0.30-1.20) mg/dL AST 45 H (14-35) U/L ALT 9 L (10-49) U/L Alkaline Phosphatase 196 H (41-126) U/L Total Protein 5.3 L (6.2-8.2) g/dL Albumin 2.6 L (3.8-4.9) g/dL Albumin/Globulin Ratio 0.96 L (1.60-3.17) g/dL Microbiology - Last 24 Hours (Table) 01/24/22 13:45 Stool Culture - Preliminary Stool Assessment and Plan (1) Clostridium difficile diarrhea Current Visit: Yes Status: Acute Priority: High Code(s): A04.72 - ENTEROCOLITIS D/T CLOSTRIDIUM DIFFICILE, NOT SPCF RECUR SNOMED Code(s): 4876005252746 Plan: 1patient presented to hospital with abdominal distention and pain initially s ubsequent evaluating significant diarrhea and this patient did have positive stool for C. difficile likely asymptomatic C. difficile colitis risk factor being metastatic esophageal cancer on chemotherapy and is currently leukopenic and neutropenic. 2patient slowly clinically improving and will Continue with vancomycin 125 mg p.o. every 6 hours and Questran for symptomatic relief , patient diet can be advanced as per discussion with oncology Time with Patient: Less than 30
--- NOTE | 2022-01-26 23:44 | P.PN ---
Subjective Progress Note Date: 01/26/22 Principal diagnosis: C. diff colitis Patient is a 61 year old male with a past medical history significant for COPD pancreatitis metastatic esophageal cancer on chemotherapy present the hospital with abdominal distention and diarrhea has been diagnosed with C. diff colitis. On today's evaluation that is 01/26/2022, the patient denies any fever or chills, patient denies any chest pain shortness of breath or cough, patient abdominal discomfort has decreased intensity and diarrhea slowly improving, the patient has been tolerating his diet Objective - Vital Signs Vital signs: Vital Signs Temp 97.9 F 01/26/22 12:09 Pulse 79 01/26/22 12:35 Resp 14 01/26/22 12:09 BP 94/59 01/26/22 12:35 Pulse Ox 98 01/26/22 12:09 FiO2 21 01/26/22 08:29 Intake & Output 01/25/22 01/26/22 01/26/22 18:59 06:59 18:59 Intake Total 200 0 Balance 200 0 Weight 68.946 kg Intake: Oral 200 Blood Product 0 Unit 0 Other: Voiding Method Bedside Commode Bedside Commode Urinal Urinal # Voids 2 # Bowel Movements 3 2 - Exam GENERAL DESCRIPTION: An middle-aged male lying in bed in no distress RESPIRATORY SYSTEM: Unlabored breathing , decreased breath sounds at bases HEART: S1 S2 regular rate and rhythm , ABDOMEN: Soft , no tenderness EXTREMITIES: No edema feet - Labs CBC & Chem 7: 01/26/22 06:12 01/26/22 06:12 Labs: Abnormal Lab Results - Last 24 Hours (Table) 01/24/22 01/26/22 01/26/22 Range/Units 13:45 06:12 06:12 WBC 12.06 H (4.50-10.00) X 10*3/uL RBC 3.28 L (4.40-5.60) X 10*6/uL Hgb 9.6 L (13.0-17.0) g/dL Hct 30.3 L (39.6-50.0) % MCHC 31.7 L (32.0-37.0) g/dL RDW 17.7 H (11.5-14.5) % Plt Count 24 L (140-440) X 10*3/uL Plt Count Comment A Immature Plt Fraction 20.2 H (1.1-6.1) % PT 14.1 H (9.0-12.0) sec INR 1.4 H (<1.2) APTT 33.5 H (22.0-30.0) sec Sodium (135-145) mmol/L Carbon Dioxide (20.0-27.5) mmol/L Creatinine (0.6-1.5) mg/dL Est GFR (CKD-EPI)AfAm (60.0-200.0) Est GFR (CKD-EPI)NonAf (60.0-200.0) Calcium (8.7-10.3) mg/dL Total Bilirubin (0.30-1.20) mg/dL AST (14-35) U/L ALT (10-49) U/L Alkaline Phosphatase (41-126) U/L Total Protein (6.2-8.2) g/dL Albumin (3.8-4.9) g/dL Albumin/Globulin Ratio (1.60-3.17) g/dL Stool Lactoferrin POSITIVE A (NEGATIVE) 01/26/22 Range/Units 06:12 WBC (4.50-10.00) X 10*3/uL RBC (4.40-5.60) X 10*6/uL Hgb (13.0-17.0) g/dL Hct (39.6-50.0) % MCHC (32.0-37.0) g/dL RDW (11.5-14.5) % Plt Count (140-440) X 10*3/uL Plt Count Comment Immature Plt Fraction (1.1-6.1) % PT (9.0-12.0) sec INR (<1.2) APTT (22.0-30.0) sec Sodium 128 L (135-145) mmol/L Carbon Dioxide 17.0 L (20.0-27.5) mmol/L Creatinine 1.6 H (0.6-1.5) mg/dL Est GFR (CKD-EPI)AfAm 53.9 L (60.0-200.0) Est GFR (CKD-EPI)NonAf 46.5 L (60.0-200.0) Calcium 7.8 L (8.7-10.3) mg/dL Total Bilirubin 1.50 H (0.30-1.20) mg/dL AST 46 H (14-35) U/L ALT 9 L (10-49) U/L Alkaline Phosphatase 216 H (41-126) U/L Total Protein 5.4 L (6.2-8.2) g/dL Albumin 2.6 L (3.8-4.9) g/dL Albumin/Globulin Ratio 0.93 L (1.60-3.17) g/dL Stool Lactoferrin (NEGATIVE) Microbiology - Last 24 Hours (Table) 01/24/22 13:45 Stool Culture - Preliminary Stool Assessment and Plan (1) Clostridium difficile diarrhea Current Visit: Yes Status: Acute Priority: High Code(s): A04.72 - ENTEROCOLITIS D/T CLOSTRIDIUM DIFFICILE, NOT SPCF RECUR SNOMED Code(s): 7441413843741 Plan: 1patient presented to hospital with abdominal distention and pain initially subsequent evaluating significant diarrhea and this patient did have positive stool for C. difficile likely asymptomatic C. difficile colitis risk factor being metastatic esophageal cancer on chemotherapy and is currently leukopenic and neutropenic. 2patient has shown clinical improvement and will Continue with vancomycin 125 mg p.o. every 6 hours and Questran for symptomatic relief 3patient will need prophylactic vancomycin with each chemo to prevent recurrent C. diff colitis with chemotherapy, vancomycin 125 mg daily at that time patient will be mostly leukopenic from chemotherapy and continue for about a week Time with Patient: Less than 30
--- NOTE | 2022-01-27 02:55 | P.PN ---
Subjective Progress Note Date: 01/26/22 Patient is a very pleasant 61-year-old male that presented to the emergency room with abdominal pain and shortness of breath. Patient has a pertinent medical history of lung cancer with lobectomy in 2018, recent upper scope biopsy suggests possible primary esophageal cancer with metastasis to liver, lymph nodes and sternum. Other medical history includes bowel resection due to perforation, irritable bowel syndrome, Crohn's, hernia, COPD, hyperlipidemia, hypertension, OA, pancreatitis. Patient had chronic alcohol abuse, has been sober since August of this year, also quit smoking last admission. He has been following with oncology and began chemo treatment this week, first dose was Monday. He reported feeling well up until yesterday night when abdominal distention progressed causing severe pain not controlled by current pain management regimen. White blood cell count was 11.3, lactic acid was 4.4 alkaline phosphatase was elevated at 309. Chest x-ray found right basilar atelectasis without acute pulmonary process. Abdominal CT found large stool burden, increase in splenomegaly, small amount of fluid layering in the pelvis and around liver, and multiple hepatic metastatic lesions and intra-abdominal lymphadenopathy. Patient was given Rocephin and saline with improvement of lact ic acid is down to 1.9 today. Pain medication was reordered, patient reports improvement of pain with fentanyl patch and [place]. Patient also reported some relief of pain with bowel movement. Oncology was consulted. Hospitalist coverage 01/15/22-01/17/22 01/18/2022 Patient was seen and evaluated at bedside. Patient was up on the bedside commode, states he is feeling much better but is still having multiple loose stools. He wants to have a meeting to discuss prognosis and direction of care. Will discuss with oncology. WBC was 0.26, platelets 25, hemoglobin 10.4, filgrastim ordered. 01/19/2022 Patient was seen and assessed at bedside. Patient was resting comfortably in bed. Reports pain medication feeling too strong and having trouble concentrating. Fentanyl was decreased to 50mg, PRN norco also ordered. States he is willing to continue cancer treatment at this time. Infectious disease a djusted antibiotic regimen. Lab work results are pending. 01/20/2022 Patient is seen today and continues with loose stool and abdominal pain and cramping. Pain management per oncology. CXR also ordered for shortness of breath. ID following for cdiff and continued on oral vanco. Patient is being ad vanced to clear liquids and recommend close monitoring of tolerance. Recommend repeat labs. Patient denies chest pain or palpitations. Patient is afebrile. Platelets 11 today. WBC improved. 01/21/2022 Patient is seen in follow up today and continues with some abdominal discomfort and is maintained on clear liquids per oncology and will slowly advance as tolerated and while closely monitoring labs. Patient is afebrile and has occasional cough and some shortness of breath with a history of COPD and will add breathing treatments as needed. Encouraged increased activity as tolerated. Patient is continued on oral vanco and questran. No reports of chest pain 01/22/2022 Patient seen today and wbc is up to 8.8 and ok to dc graftin per oncology and reports to less abdominal pain and tolerating clear liquids. Patient denies shortness of breath and encouraged coughing and deep breathing. IS ordered and encouraged use. D-dimer ordered and pending. Continued on oral vanco with ID following. Patient is afebrile and denies nausea or vomiting. Patient denies chest pain. Per nursing staff less loose stools. 01/23/2022 Patient seen in follow up and d-dimer was elevated at 6.[address] chest to rule out PE. Hematology/oncology following and will need to discuss with them further if ct is positive as patient has severe thrombocytopenia. Will add scd's for now. Sodium remains 128. Patient is afebrile and denies chest pain or shortness of breath. Patient continues on oral vanco for c diff. 01/24/2022 Patient is seen in follow-up this morning continues with abdominal distention and also continues with frequent diarrhea and patient had been reporting no blood in the stool although personally visualized the fecal matter and there is flex of blood noted along with large trunks and sloughing that appears to be rectal tissue and will send for multiple cultures and also discussed with oncology and will consult general surgery and appreciate input and recommendations. Patient is afebrile and currently maintained on oral Vanco for C. diff and also clear liquids and tolerating the patient continues with abdominal distention. Will order CT abdomen pelvis with contrast and await report. No CBC available as of yet as patient has pancytopenia and thrombocytopenia and is mildly regula apathy with an INR of 1.31. Patient did have elevated d-dimer yesterday and underwent PE study with no evidence of PE on CTA. Patient continues with hyponatremia and poor oral intake and maintained on clears, potassium is 3.5, creatinine is 1.1, bili is 1.7. Overall prognosis remains guarded. 01/25/2022 Patient is seen today and currently sitting at the side of the bed and having so me bleeding noted of the IV site. Patient continues with loose stool although becoming more formed. Patient is maintained on oral vanco with ID following for cdiff. Oncology follow as well for metastatic cancer. Patient also continues with abdominal distention and CT abdomen shows moderate size of ascites. IR consult placed and patient to receive platelets as his today is 12 and will most likely require platelet transfusion during paracentesis. This is for palliative relief of distention. Patient is afebrile and denies chest pain or shortness of breath. Patient with significant weakness and prolonged hospitalization, will consult PT/OT. 01/26/2022 Patient evaluated today and will have paracentesis for palliative treatment with IR today. Platelets are 24 today and have ordered platelets to infuse during paracentesis. Patient continues with loose stool but reports to becoming more formed. Patient with lower extremity swelling and will add lasix and recommend compression stockings to bilateral lower extremities and elevating while at rest. Patient INR is 1.4 and will receive a dose of vitamin k. PT/OT following. Discussed possible ecf for continued strength and mobility and patient refused. PT/OT to follow. Palliative care consult being placed. Oncology following as well. Recommend repeat labs in am. Review of systems: Constitutional: No reports of fatigue, fever, or chills Cardiovascular: No reports of chest pain or palpitations Respiratory: reports of occasional shortness of breath or cough GI: no reports of nausea, no reports of of vomiting, reports continued loose stools although less frequent, reports of abdominal fullness : No reports of dysuria or retention Neurovascular: reports of generalized weakness All medications have been reviewed Active Medications Hydrocodone Bitart/Acetaminophen (Hydrocodone/Apap 10-325mg 1 Each Tab) 1 each PO Q4HR PRN PRN Reason: Pain Last Admin: 01/26/22 03:51 Dose: 1 each Albuterol/Ipratropium (Ipratropium-Albuterol 3 Ml Neb) 3 ml INHALATION RT-TID PRN PRN Reason: Shortness Of Breath Or Wheezing Last Admin: 01/26/22 08:29 Dose: 3 ml Atorvastatin Calcium (Atorvastatin 40 Mg Tab) 40 mg PO HS [facility] Last Admin: 01/26/22 20:48 Dose: 40 mg Cholestyramine Resin (Cholestyramine (With Sugar) 4 Gm Packet) 4 gm PO BID@1000,1800 [facility] Last Admin: 01/26/22 18:08 Dose: 4 gm Fentanyl (Fentanyl 50mcg/Hr Patch) 1 patch TRANSDERM Q72H [facility]; Protocol Last Admin: 01/25/22 13:27 Dose: 1 patch Furosemide (Furosemide 40 Mg Tab) 40 mg PO DAILY [facility] Last Admin: 01/26/22 14:14 Dose: Not Given Metoprolol Tartrate (Metoprolol Tartrate 25 Mg Tab) 25 mg PO BID [facility] Last Admin: 01/26/22 20:49 Dose: Not Given Ondansetron HCl (Ondansetron Odt 4 Mg Tab) 4 mg PO Q4H PRN PRN Reason: Nausea Last Admin: 01/25/22 04:25 Dose: 4 mg Pantoprazole Sodium (Pantoprazole 40 Mg Tablet) 40 mg PO DAILY@0730 [facility] Last Admin: 01/26/22 09:21 Dose: 40 mg Senna/Docusate Sodium (Sennosides-Docusate Sodium 1 Each Tab) 2 each PO BID [facility] Last Admin: 01/26/22 20:49 Dose: Not Given Vancomycin HCl (Vancomycin Oral Solution 250 Mg/5 Ml Bottle) 125 mg PO QID [facility]; Protocol Last Admin: 01/26/22 20:49 Dose: 125 mg PHYSICAL EXAMINATION: GENERAL: The patient is alert and oriented x3, thin built, emaciated HEENT: Pupils are round and equally reacting to light. EOMI. no scleral icterus. No conjunctival pallor. Normocephalic, atraumatic. No pharyngeal erythema. No thyromegaly. CARDIOVASCULAR: S1 and S2 muffled PULMONARY: diminished breath sounds bilaterally with no wheezing or rhonchi noted. ABDOMEN: taut. non tender on exam. Extremely distended, normoactive bowel sounds. No palpable organomegaly. MUSCULOSKELETAL: No joint swelling or deformity. EXTREMITIES: No cyanosis, clubbing, generalized lower extremity edema with 1-2 + pitting NEUROLOGICAL: Gross neurological examination did not reveal any focal deficits. Diffuse weakness SKIN: No rashes. Assessment: Abdominal pain, secondary to malignancy Acute C. difficile colitis Pancytopenia secondary to chemo treatment elevated d dimer with no evidence of PE on CTA abdominal ascites with approx 3L removed today Recurrent lung cancer versus esophageal cancer with metastasis to liver, bone, and lymph nodes, awaiting further studies Large ventral hernia COPD without exacerbation Thrombocytopenia Hypertension Hyperlipidemia History of bowel perforation and resection History of alcohol abuse History of Crohn's and pancreatitis No code Plan: Patient reports less abdominal pain and continued loose stools although less frequent, Continue with vanco and questran, general surgery following and placed palliative care consult. No plans for surgical intervention at this time. moderate abdominal ascites noted on CT and patient underwent palliative paracentesis. Approx 3L removed of ascites. Platelets are 24 and received a platelet transfusion during procedure. Recommend breathing treatments as needed and coughing and deep breathing, IS ordered. D-dimer was elevated and CT was negative for PE ID following for CDiff, antibiotic in the form of oral vanco oncology following and appreciate recommendations for cancer and pancytopenia treatment Continue to monitor labs and vital signs Further recommendations to come based on patients clinical course Encouraged increased activity as tolerated SCD's for now Patient with weakness and recommend ecf and patient refused. Will have home care arranged Prognosis is extremely poor and guarded The impression and plan of care has been dictated by Gretel Saravia, nurse practitioner as directed. Dr. Juan MD I have performed a history and examination and MDM of this patient, discussed the same with the dictator, and agree with the dictator's assessment and plan as written ,documented as a scribe. Based on total visit time, I have performed more than 50% of the visit. Any additional findings or plans will be noted. Objective - Vital Signs Vital signs: Vital Signs Temp 97.5 F L 01/26/22 05:00 Pulse 90 01/26/22 08:47 Resp 18 01/26/22 05:00 BP 103/62 01/26/22 05:00 Pulse Ox 90 L 01/26/22 08:29 FiO2 21 01/26/22 08:29 Intake & Output 01/25/22 01/26/22 01/26/22 18:59 06:59 18:59 Intake Total 200 Balance 200 Weight 68.946 kg Intake: Oral 200 Other: Voiding Method Bedside Commode Bedside Commode Urinal Urinal # Voids 2 # Bowel Movements 3 2 - Labs CBC & Chem 7: 01/26/22 06:12 01/26/22 06:12 Labs: Abnormal Lab Results - Last 24 Hours (Table) 01/24/22 01/25/22 01/25/22 Range/Units 13:45 07:14 07:14 WBC 11.86 H (4.50-10.00) X 10*3/uL RBC 3.18 L (4.40-5.60) X 10*6/uL Hgb 9.5 L (13.0-17.0) g/dL Hct 28.7 L (39.6-50.0) % MCHC (32.0-37.0) g/dL RDW 17.2 H (11.5-14.5) % Plt Count 12 L* (140-440) X 10*3/uL Plt Count Comment A Immature Gran # 0.29 H (0.00-0.04) X 10*3/uL Neutrophils # 9.13 H (1.80-7.70) X 10*3/uL Lymphocytes # 0.87 L (0.90-5.00) X 10*3/uL Monocytes # 1.53 H (0.20-1.00) X 10*3/uL Eosinophils # 0 L (0.04-0.35) X 10*3/uL Immature Plt Fraction 13.7 H (1.1-6.1) % PT 14.7 H (9.9-11.9) sec INR 1.36 H (0.90-1.11) APTT (22.0-30.0) sec Sodium (135-145) mmol/L Potassium (3.5-5.5) mmol/L Carbon Dioxide (20.0-27.5) mmol/L Creatinine (0.6-1.5) mg/dL Est GFR (CKD-EPI)AfAm (60.0-200.0) Est GFR (CKD-EPI)NonAf (60.0-200.0) Calcium (8.7-10.3) mg/dL Total Bilirubin (0.30-1.20) mg/dL AST (14-35) U/L ALT (10-49) U/L Alkaline Phosphatase (41-126) U/L Total Protein (6.2-8.2) g/dL Albumin (3.8-4.9) g/dL Albumin/Globulin Ratio (1.60-3.17) g/dL Stool Lactoferrin POSITIVE A (NEGATIVE) 01/25/22 01/26/22 01/26/22 Range/Units 07:14 06:12 06:12 WBC 12.06 H (4.50-10.00) X 10*3/uL RBC 3.28 L (4.40-5.60) X 10*6/uL Hgb 9.6 L (13.0-17.0) g/dL Hct 30.3 L (39.6-50.0) % MCHC 31.7 L (32.0-37.0) g/dL RDW 17.7 H (11.5-14.5) % Plt Count 24 L (140-440) X 10*3/uL Plt Count Comment A Immature Gran # (0.00-0.04) X 10*3/uL Neutrophils # (1.80-7.70) X 10*3/uL Lymphocytes # (0.90-5.00) X 10*3/uL Monocytes # (0.20-1.00) X 10*3/uL Eosinophils # (0.04-0.35) X 10*3/uL Immature Plt Fraction 20.2 H (1.1-6.1) % PT 14.1 H (9.9-11.9) sec INR 1.4 H (0.90-1.11) APTT 33.5 H (22.0-30.0) sec Sodium 128 L (135-145) mmol/L Potassium 3.4 L (3.5-5.5) mmol/L Carbon Dioxide 15.7 L (20.0-27.5) mmol/L Creatinine (0.6-1.5) mg/dL Est GFR (CKD-EPI)AfAm (60.0-200.0) Est GFR (CKD-EPI)NonAf 59.7 L (60.0-200.0) Calcium 7.8 L (8.7-10.3) mg/dL Total Bilirubin 1.70 H (0.30-1.20) mg/dL AST 45 H (14-35) U/L ALT 9 L (10-49) U/L Alkaline Phosphatase 196 H (41-126) U/L Total Protein 5.3 L (6.2-8.2) g/dL Albumin 2.6 L (3.8-4.9) g/dL Albumin/Globulin Ratio 0.96 L (1.60-3.17) g/dL Stool Lactoferrin (NEGATIVE) 01/26/22 Range/Units 06:12 WBC (4.50-10.00) X 10*3/uL RBC (4.40-5.60) X 10*6/uL Hgb (13.0-17.0) g/dL Hct (39.6-50.0) % MCHC (32.0-37.0) g/dL RDW (11.5-14.5) % Plt Count (140-440) X 10*3/uL Plt Count Comment Immature Gran # (0.00-0.04) X 10*3/uL Neutrophils # (1.80-7.70) X 10*3/uL Lymphocytes # (0.90-5.00) X 10*3/uL Monocytes # (0.20-1.00) X 10*3/uL Eosinophils # (0.04-0.35) X 10*3/uL Immature Plt Fraction (1.1-6.1) % PT (9.9-11.9) sec INR (0.90-1.11) APTT (22.0-30.0) sec Sodium 128 L (135-145) mmol/L Potassium (3.5-5.5) mmol/L Carbon Dioxide 17.0 L (20.0-27.5) mmol/L Creatinine 1.6 H (0.6-1.5) mg/dL Est GFR (CKD-EPI)AfAm 53.9 L (60.0-200.0) Est GFR (CKD-EPI)NonAf 46.5 L (60.0-200.0) Calcium 7.8 L (8.7-10.3) mg/dL Total Bilirubin 1.50 H (0.30-1.20) mg/dL AST 46 H (14-35) U/L ALT 9 L (10-49) U/L Alkaline Phosphatase 216 H (41-126) U/L Total Protein 5.4 L (6.2-8.2) g/dL Albumin 2.6 L (3.8-4.9) g/dL Albumin/Globulin Ratio 0.93 L (1.60-3.17) g/dL Stool Lactoferrin (NEGATIVE) Microbiology - Last 24 Hours (Table) 01/24/22 13:45 Stool Culture - Preliminary Stool
[2022-01-27 07:40] LABS: Anisocytosis Slight; Basophils % (A) 0 %; Eosinophils % (A) 0 %; HCT 31.9 % (39.0-53.0); HGB 10.2 gm/dL (13.0-17.5); Lymphocytes # (A) 0.6 k/uL (1.0-4.8); Lymphocytes % (A) 7 %; MCH 30.5 pg (25.0-35.0); MCHC 31.8 g/dL (31.0-37.0); Mean Platelet Volume 8.8; Monocytes # (A) 0.7 k/uL (0-1.0); Monocytes % (A) 8 %; Neutrophils # (A) 7.2 k/uL (1.3-7.7); Neutrophils % (A) 83 %; RBC 3.33 m/uL (4.30-5.90); RDW 16.6 % (11.5-15.5); WBC 8.7 k/uL (3.8-10.6)
--- NOTE | 2022-01-27 07:41 | CDI ---
Documentation Clarification Form Date: 01/27/2022 07:23:00 AM From: Berkley Pires CCS, CCDS Admit Date: 01/13/2022 09:00:00 PM Patient Name: Bakari Sevilla Visit Number: [id number] Discharge Date: ATTENTION: The Clinical Documentation Specialists (CDI) and [facility] Coding Staff appreciate your assistance in clarifying documentation. Please respond to the clarification below the line at the bottom and electronically sign. The CDI & [facility] Coding staff will review the response and follow-up if needed. Please note: Queries are made part of the Legal Health Record. If you have any questions, please contact the author of this message via ITS. Dr. Luis Miguel Martinez: The patient is currently receiving chemotherapy for recurrent lung cancer with metastatic disease to the liver, bone and lymph nodes. Per the Progress Notes beginning on 01/20: The patient is thin built and emaciated. Based on this information and the findings below, is there an additional diagnosis that is clinically appropriate for this patient? History/Risk factors per the 01/14 H/P: Left Lung Cancer status post Lobectomy, Metastatic Cancer to the Liver, Bone and Lymph Nodes, Possible Metastatic or Primary Esophageal Cancer, started first chemotherapy on 01/11/2022, previous bowel obstruction/perforation status post-surgery, Lower GI Bleed, IBS, Crohn's Disease, Large Ventral Hernia, CAD, COPD, Hyperlipidemia, Hypertension, Osteoarthritis, Chronic Low Back Pain, Pancreatitis, past EtOH abuse, Former smoker. Clinical indicators: Presented to the ED on 01/13 via EMS with Abdominal Pain with Cancer History as documented above. Admit with Abdominal Pain, Peritonitis 01/13 VS: T 98.5, P 85, R 18, BP 115/74, PO 97 RA - 94 RA - 88 RA (01/14). BMI: 19.5 01/13 LAB: WBC 11.3, RBC 3.77, Hgb 11.4, Hct 37.4, Plt Ct 106, Neutrophils 10.6, Lymph 0.4; PT 15.6, INR 1.5; Na 133, BUN 21, Glucose 112, Lactic Acid 4.4, 3.5; Calcium 7.9, AST 118, Alk Phos 309, total Protein 6.7, Albumin 3.4 01/17: Positive C Difficile 01/13 CXR: Right basilar atelectasis without Acute Cardiopulmonary Disease Process. COPD changes. 01/13 CT Abdomen/Pelvis: Re-demonstration of innumerable hepatic metastatic lesions and intra-abdominal lymphadenopathy. Lesions felt to be either slightly increased or similar to prior on 11/30/2021. Nutritional Assessment: 01/16: Consumed 25% of lunch, 50% dinner. 01/18: Poor appetite for a month, consuming 25-50%. Underweight, moderate wasting triceps. Weight 68.946 kg. Height: 6 ft 2 in. BMI: 19.5. Nutritional diagnosis: Inadequate. Malnutrition chronic severe. On clear liquid diet with supplements: Ensure clear. Treatment 01/13: Clear Liquid diet, Blood Culture, IV Dilaudid 1 mg x2, IV Na Cl 500 mls @ 999 mls/hr q31M x2, IV Rocephin 1,000 mg x2, IV Na Cl 1,000 mls @ 999 ml/hr q1H, IV Na Cl 1,000 mls @ 75 mls/hr q13H, IV Dilaudid 0.5 mg q4H/prn. 01/14: po [place] q4H/prn, po Zofran 4 mg q4H/prn, Fentanyl patch 01/15: IV Rocephin 50 mls @ 100 mls/hr q24H Is there an additional diagnosis that is clinically appropriate for this patient? [ ] Mild Protein-Calorie Malnutrition [ ] Moderate Protein-Calorie Malnutrition [ ] Severe Protein-Calorie Malnutrition [ ] Other condition, please specify [ ] Unable to Determine (Template Last Revised: October 2020) Mild Protein-Calorie Malnutrition MTDD
[2022-01-27 07:51] LABS: Platelet Count 20 k/uL (150-450)
[2022-01-27 07:52] LABS: INR 1.3 (<1.2); Prothrombin Time 13.6 sec (9.0-12.0)
[2022-01-27 08:04] LABS: African American GFR (CKD) 46 (>60 ml/min/1.73 sqM); Anion Gap 11 mmol/L; Blood Urea Nitrogen 26 mg/dL (9-20); Calcium 7.4 mg/dL (8.4-10.2); Carbon Dioxide 16 mmol/L (22-30); Chloride 103 mmol/L (98-107); Glucose 85 mg/dL (74-99); Non-African American GFR(CKD) 40 (>60 ml/min/1.73 sqM); Potassium 4.1 mmol/L (3.5-5.1); Sodium 130 mmol/L (137-145)
[2022-01-27] MEDS: FUROSEMIDE 40 MG TAB PO SCH (09:25)
[2022-01-27] MEDS: CHOLESTYRAMINE (WITH SUGAR) 4 GM PACKET PO SCH ×2 (09:25→17:51)
[2022-01-27] MEDS: VANCOMYCIN ORAL SOLUTION 250 MG/5 ML BOTTLE PO SCH ×4 (09:25→20:47)
[2022-01-27] MEDS: SENNOSIDES-DOCUSATE SODIUM 1 EACH TAB PO SCH ×2 (09:25→20:47)
[2022-01-27] MEDS: METOPROLOL TARTRATE 25 MG TAB PO SCH ×2 (09:25→20:47)
[2022-01-27] MEDS: PANTOPRAZOLE 40 MG TABLET PO SCH (09:25)
--- NOTE | 2022-01-27 12:22 | P.PN ---
Subjective Progress Note Date: 01/27/22 Principal diagnosis: abdominal pain Patient is a very pleasant 61-year-old male that presented to the emergency room on 01/13/22with abdominal pain and shortness of breath. Patient has a pertinent medical history of lung cancer with lobectomy in 2018, recent upper scope biopsy suggests possible primary esophageal cancer with metastasis to liver, lymph nodes and sternum. Other medical history includes bowel resection due to perforation, irritable bowel syndrome, Crohn's, hernia, COPD, hyperlipidemia, hypertension, OA, pancreatitis. He has been following with oncology and began chemo treatment this week, first dose was Monday. He reported feeling well up until the prior night when abdominal distention progressed causing severe pain not controlled by current pain management regimen. White blood cell count was 11.3, lactic acid was 4.4 alkaline phosphatase was elevated at 309. Chest x-ray found right basilar atelectasis without acute pulmonary process. Abdominal CT found large stool burden, increase in splenomegaly, small amount of fluid layering in the pelvis and around liver, and multiple hepatic metastatic lesions and intra-abdominal lymphadenopathy. Patient was given Rocephin and saline with improvement of lactic acid is down to 1.9 today. Pain medication was reordered, patient reports improvement of pain with fentanyl patch and [place]. The patient was then seen in consultation at [facility] on 12/01/21. The patient had presented with abdominal pain that started about 3 weeks ago, localized to the right upper quadrant and upper mid abdomen. The patient does have a ventral hernia following bowel surgery that had been increa sing in size. The patient felt that this was likely the cause of his pain. He also noted weight loss of about 20 pounds in the last few months. CT of the abdomen and pelvis with contrast on 11/30/21, as well as ultrasound of the abdomen revealed multiple heterogenous masses in the liver compatible with metastatic disease. This was a new finding compared to prior CT from 2019. CT of the chest showed bilateral emphysematous changes without any specific parenchymal lesion or adenopathy. Bone scan revealed possible metastasis in the sternum. MRI of the brain was negative. Patient had CT-guided liver biopsy in 12/12/21. This showed poorly differentiated non-small cell carcinoma. Staining pattern was felt to be similar to the previous squamous cell carcinoma. However upper GI source was not totally ruled out.The patient was discharged after pain control, on fentanyl 25 g and [place]. Sample was sent for biomarker testing, which showed no actionable mutations. PD1 was less than 1%. Surgery was consulted for EGD to rule out an upper GI source. Patient's pathology from the esophageal lesion was discussed in detail with the pathologist. They confirmed that on comparison this appeared to be consistent with the metastatic lesions found in the liver. Therefore the patient appears to have a new esophageal primary with metastases to the liver. It was discussed with oncology that he has stage IV disease which is not curable and the intent of treatment is palliative. The patient will resume systemic therapy as an outpatient, once acute problems have sufficiently resolved, assuming performance status is sufficient Patient developed diarrhea an abdominal cramping. + c-diff, watery diarrhea has since resolved. Stools are still loose but consistently more formed though the improvement is slow. He is continuing on treatment per ID. Oncology discussed with the patient that resumption of chemotherapy carry significant risk of reactivation of C. difficile. Therefore measures to reduce that risk as much as possible, including courses of suppressive vancomycin with each chemotherapy, as well as that changes were discussed with ID will make more definitive recommenda tions closer to discharge. Palliative care philosophies explained to patient. He verbalized understanding that the treatment for his metastatic cancer is for palliative purposes only, there is no cure. He is interested in receiving the second round of chemotherapy. It was explained that the dose would be adjusted in hopes that he will tolerate it better. He understands that he is at high risk of reactivating the c-diff infection. He is currently receiving a unit of plate lets so he can go for a paracentesis. He looks forward to being able to move and breathe better after the fluid is drained. He states his pain is well controlled and does not want the Fentanyl patch. He agreed to keep it on until after his paracentesis and re-evaluate tomorrow. At this time the patient's goals are prolonged survival. His "biggest goal" is to meet his grandchildren who live in [place]. He stated if he were no longer to make decisions he would want his oldest daughter, Jose, to do so for him. He was encouraged to talk to Jose about what his wishes are for end of life care while he is still of sound mind. He was given the 5 wishes booklet to help facilitate the conversation when he is ready. Emotional support provided. Objective - Vital Signs Vital signs: Vital Signs Temp 97.5 F L 01/27/22 05:00 Pulse 88 01/27/22 09:24 Resp 18 01/27/22 05:00 BP 106/61 01/27/22 09:24 Pulse Ox 96 01/27/22 05:00 FiO2 21 01/26/22 08:29 Intake & Output 01/26/22 01/27/22 01/27/22 18:59 06:59 18:59 Intake Total 668 Output Total 2 Balance 668 -2 Intake: Intake, IV Titration 50 Amount Phytonadione 5 mg In 50 Sodium Chloride 0.9% 50 ml @ 100 mls/hr IVPB ONCE STA Rx#:[id number] Blood Product 618 Platelet Pheresis Pas 274 Psoralen Unit [id number] Platelet Pheresis Pas 344 Psoralen Unit [id number] Output: Stool 2 Other: Voiding Method Bedside Commode Urinal # Voids 3 # Bowel Movements 2 - Exam General: Patient awake alert and oriented x 3. No acute distress. HEENT: Head is atraumatic, normocephalic Neck is supple. Sclerae are clear. Pupils equal, round and reactive to light bilaterally. CV: Heart regular in rate and rhythm positive S1 and S2. No S3. No S4. No clicks, rubs or murmurs. No JVD. Peripheral pulses equal. 2/4 Lungs: Clear to auscultation bilaterally. No wheezes rales or rhonchi. Respirations even and nonlabored. No intercostal retractions.on RA Abdomen/GI: Abdomen firm and distended. Hyperactive owel sounds present in all 4 quadrants. + abdominal tenderness. Musculoskeletal/ Extremities: No tenderness on muscular exam. No ecchymosis.+ g eneralized weakness Vascular: Radial pulses equal. 2/4. + 1 bilateral LE edema Skin: No rash. Neurologic: Awake, alert and oriented times 3. Psychiatric: Appropriate mood and affect. - Labs CBC & Chem 7: 01/27/22 07:09 01/27/22 07:09 Labs: Abnormal Lab Results - Last 24 Hours (Table) 01/27/22 01/27/22 01/27/22 Range/Units 07:09 07:09 07:09 RBC 3.33 L (4.30-5.90) m/uL Hgb 10.2 L (13.0-17.5) gm/dL Hct 31.9 L (39.0-53.0) % RDW 16.6 H (11.5-15.5) % Plt Count 20 L D (150-450) k/uL Lymphocytes # 0.6 L (1.0-4.8) k/uL PT 13.6 H (9.0-12.0) sec INR 1.3 H (<1.2) Sodium 130 L (137-145) mmol/L Carbon Dioxide 16 L (22-30) mmol/L BUN 26 H (9-20) mg/dL Creatinine 1.81 H (0.66-1.25) mg/dL Calcium 7.4 L (8.4-10.2) mg/dL Microbiology - Last 24 Hours (Table) 01/24/22 13:45 Stool Culture - Preliminary Stool Assessment and Plan Assessment: Symptoms * Pain - 1/10 abdominal discomfort, pt states pain is well managed, Continue [place] prn * Fatigue - + generalized weakness and fatigue * SOB - + slightly, with activity, continue Duoneb prn * Insomnia - no * N/V - intermittent, continue zofran prn * Anxiety - no * Depression - no * Confusion - no * Agitation - no * Hallucinations - no * Appetite/weight loss - decreased appetite, 20 lb weight loss in a couple months. Encourage oral intake and ensure supplements TIDWM * Dysphagia -no * Constipation - no, has had diarrhea secondary to c-diff. Continue Vanco and questran * Incontinence - no * Itch - no Plan: Summary/Goals - The patient was sitting up in a chair this morning. He states he feels much better today after having the paracentsis. He stated he is able to walk around and breathe more comfortably. He is upset because he was told to limit his fluid intake, then brought him a breakfast that consisted of all liquids. He is anxious to go home. Plan - Discharge home when medically cleared with PT/OT, visiting nurse, and OP palliative care Advanced Directives - None, information provided Code Status - Pt wishes to remain a DNR Thank you for this consult Gillian Whalen [facility] Palliative Care [facility] [id number] Email: [email or web address] Time with Patient: Less than 30
--- NOTE | 2022-01-27 12:39 | P.PN ---
Subjective Progress Note Date: 01/27/22 CHIEF COMPLAINT: Abdominal pain HISTORY OF PRESENT ILLNESS: Patient with known history of lung cancer and possible primary esophageal cancer with metastases to the liver, lymph nodes and sternum. Patient had paracentesis completed yesterday. His abdominal distention has decreased. Patient reports improvement in his diarrhea. Stool is becoming less frequent and more formed. No blood reported. Currently on full liquids. He is requesting more food to eat. Afebrile. WBC is 8.7 hemoglobin 9.6-10.2 platelets are 20 INR 1.3 creatinine 1.81 patient did receive platelet transfusion yesterday. Patient seen by palliative care service Patient seen and examined with Dr. bobo PHYSICAL EXAM: VITAL SIGNS: Reviewed. GENERAL: Well-developed in no acute distress. HEENT: No sclera icterus. Extraocular movements grossly intact. Moist buccal mucosa. Head is atraumatic, normocephalic. ABDOMEN: Distended. Ventral hernia reducible. NEUROLOGIC: Alert and oriented. Cranial nerves II through XII grossly intact. ASSESSMENT: 1. Abdominal distention with abdominal ascites. Status post paracentesis 2. C. diff colitis 3. History of lung cancer 4. Esophageal cancer PLAN: -No surgical intervention planned -Continue supportive care -Diet advanced heart healthy oncology service -Continue C. diff treatment Physician Dairy Frozen Manager note has been reviewed by physician. Signing provider agrees with the documented findings, assessment, and plan of care. Objective - Vital Signs Vital signs: Vital Signs Temp 98.4 F 01/27/22 12:20 Pulse 65 01/27/22 12:20 Resp 18 01/27/22 05:00 BP 107/62 01/27/22 12:20 Pulse Ox 99 01/27/22 12:20 FiO2 21 01/26/22 08:29 Intake & Output 01/26/22 01/27/22 01/27/22 18:59 06:59 18:59 Intake Total 668 Output Total 2 Balance 668 -2 Intake: Intake, IV Titration 50 Amount Phytonadione 5 mg In 50 Sodium Chloride 0.9% 50 ml @ 100 mls/hr IVPB ONCE STA Rx#:[id number] Blood Product 618 Platelet Pheresis Pas 274 Psoralen Unit [id number] Platelet Pheresis Pas 344 Psoralen Unit [id number] Output: Stool 2 Other: Voiding Method Bedside Commode Urinal # Voids 3 # Bowel Movements 2 - Labs CBC & Chem 7: 01/27/22 07:09 01/27/22 07:09 Labs: Abnormal Lab Results - Last 24 Hours (Table) 01/27/22 01/27/22 01/27/22 Range/Units 07:09 07:09 07:09 RBC 3.33 L (4.30-5.90) m/uL Hgb 10.2 L (13.0-17.5) gm/dL Hct 31.9 L (39.0-53.0) % RDW 16.6 H (11.5-15.5) % Plt Count 20 L D (150-450) k/uL Lymphocytes # 0.6 L (1.0-4.8) k/uL PT 13.6 H (9.0-12.0) sec INR 1.3 H (<1.2) Sodium 130 L (137-145) mmol/L Carbon Dioxide 16 L (22-30) mmol/L BUN 26 H (9-20) mg/dL Creatinine 1.81 H (0.66-1.25) mg/dL Calcium 7.4 L (8.4-10.2) mg/dL Microbiology - Last 24 Hours (Table) 01/24/22 13:45 Stool Culture - Preliminary Stool
[2022-01-27] MEDS: ATORVASTATIN 40 MG TAB PO SCH (20:47)
[2022-01-27 21:30] VITALS: RESP 16
--- NOTE | 2022-01-27 21:54 | P.PN ---
Subjective Progress Note Date: 01/27/22 Improving Status post paracentesis 3.3L off Discussed with primary team and will increase PO diet Objective - Vital Signs Vital signs: Vital Signs Temp 97.8 F 01/27/22 21:00 Pulse 84 01/27/22 21:00 Resp 16 01/27/22 21:00 BP 95/61 01/27/22 21:00 Pulse Ox 96 01/27/22 21:00 FiO2 21 01/26/22 08:29 Intake & Output 01/27/22 01/27/22 01/28/22 06:59 18:59 06:59 Output Total 2 Balance -2 Output: Stool 2 Other: Voiding Method Bedside Commode Urinal # Voids 3 4 # Bowel Movements 2 - Exam GENERAL: Patient is well-developed and well-nourished. Patient is nontoxic and well- hydrated and is in mild distress. ENT: Neck is soft and supple. No significant lymphadenopathy is noted. Oropharynx is clear. Moist mucous membranes. Neck has full range of motion without eliciting any pain. EYES: The sclera were anicteric and conjunctiva were pink and moist. Extraocular movements were intact and pupils were equal round and reactive to light. Eyelids were unremarkable. PULMONARY: Unlabored respirations. Good breath sounds bilaterally. No audible rales rhonchi or wheezing was noted. CARDIOVASCULAR: There is a regular rate and rhythm without any murmurs gallops or rubs. ABDOMEN: Abdomen is markedly distended but less tender in lower pelvis SKIN: Skin is clear with no lesions or rashes and otherwise unremarkable. NEUROLOGIC: Patient is alert and oriented x3. MUSCULOSKELETAL: Normal extremities with adequate strength and full range of motion. \ LYMPHATICS: No significant lymphadenopathy is noted PSYCHIATRIC: Normal psychiatric evaluation. - Labs CBC & Chem 7: 01/27/22 07:09 01/27/22 07:09 Labs: Abnormal Lab Results - Last 24 Hours (Table) 01/27/22 01/27/22 01/27/22 Range/Units 07:09 07:09 07:09 RBC 3.33 L (4.30-5.90) m/uL Hgb 10.2 L (13.0-17.5) gm/dL Hct 31.9 L (39.0-53.0) % RDW 16.6 H (11.5-15.5) % Plt Count 20 L D (150-450) k/uL Lymphocytes # 0.6 L (1.0-4.8) k/uL PT 13.6 H (9.0-12.0) sec INR 1.3 H (<1.2) Sodium 130 L (137-145) mmol/L Carbon Dioxide 16 L (22-30) mmol/L BUN 26 H (9-20) mg/dL Creatinine 1.81 H (0.66-1.25) mg/dL Calcium 7.4 L (8.4-10.2) mg/dL Microbiology - Last 24 Hours (Table) 01/24/22 13:45 Stool Culture - Preliminary Stool Assessment and Plan (1) Abdominal pain Narrative/Plan: Secondary to c diff Diarrhea now sloughing and blood dicussed with priamry team and addition orders for studies, gen surg placed Current Visit: Yes Status: Acute Priority: High Code(s): R10.9 - UNSPECI FIED ABDOMINAL PAIN SNOMED Code(s): 93670234 (2) Metastases to the liver Narrative/Plan: Unknown primary: Status post cycle one of taxol and carbo on 01/11 Current Visit: No Status: Acute Code(s): C78.7 - SECONDARY MALIG NEOPLASM OF LIVER AND INTRAHEPATIC BILE DUCT SNOMED Code(s): 59721621 (3) Clostridium difficile diarrhea Current Visit: Yes Status: Acute Priority: High Code(s): A04.72 - ENTEROCO LITIS D/T CLOSTRIDIUM DIFFICILE, NOT SPCF RECUR SNOMED Code(s): 266952 6770628 (4) H/O ETOH abuse Narrative/Plan: with Ascites: Status post 3Liters off on 01/26/22 Current Visit: Yes Status: Acute Code(s): F10.11 - ALCOHOL ABUSE, IN REMISSION SNOMED Code(s): 682332658 (5) Antineoplastic chemotherapy induced pancytopenia Narrative/Plan: Transfuse platelets less than 10 or if bleeding Hold ASA< NSAIDS Await CBC today Current Visit: Yes Status: Acute Priority: High Code(s): D61.810 - ANTINEOPLASTIC CHEMOTHERAPY INDUCED PANCYTOPENIA; T45.1X5A - ADVERSE EFFECT OF ANTINEOPLASTIC AND IMMUNOSUP DRUGS, INIT SNOMED Code(s): 582847951306705 (6) Coagulopathy Narrative/Plan: MOnitor INR, VItamin K >1.5 Recheck BC and INR now and ordered for AM INR 1.3 Current Visit: Yes Status: Acute Priority: High Code(s): D68.9 - COAGULATION DEFECT, UNSPECIFIED SNOMED Code(s): 76507393 Plan: Chest Xray for incrreased SOB and Neutropenia COntinue supportive care Continue Granix Discussed with Rip And Groove Machine Operator: Advance to liquids and monitor Diarrhea closely. Await for improved WBC, abdominal pain, tolerating PO intake Discussed with primary team regarding anticipated discharge >48 hours. DC Granix \ If tolerating diet ok for discharge from onc ID to please follow up with prophylaxis during next cycle chemo jaswinder Hernandez Attest: I have completed the full history and physical and developed the above impression and plan, agree with dictation, dictated as a ascribe
--- NOTE | 2022-01-27 22:18 | US ---
EXAMINATION TYPE: US paracentesis abd w/image DATE OF EXAM: 01/26/2022 COMPARISON: NONE HISTORY: Ascites. PROCEDURE: Maximal barrier technique was utilized. The skin overlying a suitable pocket of fluid was localized with ultrasound and the overlying skin was prepped and draped. Ultrasound was utilized with sterile technique. Lidocaine was used for local anesthesia and a skin guerita made with a scalpel. Catheter was advanced under direct ultrasound guidance into a suitable pocket of fluid and approximately 3.4 liter s of ascitic fluid were removed. Catheter was withdrawn and hemostasis achieved. There is no immedi ate complication; the patient is discharged in stable condition. IMPRESSION: STATUS POST ULTRASOUND GUIDED PARACENTESIS FOR PALLIATION OF ASCITES. THIS PROCEDURE WA S PERFORMED BY THE UNDERSIGNED.
[2022-01-27] MEDS: HYDROcodone/APAP 10-325MG 1 EACH TAB PO PRN (22:37)
--- NOTE | 2022-01-27 23:46 | P.PN ---
Subjective Progress Note Date: 01/27/22 Patient is a very pleasant 61-year-old male that presented to the emergency room with abdominal pain and shortness of breath. Patient has a pertinent medical history of lung cancer with lobectomy in 2018, recent upper scope biopsy suggests possible primary esophageal cancer with metastasis to liver, lymph nodes and sternum. Other medical history includes bowel resection due to perforation, irritable bowel syndrome, Crohn's, hernia, COPD, hyperlipidemia, hypertension, OA, pancreatitis. Patient had chronic alcohol abuse, has been sober since August of this year, also quit smoking last admission. He has been following with oncology and began chemo treatment this week, first dose was Monday. He reported feeling well up until yesterday night when abdominal distention progressed causing severe pain not controlled by current pain management regimen. White blood cell count was 11.3, lactic acid was 4.4 alkaline phosphatase was elevated at 309. Chest x-ray found right basilar atelectasis without acute pulmonary process. Abdominal CT found large stool burden, increase in splenomegaly, small amount of fluid layering in the pelvis and around liver, and multiple hepatic metastatic lesions and intra-abdominal lymphadenopathy. Patient was given Rocephin and saline with improvement of lact ic acid is down to 1.9 today. Pain medication was reordered, patient reports improvement of pain with fentanyl patch and [place]. Patient also reported some relief of pain with bowel movement. Oncology was consulted. Hospitalist coverage 01/15/22-01/17/22 01/18/2022 Patient was seen and evaluated at bedside. Patient was up on the bedside commode, states he is feeling much better but is still having multiple loose stools. He wants to have a meeting to discuss prognosis and direction of care. Will discuss with oncology. WBC was 0.26, platelets 25, hemoglobin 10.4, filgrastim ordered. 01/19/2022 Patient was seen and assessed at bedside. Patient was resting comfortably in bed. Reports pain medication feeling too strong and having trouble concentrating. Fentanyl was decreased to 50mg, PRN norco also ordered. States he is willing to continue cancer treatment at this time. Infectious disease a djusted antibiotic regimen. Lab work results are pending. 01/20/2022 Patient is seen today and continues with loose stool and abdominal pain and cramping. Pain management per oncology. CXR also ordered for shortness of breath. ID following for cdiff and continued on oral vanco. Patient is being ad vanced to clear liquids and recommend close monitoring of tolerance. Recommend repeat labs. Patient denies chest pain or palpitations. Patient is afebrile. Platelets 11 today. WBC improved. 01/21/2022 Patient is seen in follow up today and continues with some abdominal discomfort and is maintained on clear liquids per oncology and will slowly advance as tolerated and while closely monitoring labs. Patient is afebrile and has occasional cough and some shortness of breath with a history of COPD and will add breathing treatments as needed. Encouraged increased activity as tolerated. Patient is continued on oral vanco and questran. No reports of chest pain 01/22/2022 Patient seen today and wbc is up to 8.8 and ok to dc graftin per oncology and reports to less abdominal pain and tolerating clear liquids. Patient denies shortness of breath and encouraged coughing and deep breathing. IS ordered and encouraged use. D-dimer ordered and pending. Continued on oral vanco with ID following. Patient is afebrile and denies nausea or vomiting. Patient denies chest pain. Per nursing staff less loose stools. 01/23/2022 Patient seen in follow up and d-dimer was elevated at 6.[address] chest to rule out PE. Hematology/oncology following and will need to discuss with them further if ct is positive as patient has severe thrombocytopenia. Will add scd's for now. Sodium remains 128. Patient is afebrile and denies chest pain or shortness of breath. Patient continues on oral vanco for c diff. 01/24/2022 Patient is seen in follow-up this morning continues with abdominal distention and also continues with frequent diarrhea and patient had been reporting no blood in the stool although personally visualized the fecal matter and there is flex of blood noted along with large trunks and sloughing that appears to be rectal tissue and will send for multiple cultures and also discussed with oncology and will consult general surgery and appreciate input and recommendations. Patient is afebrile and currently maintained on oral Vanco for C. diff and also clear liquids and tolerating the patient continues with abdominal distention. Will order CT abdomen pelvis with contrast and await report. No CBC available as of yet as patient has pancytopenia and thrombocytopenia and is mildly regula apathy with an INR of 1.31. Patient did have elevated d-dimer yesterday and underwent PE study with no evidence of PE on CTA. Patient continues with hyponatremia and poor oral intake and maintained on clears, potassium is 3.5, creatinine is 1.1, bili is 1.7. Overall prognosis remains guarded. 01/25/2022 Patient is seen today and currently sitting at the side of the bed and having so me bleeding noted of the IV site. Patient continues with loose stool although becoming more formed. Patient is maintained on oral vanco with ID following for cdiff. Oncology follow as well for metastatic cancer. Patient also continues with abdominal distention and CT abdomen shows moderate size of ascites. IR consult placed and patient to receive platelets as his today is 12 and will most likely require platelet transfusion during paracentesis. This is for palliative relief of distention. Patient is afebrile and denies chest pain or shortness of breath. Patient with significant weakness and prolonged hospitalization, will consult PT/OT. 01/26/2022 Patient evaluated today and will have paracentesis for palliative treatment with IR today. Platelets are 24 today and have ordered platelets to infuse during paracentesis. Patient continues with loose stool but reports to becoming more formed. Patient with lower extremity swelling and will add lasix and recommend compression stockings to bilateral lower extremities and elevating while at rest. Patient INR is 1.4 and will receive a dose of vitamin k. PT/OT following. Discussed possible ecf for continued strength and mobility and patient refused. PT/OT to follow. Palliative care consult being placed. Oncology following as well. Recommend repeat labs in am. 01/27/2022 Patient is status post paracentesis with approx 3L removed and patient reports to feeling improved. Patient is asking for advancement in diet as he feels he has more of an appetite. Patient reports some improvement in diarrhea. Patient INR is 1.3 today post vitamin k yesterday and sodium is 130. Patient continued on oral vanco and will discuss treatment plan for discharge with ID. Patient will follow with oncology outpatient. Oncology recommending repeat am labs and monitoring for tolerance in advanced diet and if tolerating may dc home in 24 hours. Home care being arranged. Patient is afebrile and denies chest pain or shortness of breath. Review of systems: Constitutional: No reports of fatigue, fever, or chills Cardiovascular: No reports of chest pain or palpitations Respiratory: no reports of shortness of breath or cough GI: no reports of nausea, no reports of of vomiting, reports stools becoming more formed : No reports of dysuria or retention Neurovascular: no reports of generalized weakness All medications have been reviewed Active Medications Hydrocodone Bitart/Acetaminophen (Hydrocodone/Apap 10-325mg 1 Each Tab) 1 each PO Q4HR PRN PRN Reason: Pain Last Admin: 01/27/22 22:37 Dose: 1 each Albuterol/Ipratropium (Ipratropium-Albuterol 3 Ml Neb) 3 ml INHALATION RT-TID PRN PRN Reason: Shortness Of Breath Or Wheezing Last Admin: 01/26/22 08:29 Dose: 3 ml Atorvastatin Calcium (Atorvastatin 40 Mg Tab) 40 mg PO HS [facility] Last Admin: 01/27/22 20:47 Dose: 40 mg Cholestyramine Resin (Cholestyramine (With Sugar) 4 Gm Packet) 4 gm PO BID@1000,1800 [facility] Last Admin: 01/27/22 17:51 Dose: 4 gm Fentanyl (Fentanyl 50mcg/Hr Patch) 1 patch TRANSDERM Q72H [facility]; Protocol Last Admin: 01/25/22 13:27 Dose: 1 patch Furosemide (Furosemide 40 Mg Tab) 40 mg PO DAILY [facility] Last Admin: 01/27/22 09:25 Dose: 40 mg Metoprolol Tartrate (Metoprolol Tartrate 25 Mg Tab) 25 mg PO BID [facility] Last Admin: 01/27/22 20:47 Dose: 25 mg Ondansetron HCl (Ondansetron Odt 4 Mg Tab) 4 mg PO Q4H PRN PRN Reason: Nausea Last Admin: 01/25/22 04:25 Dose: 4 mg Pantoprazole Sodium (Pantoprazole 40 Mg Tablet) 40 mg PO DAILY@0730 [facility] Last Admin: 01/27/22 09:25 Dose: 40 mg Senna/Docusate Sodium (Sennosides-Docusate Sodium 1 Each Tab) 2 each PO BID [facility] Last Admin: 01/27/22 20:47 Dose: 2 each Vancomycin HCl (Vancomycin Oral Solution 250 Mg/5 Ml Bottle) 125 mg PO QID [facility]; Protocol Last Admin: 01/27/22 20:47 Dose: 125 mg PHYSICAL EXAMINATION: GENERAL: The patient is alert and oriented x3, thin built, emaciated HEENT: Pupils are round and equally reacting to light. EOMI. no scleral icterus. No conjunctival pallor. Normocephalic, atraumatic. No pharyngeal erythema. No thyromegaly. CARDIOVASCULAR: S1 and S2 muffled PULMONARY: diminished breath sounds bilaterally with no wheezing or rhonchi noted. ABDOMEN: soft. non tender on exam. less distended, normoactive bowel sounds. No palpable organomegaly. MUSCULOSKELETAL: No joint swelling or deformity. EXTREMITIES: No cyanosis, clubbing, generalized lower extremity edema with 1 + pitting NEUROLOGICAL: Gross neurological examination did not reveal any focal deficits. Diffuse weakness SKIN: No rashes. Assessment: Abdominal pain, secondary to malignancy Acute C. difficile colitis coagulopathy Pancytopenia secondary to chemo treatment elevated d dimer with no evidence of PE on CTA abdominal ascites with approx 3L removed 01/26/2022 Recurrent lung cancer versus esophageal cancer with metastasis to liver, bone, and lymph nodes, awaiting further studies Large ventral hernia COPD without exacerbation Thrombocytopenia Hypertension Hyperlipidemia History of bowel perforation and resection History of alcohol abuse History of Crohn's and pancreatitis No code Plan: Patient reports less abdominal pain and stools although less frequent and becoming more formed, Continue with annetteo and rosa, general surgery following and recommending palliative care. No plans for surgical intervention at this time. moderate abdominal ascites noted on CT and patient underwent palliative paracentesis. Approx 3L removed of ascites. Platelets are 24 and received a platelet transfusion during procedure. Platelets are 20 today Recommend breathing treatments as needed and coughing and deep breathing, IS ordered. D-dimer was elevated and CT was negative for PE ID following for CDiff, antibiotic in the form of oral vanco, will discuss discharge planning of vanco and prophylactic vanco use for future chemo. oncology following and will follow up outpatient Continue to monitor labs and vital signs Further recommendations to come based on patients clinical course Encouraged increased activity as tolerated Encouraged asha wraps or compression stockings to assist with lower extremity swelling and also instructed the patient to elevate the extremities while at rest. Patient with weakness and recommend ecf and patient refused. Will have home care arranged Prognosis is extremely poor and guarded Diet advanced per oncology and follow up labs in am with possible discharge in 24 hours. The impression and plan of care has been dictated by Gretel Saravia, nurse practitioner as directed. Dr. Juan MD I have performed a history and examination and MDM of this patient, discussed the same with the dictator, and agree with the dictator's assessment and plan as written ,documented as a scribe. Based on total visit time, I have performed more than 50% of the visit. Any additional findings or plans will be noted. Objective - Vital Signs Vital signs: Vital Signs Temp 97.5 F L 01/27/22 05:00 Pulse 88 01/27/22 09:24 Resp 18 01/27/22 05:00 BP 106/61 01/27/22 09:24 Pulse Ox 96 01/27/22 05:00 FiO2 21 01/26/22 08:29 Intake & Output 01/26/22 01/27/22 01/27/22 18:59 06:59 18:59 Intake Total 668 Output Total 2 Balance 668 -2 Intake: Intake, IV Titration 50 Amount Phytonadione 5 mg In 50 Sodium Chloride 0.9% 50 ml @ 100 mls/hr IVPB ONCE STA Rx#:[id number] Blood Product 618 Platelet Pheresis Pas 274 Psoralen Unit [id number] Platelet Pheresis Pas 344 Psoralen Unit [id number] Output: Stool 2 Other: Voiding Method Bedside Commode Urinal # Voids 3 # Bowel Movements 2 - Labs CBC & Chem 7: 01/27/22 07:09 01/27/22 07:09 Labs: Abnormal Lab Results - Last 24 Hours (Table) 01/27/22 01/27/22 01/27/22 Range/Units 07:09 07:09 07:09 RBC 3.33 L (4.30-5.90) m/uL Hgb 10.2 L (13.0-17.5) gm/dL Hct 31.9 L (39.0-53.0) % RDW 16.6 H (11.5-15.5) % Plt Count 20 L D (150-450) k/uL Lymphocytes # 0.6 L (1.0-4.8) k/uL PT 13.6 H (9.0-12.0) sec INR 1.3 H (<1.2) Sodium 130 L (137-145) mmol/L Carbon Dioxide 16 L (22-30) mmol/L BUN 26 H (9-20) mg/dL Creatinine 1.81 H (0.66-1.25) mg/dL Calcium 7.4 L (8.4-10.2) mg/dL Microbiology - Last 24 Hours (Table) 01/24/22 13:45 Stool Culture - Preliminary Stool
[2022-01-28 07:47] LABS: Anisocytosis Slight; Basophils # (A) 0.1 k/uL (0-0.2); Basophils % (A) 0 %; Eosinophils % (A) 0 %; HCT 37.4 % (39.0-53.0); HGB 11.9 gm/dL (13.0-17.5); INR 1.3 (<1.2); Lymphocytes # (A) 1.1 k/uL (1.0-4.8); Lymphocytes % (A) 8 %; MCH 30.5 pg (25.0-35.0); MCHC 31.9 g/dL (31.0-37.0); MCV 95.6 fL (80.0-100.0); Mean Platelet Volume 11.9; Monocytes # (A) 0.7 k/uL (0-1.0); Monocytes % (A) 5 %; Neutrophils # (A) 11.3 k/uL (1.3-7.7); Neutrophils % (A) 84 %; Platelet Count 38 k/uL (150-450); Prothrombin Time 13.6 sec (9.0-12.0); RBC 3.91 m/uL (4.30-5.90); RDW 17.4 % (11.5-15.5); WBC 13.5 k/uL (3.8-10.6)
--- NOTE | 2022-01-28 07:49 | P.PN ---
Subjective Progress Note Date: 01/27/22 Principal diagnosis: C. diff colitis Patient is a 61 year old male with a past medical history significant for COPD pancreatitis metastatic esophageal cancer on chemotherapy present the hospital with abdominal distention and diarrhea has been diagnosed with C. diff colitis. On today's evaluation that is 01/27/2022, the patient remains to be afebrile, patient denies any chest pain shortness of breath or cough, patient abdominal distention has decreased intensity and diarrhea has slowed down and slightly forming up Objective - Vital Signs Vital signs: Vital Signs Temp 98.4 F 01/27/22 12:20 Pulse 65 01/27/22 12:20 Resp 18 01/27/22 05:00 BP 107/62 01/27/22 12:20 Pulse Ox 99 01/27/22 12:20 FiO2 21 01/26/22 08:29 Intake & Output 01/26/22 01/27/22 01/27/22 18:59 06:59 18:59 Intake Total 668 Output Total 2 Balance 668 -2 Intake: Intake, IV Titration 50 Amount Phytonadione 5 mg In 50 Sodium Chloride 0.9% 50 ml @ 100 mls/hr IVPB ONCE STA Rx#:[id number] Blood Product 618 Platelet Pheresis Pas 274 Psoralen Unit [id number] Platelet Pheresis Pas 344 Psoralen Unit [id number] Output: Stool 2 Other: Voiding Method Bedside Commode Urinal # Voids 3 # Bowel Movements 2 - Exam GENERAL DESCRIPTION: An middle-aged male lying in bed in no distress RESPIRATORY SYSTEM: Unlabored breathing , decreased breath sounds at bases HEART: S1 S2 regular rate and rhythm , ABDOMEN: Soft , no tenderness EXTREMITIES: No edema feet - Labs CBC & Chem 7: 01/27/22 07:09 01/27/22 07:09 Labs: Abnormal Lab Results - Last 24 Hours (Table) 01/27/22 01/27/22 01/27/22 Range/Units 07:09 07:09 07:09 RBC 3.33 L (4.30-5.90) m/uL Hgb 10.2 L (13.0-17.5) gm/dL Hct 31.9 L (39.0-53.0) % RDW 16.6 H (11.5-15.5) % Plt Count 20 L D (150-450) k/uL Lymphocytes # 0.6 L (1.0-4.8) k/uL PT 13.6 H (9.0-12.0) sec INR 1.3 H (<1.2) Sodium 130 L (137-145) mmol/L Carbon Dioxide 16 L (22-30) mmol/L BUN 26 H (9-20) mg/dL Creatinine 1.81 H (0.66-1.25) mg/dL Calcium 7.4 L (8.4-10.2) mg/dL Microbiology - Last 24 Hours (Table) 01/24/22 13:45 Stool Culture - Preliminary Stool Assessment and Plan (1) Clostridium difficile diarrhea Current Visit: Yes Status: Acute Priority: High Code(s): A04.72 - ENTEROCOLITIS D/T CLOSTRIDIUM DIFFICILE, NOT SPCF RECUR SNOMED Code(s): 0582566046432 Plan: 1patient presented to hospital with abdominal distention and pain initially subsequent evaluating significant diarrhea and this patient did have positive stool for C. difficile likely asymptomatic C. difficile colitis risk factor being metastatic esophageal cancer on chemotherapy and is currently leukopenic and neutropenic. 2patient will need prophylactic vancomycin with each chemo to prevent recurrent C. diff colitis with chemotherapy, vancomycin 125 mg daily at that time patient will be mostly leukopenic from chemotherapy and continue for about a week 3-patient slowly clinical improving and diet should be advanced and patient will Continue with vancomycin 125 mg p.o. every 6 hours and Questran as needed for sy mptomatic relief Time with Patient: Less than 30
[2022-01-28 07:52] LABS: ALT 12 U/L (4-49); African American GFR (CKD) 48 (>60 ml/min/1.73 sqM); Albumin 2.8 g/dL (3.5-5.0); Albumin/Globulin Ratio 0.8; Anion Gap 11 mmol/L; Blood Urea Nitrogen 28 mg/dL (9-20); Calcium 7.8 mg/dL (8.4-10.2); Carbon Dioxide 16 mmol/L (22-30); Chloride 106 mmol/L (98-107); Globulin 3.5 g/dL; Glucose 76 mg/dL (74-99); Non-African American GFR(CKD) 41 (>60 ml/min/1.73 sqM); Sodium 133 mmol/L (137-145); Total Bilirubin 1.9 mg/dL (0.2-1.3); Total Protein 6.3 g/dL (6.3-8.2)
[2022-01-28 08:04] LABS: Potassium 4.6 mmol/L (3.5-5.1)
[2022-01-28 08:05] LABS: AST 54 U/L (17-59); Alkaline Phosphatase 224 U/L (38-126)
[2022-01-28] MEDS: FUROSEMIDE 40 MG TAB PO SCH (09:05)
[2022-01-28] MEDS: METOPROLOL TARTRATE 25 MG TAB PO SCH (09:05)
[2022-01-28] MEDS: PANTOPRAZOLE 40 MG TABLET PO SCH (09:05)
[2022-01-28] MEDS: CHOLESTYRAMINE (WITH SUGAR) 4 GM PACKET PO SCH (09:05)
[2022-01-28] MEDS: VANCOMYCIN ORAL SOLUTION 250 MG/5 ML BOTTLE PO SCH (09:06)
[2022-01-28] MEDS: SENNOSIDES-DOCUSATE SODIUM 1 EACH TAB PO SCH (09:06)
[2022-01-28] MEDS ORDERED: HYDROcodone/APAP 7.5-325MG 1 EACH TAB PO PRN (09:12)
--- NOTE | 2022-01-28 09:24 | P.PN ---
Subjective Progress Note Date: 01/28/22 Principal diagnosis: abdominal pain Patient is a very pleasant 61-year-old male that presented to the emergency room on 01/13/22with abdominal pain and shortness of breath. Patient has a pertinent medical history of lung cancer with lobectomy in 2018, recent upper scope biopsy suggests possible primary esophageal cancer with metastasis to liver, lymph nodes and sternum. Other medical history includes bowel resection due to perforation, irritable bowel syndrome, Crohn's, hernia, COPD, hyperlipidemia, hypertension, OA, pancreatitis. He has been following with oncology and began chemo treatment this week, first dose was Monday. He reported feeling well up until the prior night when abdominal distention progressed causing severe pain not controlled by current pain management regimen. White blood cell count was 11.3, lactic acid was 4.4 alkaline phosphatase was elevated at 309. Chest x-ray found right basilar atelectasis without acute pulmonary process. Abdominal CT found large stool burden, increase in splenomegaly, small amount of fluid layering in the pelvis and around liver, and multiple hepatic metastatic lesions and intra-abdominal lymphadenopathy. Patient was given Rocephin and saline with improvement of lactic acid is down to 1.9 today. Pain medication was reordered, patient reports improvement of pain with fentanyl patch and Shiloh. The patient was then seen in consultation at [facility] on 12/01/21. The patient had presented with abdominal pain that started about 3 weeks ago, localized to the right upper quadrant and upper mid abdomen. The patient does have a ventral hernia following bowel surgery that had been increa sing in size. The patient felt that this was likely the cause of his pain. He also noted weight loss of about 20 pounds in the last few months. CT of the abdomen and pelvis with contrast on 11/30/21, as well as ultrasound of the abdomen revealed multiple heterogenous masses in the liver compatible with metastatic disease. This was a new finding compared to prior CT from 2019. CT of the chest showed bilateral emphysematous changes without any specific parenchymal lesion or adenopathy. Bone scan revealed possible metastasis in the sternum. MRI of the brain was negative. Patient had CT-guided liver biopsy in 12/12/21. This showed poorly differentiated non-small cell carcinoma. Staining pattern was felt to be similar to the previous squamous cell carcinoma. However upper GI source was not totally ruled out.The patient was discharged after pain control, on fentanyl 25 g and Shiloh. Sample was sent for biomarker testing, which showed no actionable mutations. PD1 was less than 1%. Surgery was consulted for EGD to rule out an upper GI source. Patient's pathology from the esophageal lesion was discussed in detail with the pathologist. They confirmed that on comparison this appeared to be consistent with the metastatic lesions found in the liver. Therefore the patient appears to have a new esophageal primary with metastases to the liver. It was discussed with oncology that he has stage IV disease which is not curable and the intent of treatment is palliative. The patient will resume systemic therapy as an outpatient, once acute problems have sufficiently resolved, assuming performance status is sufficient Patient developed diarrhea an abdominal cramping. + c-diff, watery diarrhea has since resolved. Stools are still loose but consistently more formed though the improvement is slow. He is continuing on treatment per ID. Oncology discussed with the patient that resumption of chemotherapy carry significant risk of reactivation of C. difficile. Therefore measures to reduce that risk as much as possible, including courses of suppressive vancomycin with each chemotherapy, as well as that changes were discussed with ID will make more definitive recommenda tions closer to discharge. 01/26 Palliative care philosophies explained to patient. He verbalized understanding that the treatment for his metastatic cancer is for palliative purposes only, there is no cure. He is interested in receiving the second round of chemotherapy. It was explained that the dose would be adjusted in hopes that he will tolerate it better. He understands that he is at high risk of reactivating the c-diff infection. He is currently receiving a unit of pl atelets so he can go for a paracentesis. He looks forward to being able to move and breathe better after the fluid is drained. He states his pain is well controlled and does not want the Fentanyl patch. He agreed to keep it on until after his paracentesis and re-evaluate tomorrow. At this time the patient's goals are prolonged survival. His "biggest goal" is to meet his grandchildren who live in [place]. He stated if he were no longer to make decisions he would want his oldest daughter, Jose, to do so for him. He was encouraged to talk to Jose about what his wishes are for end of life care while he is still of sound mind. He was given the 5 wishes booklet to help facilitate the conversation when he is ready. Emotional support provided. 01/27 The patient was sitting up in a chair this morning. He states he feels much better today after having the paracentsis. He stated he is able to walk around and breathe more comfortably. He is upset because he was told to limit his fluid intake, then brought him a breakfast that consisted of all liquids. He is anxious to go home. Objective - Vital Signs Vital signs: Vital Signs Temp 97.7 F 01/28/22 05:00 Pulse 67 01/28/22 05:00 Resp 16 01/28/22 05:00 BP 86/53 01/28/22 05:00 Pulse Ox 95 01/28/22 05:00 FiO2 21 01/26/22 08:29 Intake & Output 01/27/22 01/28/22 01/28/22 18:59 06:59 18:59 Intake Total 150 Output Total 2 Balance 148 Intake: Oral 150 Output: Stool 2 Other: Voiding Method Bedside Commode Bedside Commode Urinal Urinal # Voids 4 3 # Bowel Movements 2 - Exam General: Patient awake alert and oriented x 3. No acute distress. HEENT: Head is atraumatic, normocephalic Neck is supple. Sclerae are clear. Pupils equal, round and reactive to light bilaterally. CV: Heart regular in rate and rhythm positive S1 and S2. No S3. No S4. No clicks, rubs or murmurs. No JVD. Peripheral pulses equal. 2/4 Lungs: Clear to auscultation bilaterally. No wheezes rales or rhonchi. Respirations even and nonlabored. No intercostal retractions.on RA Abdomen/GI: Abdomen firm and distended - improved. Normoactive bowel sounds present in all 4 quadrants. + abdominal tenderness. Musculoskeletal/ Extremities: No tenderness on muscular exam. No ecchymosis.+ generalized weakness Vascular: Radial pulses equal. 2/4. + 1 bilateral LE edema Skin: No rash. Neurologic: Awake, alert and oriented times 3. Psychiatric: Appropriate mood and affect. - Labs CBC & Chem 7: 01/28/22 07:10 01/28/22 07:10 Labs: Abnormal Lab Results - Last 24 Hours (Table) 01/28/22 01/28/22 01/28/22 Range/Units 07:10 07:10 07:10 WBC 13.5 H (3.8-10.6) k/uL RBC 3.91 L (4.30-5.90) m/uL Hgb 11.9 L (13.0-17.5) gm/dL Hct 37.4 L (39.0-53.0) % RDW 17.4 H (11.5-15.5) % Plt Count 38 L D (150-450) k/uL Neutrophils # 11.3 H (1.3-7.7) k/uL PT 13.6 H (9.0-12.0) sec INR 1.3 H (<1.2) Sodium 133 L (137-145) mmol/L Carbon Dioxide 16 L (22-30) mmol/L BUN 28 H (9-20) mg/dL Creatinine 1.77 H (0.66-1.25) mg/dL Calcium 7.8 L (8.4-10.2) mg/dL Total Bilirubin 1.9 H (0.2-1.3) mg/dL Alkaline Phosphatase 224 H (38-126) U/L Albumin 2.8 L (3.5-5.0) g/dL Microbiology - Last 24 Hours (Table) 01/24/22 13:45 Stool Culture - Final Stool Assessment and Plan Assessment: Symptoms * Pain - 1/10 abdominal discomfort, pt states pain is well managed,Scherer Fen tanyl patch to 25mcgs, Change Shiloh to 7.5/325mg * Fatigue - + generalized weakness and fatigue * SOB - + slightly, with activity, continue Duoneb prn * Insomnia - no * N/V - intermittent, continue zofran prn * Anxiety - no * Depression - no * Confusion - no * Agitation - no * Hallucinations - no * Appetite/weight loss - decreased appetite, 20 lb weight loss in a couple months. Tolerating heart healthy diet. Encourage oral intake and ensure supplements TIDWM * Dysphagia -no * Constipation - no, has had diarrhea secondary to c-diff. Continue Vanco and questran. LBM today x2 denies any blood * Incontinence - no * Itch - no Plan: Summary/Goals - The patient states he is tolerating his heart healthy diet well. Denies nausea, vomiting, abdominal cramping, or increase in frequency of BM's. He also states that he does not like the Fentanyl patch because it makes his brain "foggy". He thinks he is on too much pain medication and states he has minimal pain. He prefers taking the Shiloh when needed. Fentanyl patch decreased to 25mcgs Q 72hr and Shiloh decreased to 7.5/325mg Q4H prn. Discussed pain management plan with RN. Instructed her to call with any problems. The patient is anxious to go home. Plan - Discharge home when medically cleared with PT/OT, visiting nurse, and OP palliative care Advanced Directives - None, information provided Code Status - Patient wishes to remain a DNR Thank you for this consult Gillian Whalen [facility]- [facility] [place] [phone] Email: [email or web address] Time with Patient: Less than 30
[2022-01-28 14:35] VITALS: BP 104/66; PULSE 62; TEMP 97.5
--- NOTE | 2022-01-28 15:07 | P.PN ---
Subjective Progress Note Date: 01/28/22 Principal diagnosis: C. diff colitis Patient is a 61 year old male with a past medical history significant for COPD pancreatitis metastatic esophageal cancer on chemotherapy present the hospital with abdominal distention and diarrhea has been diagnosed with C. diff colitis. On today's evaluation that is 01/28/2022, the patient continues to be afebrile, patient denies any chest pain shortness of breath or cough, patient denies any worsening abdominal distention and diarrhea has slowed down and slightly forming up, feeling better and wants to go home Objective - Vital Signs Vital signs: Vital Signs Temp 97.7 F 01/28/22 05:00 Pulse 66 01/28/22 09:00 Resp 16 01/28/22 05:00 BP 92/54 01/28/22 09:00 Pulse Ox 95 01/28/22 05:00 FiO2 21 01/26/22 08:29 Intake & Output 01/27/22 01/28/22 01/28/22 18:59 06:59 18:59 Intake Total 150 298 Output Total 2 Balance 148 298 Intake: Oral 150 298 Output: Stool 2 Other: Voiding Method Bedside Commode Bedside Commode Bedside Commode Urinal Urinal Urinal # Voids 4 3 # Bowel Movements 2 - Exam GENERAL DESCRIPTION: An middle-aged male lying in bed in no distress RESPIRATORY SYSTEM: Unlabored breathing , decreased breath sounds at bases HEART: S1 S2 regular rate and rhythm , ABDOMEN: Soft , no tenderness EXTREMITIES: No edema feet - Labs CBC & Chem 7: 01/28/22 07:10 01/28/22 07:10 Labs: Abnormal Lab Results - Last 24 Hours (Table) 01/28/22 01/28/22 01/28/22 Range/Units 07:10 07:10 07:10 WBC 13.5 H (3.8-10.6) k/uL RBC 3.91 L (4.30-5.90) m/uL Hgb 11.9 L (13.0-17.5) gm/dL Hct 37.4 L (39.0-53.0) % RDW 17.4 H (11.5-15.5) % Plt Count 38 L D (150-450) k/uL Neutrophils # 11.3 H (1.3-7.7) k/uL PT 13.6 H (9.0-12.0) sec INR 1.3 H (<1.2) Sodium 133 L (137-145) mmol/L Carbon Dioxide 16 L (22-30) mmol/L BUN 28 H (9-20) mg/dL Creatinine 1.77 H (0.66-1.25) mg/dL Calcium 7.8 L (8.4-10.2) mg/dL Total Bilirubin 1.9 H (0.2-1.3) mg/dL Alkaline Phosphatase 224 H (38-126) U/L Albumin 2.8 L (3.5-5.0) g/dL Microbiology - Last 24 Hours (Table) 01/24/22 13:45 Stool Culture - Final Stool Assessment and Plan (1) Clostridium difficile diarrhea Current Visit: Yes Status: Acute Priority: High Code(s): A04.72 - ENTEROCOLITIS D/T CLOSTRIDIUM DIFFICILE, NOT SPCF RECUR SNOMED Code(s): 6178255786671 Plan: 1patient presented to hospital with abdominal distention and pain initially subsequent evaluating significant diarrhea and this patient did have positive stool for C. difficile likely asymptomatic C. difficile colitis risk factor being metastatic esophageal cancer on chemotherapy and is currently leukopenic and neutropenic. 2patient will need prophylactic vancomycin with each chemo to prevent recurrent C. diff colitis with chemotherapy, vancomycin 125 mg daily at that time patient will be mostly leukopenic from chemotherapy and continue for about a week 3-patient has shown clinical improvement with vancomycin 125 mg p.o. every 6 hours and will finish therapy with another week of oral vancomycin and Questran as needed discussed with nurse practitioner for admitting team Time with Patient: Less than 30
--- NOTE | 2022-01-29 00:02 | P.PN ---
Subjective Progress Note Date: 01/28/22 iMPROVING AND WOULD LIKE TO BE DISCHARGED. Objective - Vital Signs Vital signs: Vital Signs Temp 97.7 F 01/28/22 05:00 Pulse 66 01/28/22 09:00 Resp 16 01/28/22 05:00 BP 92/54 01/28/22 09:00 Pulse Ox 95 01/28/22 05:00 FiO2 21 01/26/22 08:29 Intake & Output 01/27/22 01/28/22 01/28/22 18:59 06:59 18:59 Intake Total 150 298 Output Total 2 Balance 148 298 Intake: Oral 150 298 Output: Stool 2 Other: Voiding Method Bedside Commode Bedside Commode Bedside Commode Urinal Urinal Urinal # Voids 4 3 # Bowel Movements 2 - Exam GENERAL: Patient is well-developed and well-nourished. Patient is nontoxic and well- hydrated and is in mild distress. ENT: Neck is soft and supple. No significant lymphadenopathy is noted. Oropharynx is clear. Moist mucous membranes. Neck has full range of motion without elic iting any pain. EYES: The sclera were anicteric and conjunctiva were pink and moist. Extraocular movements were intact and pupils were equal round and reactive to light. Eyelids were unremarkable. PULMONARY: Unlabored respirations. Good breath sounds bilaterally. No audible rales rhonchi or wheezing was noted. CARDIOVASCULAR: There is a regular rate and rhythm without any murmurs gallops or rubs. ABDOMEN: Abdomen is markedly distended but less tender in lower pelvis SKIN: Skin is clear with no lesions or rashes and otherwise unremarkable. NEUROLOGIC: Patient is alert and oriented x3. MUSCULOSKELETAL: Normal extremities with adequate strength and full range of motion. \ LYMPHATICS: No significant lymphadenopathy is noted PSYCHIATRIC: Normal psychiatric evaluation. - Labs CBC & Chem 7: 01/28/22 07:10 01/28/22 07:10 Labs: Abnormal Lab Results - Last 24 Hours (Table) 01/28/22 01/28/22 01/28/22 Range/Units 07:10 07:10 07:10 WBC 13.5 H (3.8-10.6) k/uL RBC 3.91 L (4.30-5.90) m/uL Hgb 11.9 L (13.0-17.5) gm/dL Hct 37.4 L (39.0-53.0) % RDW 17.4 H (11.5-15.5) % Plt Count 38 L D (150-450) k/uL Neutrophils # 11.3 H (1.3-7.7) k/uL PT 13.6 H (9.0-12.0) sec INR 1.3 H (<1.2) Sodium 133 L (137-145) mmol/L Carbon Dioxide 16 L (22-30) mmol/L BUN 28 H (9-20) mg/dL Creatinine 1.77 H (0.66-1.25) mg/dL Calcium 7.8 L (8.4-10.2) mg/dL Total Bilirubin 1.9 H (0.2-1.3) mg/dL Alkaline Phosphatase 224 H (38-126) U/L Albumin 2.8 L (3.5-5.0) g/dL Microbiology - Last 24 Hours (Table) 01/24/22 13:45 Stool Culture - Final Stool Assessment and Plan (1) Abdominal pain Narrative/Plan: Secondary to c diff Diarrhea now sloughing and blood dicussed with priamry team and addition orders for studies, gen surg placed Status: Acute Priority: High Code(s): R10.9 - UNSPECIFIED ABDOMINAL PAIN SNOMED Code(s): 44868303 (2) Metastases to the liver Narrative/Plan: Unknown primary: Status post cycle one of taxol and carbo on 01/11 Status: Acute Code(s): C78.7 - SECONDARY MALIG NEOPLASM OF LIVER AND INTRAHEPATIC BILE DUCT SNOMED Code(s): 08513314 (3) Clostridium difficile diarrhea Status: Acute Priority: High Code(s): A04.72 - ENTEROCOLITIS D/T CLOSTRIDIUM DIFFICILE, NOT SPCF RECUR SNOMED Code(s): 2254825550917 (4) H/O ETOH abuse Narrative/Plan: with Ascites: Status post 3Liters off on 01/26/22 Status: Acute Code(s): F10.11 - ALCOHOL ABUSE, IN REMISSION SNOMED Code(s): 970895571 (5) Antineoplastic chemotherapy induced pancytopenia Narrative/Plan: Transfuse platelets less than 10 or if bleeding Hold ASA< NSAIDS Await CBC today Status: Acute Priority: High Code(s): D61.810 - ANTINEOPLASTIC CHEMOTHERAPY INDUCED PANCYTOPENIA; T45.1X5A - ADVERSE EFFECT OF ANTINEOPLASTIC AND IMMUNOSUP DRUGS, INIT SNOMED Code(s): 646753407507172 (6) Coagulopathy Narrative/Plan: MOnitor INR, VItamin K >1.5 Recheck BC and INR now and ordered for AM INR 1.3 Status: Acute Priority: High Code(s): D68.9 - COAGULATION DEFECT, UNSPECIFIED SNOMED Code(s): 06064245 Plan: Chest Xray for incrreased SOB and Neutropenia COntinue supportive care Continue Granix Discussed with Zone Maintenance Technician: Advance to liquids and monitor Diarrhea closely. Await for improved WBC, abdominal pain, tolerating PO intake Discussed with primary team regarding anticipated discharge >48 hours. DC Granix \ If tolerating diet ok for discharge from onc ID to please follow up with prophylaxis during next cycle chemo vanco oK WITH DISCHARGE FROM ONC
--- NOTE | 2022-01-29 08:20 | P.DS ---
Providers Date of admission: 01/13/22 21:00 Expected date of discharge: 01/28/22 Attending physician: Anthony Turpin Consults: 01/13/22 21:00 Consult Physician Urgent Consulting Provider: Dario Eagle Consult Reason/Comments: Metastatic lung cancer Do you want consulting provider notified?: Yes 01/18/22 11:41 Consult Physician Routine Consulting Provider: Omar Eng Consult Reason/Comments: cdiff Do you want consulting provider notified?: Yes 01/24/22 13:05 Consult Physician Urgent Consulting Provider: Bobby Loyd Consult Reason/Comments: rectal bleeding/ tissue noted in stool with rectal sloughing Do you want consulting provider notified?: Yes 01/26/22 10:41 Consult to Palliative Care Routine Consulting Provider: Gillian Whalen Consult Reason/Comments: esophageal CA and liver mets Do you want consulting provider notified?: Yes Primary care physician: Anthony Turpin Hospital Course: Final Diagnosis Abdominal pain, secondary to malignancy Acute C. difficile colitis coagulopathy Pancytopenia secondary to chemo treatment elevated d dimer with no evidence of PE on CTA abdominal ascites with approx 3L removed 01/26/2022 Recurrent lung cancer versus esophageal cancer with metastasis to liver, bone, and lymph nodes, awaiting further studies Large ventral hernia COPD without exacerbation Thrombocytopenia Hypertension Hyperlipidemia History of bowel perforation and resection History of alcohol abuse History of Crohn's and pancreatitis No code Discharge disposition Patient is being discharged in a stable condition with guarded prognosis to ho fl. Patient will follow-up with Dr. Turpin in the outpatient setting upon discharge. Patient is to follow-up with oncology this week after completing oral vanco for one week due to c diff. Home care arranged. Prescription provided for repeat labs. Total time taken is greater than 35 minutes. Hospital course This is a 61-year-old male who was recently admitted with multiple medical issues and also metastatic disease and was being closely monitored. Patient was neutropenic and found to have increased diarrhea and c diff and was maintained on oral vanco with ID following. Patient will complete a 7 day course of 125mg qid on discharge. Patient with severe pancytopenia and requiring platelet transfusions during admission. Patient with continued abdominal distention and underwent paracentesis with approx 3 liters removed. Patient with lower extremity swelling and will continue lasix 40 daily and compression stockings with elevating extremities while at rest. Patient tolerating current diet and encouraged to repeat labs in 2-[address] Turpin. A copy of this dictation will be sent to the office. Patient with weakness and evaluated by PT recommending rehab. Patient refused but is agreeable to home care. Currently no reports of chest pain, shortness of breath, or palpitations. Patient is afebrile. No reports of nausea or vomiting and patient is tolerating diet. Patient will be discharged home today. Guarded prognosis. Vanco requiring prior authorization and case management submitting. Prescription provided for prophylactic vanco per ID during next cancer treatment. On exam vital signs are stable. Cardio S1, S2 are muffled. Respiratory system shows diminished breath sounds at the bases with no wheezing or rhonchi noted. Abdomen is soft and nontender. Nervous system shows no focal deficits. Please refer to medication reconciliation sheet for a list of medications. The impression and plan of care has been dictated by Gretel Saravia, Nurse Practitioner as directed. Dr. Juan MD I have performed a history and examination and MDM of this patient, discussed the same with the dictator, and agree with the dictator's assessment and plan as written ,documented as a scribe. Based on total visit time, I have performed more than 50% of the visit. Patient Condition at Discharge: Fair Plan - Discharge Summary Discharge Rx Participant: No New Discharge Prescriptions: New fentaNYL 25MCG/HR PATCH [Duragesic 25MCG/HR] 1 patch TRANSDERM Q72H #1 patch Furosemide [Lasix] 40 mg PO DAILY 5 Days #5 tab Cholestyramine (with Sugar) [Questran Packet] 4 gm PO BID@1000,1800 30 Days #60 packet Vancomycin Oral Solution 125 mg PO QID 7 Days #70 ml Continue Atorvastatin [Lipitor] 40 mg PO HS Metoprolol Tartrate [Lopressor] 25 mg PO BID OLANZapine 5 mg PO DIRECTED PRN PRN Reason: Nausea Nicotine 21Mg/24Hr Patch [Habitrol] 1 patch TRANSDERM DAILY PRN PRN Reason: Nicotine Cravings HYDROcodone/APAP 10-325MG [Mobile 10-325] 1 tab PO Q4HR PRN PRN Reason: Pain Ondansetron Odt [Zofran ODT] 4 mg PO Q4H PRN PRN Reason: Nausea Omeprazole 40 mg PO DAILY Sennosides-Docusate Sodium [Senokot-S] 2 tab PO BID Discontinued fentaNYL 50MCG/HR PATCH [Duragesic 50MCG/HR] 1 patch TRANSDERM Q72H Discharge Medication List Atorvastatin [Lipitor] 40 mg PO HS 06/29/18 [History] Metoprolol Tartrate [Lopressor] 25 mg PO BID 06/27/20 [History] HYDROcodone/APAP 10-325MG [Mobile 10-325] 1 tab PO Q4HR PRN 01/04/22 [History] Nicotine 21Mg/24Hr Patch [Habitrol] 1 patch TRANSDERM DAILY PRN 01/13/22 [History] OLANZapine 5 mg PO DIRECTED PRN 01/13/22 [History] Omeprazole 40 mg PO DAILY 01/13/22 [History] Ondansetron Odt [Zofran ODT] 4 mg PO Q4H PRN 01/13/22 [History] Sennosides-Docusate Sodium [Senokot-S] 2 tab PO BID 01/13/22 [History] Cholestyramine (with Sugar) [Questran Packet] 4 gm PO BID@1000,1800 30 Days #60 packet 01/28/22 [Rx] Furosemide [Lasix] 40 mg PO DAILY 5 Days #5 tab 01/28/22 [Rx] Vancomycin Oral Solution 125 mg PO QID 7 Days #70 ml 01/28/22 [Rx] fentaNYL 25MCG/HR PATCH [Duragesic 25MCG/HR] 1 patch TRANSDERM Q72H #1 patch 01/28/22 [Rx] Follow up Appointment(s)/Referral(s): Anthony Turpin MD [Primary Care Provider] - 02/04/22 1:30 pm Nely Brown [NON-STAFF] - 1 Week Ambulatory/Diagnostic Orders: Complete Blood Count w/diff [LAB.AMB] Time Frame: 3 Days, Location: None Selected Patient Instructions/Handouts: Furosemide (By mouth), Cholestyramine (By mouth), Fentanyl (Absorbed through the skin), Vancomycin (By mouth), C. Diff (Clostridioides Difficile) Infection (DC) Activity/Diet/Wound Care/Special Instructions: Activity Limited until follow-up Continue taking medications as prescribed Continue to elevate lower extremities while at rest and use compression stockings Avoid increased salt intake and continue current diet Follow-up with oncology outpatient Continue with home care Follow-up with primary care provider on discharge Discharge/Stand Alone Forms: Who Do I Call?, Community Resources, Help In The Home, Personal Wooden Barrel Mechanic Discharge Disposition: HOME WITH HOME HEALTH SERVICES
== END 2022-01-28 14:45 | disposition home health service (06) | DRG 947 ==
LOC: EC 18:05 → 5NMEDONC 21:00
PROVIDERS: ADMIT Family Medicine; ATTEND Family Medicine
PROC: 0W9G3ZZ Drainage of Peritoneal Cavity, Percutaneous Approach (ICD-10-PCS; principal; 2022-01-27)
DX: G89.3 Neoplasm related pain (acute) (chronic) (principal); D61.810 Antineoplastic chemotherapy induced pancytopenia; C34.90 Malignant neoplasm of unspecified part of unspecified bronchus or lung; C77.2 Secondary and unspecified malignant neoplasm of intra-abdominal lymph nodes; C78.7 Secondary malignant neoplasm of liver and intrahepatic bile duct; C79.51 Secondary malignant neoplasm of bone; C15.9 Malignant neoplasm of esophagus, unspecified; D68.9 Coagulation defect, unspecified; E87.1 Hypo-osmolality and hyponatremia; E87.2 Acidosis; J98.11 Atelectasis; K50.90 Crohn's disease, unspecified, without complications; A04.72 Enterocolitis due to Clostridium difficile, not specified as recurrent; E44.1 Mild protein-calorie malnutrition; Z68.1 Body mass index [BMI] 19.9 or less, adult; C78.89 Secondary malignant neoplasm of other digestive organs; R18.8 Other ascites; E78.5 Hyperlipidemia, unspecified; F10.11 Alcohol abuse, in remission; I10 Essential (primary) hypertension; I25.10 Atherosclerotic heart disease of native coronary artery without angina pectoris; J44.9 Chronic obstructive pulmonary disease, unspecified; K43.9 Ventral hernia without obstruction or gangrene; M19.90 Unspecified osteoarthritis, unspecified site; K59.00 Constipation, unspecified; R32 Unspecified urinary incontinence; M54.50 Low back pain, unspecified; T45.1X5A Adverse effect of antineoplastic and immunosuppressive drugs, initial encounter; Z66 Do not resuscitate; Z79.899 Other long term (current) drug therapy; Z80.1 Family history of malignant neoplasm of trachea, bronchus and lung; Z80.3 Family history of malignant neoplasm of breast; Z87.891 Personal history of nicotine dependence; Z79.891 Long term (current) use of opiate analgesic; Z88.5 Allergy status to narcotic agent; Z88.2 Allergy status to sulfonamides; Z87.19 Personal history of other diseases of the digestive system; Z28.21 Immunization not carried out because of patient refusal
CPT/HCPCS: 36415; 49083; 71046; 71275; 74177; 76705; 80048; 80053; 81003; 82150; 82272; 82607; 82728; 82746; 83540; 83550; 83605; 83630; 83690; 83735; 84425; 85025; 85027; 85379; 85384; 85610; 85730; 86850; 86900; 86901; 87040; 87045; 87046; 87324; 87328; 87329; 94640; 94760; 96361; 96374; 96375; 96376; 99285

== ENCOUNTER 2022-02-18 11:54 | Inpatient (IN) | payer MEDICARE ==
[2022-02-18 12:04] VITALS: TEMP 98.5
[2022-02-18] MEDS ORDERED: SODIUM CHLORIDE 0.9% 1,000 ML IV STA ×2 (12:05)
[2022-02-18] MEDS ORDERED: cefTRIAXone IN SWFI 1,000 MG/10 ML SYRINGE IVP STA (12:10)
--- NOTE | 2022-02-18 12:15 | ED ---
General Adult HPI - General Chief complaint: Syncope Stated complaint: Fall Time Seen by Provider: 02/18/22 11:59 Source: patient, EMS, RN notes reviewed, old records reviewed Mode of arrival: EMS Limitations: physical limitation - History of Present Illness Initial comments: 61-year-old male with metastatic cancer presenting for evaluation of syncope. History is very limited on this patient. He was transported by EMS, tachycardic, hypotensive and hypoxic. He is unable to give exact history. 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 He reports diffuse pain throughout his entire body without specific localizing feature. He denies fever. He also states he's had diarrhea which she describes this significant. He denies central chest pain. He has previous history of alcohol abuse but states he is currently not drinking and hasn't had a drink in several months. Patient is in extremis upon arrival. He does endorse that he is a full code. - Related Data Home Medications Medication Instructions Recorded Confirmed Atorvastatin [Lipitor] 40 mg PO HS 06/29/18 02/11/22 Metoprolol Tartrate [Lopressor] 25 mg PO BID 06/27/20 02/11/22 HYDROcodone/APAP 10-325MG [[place] 1 tab PO Q4HR PRN 01/04/22 02/11/22 10-325] OLANZapine 5 mg PO DIRECTED PRN 01/13/22 02/11/22 Omeprazole 40 mg PO DAILY 01/13/22 02/11/22 Ondansetron Odt [Zofran ODT] 4 mg PO Q4H PRN 01/13/22 02/11/22 Sennosides-Docusate Sodium 2 tab PO BID 01/13/22 02/11/22 [Senokot-S] Previous Rx's Medication Instructions Recorded Cholestyramine (with Sugar) 4 gm PO BID@1000,1800 30 Days #60 01/28/22 [Questran Packet] packet Furosemide [Lasix] 40 mg PO DAILY 5 Days #5 tab 01/28/22 Vancomycin Oral Solution 125 mg PO QID 7 Days #70 ml 01/28/22 fentaNYL 25MCG/HR PATCH [Duragesic 1 patch TRANSDERM Q72H #1 patch 01/28/22 25MCG/HR] Allergies Allergy/AdvReac Type Severity Reaction Status Date / Time Sulfa (Sulfonamide Allergy Unknown Verified 02/18/22 15:23 Antibiotics) morphine AdvReac Ineffective Verified 02/18/22 15:23 Review of Systems ROS Statement: Those systems with pertinent positive or pertinent negative responses have been documented in the HPI. ROS Other: All systems not noted in ROS Statement are negative. Past Medical History Past Medical History: Cancer Additional Past Medical History / Comment(s): 2018 L lung cancer with surgery, recently found to have metastatic cancer to liver, bone and esophagus per pt, pt states he had his first chemotherapy treatment on 01/11/22, past bowel obstruction/perforation with surgery, lower GI bleed, IBS, chron's, large ventr al hernia, chronic low back pain, past ETOH abuse, pancreatitis. History of Any Multi-Drug Resistant Organisms: None Reported Date of last positivie culture/infection: 01/17/22 MDRO Source:: stool Past Surgical History: Back Surgery, Bowel Resection, Heart Catheterization, Orthopedic Surgery, Tonsillectomy Additional Past Surgical History / Comment(s): 01/06/22 EGD, 12/02/21 liver biopsy, 06/2018 left thoracotomy with wedge resection upper lobe and lymph node dissection, colonoscopy, bowel resection due to perforation, fractured bilateral little fingers - pins placed and later removed. Past Anesthesia/Blood Transfusion Reactions: No Reported Reaction Past Psychological History: No Psychological Hx Reported Smoking Status: Former smoker Past Alcohol Use History: None Reported Past Drug Use History: None Reported - Past Family History Father Family Medical History: Cancer Additional Family Medical History / Comment(s): Lung cancer. Daughter(s) Family Medical History: Cancer Additional Family Medical History / Comment(s): Breast cancer. General Exam Limitations: physical limitation General appearance: lethargic, in distress Head exam: Present: atraumatic, normocephalic Eye exam: Present: PERRL ENT exam: Present: mucous membranes dry Neck exam: Present: full ROM, other (Positive JVD). Absent: lymphadenopathy Respiratory exam: Present: respiratory distress, rales, accessory muscle use, decreased breath sounds Cardiovascular Exam: Present: normal rhythm, tachycardia GI/Abdominal exam: Present: soft, distended, other (Fluid wave). Absent: tenderness Extremities exam: Present: pedal edema Neurological exam: Present: alert. Absent: motor sensory deficit Skin exam: Present: warm, dry, intact Course Vital Signs 02/18/22 02/18/22 02/18/22 11:59 12:17 13:00 Temperature 98.5 F Pulse Rate 145 H 142 H 141 H Respiratory 28 H 28 H 18 Rate Blood Pressure 79/52 88/47 87/50 O2 Sat by Pulse 100 92 L Oximetry 02/18/22 02/18/22 02/18/22 13:30 14:00 14:38 Temperature Pulse Rate 137 H 106 H 121 H Respiratory Rate Blood Pressure 85/52 86/36 72/51 O2 Sat by Pulse Oximetry 02/18/22 15:00 Temperature Pulse Rate 126 H Respiratory 22 Rate Blood Pressure 92/68 O2 Sat by Pulse Oximetry - Reevaluation(s) Reevaluation #1: 02/18/22 14:32 Dr. Iniguez had discussed the patient's care with family and the patient is currently a DO NOT RESUSCITATE. EKG Findings - EKG Comments: EKG Findings:: EKG: Sinus tachycardia T-wave inversion throughout the precordial leads no ST segment elevation, rate of 144, AL interval 111, QRS duration 82, QTC 334 Medical Decision Making - Medical Decision Making 61-year-old male with syncope, likely secondary to sepsis. Patient is tachycardic, hypotensive, hypoxic upon arrival. He's very ill appearing. His abdomen is distended with fluid wave. He has metastatic lung cancer and recurrent ascites. Patient has significant lab abnormalities including pancytopenia, leukopenia, anemia and very low platelets. He has multiple [employer] abnormalities. He has a high lactic of 7. Magnesium 1.3. His chest x-ray shows concern for pneumonia. Patient is started on broad-spectrum antibiotics including initial dose of ceftriaxone followed by cefepime and vancomycin. Patient has abdominal ascites, peripheral edema, JVD. He significantly overloaded however IV fluids are administered in the setting of suspected infection and sepsis. Patient has a very poor prognosis at this time. Family is aware. 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 Differential Comment Manual Slide Review Performed Hypochromasia Slight Poikilocytosis (manual Present Anisocytosis Slight Macrocytosis Slight PT 33.5 H (9.0-12.0) sec INR 3.4 H (<1.2) APTT 44.1 H (22.0-30.0) sec Sodium 131 L (137-145) mmol/L Potassium 5.1 (3.5-5.1) mmol/L Chloride 104 (98-107) mmol/L Carbon Dioxide 15 L (22-30) mmol/L Anion Gap 12 mmol/L BUN 22 H (9-20) mg/dL Creatinine 1.51 H (0.66-1.25) mg/dL Est GFR (CKD-EPI)AfAm 58 (>60 ml/min/1.73 sqM) Est GFR (CKD-EPI)NonAf 50 (>60 ml/min/1.73 sqM) Glucose 41 L* (74-99) mg/dL POC Glucose (mg/dL) (70-110) mg/dL POC Glu Feed Preparation Operator ID Lactic Ac Sepsis Rflx Plasma Lactic Acid Shashi (0.7-2.0) mmol/L Calcium 6.8 L (8.4-10.2) mg/dL Magnesium 1.3 L (1.6-2.3) mg/dL Total Bilirubin 2.8 H (0.2-1.3) mg/dL AST 42 (17-59) U/L ALT 18 (4-49) U/L Alkaline Phosphatase 68 (38-126) U/L Ammonia (<30) umol/L Troponin I (0.000-0.034) ng/mL NT-Pro-B Natriuret Pep pg/mL Total Protein 5.4 L (6.3-8.2) g/dL Albumin 2.2 L (3.5-5.0) g/dL 06/24/22 06/24/22 06/24/22 Range/Units 12:11 12:11 12:12 WBC (3.8-10.6) k/uL RBC (4.30-5.90) m/uL Hgb (13.0-17.5) gm/dL Hct (39.0-53.0) % MCV (80.0-100.0) fL MCH (25.0-35.0) pg MCHC (31.0-37.0) g/dL RDW (11.5-15.5) % Plt Count (150-450) k/uL MPV Neutrophils # Differential Comment Manual Slide Review Hypochromasia Poikilocytosis (manual Anisocytosis Macrocytosis PT (9.0-12.0) sec INR (<1.2) APTT (22.0-30.0) sec Sodium (137-145) mmol/L Potassium (3.5-5.1) mmol/L Chloride (98-107) mmol/L Carbon Dioxide (22-30) mmol/L Anion Gap mmol/L BUN (9-20) mg/dL Creatinine (0.66-1.25) mg/dL Est GFR (CKD-EPI)AfAm (>60 ml/min/1.73 sqM) Est GFR (CKD-EPI)NonAf (>60 ml/min/1.73 sqM) Glucose (74-99) mg/dL POC Glucose (mg/dL) (70-110) mg/dL POC Glu Feed Preparation Operator ID Lactic Ac Sepsis Rflx Plasma Lactic Acid Shashi 7.0 H* (0.7-2.0) mmol/L Calcium (8.4-10.2) mg/dL Magnesium (1.6-2.3) mg/dL Total Bilirubin (0.2-1.3) mg/dL AST (17-59) U/L ALT (4-49) U/L Alkaline Phosphatase (38-126) U/L Ammonia <9 (<30) umol/L Troponin I 0.031 (0.000-0.034) ng/mL NT-Pro-B Natriuret Pep 69080 pg/mL Total Protein (6.3-8.2) g/dL Albumin (3.5-5.0) g/dL 02/18/22 02/18/22 Range/Units 13:02 14:01 WBC (3.8-10.6) k/uL RBC (4.30-5.90) m/uL Hgb (13.0-17.5) gm/dL Hct (39.0-53.0) % MCV (80.0-100.0) fL MCH (25.0-35.0) pg MCHC (31.0-37.0) g/dL RDW (11.5-15.5) % Plt Count (150-450) k/uL MPV Neutrophils # Differential Comment Manual Slide Review Hypochromasia Poikilocytosis (manual Anisocytosis Macrocytosis PT (9.0-12.0) sec INR (<1.2) APTT (22.0-30.0) sec Sodium (137-145) mmol/L Potassium (3.5-5.1) mmol/L Chloride (98-107) mmol/L Carbon Dioxide (22-30) mmol/L Anion Gap mmol/L BUN (9-20) mg/dL Creatinine (0.66-1.25) mg/dL Est GFR (CKD-EPI)AfAm (>60 ml/min/1.73 sqM) Est GFR (CKD-EPI)NonAf (>60 ml/min/1.73 sqM) Glucose (74-99) mg/dL POC Glucose (mg/dL) 66 L (70-110) mg/dL POC Glu Feed Preparation Operator ID Jennifer Marmolejo Lactic Ac Sepsis Rflx Y Plasma Lactic Acid Shashi (0.7-2.0) mmol/L Calcium (8.4-10.2) mg/dL Magnesium (1.6-2.3) mg/dL Total Bilirubin (0.2-1.3) mg/dL AST (17-59) U/L ALT (4-49) U/L Alkaline Phosphatase (38-126) U/L Ammonia (<30) umol/L Troponin I (0.000-0.034) ng/mL NT-Pro-B Natriuret Pep pg/mL Total Protein (6.3-8.2) g/dL Albumin (3.5-5.0) g/dL Critical Care Time Critical Care Time: Yes Total Critical Care Time: 35 Disposition Clinical Impression: Metastases to the liver, Sepsis Disposition: ADMITTED IP TO THIS HOSP Condition: Poor Is patient prescribed a controlled substance at d/c from ED?: No Time of Disposition: 14:46
[2022-02-18 12:47] LABS: Calcium 6.8 mg/dL (8.4-10.2); INR 3.4 (<1.2); Partial Thromboplastin Time 44.1 sec (22.0-30.0); Prothrombin Time 33.5 sec (9.0-12.0); Total Bilirubin 2.8 mg/dL (0.2-1.3)
--- NOTE | 2022-02-18 12:52 | XR ---
EXAMINATION TYPE: XR chest 1V portable DATE OF EXAM: 02/18/2022 COMPARISON: Chest x-ray 01/20/2022 HISTORY: Syncope, difficulty breathing TECHNIQUE: Single frontal view of the chest is obtained. FINDINGS: There is been interval development of abnormal attenuation at the left lung base, the left hemidiaphragm and left heart border are secured. Patient is rotated. No evident pneumothorax. There is underlying emphysematous change. Patchy density, stranding at the right lung base persists. Aorta is dense. IMPRESSION: Correlate for left lower lobe pneumonia versus atelectasis and associated effusion, ther e is underlying emphysema, chronic scarring right lung base
[2022-02-18 12:56] LABS: Potassium 5.1 mmol/L (3.5-5.1)
[2022-02-18 12:57] LABS: Albumin 2.2 g/dL (3.5-5.0); Magnesium 1.3 mg/dL (1.6-2.3); Total Protein 5.4 g/dL (6.3-8.2)
[2022-02-18] MEDS ORDERED: DEXTROSE 50% SYRINGE 50 ML IVP STA (12:58)
[2022-02-18] MEDS ORDERED: fentaNYL (PF) 50 MCG/ML 2 ML AMP IVP STA (13:02)
[2022-02-18] MEDS ORDERED: SODIUM CHLORIDE 0.9% 500 ML 500 ML IV ONE ×2 (13:18→13:46)
[2022-02-18] MEDS ORDERED: MAGNESIUM SULFATE-D5W PMX 1 GM in DEXTROSE/WATER 1 100ML.BAG IVPB ONE (13:18)
[2022-02-18 13:20] LABS: Anisocytosis Slight; HCT 22.5 % (39.0-53.0); Hypochromasia Slight; MCH 32.5 pg (25.0-35.0); MCHC 33.2 g/dL (31.0-37.0); MCV 97.9 fL (80.0-100.0); Macrocytosis Slight; Mean Platelet Volume 9.6; RDW 17.8 % (11.5-15.5)
[2022-02-18 13:41] LABS: HGB 7.5 gm/dL (13.0-17.5); WBC 0.3 k/uL (3.8-10.6)
[2022-02-18 13:42] LABS: Platelet Count 8 k/uL (150-450)
[2022-02-18] MEDS ORDERED: CEFEPIME 2 GM in SODIUM CHLORIDE 0.9% 100 ML IVPB STA (13:46)
[2022-02-18 13:47] LABS: Poikilocytosis (M) Present
[2022-02-18] MEDS ORDERED: VANCOMYCIN IV PER PHARMACY 1 EACH MISC MISCELLANE PRN (13:47)
[2022-02-18 14:02] LABS: Glucose,Whole Blood 66 mg/dL (70-110)
[2022-02-18] MEDS ORDERED: VANCOMYCIN 1,250 MG in SODIUM CHLORIDE 0.9% 250 ML IVPB ONE (14:30)
[2022-02-18] MEDS ORDERED: ACETAMINOPHEN TAB 325 MG TAB PO PRN (14:31)
[2022-02-18] MEDS ORDERED: NALOXONE 0.4 MG/ML 1 ML VIAL IV PRN (14:31)
[2022-02-18] MEDS ORDERED: MORPHINE SULFATE 2 MG/ML SYRINGE IVP STA (15:10)
[2022-02-18 15:13] VITALS: BP 92/68; PULSE 126; RESP 22
--- NOTE | 2022-02-18 16:41 | P.HPIM ---
History of Present Illness this is a pleasant 61 yo M with past medical history of metastatic cancer , poorly differentiated non-small cell carcinoma. With unknown primary site per previous notes. possible sources including lung cancer , Esophageal cancer is also suspected , 2018 L lung cancer with surgery, a status post ESTEPHANIE lobectomy, further imaging showed metastatic disease to the liver and sternum. Patient has been followed closely by hematology/oncology team. They have evaluated him on previous occasions on previous admission. 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 Pancytopenia, thought secondary to chemotherapy. Lower GI bleed, irritable bowel syndrome, Crohn's disease, large ventral hernia, chronic low back pain, COPD, his previous smoker. This is the third admission in 3 months. Last admission last month was for C. diff colitis, abdominal pain secondary to malignancy coagulopathy and pancytopenia besides other medical problems. This time he presents because of a syncopal episode. Patient when I saw him in the emergency room. He was awake and alert, very pale and tired. He knows in the hospital and he knows he had cancer with metastasis, he was complaining of from syncopal episode also he was stating that is been having diarrhea for 3-4 days, also patient was significantly tachypneic, he was almost gasping for air, he could not talk further because of his tiredness and because of his significant dyspnea. He denies chest pain. No urinary complaints. On admission he was hypotensive and tachycardic 145, 79/52, and his tachypnea was up to 28. Later on his heart rate came down around 120s however her blood pressure was still 92/68 and he was on 2-3 L oxygen via nasal cannula. His abdomen was distended and his legs were significantly swollen. Labs was reviewed. Shows severe pancytopenia with WBC 0.3, hemoglobin 7.5 and platelet count 8. INR is elevated at 3.4 Sodium is 131, creatinine 1.5, glucose was low at 66, elevated lactic acid at 7.0. Magnesium was low at 1.3. Ammonia less than 9. Troponin is negative and proBNP is elevated at 33,000. EKG showing sinus tachycardia at 144, QTC 334, no significant ST-T changes Chest x-ray showing left lower lobe pneumonia versus atelectasis and associated effusion. There is underlying emphysema, chronic scarring in the right lung base In the emergency room he received aggressive hydration and antibiotic with vancomycin and ceftriaxone, and cefepime, electrolytes been replaced. Also patient received D50. I talked to the patient about his diagnosis, problems and management plan and CODE STATUS, he asked me to talk to his doctor Jose who is also his power of contracts attorney as she told me when I call her on [phone]. I discussed the case with her, she told me that she knew that her father was sick from his nurse there was some plans for him to go for hospice and she didn't know that he is been in the hospital, I updated her about his condition and his prognosis which was basically poor. On admission patient was full code but after discussion with the patient himself and the daughter Jose upon his request both agreed for DO NOT RESUSCITATE, DO NOT INTUBATE. Which looks very appropriate. His chances of survival from good are very low given his advanced multiple medical problems. And station might have more harm than benefits. As above both daughter and patient agrees for DO NOT RESUSCITATE. Review of Systems N/a patient could not provide much information because of his tiredness and dyspnea Past Medical History Past Medical History: Cancer Additional Past Medical History / Comment(s): 2018 L lung cancer with surgery, recently found to have metastatic cancer to liver, bone and esophagus per pt, pt states he had his first chemotherapy treatment on 01/11/22, past bowel obstruction/perforation with surgery, lower GI bleed, IBS, chron's, large yara tral hernia, chronic low back pain, past ETOH abuse, pancreatitis. History of Any Multi-Drug Resistant Organisms: None Reported Date of last positivie culture/infection: 01/17/22 MDRO Source:: stool Past Surgical History: Back Surgery, Bowel Resection, Heart Catheterization, Orthopedic Surgery, Tonsillectomy Additional Past Surgical History / Comment(s): 01/06/22 EGD, 12/02/21 liver biopsy, 06/2018 left thoracotomy with wedge resection upper lobe and lymph node dissection, colonoscopy, bowel resection due to perforation, fractured bilateral little fingers - pins placed and later removed. Past Anesthesia/Blood Transfusion Reactions: No Reported Reaction Past Psychological History: No Psychological Hx Reported Smoking Status: Former smoker Past Alcohol Use History: None Reported Past Drug Use History: None Reported - Past Family History Father Family Medical History: Cancer Additional Family Medical History / Comment(s): Lung cancer. Daughter(s) Family Medical History: Cancer Additional Family Medical History / Comment(s): Breast cancer. Medications and Allergies Home Medications Medication Instructions Recorded Confirmed Type Atorvastatin [Lipitor] 40 mg PO HS 06/29/18 02/11/22 History Metoprolol Tartrate [Lopressor] 25 mg PO BID 06/27/20 02/11/22 History HYDROcodone/APAP 10-325MG [[place] 1 tab PO Q4HR PRN 01/04/22 02/11/22 History 10-325] OLANZapine 5 mg PO DIRECTED PRN 01/13/22 02/11/22 History Omeprazole 40 mg PO DAILY 01/13/22 02/11/22 History Ondansetron Odt [Zofran ODT] 4 mg PO Q4H PRN 01/13/22 02/11/22 History Sennosides-Docusate Sodium 2 tab PO BID 01/13/22 02/11/22 History [Senokot-S] Cholestyramine (with Sugar) 4 gm PO BID@1000,1800 30 Days #60 01/28/22 02/11/22 Rx [Questran Packet] packet Furosemide [Lasix] 40 mg PO DAILY 5 Days #5 tab 01/28/22 02/11/22 Rx Vancomycin Oral Solution 125 mg PO QID 7 Days #70 ml 01/28/22 02/11/22 Rx fentaNYL 25MCG/HR PATCH [Duragesic 1 patch TRANSDERM Q72H #1 patch 01/28/22 02/11/22 Rx 25MCG/HR] Allergies Allergy/AdvReac Type Severity Reaction Status Date / Time Sulfa (Sulfonamide Allergy Unknown Verified 02/18/22 15:23 Antibiotics) morphine AdvReac Ineffective Verified 02/18/22 15:23 Physical Exam Vitals: Vital Signs Temp Pulse Resp BP Pulse Ox 02/18/22 13:00 141 H 18 87/50 02/18/22 12:17 142 H 28 H 88/47 92 L 02/18/22 11:59 98.5 F 145 H 28 H 79/52 100 Intake and Output 02/17/22 02/18/22 02/18/22 22:59 06:59 14:59 Other: Weight 68 kg -GENERAL: The patient is severe respiratory distress, fully awake and oriented to time, place and person. He follows commands, -HEENT: Pupils are round and equally reacting to light. EOMI. No scleral icterus. No conjunctival pallor. Normocephalic, atraumatic. No pharyngeal erythema. No thyromegaly. Patient is pale CARDIOVASCULAR: S1 and S2 present. No murmurs, rubs, or gallops. -PULMONARY: Chest is clear to auscultation, bilateral crackers and left-sided bronchial breathing. He is very tachypneic and almost gasping for air -ABDOMEN: Soft, RUQ tenderness, no rebound tenderness, distended, normoactive bowel sounds. No palpable organomegaly. MUSCULOSKELETAL: No joint swelling or deformity. -EXTREMITIES: No cyanosis, clubbing, . 3+ bilateral pitting leg edema NEUROLOGICAL: Gross neurological examination did not reveal any focal deficits. SKIN: No rashes. no petechiae. Results CBC & Chem 7: 02/18/22 12:11 02/18/22 12:11 Labs: Abnormal Lab Results - Last 24 Hours (Table) 02/18/22 02/18/22 02/18/22 Range/Units 12:11 12:11 12:11 WBC 0.3 L* (3.8-10.6) k/uL RBC 2.30 L (4.30-5.90) m/uL Hgb 7.5 L D (13.0-17.5) gm/dL Hct 22.5 L (39.0-53.0) % RDW 17.8 H (11.5-15.5) % Plt Count 8 L* D (150-450) k/uL PT 33.5 H (9.0-12.0) sec INR 3.4 H (<1.2) APTT 44.1 H (22.0-30.0) sec Sodium 131 L (137-145) mmol/L Carbon Dioxide 15 L (22-30) mmol/L BUN 22 H (9-20) mg/dL Creatinine 1.51 H (0.66-1.25) mg/dL Glucose 41 L* (74-99) mg/dL Plasma Lactic Acid Yara (0.7-2.0) mmol/L Calcium 6.8 L (8.4-10.2) mg/dL Magnesium 1.3 L (1.6-2.3) mg/dL Total Bilirubin 2.8 H (0.2-1.3) mg/dL Total Protein 5.4 L (6.3-8.2) g/dL Albumin 2.2 L (3.5-5.0) g/dL 02/18/22 Range/Units 12:12 WBC (3.8-10.6) k/uL RBC (4.30-5.90) m/uL Hgb (13.0-17.5) gm/dL Hct (39.0-53.0) % RDW (11.5-15.5) % Plt Count (150-450) k/uL PT (9.0-12.0) sec INR (<1.2) APTT (22.0-30.0) sec Sodium (137-145) mmol/L Carbon Dioxide (22-30) mmol/L BUN (9-20) mg/dL Creatinine (0.66-1.25) mg/dL Glucose (74-99) mg/dL Plasma Lactic Acid Yara 7.0 H* (0.7-2.0) mmol/L Calcium (8.4-10.2) mg/dL Magnesium (1.6-2.3) mg/dL Total Bilirubin (0.2-1.3) mg/dL Total Protein (6.3-8.2) g/dL Albumin (3.5-5.0) g/dL Assessment and Plan Assessment: Hospital-acquired left lower lobe pneumonia poorly differentiated non-small cell carcinoma. Cystoscopy lung or esophagus, with multiple masses in the liver secondary to metastatic liver disease, and to the bone including sternum Severe sepsis with multiorgan failure including kidney, lung and blood as well as liver failure suspected with high INR. Acute gastroenteritis, could BE infectious versus inflammatory versus reactive Fluid overload Severe pancytopenia Coagulopathy Mild hyponatremia Acute kidney injury Hypoglycemia Elevated lactic acid Sinus tachycardia Plan: This is a 61 years old male with severe sepsis, metastatic of her disease, Continue with antibiotic Continue with aggressive hydration Pain management D50 when necessary for hypoglycemia Pulmonary team consult CODE STATUS: no code, per my discussion with the patient and daughter jose DVT prophylaxis, patient already coagulopathic and severely thrombocytopenic, antegrade patient is contraindicated His prognosis is very poor and I discussed that with the patient and he wants to wait for that. Family were planning to come and visit him and then we'll decide about talking to hospice as per my discussion with Jose his daughter
[2022-02-19] MEDS ORDERED: CEFEPIME 2 GM in SODIUM CHLORIDE 0.9% 100 ML IVPB SCH ×2
[2022-02-19] MEDS ORDERED: VANCOMYCIN 1,250 MG in SODIUM CHLORIDE 0.9% 250 ML IVPB SCH (02:00)
--- NOTE | 2022-02-23 12:41 | CDI ---
Documentation Clarification Form Date: 02/23/2022 12:14:47 PM From: Chey Rios RN, CCDS Email: [email or web address] Admit Date: 02/18/2022 02:31:00 PM Patient Name: Bakari Sevilla Visit Number: [id number] Discharge Date: 02/18/2022 05:32:00 PM ATTENTION: The Clinical Documentation Specialists (CDI) and [facility] Coding Staff appreciate your assistance in clarifying documentation. Please respond to the clarification below the line at the bottom and electronically sign. The CDI & [facility] Coding staff will review the response and follow-up if needed. Please note: Queries are made part of the Legal Health Record. If you have any questions, please contact the author of this message via ITS. Dr. Nieves E Sheet Your patient had significant dyspnea and gasping for air. Based on this information and the findings below, is there an additional diagnosis that is clinically appropriate for this patient? Patient history/risk factors: lung cancer with mets to liver, bone and esophagus with chemotherapy, previous smoker, COPD and alcoholic liver disease. Admitted with sepsis and organ failure. Clinical Indicators: 02/18 H&P: He knows hes in the hospital and has cancer with metastasis. He was complaining of syncopal episode and diarrhea for 3-4 days. Also, patient was significantly tachypneic, he was almost gasping for air, and he could not talk further because of his tiredness and because of his significant dyspnea. 02/18 VS: HR 145, RR 28, BP 79/52, pox 92% 02/18 CXR: Correlate for left lower lobe pneumonia versus atelectasis and associated effusion, there is underlying emphysema, chronic scarring right lung base. Treatment: O2 15L non rebreather mask, O2 6LNC Is there an additional diagnosis that is clinically appropriate for this patient? [ ] Acute hypoxic respiratory failure [ ] Other, please specify [ ] Unable to determine acute hypoxic respiratory failure MTDD
== END 2022-02-18 17:32 | disposition expired | DRG 871 ==
LOC: EC 11:54 → 3SCARD 14:31
PROVIDERS: ADMIT Internal Medicine; ATTEND Internal Medicine
DX: A41.9 Sepsis, unspecified organism (principal); D61.810 Antineoplastic chemotherapy induced pancytopenia; J18.9 Pneumonia, unspecified organism; J96.01 Acute respiratory failure with hypoxia; C34.90 Malignant neoplasm of unspecified part of unspecified bronchus or lung; C78.7 Secondary malignant neoplasm of liver and intrahepatic bile duct; D68.9 Coagulation defect, unspecified; E87.1 Hypo-osmolality and hyponatremia; K50.90 Crohn's disease, unspecified, without complications; N17.9 Acute kidney failure, unspecified; R18.8 Other ascites; C15.9 Malignant neoplasm of esophagus, unspecified; J98.11 Atelectasis; E87.2 Acidosis; C79.51 Secondary malignant neoplasm of bone; J43.9 Emphysema, unspecified; K43.9 Ventral hernia without obstruction or gangrene; K70.40 Alcoholic hepatic failure without coma; I95.9 Hypotension, unspecified; F10.11 Alcohol abuse, in remission; R65.20 Severe sepsis without septic shock; Z66 Do not resuscitate; Z79.899 Other long term (current) drug therapy; Z80.1 Family history of malignant neoplasm of trachea, bronchus and lung; E16.2 Hypoglycemia, unspecified; T45.1X5A Adverse effect of antineoplastic and immunosuppressive drugs, initial encounter; Z80.3 Family history of malignant neoplasm of breast; Y95 Nosocomial condition; J98.4 Other disorders of lung; Z85.118 Personal history of other malignant neoplasm of bronchus and lung; Z87.891 Personal history of nicotine dependence; Z90.2 Acquired absence of lung [part of]; G89.29 Other chronic pain; Z87.19 Personal history of other diseases of the digestive system; Z90.89 Acquired absence of other organs; Z98.890 Other specified postprocedural states; Z88.5 Allergy status to narcotic agent; Z88.2 Allergy status to sulfonamides; K52.9 Noninfective gastroenteritis and colitis, unspecified
CPT/HCPCS: 36415; 71045; 80053; 82140; 83605; 83735; 83880; 84484; 85025; 85610; 85730; 87040; 93005; 96361; 96365; 96367; 96374; 96375; 99291